=== PATIENT | male | born 1960 | race Caucasian/White ===

== ENCOUNTER 2019-07-21 08:47 | Outpatient (RCR) | payer MEDICARE, SELFPAY | END 2019-10-19 23:59 | disposition home or self-care (01) | LOC: ANHDMC 08:47 | PROVIDERS: PCP Internal Medicine; Visit Provider Internal Medicine | DX: E11.9 Type 2 diabetes mellitus without complications (principal); Z71.89 Other specified counseling | CPT/HCPCS: G0108 ==

== ENCOUNTER 2019-10-28 10:15 | Outpatient (CLI) | payer MEDICARE, SELFPAY ==
[2019-10-28 11:05] LABS: Alanine Aminotransferase 24 U/L (4-50); Albumin Level 3.9 g/dL (3.5-5.1); Alkaline Phosphatase 83 U/L (38-126); Aspartate Amino Transferase 27 U/L (17-59); Bilirubin,Total 0.5 mg/dL (0.2-1.3); Blood Urea Nitrogen 18 mg/dL (9-20); Calcium 9.4 mg/dL (8.4-10.2); Carbon Dioxide 33 mmol/L (22-30); Chloride 97 mmol/L (98-107); Cholesterol 78 mg/dL (0-200); Estimated Glomerular Filt Rate > 60; Glucose 170 mg/dL (75-110); HDL Direct 26 mg/dL; Sodium 138 mmol/L (137-145); Triglycerides 98 mg/dL (<150)
[2019-10-28 11:13] LABS: Hemoglobin A1C 7.9 % (<5.7)
[2019-10-28 11:16] LABS: LDL Cholesterol Direct 36 mg/dL
[2019-10-28 11:35] LABS: Thyroid Stimulating Hormone 0.824 uIU/mL (0.465-4.680)
== END 2019-10-28 10:16 | disposition home or self-care (01) ==
PROVIDERS: PCP Internal Medicine; Visit Provider Internal Medicine
DX: E78.5 Hyperlipidemia, unspecified (principal); E11.9 Type 2 diabetes mellitus without complications; I10 Essential (primary) hypertension; Z79.899 Other long term (current) drug therapy; E03.9 Hypothyroidism, unspecified
CPT/HCPCS: 36415; 80053; 80061; 83036; 84443

== ENCOUNTER 2019-12-03 11:21 | Outpatient (RCR) | payer MEDICARE, SELFPAY | END 2020-03-02 23:59 | disposition home or self-care (01) | LOC: ANHDMC 11:21 | PROVIDERS: PCP Internal Medicine; Visit Provider Internal Medicine | DX: E11.9 Type 2 diabetes mellitus without complications (principal); Z71.89 Other specified counseling | CPT/HCPCS: G0108 ==

== ENCOUNTER 2020-02-04 09:21 | Outpatient (CLI) | payer MEDICARE, SELFPAY ==
[2020-02-04 10:45] LABS: Hemoglobin A1C 8.5 % (<5.7)
== END 2020-02-04 09:22 | disposition home or self-care (01) ==
PROVIDERS: PCP Internal Medicine; Visit Provider Nurse Practitioner
DX: E11.9 Type 2 diabetes mellitus without complications (principal)
CPT/HCPCS: 36415; 83036

== ENCOUNTER 2020-05-05 09:52 | Outpatient (CLI) | payer MEDICARE, SELFPAY ==
[2020-05-05 10:55] LABS: Alanine Aminotransferase 24 U/L (4-50); Albumin Level 4.3 g/dL (3.5-5.1); Alkaline Phosphatase 78 U/L (38-126); Anion Gap 7 mmol/L (8-16); Aspartate Amino Transferase 31 U/L (17-59); Bilirubin,Total 0.7 mg/dL (0.2-1.3); Blood Urea Nitrogen 21 mg/dL (9-20); Calcium 9.7 mg/dL (8.4-10.2); Carbon Dioxide 33 mmol/L (22-30); Chloride 100 mmol/L (98-107); Cholesterol 88 mg/dL (0-200); Estimated Glomerular Filt Rate > 60; Glucose 192 mg/dL (75-110); HDL Direct 27 mg/dL; Potassium 4.2 mmol/L (3.4-5.0); Sodium 140 mmol/L (137-145); Triglycerides 144 mg/dL (<150)
[2020-05-05 11:01] LABS: Hemoglobin A1C 8.8 % (<5.7)
[2020-05-05 11:06] LABS: LDL Cholesterol Direct 41 mg/dL
[2020-05-05 11:15] LABS: Creatinine Urine 108.4 mg/dL
[2020-05-05 11:20] LABS: MALB Creatinine Ratio 16.6 mg/g (0-30)
[2020-05-05 13:15] LABS: Prostate Specific Antigen 1.5 ng/mL (< OR = 4.0)
== END 2020-05-05 09:53 | disposition home or self-care (01) ==
LOC: ANHLAB 09:57
PROVIDERS: PCP Internal Medicine; Visit Provider Nurse Practitioner
DX: Z12.5 Encounter for screening for malignant neoplasm of prostate (principal); E11.9 Type 2 diabetes mellitus without complications; E03.9 Hypothyroidism, unspecified; E78.5 Hyperlipidemia, unspecified
CPT/HCPCS: 36415; 80053; 80061; 82043; 83036; 84153; 84443; G0103

== ENCOUNTER 2020-09-08 08:02 | Outpatient (CLI) | payer MEDICARE, SELFPAY ==
[2020-09-08 08:51] LABS: Alanine Aminotransferase 21 U/L (4-50); Albumin Level 4.1 g/dL (3.5-5.1); Alkaline Phosphatase 69 U/L (38-126); Anion Gap 3 mmol/L (8-16); Aspartate Amino Transferase 24 U/L (17-59); Bilirubin,Total 0.5 mg/dL (0.2-1.3); Blood Urea Nitrogen 24 mg/dL (9-20); Calcium 9.5 mg/dL (8.4-10.2); Carbon Dioxide 35 mmol/L (22-30); Chloride 101 mmol/L (98-107); Cholesterol 89 mg/dL (0-200); Estimated Glomerular Filt Rate > 60; Glucose 194 mg/dL (75-110); HDL Direct 30 mg/dL; Potassium 4.2 mmol/L (3.4-5.0); Sodium 139 mmol/L (137-145); Triglycerides 121 mg/dL (<150)
[2020-09-08 08:55] LABS: Hemoglobin A1C 8.4 % (<5.7)
[2020-09-08 09:02] LABS: LDL Cholesterol Direct 36 mg/dL
== END 2020-09-08 08:03 | disposition home or self-care (01) ==
LOC: ANHLAB 08:07
PROVIDERS: PCP Internal Medicine; Visit Provider Internal Medicine
DX: E11.9 Type 2 diabetes mellitus without complications (principal); I10 Essential (primary) hypertension; E03.9 Hypothyroidism, unspecified; E78.5 Hyperlipidemia, unspecified
CPT/HCPCS: 36415; 80053; 80061; 83036; 84443

== ENCOUNTER 2021-01-18 09:22 | Outpatient (CLI) | payer MEDICARE, SELFPAY ==
[2021-01-18 10:20] LABS: Alanine Aminotransferase 22 U/L (4-50); Albumin Level 4.3 g/dL (3.5-5.1); Alkaline Phosphatase 86 U/L (38-126); Anion Gap 9 mmol/L (8-16); Aspartate Amino Transferase 30 U/L (17-59); Bilirubin,Total 0.7 mg/dL (0.2-1.3); Blood Urea Nitrogen 28 mg/dL (9-20); Carbon Dioxide 27 mmol/L (22-30); Chloride 102 mmol/L (98-107); Cholesterol 110 mg/dL (0-200); Estimated Glomerular Filt Rate > 60; Glucose 170 mg/dL (75-110); HDL Direct 36 mg/dL; Potassium 4.1 mmol/L (3.4-5.0); Sodium 138 mmol/L (137-145); Triglycerides 145 mg/dL (<150)
[2021-01-18 10:30] LABS: Hemoglobin A1C 8.4 % (<5.7)
[2021-01-18 10:31] LABS: LDL Cholesterol Direct 48 mg/dL
[2021-01-24 03:46] LABS: Fructosamine 286 umol/L (205-285)
== END 2021-01-18 09:23 | disposition home or self-care (01) ==
LOC: ANHLAB 09:26
PROVIDERS: PCP Internal Medicine; Visit Provider Internal Medicine
DX: E03.9 Hypothyroidism, unspecified (principal); I10 Essential (primary) hypertension; Z51.81 Encounter for therapeutic drug level monitoring; Z79.899 Other long term (current) drug therapy
CPT/HCPCS: 36415; 80053; 80061; 82985; 83036; 84443

== ENCOUNTER 2021-05-25 09:24 | Outpatient (CLI) | payer MEDICARE, SELFPAY ==
[2021-05-25 09:57] LABS: Alanine Aminotransferase 28 U/L (4-50); Albumin Level 4.3 g/dL (3.5-5.1); Alkaline Phosphatase 83 U/L (38-126); Anion Gap 9 mmol/L (8-16); Aspartate Amino Transferase 30 U/L (17-59); Bilirubin,Total 0.6 mg/dL (0.2-1.3); Blood Urea Nitrogen 23 mg/dL (9-20); Calcium 9.8 mg/dL (8.4-10.2); Carbon Dioxide 33 mmol/L (22-30); Chloride 98 mmol/L (98-107); Cholesterol 96 mg/dL (0-200); Estimated Glomerular Filt Rate > 60; Glucose 208 mg/dL (65-110); HDL Direct 28 mg/dL; Hemoglobin A1C 8.8 % (<5.7); Potassium 3.9 mmol/L (3.4-5.0); Sodium 140 mmol/L (137-145); Triglycerides 166 mg/dL (<150)
[2021-05-25 10:07] LABS: LDL Cholesterol Direct 46 mg/dL
[2021-05-25 10:12] LABS: Creatinine Urine 123.2 mg/dL
[2021-05-25 10:17] LABS: MALB Creatinine Ratio 57.9 mg/g (0-30); Microalbumin Urine Random 71.3 mg/L (0-16.7)
[2021-05-25 10:28] LABS: Prostate Specific Antigen 1.8 ng/mL (< OR = 4.0)
== END 2021-05-25 09:25 | disposition home or self-care (01) ==
PROVIDERS: PCP Internal Medicine; Visit Provider Nurse Practitioner
DX: E78.2 Mixed hyperlipidemia (principal); E11.9 Type 2 diabetes mellitus without complications; Z12.5 Encounter for screening for malignant neoplasm of prostate; E03.9 Hypothyroidism, unspecified
CPT/HCPCS: 36415; 80053; 80061; 82043; 83036; 84153; 84443; G0103

== ENCOUNTER 2021-09-27 10:13 | Outpatient (CLI) | payer MEDICARE, SELFPAY ==
[2021-09-27 10:44] LABS: Hemoglobin A1C 8.6 % (<5.7)
[2021-09-27 11:06] LABS: Alanine Aminotransferase 24 U/L (4-50); Albumin Level 4.2 g/dL (3.5-5.1); Alkaline Phosphatase 84 U/L (38-126); Anion Gap 6 mmol/L (8-16); Aspartate Amino Transferase 28 U/L (17-59); Bilirubin,Total 0.5 mg/dL (0.2-1.3); Blood Urea Nitrogen 26 mg/dL (9-20); Calcium 9.3 mg/dL (8.4-10.2); Carbon Dioxide 31 mmol/L (22-30); Chloride 101 mmol/L (98-107); Cholesterol 92 mg/dL (0-200); Estimated Glomerular Filt Rate > 60; Glucose 179 mg/dL (65-110); HDL Direct 27 mg/dL; Potassium 3.9 mmol/L (3.4-5.0); Sodium 138 mmol/L (137-145); Triglycerides 155 mg/dL (<150)
[2021-09-27 11:17] LABS: LDL Cholesterol Direct 43 mg/dL
== END 2021-09-27 10:14 | disposition home or self-care (01) ==
LOC: ANHLAB 10:17
PROVIDERS: PCP Internal Medicine; Visit Provider Nurse Practitioner
DX: E11.9 Type 2 diabetes mellitus without complications (principal); E78.5 Hyperlipidemia, unspecified
CPT/HCPCS: 36415; 80053; 80061; 83036

== ENCOUNTER 2022-09-01 17:08 | Emergency (ER) | payer MEDICARE, SELFPAY ==
[2022-09-01 17:11] VITALS: BP 178/92; PULSE 92; RESP 20; TEMP 36.4; O2SAT 99
--- NOTE | 2022-09-01 17:17 | ED.GENADULT ---
HPI - General Adult General Chief complaint: Unspecified Stated complaint: htn Time Seen by Provider: 09/01/22 17:17 Source: patient and old records reviewed Mode of arrival: ambulatory Limitations: no limitations History of Present Illness HPI narrative: Patient is a 61 y/o male who presents to the ED with c/o HTN. Patient has long Hx of HTN and takes Hydrochlorothiazide 12.5mg daily, metoprolol 25mg bid, and losartan 100mg daily. He states he did not previously routinely check his blood pressure. He saw his primary care doctor last week which point his blood pressure was noted to be in the 150s and 160s systolic. He was advised to check his blood pressures at home, keep recording of his numbers, and report back in 3 weeks. Patient reports he has been checking his blood pressure 3 times a week. He states his pressures have been elevated persistently in the 160s and 170s systolic. Tonight when he got home from work, he noted his BP to be in the 180s systolic, which prompted his presentation. He did not attempt to contact his primary care doctor. Patient reports occasional headaches, but denies any currently. Denies dizziness, lightheadedness, vision changes, chest pain, difficulty breathing, fatigue, numbness, nausea, vomiting. Related Data Home Medications Medication Instructions Recorded Confirmed aspirin 81 mg tablet,delayed 81 mg PO DAILY 07/07/19 08/24/22 release (Adult Aspirin Regimen) ezetimibe 10 mg tablet 10 mg PO DAILY 07/07/19 08/24/22 sildenafil (pulm.hypertension) 20 20 mg PO TID PRN 01/24/21 08/24/22 mg tablet dapagliflozin 10 mg tablet 10 mg PO DAILY 08/24/22 08/24/22 Allergies Allergy/AdvReac Type Severity Reaction Status Date / Time inositol Allergy Unknown Unknown Verified 08/24/22 12:22 lisinopril Allergy Unknown Cough Verified 08/24/22 12:22 niacin Allergy Unknown Unknown Verified 08/24/22 12:22 niacinamide Allergy Unknown Unknown Verified 08/24/22 12:22 Review of Systems Review of Systems: CONSTITUTIONAL: Denies fever, chills, or sweats. EYES: Denies visual changes. CARDIOVASCULAR: Denies chest pain, palpitations, or edema. RESPIRATORY: Denies dyspnea. GASTROINTESTINAL: Denies abdominal pain, nausea, vomiting, or diarrhea. NEUROLOGIC: See HPI. All systems reviewed & are unremarkable except as noted in HPI and below [facility] Past Medical History Medical History CAD (coronary artery disease) Cataracts, bilateral Diabetes mellitus Diverticulitis DJD of shoulder Eczema Foot fracture GERD (gastroesophageal reflux disease) History of angina HLD (hyperlipidemia) HTN (hypertension) Hypothyroid Myocardial infarction Seasonal allergies Surgical History Surgical History H/O cystoscopy History of bowel resection History of colonoscopy History of exploratory laparotomy History of total left knee replacement History of total right knee replacement Hx of CABG Family History Family History Father Family history of diabetes mellitus in first degree relative Family history of pancreatic cancer Mother Family history of diabetes mellitus in first degree relative Family history of heart disease in male family member before age 55 Sibling Family history of lung cancer Other Asthma Diabetes mellitus Family history of arthritis Family history of malignant neoplasm Family history of malignant neoplasm of brain Hypertension Social History Social History Smoking packs per day: 1 Smoking cigarettes per day: 20.0 Years smoked: 40 Smoking pack-years: 40.00 Smoking status: Former smoker Tobacco type: cigarettes Second hand tobacco smoke exposure: No Smoking end date: 07/29/12 Alcohol intake: never Substance use: never Substance
[2022-09-01 18:21] VITALS: BP 171/100; PULSE 89; RESP 17; O2SAT 100
--- NOTE | 2022-09-01 18:22 | PC.NURSE ---
Repeat VS taken and documented. Provider states she is waiting return call from patient's physician. Pt asymptomatic with HTN.
[2022-09-01 18:47] VITALS: BP 173/100; PULSE 92; RESP 14; O2SAT 96
== END 2022-09-01 18:49 | disposition home or self-care (01) ==
PROVIDERS: Emergency Provider Physician Assistant; PCP Internal Medicine
DX: I10 Essential (primary) hypertension (principal); I25.10 Atherosclerotic heart disease of native coronary artery without angina pectoris; E11.9 Type 2 diabetes mellitus without complications; E78.5 Hyperlipidemia, unspecified; I25.2 Old myocardial infarction; Z87.891 Personal history of nicotine dependence
CPT/HCPCS: 99281

== ENCOUNTER 2024-07-26 00:08 | Emergency (ER) | payer MEDICARE, SELFPAY ==
[2024-07-26 00:18] VITALS: BP 161/84; PULSE 89; RESP 18; TEMP 35.6; O2SAT 100
[2024-07-26 01:08] VITALS: BP 141/84; PULSE 87; RESP 16; O2SAT 98
--- NOTE | 2024-07-26 01:26 | ED_ITS ---
HPI - Back Pain/Injury General Chief Complaint: Back Pain/Injury <Marquise Marina PA-C - Last Filed: 07/26/24 02:13> Stated Complaint: back pain <JESSE Fish Last Filed: 07/26/24 02:13> Time Seen by Provider: 07/26/24 01:21 <JESSE Fish Last Filed: 07/26/24 02:13> Source: patient <JESSE Fish Last Filed: 07/26/24 02:13> Mode of arrival: ambulatory <JESSE Fish Last Filed: 07/26/24 02:13> Limitations: no limitations <JESSE Fish Last Filed: 07/26/24 02:13> History of Present Illness HPI Narrative: This is a 63-year-old male who presents to the ED for chief complaint of right lower back pain intermittent over the past 2 weeks. Denies any injury. States it comes and goes when he is in certain positions but no one specific position. Describes it is a sharp pain/spasm pain. States that he has not had pain like this in the past. Denies nausea, vomiting, abdominal pain, flank pain, urinary symptoms, fevers, chills, numbness, weakness, bowel or bladder dysfunction. <Marquise Marina PA-C - Last Filed: 07/26/24 02:13> Related Data Home Medications: Home Medications ?Medication ?Instructions ?Recorded ?Confirmed ?Last Taken ?Type aspirin 81 mg tablet,delayed 81 mg PO DAILY 07/07/19 03/19/24 Unknown History release (Adult Aspirin Regimen) dapagliflozin propanediol 10 mg 10 mg PO DAILY 08/24/22 03/19/24 Unknown History tablet omeprazole 20 mg capsule,delayed 20 mg PO .QOD 03/07/23 03/19/24 Unknown History release <JESSE Fish Last Filed: 07/26/24 02:13> Allergies/Adverse Reactions: Allergies Allergy/AdvReac Type Severity Reaction Status Date / Time inositol Allergy Unknown Unknown Verified 03/19/24 07:42 lisinopril Allergy Unknown Cough Verified 03/19/24 07:42 niacin Allergy Unknown Unknown Verified 03/19/24 07:42 niacinamide Allergy Unknown Unknown Verified 03/19/24 07:42 <Marquise Marina PA-C - Last Filed: 07/26/24 02:13> Review of Systems Review of Systems: All systems as dictated in HPI <JESSE Fish Last Filed: 07/26/24 02:13> [facility] Past Medical History Medical History: Medical History Acquired flexible flat foot of left lower extremity Arthritis of foot, degenerative CAD (coronary artery disease) Cataracts, bilateral Diabetes mellitus Diverticulitis DJD of shoulder Eczema Foot fracture GERD (gastroesophageal reflux disease) History of angina HLD (hyperlipidemia) HTN (hypertension) Hypothyroid Myocardial infarction Rotator cuff arthropathy of left shoulder Seasonal allergies <Marquise Marina PA-C - Last Filed: 07/26/24 02:13> Surgical History Surgical History: Surgical History H/O cystoscopy History of bowel resection History of colonoscopy History of exploratory laparotomy History of total left knee replacement History of total right knee replacement Hx of CABG <Marquise Marina PA-C - Last Filed: 07/26/24 02:13> Family History Family History: Family History Father Family history of diabetes mellitus in first degree relative Family history of pancreatic cancer Mother Family history of diabetes mellitus in first degree relative Family history of heart disease in male family member before age 55 Sibling Family history of lung cancer Other Asthma Diabetes mellitus Family history of arthritis Family history of malignant neoplasm Family history of malignant neoplasm of brain Hypertension <JESSE Fish Last Filed: 07/26/24 02:13> Social History Social History: Social History Smoking packs per day: 1 Smoking cigarettes per day: 20.0 Years smoked: 40 Smoking pack-years: 40.00 Smoking status: Former smoker Tobacco type: cigarettes Second hand tobacco smoke exposure: No Smoking end date: 07/29/12 Alcohol intake: never Substance use: never Substance use type: does not use Lack of Transportation: No Lack of Food: Never True Current Housing: I Have Housing Concerned About Future Housing: No Difficulty Paying Gas/Electric Bills: No Difficulty Paying for Meds: No Currently Unemployed: No Education: High School Diploma/GED Difficulty w/ Childcare or Family Care: No <Marquise Marina PA-C - Last Filed: 07/26/24 02:13> Exam Narrative: GENERAL: Well-appearing, well-nourished, and in no acute distress. HEAD: Normocephalic, atraumatic. EYES: PERRLA and EOMI. ENT: Nares clear, no rhinorrhea or epistaxis. Mucous membranes moist. Oropharynx without tonsillar hypertrophy exudate or other lesions. NECK: Supple. No adenopathy or masses. CHEST: No respiratory distress. Clear to auscultation. No wheezes rales or rhonchi HEART: Regular rate and rhythm. No murmur heard. Normal peripheral pulses. ABDOMEN: Soft, nontender, nondistended, normal active bowel sounds. Negative flank tenderness bilaterally MSK: Normal range of motion. No edema. Mild right paraspinal lumbar tenderness. No midline spinal tenderness. 5/5 strength and sensation in the upper and lower extremities. SKIN: Warm, dry, no rash. NEURO: Alert and oriented x4. No focal deficits. PSYCH: Normal mood and affect. <Marquise Marina PA-C - Last Filed: 07/26/24 02:13> Course MEDICAL ACCOUNTS RECEIVABLE SPECIALIST/PA Physician Supervision For this patient encounter, I reviewed the MEDICAL ACCOUNTS RECEIVABLE SPECIALIST or PA documentation, treatment plan, and medical decision making; and I had [id number] time with this patient. <Jake Manley MD - Last Filed: 07/26/24 02:44> Vital Signs Vital signs: Vital Signs Temperature 35.6 C L 07/26/24 00:18 Pulse Rate 89 07/26/24 00:18 Respiratory Rate 18 07/26/24 00:18 Blood Pressure 161/84 H 07/26/24 00:18 Pulse Oximetry 100 07/26/24 00:18 Oxygen Delivery Room Air 07/26/24 00:18 Temperature 35.6 C L 07/26/24 00:18 Pulse Rate 87 07/26/24 01:08 Respiratory Rate 16 07/26/24 01:08 Blood Pressure 141/84 H 07/26/24 01:08 Pulse Oximetry 98 07/26/24 01:08 Oxygen Delivery Room Air 07/26/24 00:18 <Marquise Marina PA-C - Last Filed: 07/26/24 02:13> Vital Signs Temperature 35.6 C L 07/26/24 00:18 Pulse Rate 89 07/26/24 00:18 Respiratory Rate 18 07/26/24 00:18 Blood Pressure 161/84 H 07/26/24 00:18 Pulse Oximetry 100 07/26/24 00:18 Oxygen Delivery Room Air 07/26/24 00:18 Temperature 35.6 C L 07/26/24 00:18 Pulse Rate 87 07/26/24 01:08 Respiratory Rate 16 07/26/24 01:08 Blood Pressure 141/84 H 07/26/24 01:08 Pulse Oximetry 98 07/26/24 01:08 Oxygen Delivery Room Air 07/26/24 00:18 <Jake Manley MD - Last Filed: 07/26/24 02:44> MDM - Back Pain/Injury MDM Narrative Medical decision making narrative: 63-year-old male presenting for right lower back pain. Vitals are normal. Exam shows right paraspinal lumbar tenderness but no flank tenderness. Does not appear to be in renal colic. Pain is reproduced in certain positions on exam. No red flag signs for back pain to indicate cauda equina or infection. Patient was given Valium, Tylenol, ibuprofen, Lidoderm patch for back spasm. Pt will be discharged in stable condition. Return precautions given and supportive measures discussed. Pt is understanding and agreeable with plan for discharge and follow-up with PCP. <Marquise Marina PA-C - Last Filed: 07/26/24 02:13> Lab Data Labs: Lab Results 07/26/24 Range/Units 02:31 Urine Color Yellow (Yellow) Urine Appearance Clear (Clear) Urine pH 6.0 (5.0-9.0) Ur Specific [place] 1.015 (1.001-1.035) Urine Protein Negative (Negative) mg/dL Urine Glucose (UA) Negative (Negative) mg/dL Urine Ketones Negative (Negative) mg/dL Ur Blood (Man) Negative (Negative) Urine Nitrate Negative (Negative) Urine Bilirubin Negative (Negative) Urine Urobilinogen 0.2 (<2.0) mg/dL Leukocyte Esterase Rfl Negative (Negative) JULIANA/UL <Marquise Marina PA-C - Last Filed: 07/26/24 02:13> Lab Results 07/26/24 Range/Units 02:31 Urine Color Yellow (Yellow) Urine Appearance Clear (Clear) Urine pH 6.0 (5.0-9.0) Ur Specific [place] 1.015 (1.001-1.035) Urine Protein Negative (Negative) mg/dL Urine Glucose (UA) Negative (Negative) mg/dL Urine Ketones Negative (Negative) mg/dL Ur Blood (Man) Negative (Negative) Urine Nitrate Negative (Negative) Urine Bilirubin Negative (Negative) Urine Urobilinogen 0.2 (<2.0) mg/dL Leukocyte Esterase Rfl Negative (Negative) JULIANA/UL <Jake Manley MD - Last Filed: 07/26/24 02:44> Discharge Plan Discharge Clinical Impression: Back muscle spasm <Marquise Marina PA-C - Last Filed: 07/26/24 02:13> Patient Disposition: Home, Self-Care <Marquise Marina PA-C - Last Filed: 07/26/24 02:13> Condition: Stable <Marquise Marina PA-C - Last Filed: 07/26/24 02:13> Instructions: Antibiotic Form <Marquise Marina PA-C - Last Filed: 07/26/24 02:13> Additional Instructions: Your evaluated in the ER for back pain today. Pain seems consistent with musculoskeletal strain/spasm. Please take cyclobenzaprine as needed for spasms. Use regular Tylenol and Motrin for pain control. Do not take tramadol with cyclobenzaprine. If you have any new or worsening symptoms please return to the ER for further evaluation. <Marquise Marina PA-C - Last Filed: 07/26/24 02:13> Patient Language: Icelandic <Marquise Marina PA-C - Last Filed: 07/26/24 02:13> Prescriptions: New cyclobenzaprine 5 mg tablet 5 mg PO BID PRN (Reason: muscle spasm) 14 Days Qty: 14 0RF No Action Anoro Ellipta 62.5-25 mcg/actuation blister with device 1 inh INHALATION Q24H Qty: 2 0RF dapagliflozin propanediol 10 mg tablet 10 mg PO DAILY omeprazole 20 mg capsule,delayed release(DR/EC) 20 mg PO .QOD aspirin [Adult Aspirin Regimen] 81 mg tablet,delayed release (DR/EC) 81 mg PO DAILY (DME) pen needle, diabetic [ReliOn Pen [place]] 32 gauge x 5/32 needle See Rx Instructions .ROUTE .MEDSUPPLY Qty: 100 1RF Rx Instructions: Use to inject insulin once daily (DME) blood-glucose meter [Accu-Chek Guide Glucose Meter] Misc See Rx Instructions .Route Qty: 1 0RF Rx Instructions: As directed triamcinolone acetonide 0.5 % cream 1 applic TOPICAL BID PRN (Reason: exzema) Qty: 15 1RF tramadol 50 mg tablet 50 mg PO Q8H PRN (Reason: pain) Qty: 30 0RF (DME) blood-glucose meter [Accu-Chek Guide Glucose Meter] Misc See Rx Instructions .Route Qty: 1 0RF Rx Instructions: As directed insulin glargine U-300 conc [Toujeo SoloStar U-300 Insulin] 300 unit/mL (1.5 mL) insulin pen See Rx Instructions .ROUTE .COMPLEX Qty: 13.5 2RF Dose Instruction: INJECT 12 UNITS SUBCUTANEOUSLY IN THE MORNING AND 24 UNITS SUBCUTANEOUSLY IN THE EVENING Rx Instructions: INJECT 12 UNITS SUBCUTANEOUSLY IN THE MORNING AND 24 UNITS SUBCUTANEOUSLY IN THE EVENING albuterol sulfate [Proventil HFA] 90 mcg/actuation HFA aerosol inhaler 2 puff INHALATION Q4H PRN (Reason: shortness of breath or wheezing) Qty: 25.5 4RF Ozempic 2 mg/dose (8 mg/3 mL) pen injector 2 mg subcut WEEKLY Qty: 3 5RF sildenafil (pulm.hypertension) 20 mg tablet See Rx Instructions .ROUTE .COMPLEX PRN (Reason: sexual activity) Qty: 30 4RF Rx Instructions: PRN; Take 2-5 tablets daily as needed 45-60 minutes prior to sexual activity losartan 100 mg tablet 100 mg PO DAILY Qty: 100 1RF trazodone 50 mg tablet See Rx Instructions PO .COMPLEX Qty: 180 1RF Rx Instructions: take 1-2 tablets po at bedtime for sleep; levothyroxine 125 mcg tablet See Rx Instructions .ROUTE .COMPLEX Qty: 100 1RF Dose Instruction: TAKE 1 TABLET BY MOUTH DAILY Rx Instructions: TAKE 1 TABLET BY MOUTH DAILY (DME) lancets [Accu-Chek Softclix Lancets] [facility] [place] See Rx Instructions .ROUTE .COMPLEX Qty: 100 6RF Dose Instruction: USE 1 TO CHECK GLUCOSE TWICE DAILY Rx Instructions: USE 1 TO CHECK GLUCOSE TWICE DAILY metoprolol tartrate 25 mg tablet 25 mg PO BID Qty: 180 3RF amlodipine 10 mg tablet See Rx Instructions .ROUTE .COMPLEX Qty: 100 2RF Dose Instruction: TAKE 1 TABLET BY MOUTH DAILY Rx Instructions: TAKE 1 TABLET BY MOUTH DAILY atorvastatin 40 mg tablet 80 mg PO DAILY Qty: 90 1RF metformin 1,000 mg tablet See Rx Instructions .ROUTE .COMPLEX Qty: 200 2RF Dose Instruction: TAKE 1 TABLET BY MOUTH TWICE DAILY Rx Instructions: TAKE 1 TABLET BY MOUTH TWICE DAILY hydrochlorothiazide 12.5 mg capsule See Rx Instructions .ROUTE .COMPLEX Qty: 180 1RF Dose Instruction: TAKE 2 CAPSULES BY MOUTH DAILY Rx Instructions: TAKE 2 CAPSULES BY MOUTH DAILY Paxlovid 300 mg (150 mg x 2)-100 mg tablets,dose pack See Rx Instructions PO .COMPLEX Qty: 30 0RF Rx Instructions: take TWO 150 mg tablets of nirmatrelvir with ONE 100 mg tablet of ritonavir twice daily for 5 days PO Hold Atorvastatin and reduce Trazodone dose by one half. ezetimibe 10 mg tablet See Rx Instructions .ROUTE .COMPLEX Qty: 100 2RF Dose Instruction: TAKE 1 TABLET BY MOUTH DAILY Rx Instructions: TAKE 1 TABLET BY MOUTH DAILY glimepiride 2 mg tablet See Rx Instructions .ROUTE .COMPLEX Qty: 100 2RF Dose Instruction: TAKE 1 TABLET BY MOUTH EVERY MORNING WITH BREAKFAST Rx Instructions: TAKE 1 TABLET BY MOUTH EVERY MORNING WITH BREAKFAST (DME) Accu-Chek Guide test strips Strip See Rx Instructions .ROUTE .COMPLEX Qty: 100 0RF Dose Instruction: USE 1 STRIP TO CHECK GLUCOSE TWICE DAILY Rx Instructions: USE 1 STRIP TO CHECK GLUCOSE TWICE DAILY <Marquise Marina PA-C - Last Filed: 07/26/24 02:13> Follow-up/Referrals: Tristan Calvillo APRN [Primary Care Provider] - <Marquise Marina PA-C - Last Filed: 07/26/24 02:13> Time of Disposition: 02:41 <Marquise Marina PA-C - Last Filed: 07/26/24 02:13> 02:41 <Jake Manley MD - Last Filed: 07/26/24 02:44> Sign Out Sign Out Data: Patient Sign Out occurred on 07/26/24 at 02:16. Patient's care was discussed, and care was transferred from Marquise Marina PA-C to Jake Manley MD. <Marquise Marina PA-C - Last Filed: 07/26/24 02:13>
[2024-07-26] MEDS: IBUPROFEN 600 MG TABLET PO (02:05)
[2024-07-26] MEDS: ACETAMINOPHEN 500 MG TABLET 1000 MG PO (02:05)
[2024-07-26] MEDS: diazePAM INJ (*CRX) 10 MG/2 ML SYRINGE 5 MG IM (02:07)
[2024-07-26] MEDS: LIDOCAINE 5% PATCH 1 PATCH TRANSDERM (02:08)
[2024-07-26 02:37] LABS: Add Urine Microscopic? NO; Appearance Urine Clear (Clear); Bilirubin Urine Negative (Negative); Blood Urine Negative (Negative); Color Urine Yellow (Yellow); Glucose Urine UA Negative (Negative); Ketones Urine Negative (Negative); Leukocyte Esterase Ur Negative LEU/UL (Negative); Nitrate Urine Negative (Negative); Protein Urine Negative (Negative); Specific Grav Ur 1.015 (1.001-1.035); Urobilinogen Urine 0.2 mg/dL (<2.0)
--- OUTSIDE RECORDS SUMMARY | 2024-08-02 01:06 | XMS_ITS | Clinical Summary ---
Author Organization [facility] [address] Address [address] [place] [address] Care Team Providers Care Oyster Opener Name Role Phone Carlos Rushing MD Primary Care Provider [phone] Allergies No known active allergies Medications multivitamin (MULTI-DAY) tablet tablet take 1 tablet by oral route every day with food 0 0 3 Active omeprazole (PriLOSEC) 20 mg capsule take 1 capsule by oral route every day before a meal 0 0 3 Active losartan (COZAAR) 100 mg tablet take 1 tablet by oral route every day 0 0 5 Active traZODone (DESYREL) 100 mg tablet take 0.5 Tablet by oral route every day at bedtime 0 0 5 Active metFORMIN (GLUCOPHAGE) 1,000 mg tablet take 1 tablet by oral route 2 times every day with morning and evening meals 0 0 6 Active hydroCHLOROthia zide (HYDRODIURIL) 12.5 mg tablet TAKE 2 TABLETS BY MOUTH DAILY 180 tablet 9 Active levothyroxine (SYNTHROID) 125 mcg tablet Take 1 tablet (125 mcg total) by mouth repairer maintenance building before breakfast Active insulin glargine (TOUJEO) 300 unit/mL (1.5 mL) pen for injection Inject under the skin Active dapagliflozin (FARXIGA) 10 mg tablet 2 Active metoprolol XL (TOPROL-XL) 50 mg extended release tablet TAKE 1 TABLET BY MOUTH DAILY 90 tablet 3 Active amLODIPine (NORVASC) 10 mg tablet Take 1 tablet (10 mg total) by mouth daily 30 tablet 11 3 Active icosapent ethyL (VASCEPA) 1 gram capsule Take 2 capsules (2 g total) by mouth 2 (two) times a day 120 capsule 11 3 Active semaglutide (Ozempic) 0.25 mg or 0.5 mg (2 mg/3 mL) pen injector injection Inject 0.5 mg under the skin every 7 days Active celecoxib (CeleBREX) 200 mg capsule TAKE 1 CAPSULE BY MOUTH TWICE DAILY NEEDED FOR PAIN 3 Active aspirin 81 mg enteric coated tablet Take 1 tablet (81 mg total) by mouth daily 30 tablet 11 3 Active ezetimibe (ZETIA) 10 mg tablet TAKE 1 TABLET BY MOUTH DAILY 90 tablet 4 Active atorvastatin (LIPITOR) 80 mg tablet Take 1 tablet by mouth once daily 90 tablet 4 Active Active Problems No known active problems Surgical History Surgery Date Site/Laterality Comments KNEE ARTHROSCOPY W/ LATERAL RELEASE COLON SURGERY CORONARY ARTERY BYPASS GRAFT JOINT REPLACEMENT Medical History Medical History Date Comments Hx Other Medical shoulder proble ms. Hx Other Medical Knee problems. Hypothyroidism Hypothyroidism Chronic coronary artery disease Coronary artery disease Myocardial infarction (HCC) Myoc ardial infarction GERD (gastroesophageal reflux disease) 2008 Arthritis 2005 Diabetes mellitus (HCC) 2014 Heart disease 2013 Hypertension 2000 Family History Medical History Relation Name Comments Diabetes Father Cliff Hoover Other Father Cliff Hoover Pancreatic Can cer; Cause of : Pancreatic Cancer/Pancreatic Cancer; Cause of : Pancreatic Cancer Coronary artery disease Mother Amy Hoover Co ronary Artery Bypass Graft; Diabetes Mother Amy Hoover Heart disease Mother Amy Hoover Cancer Sister Oksana Patterson Relation Name Status Comments Father Cliff Hoover (Age 67) Mother Amy Hoover Alive Sister Oksana Patterson Social History Tobacco Use Types Packs/Day Years Used Date Smoking Tobacco: Former Smokeless Tobacco: Never Tobacco Cessation:Counseling Given: Not Answered Alcohol Use Standard Drinks/Week Comments No 0 (1 standard drink = 0.6 oz pur e alcohol) Sex and Gender Information Value Date Recorded Sex Assigned at Not on file 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 Gender Identity Not on file Sexual Orientation Not on file Obstetrics History Last Filed Vital Signs Vital Sign Reading Time Taken Comments Blood Pressure 118/86 03/27/2023 10:40 AM CDT Pulse 86 03/27/2023 10:40 AM CDT Temperature - - Respiratory Rate - - Oxygen Saturation 94% 03/27/2023 10:40 AM CDT Inhaled Oxygen Concentration - - Weight 115.7 kg (255 lb) 03/27/2023 10:40 AM CDT Height 185.4 cm (6' 1 ) 03/27/2023 10:40 AM CDT Body Mass Index 33.64 03/27/2023 10:40 AM CDT Plan of Treatment Health Maintenance Due Date Last Done Comments Colon Cancer Screening-Colonoscopy 1958 Depression Screening 1958 Fall Risk Assessment 1958 Prostate Cancer Screening-PSA 1958 DTaP/Tdap/Td Vaccine (1 - Tdap) 1969 Hepatitis B Screening 1976 Zoster Vaccine (2 of 2) 07/07/2020 05/12/2020 Abdominal Aortic Aneurysm (AAA) Screen 12/08/2023 Pneumococcal vaccine 65+ (2 of 2 - PCV) 12/08/2023 1 Well Visit 65+ 12/08/2023 Influenza Vaccine (#1) 2024 05/12/2020 Hepatitis C Screening Completed 01/21/2013 Procedures Procedure Name Priority Date/Time Associated Diagnosis Comments SERUM HEPATITIS C AB Routine 01/21/2013 12:44 PM CDT from Last 3 Months or Most Recently Relevant to Health Maintenance Results * Serum Hepatitis C ab (01/21/2013 12:44 PM CDT) HCV ab Negative Negative HISTORICAL RESULTS Serum 01/21/2013 12:4 4 PM CDT us Historical Provider LAB BLOOD ORDERABLES [facility]ar pride Result HISTORICAL RESULTS from Last 3 Months or Most Recently Relevant to Health Maintenance Insurance MEDICARE SOLUTIONS Care Teams Oyster Opener Relationship Specialty Start Date End Date Carlos Rushing MD PCP - General Family Practice 01/10/23
--- OUTSIDE RECORDS SUMMARY | 2024-08-02 01:06 | XMS_ITS | Encounter Summary ---
Author Organization [facility] Address [address] [place] [address] Care Team Providers Care Bar And Filler Assembler Name Role Phone Erik Morris MD Primary Care Provider [phone] [phone] Reason for Visit * Reason Comments Hypertension Coronary Artery Disease Follow up after abnormal stress test. Encounter Details Date Type Department Care Team (Late st Contact Info) Description 01/02/2023 2:30 PM CDT Office Visit [facility] Cardiology [address] [place] [address] Kt Hemphill MD [address] [place] [id number] Coronary artery disease involving [place] coronary artery of [place] heart without angina pectoris (Primary Dx); S/P CABG x 3; Hypertension associated with diabetes (HCC); Mixed dyslipidemia Social History Tobacco Use Types Packs/Day Years Used Date Smoking Tobacco: Former Smokeless Tobacco: Never Tobacco Cessation:Counseling Given: Not Answered Alcohol Use Standard Drinks/Week Comments No 0 (1 standard drink = 0.6 oz pur e alcohol) Sex and Gender Information Value Date Recorded Sex Assigned at Not on file 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 Gender Identity Not on file Sexual Orientation Not on file documented as of this encounter Last Filed Vital Signs Vital Sign Reading Time Taken Comments Blood Pressure 122/80 01/02/2023 2:35 PM CDT Pulse 87 01/02/2023 2:35 PM CDT Temperature - - Respiratory Rate - - Oxygen Saturation 95% 01/02/2023 2:35 PM CDT Inhaled Oxygen Concentration - - Weight 114.8 kg (253 lb) 01/02/2023 2:35 PM CDT Height 185.4 cm (6' 1 ) 01/02/2023 2:35 PM CDT Body Mass Index 33.38 01/02/2023 2:35 PM CDT documented in this encounter Ordered Prescriptions Prescription Sig Dispense Quantity Refills Last Filled Start Date End Date icosapent ethyL (VASCEPA) 1 gram capsule Take 2 capsules (2 g total) by mouth 2 (two) times a day 120 capsule 11 01/02/2023 documented in this encounter Progress Notes * Kt Hemphill MD - 01/02/2023 2:30 PM CDT [facility] FOLLOW UP 01/02/2023 Chief Complaint Patient presents with ??? Hypertension ??? Coronary Artery Disease Follow up after abnormal stress test. Kristopher Hoover is a 62 y.o. male year-old male with CAD, history of CABG ??3, hypertension, diabetes mellitus, DJD. He is former patient of Dr. Rojas. Patient was admitted to [facility] on 01/16/13 with chest pain and was found to have non-ST elevation AL. Cath showed multivessel coronary disease. He was transferred to [facility] and had CABG ??3 on 01/18/13. 06/11/2018-Patient is here for the routine follow-up visit. Patient states that he has been doing well since last office visit. He is physically active and denies any dyspnea on exertion or angina. Denies palpitations, dizziness or loss of consciousness. Reports compliance with current medical regimen including antiplatelet therapy with clopidogrel. Denies any bleeding complications. Patient saysthat home blood pressures are usually in the 130s over 70s. 06/17/2019-patient is here for the routine follow-up visit. He has been doing well from cardiac standpoint. He denies any angina, shortness of breath, palpitation, dizziness or syncope. He reports compliance with current medical regimen. 08/10/2020-on the follow-up visit today, patient states that he has been doing well from cardiac standpoint. He exercises on a stationary bike for 30 minutes every day. He denies any cardiovascular symptoms including chest pain, shortness of breath, palpitation, dizziness or syncope. He reports compliance with current medical regimen. 11/21/2022-patient is here for the follow-up visit. He denies any major cardiovascular symptoms at present including chest pain or shortness of breath. His activity is somewhat limited due to knee discomfort. He states that his blood pressure was recently elevated, and amlodipine was added to the regimen. He states that his home blood pressure has lately been 120s over 70s. He reports compliance with current medical regimen. 01/02/2023-patient is here for the follow-up visit accompanied by his . He recently had MPI which was positive for ischemia. Echo is pending. He denies any cardiovascular symptoms at present including chest pain or shortness of breath for his level activity. No palpitation, dizziness or syncope. He reports compliance with current medical regimen. REVIEW OF SYSTEMS General ROS: negative for - Fever, chills, fatigue Psychological ROS: negative for - anxiety, depression Ophthalmic ROS: negative for - blurry vision, loss of vision ENT ROS: negative for - sore throat, epistaxis, headaches, nasal congestion Allergy and Immunology ROS: negative for - hives, postnasal drip or seasonal allergies Hematological and Lymphatic ROS: negative for - bleeding problems, bruising Respiratory ROS: negative for - cough, hemoptysis, wheezing Cardiovascular ROS: negative for - chest pain, dyspnea Gastrointestinal ROS: negative for - abdominal pain Endocrine ROS: negative for - hot flashes, polydipsia/polyuria Musculoskeletal ROS: Joint pain Neurological ROS: negative for - gait disturbance, weakness Dermatological ROS: negative for pruritus, rash HOME MEDICATIONS No Known Allergies Current Outpatient Medications Medication Sig Dispense Refill ??? amLODIPine (NORVASC) 10 mg tablet Take 1 tablet (10 mg total) by mouth daily 30 tablet 11 ??? atorvastatin (LIPITOR) 80 mg tablet take 1 tablet by oral route every day 0 0 ??? dapagliflozin (FARXIGA) 10 mg tablet ??? ezetimibe (ZETIA) 10 mg tablet TAKE 1 TABLET BY MOUTH DAILY 100 tablet 2 ??? hydroCHLOROthiazide (HYDRODIURIL) 12.5 mg tablet TAKE 2 TABLETS BY MOUTH DAILY 180 tablet 0 ??? insulin glargine (TOUJEO) 300 unit/mL (1.5 mL) pen for injection Inject under the skin ??? levothyroxine (SYNTHROID) 125 mcg tablet Take 1 tablet (125 mcg total) by mouth grocery department manager before breakfast ??? losartan (COZAAR) 100 mg tablet take 1 tablet by oral route every day 0 0 ??? metFORMIN (GLUCOPHAGE) 1,000 mg tablet take 1 tablet by oral route 2 times every day with morning and evening meals 0 0 ??? metoprolol XL (TOPROL-XL) 50 mg extended release tablet TAKE 1 TABLET BY MOUTH DAILY 90 tablet 0 ??? multivitamin (MULTI-DAY) tablet tablet take 1 tablet by oral route every day with food 0 0 ??? omeprazole (PriLOSEC) 20 mg capsule take 1 capsule by oral route every day before a meal 0 0 ??? SAW PALMETTO ORAL Take by mouth ??? traZODone (DESYREL) 100 mg tablet take 0.5 Tablet by oral route every day at bedtime 0 0 ??? aspirin 81 mg enteric coated tablet Take 1 tablet (81 mg total) by mouth daily 30 tablet 11 ??? icosapent ethyL (VASCEPA) 1 gram capsule Take 2 capsules (2 g total) by mouth 2 (two) times a day 120 capsule 11 No current facility-administered medications for this visit. LABS AND OTHER DIAGNOSTIC TESTS Lab Results Component Value Date HGB 9.5 (L) 02/05/2013 HCT 31.4 (L) 02/05/2013 MCV 95.7 02/05/2013 No lab exists for component: LABALBU Lab Results Component Value Date HGB 9.5 (L) 02/05/2013 HCT 31.4 (L) 02/05/2013 MCV 95.7 02/05/2013 No results found for: CHOL No results found for: HDL No results found for: LDL] No results found for: TRIG CV SURGERY: CV Surgery (CABGX3 - left SKYLER to the left anterior descending artery, left radial artery to the first diagonal and first obtuse marginal in a sequential fashion) - 01/21/2013 ECHO/MUGA: Echo (Mild LVE, EF 50%,, hypokinetic mid and apical anterior segments. Trace AI. Dr. Mccarthy) - 01/19/2013 Lipid panel-total cholesterol 141, HDL 31, triglycerides 227, LDL 81. 05/13/2018 Lipid panel-total cholesterol 150, HDL 22, triglycerides 252, LDL 78. 06/17/2019 -lipids-total cholesterol 103, HDL 26, triglycerides 104, LDL 57. 08/10/2020 Lipids-total cholesterol less than 100, HDL 25, triglycerides 165, LDL 50. 09/07/2022 Lipids-total cholesterol 106, HDL 19, triglycerides 328, LDL 22, glucose 195. 01/02/2023 MPI-Global left ventricular function is lower limits of normal with paradoxical septal wall motion.Left ventricular ejection fraction is 48 %. Hypokinesis in the mid anteroseptal segment and apical inferior segment. Myocardial perfusion imaging is abnormal with inferior amanda-infarct ischemia, mid to basal inferoseptal, basal anteroseptal ischemia. EKG portion of the pharmacological stress test inconclusive for ischemia. 12/19/2022; Dr. Arceo PHYSICAL EXAM Vitals BP 122/80 (BP Location: Right arm, Patient Position: Sitting) Pulse 87 Ht 185.4 cm (6' 1 ) Wt 114.8 kg (253 lb) SpO2 95% BMI 33.38 kg/m?? General appearance - obese, alert, no distress, oriented to time, place, person Mental status - affect appropriate to mood Eyes - extraocular eye movements intact, no pallor Ears - external ears appear normal, hearing grossly normal Nose - normal and patent, no discharge Mouth - mucous membranes moist, tongue normal Neck - supple, no JVD Chest - clear to auscultation Heart - normal rate, regular rhythm, normal S1, S2, no audible murmurs or gallops Abdomen - soft, nontender Neurological - alert, oriented, normal speech, no gross motor deficits Musculoskeletal - no major deformity, no amputations Extremities - no pedal edema, no clubbing or cyanosis Skin - no rashes (on the exposed areas), no cyanosis ASSESSMENT Diagnoses and all orders for this visit: Coronary artery disease involving [place] coronary artery of [place] heart without angina pectoris (Primary) - POCT lipid panel S/P CABG x 3 Hypertension associated with diabetes (HCC) Mixed dyslipidemia Other orders - icosapent ethyL (VASCEPA) 1 gram capsule; Take 2 capsules (2 g total) by mouth 2 (two) times a day PLAN/RECOMMENDATIONS 62 y.o. male with CAD, history of non-ST elevation AL, history of CABG ??3 on 01/21/2013, hypertension, diabetes mellitus, DJD. Last echo showed EF 50% with segmental wall motion abnormalities. -patient has CAD, history of CABG x3 on 01/21/2013. MPI suggestive of ischemia. No major cardiac ischemic symptoms at present, although patient's reports that he did not have any major symptoms prior to his previous coronary event. Echocardiogram is pending. Will consider invasive ischemic workup with coronary angiogram after follow-up visit. -continue current medical regimen including aspirin; high-dose atorvastatin and ezetimibe. Current LDL level improved to 22. Triglycerides are elevated. Will add Icosapent ethyl. -blood pressure at goal at present. Continue current antihypertensives include amlodipine, hydrochlorothiazide, losartan, metoprolol succinate. Patient was advised to continue to monitor blood pressure at home and keep a blood pressure log. Target blood pressure less than 130/80. -Optimal control of blood pressure and DM2. Continue SGL T2 inhibitor. Patient advised to speak with his PCP/x ray technician about Ozempic for CV benefits. -Advised to minimize use of NSAIDs. -patient encouraged to continue aerobic exercise at home. Follow-up in 8-10 weeks or sooner if needed based on clinical course and above- mentioned testing. Kt Hemphill MD documented in this encounter Plan of Treatment Not on file documented as of this encounter Procedures Procedure Name Priority Date/Time Associated Diagnosis Comments POCT LIPID PANEL Routine 01/02/2023 2:46 PM CDT Coronary artery disease involving [place] coronary artery of [place] heart without angina pectoris documented in this encounter Results * POCT lipid panel (01/02/2023 2:46 PM CDT) Cholesterol, POC 106 mg/dL HDL, POC 19 mg/dL Triglycerides, POC 328 mg/dL LDL Cholesterol POC 22 mg/dL Chol/HDL Ratio, POC 1.2 Non-HDL Cholesterol, POC 87 mg/dL Cholesterol Total, POC 106 mg/dL Capillary blood 01/02/2023 2 :46 PM CDT Kt Hemphill MD POINT OF CARE TEST ORDERABLES Fi nal Result documented in this encounter Visit Diagnoses Diagnosis Coronary artery disease involving [place] coronary artery of [place] heart without angina pectoris- Primary S/P CABG x 3 Postsurgical aortocoronary bypass status Hypertension associated with diabetes (HCC) Unspecified essential hypertension Mixed dyslipidemia documented in this encounter Care Teams Bar And Filler Assembler Relationship Specialty Start Date End Date Erik Morris MD PCP - General Internal Medicine 11/21/22 01/09/23 documented as of this encounter
--- OUTSIDE RECORDS SUMMARY | 2024-08-02 01:06 | XMS_ITS | Encounter Summary ---
Author Organization [facility] Address [address] [place] [address] Care Team Providers Care Dean Of Students Name Role Phone Carlos Rushing MD Primary Care Provider [phone] [phone] Encounter Details Date Type Department Care Team (Late st Contact Info) Description 05/20/2023 Orders Only [facility] Cardiology [address] [phone] [place] [address] [place] [address] C MAHIN [address] [place] [address] Social History Tobacco Use Types Packs/Day Years Used Date Smoking Tobacco: Former Smokeless Tobacco: Never Alcohol Use Standard Drinks/Week Comments No 0 (1 standard drink = 0.6 oz pur e alcohol) Sex and Gender Information Value Date Recorded Sex Assigned at Not on file 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
--- OUTSIDE RECORDS SUMMARY | 2024-08-02 01:06 | XMS_ITS | Encounter Summary ---
Author Organization [facility] Address [address] [place] [address] Care Team Providers Care Blindstitch Lapel Padder Name Role Phone Erik Morris MD Primary Care Provider [phone] [phone] Encounter Details Date Type Department Care Team (Late st Contact Info) Description 01/02/2023 Telephone [facility] Cardiology [address] [place] [address] Kt Hemphill MD [address] [place] [id number] Social History Tobacco Use Types Packs/Day Years Used Date Smoking Tobacco: Former Smokeless Tobacco: Never Alcohol Use Standard Drinks/Week Comments No 0 (1 standard drink = 0.6 oz pur e alcohol) Sex and Gender Information Value Date Recorded Sex Assigned at Not on file 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 Gender Identity Not on file Sexual Orientation Not on file documented as of this encounter Ordered Prescriptions Prescription Sig Dispense Quantity Refills Last Filled Start Date End Date atorvastatin (LIPITOR) 80 mg tablet Take 1 tablet (80 mg total) by mouth daily 30 tablet 11 01/03/2023 12/13/2023 documented in this encounter Miscellaneous Notes * Addendum Note - Stephane Chance RN - 01/03/2023 1:09 PM CDTAddended by: STEPHANE CHANCE on: 01/03/2023 01:09 PM Modules accepted: Orders * Telephone Encounter - Stephane Chance RN - 01/02/2023 5:01 PM CDT ----- Message from Kristpoher Hoover sent at 01/02/2023 4:30 PM CDT ----- Regarding: Atorvastatin Contact: Could this be why my triglycerides are high? I noticed in today's notes to continue taking atorvastatin. Not sure which doctor told me over a year ago to stop taking it because my cholesterol was good. So I should continue taking it? Will forward pt message on to DK. Please advise, thank you! documented in this encounter Plan of Treatment Not on file documented as of this encounter Visit Diagnoses Not on filedocumented in this encounter Discontinued Medications Medication Sig Discontinue Reason Start Date End Da te atorvastatin (LIPITOR) 80 mg tablet take 1 tablet by oral route every day Reorder 04/13/2015 01/03/2023 documented as of this encounter Care Teams Blindstitch Lapel Padder Relationship Specialty Start Date End Date Erik Morris MD PCP - General Internal Medicine 11/21/22 01/09/23 documented as of this encounter
--- OUTSIDE RECORDS SUMMARY | 2024-08-02 01:06 | XMS_ITS | Encounter Summary ---
Author Organization [facility] Address [address] [place] [address] Care Team Providers Care Cancer Program Coordinator Name Role Phone Carlos Rushing MD Primary Care Provider [phone] [phone] Encounter Details Date Type Department Care Team (Late st Contact Info) Description 06/03/2023 Telephone [facility] Cardiology [address] [place] [phone] Kt Hemphill MD [address] [place] [address] [address] [place] [address] Social History Tobacco Use Types Packs/Day Years Used Date Smoking Tobacco: Former Smokeless Tobacco: Never Alcohol Use Standard Drinks/Week Comments No 0 (1 standard drink = 0.6 oz pur e alcohol) Sex and Gender Information Value Date Recorded Sex Assigned at Not on file Legal Sex Male 4:42 AM DIRECTOR NEW PRODUCT Gender Identity Not on file Sexual Orientation Not on file documented as of this encounter Ordered Prescriptions Prescription Sig Dispense Quantity Refills Last Filled Start Date End Date aspirin 81 mg enteric coated tablet Take 1 tablet (81 mg total) by mouth daily 30 tablet 11 06/03/2023 documented in this encounter Miscellaneous Notes * Telephone Encounter - Neisha Ordaz RN - 06/03/2023 1:12 PM DIRECTOR NEW PRODUCT Refill for asa placed per DK, as pt continues to take medication. CTOR NEW PRODUCT documented in this encounter Plan of Treatment Not on file documented as of this encounter Visit Diagnoses Not on filedocumented in this encounter Discontinued Medications Medication Sig Discontinue Reason Start Date End Da te aspirin 81 mg enteric coated tablet Take 1 tablet (81 mg total) by mouth daily Reorder 10/22/2018 06/03/2023 documented as of this encounter Care Teams Cancer Program Coordinator Relationship Specialty Start Date End Date Carlos Rushing MD PCP - General Family Practice 01/10/23 documented as of this encounter
--- OUTSIDE RECORDS SUMMARY | 2024-08-02 01:06 | XMS_ITS | Encounter Summary ---
Author Organization [facility] Address [address] [facility] [address] [place] [address] Care Team Providers Care Counter Checker Name Role Phone Hiram Moore DO Primary Care Provider [phone] Reason for Visit * Reason Comments Coronary Artery Disease Hypertension annual f/u * Consultation (Routine) - Closed Specialty Diagnoses / Procedures Referred By Contac t Referred To Contact Cardiology Diagnoses Atherosclerosis of lower elwha coronary artery with other form of angina pectoris, unspecified whether lower elwha or transplanted heart (HCC) Hiram Moore DO Phone: tel: fax: [facility] Cardiology [address] [address] Phone: tel: fax: Referral ID Status Reason Start Date Expiration Date V isits Requested Visits Authorized [id number] Closed Specialty Services Required 09/04/2021 03/03/2022 12 12 Encounter Details Date Type Department Care Team (Late st Contact Info) Description 09/07/2021 10:00 AM PLEXIGLAS FORMER Office Visit [facility] Cardiology [address] [facility] [address] [address] Carmen Snyder NP [address] [place] [address] [place] [id number] Coronary artery disease involving lower elwha coronary artery of lower elwha heart without angina pectoris; Hx of CABG; Essential hypertension; Dyslipidemia; Type 2 diabetes mellitus with circulatory disorder (CMS/HCC) (HCC) Social History Tobacco Use Types Packs/Day Years Used Date Smoking Tobacco: Former Smokeless Tobacco: Never Alcohol Use Standard Drinks/Week Comments No 0 (1 standard drink = 0.6 oz pur e alcohol) Sex and Gender Information Value Date Recorded Sex Assigned at Not on file Legal Sex Male 4:42 AM PLEXIGLAS FORMER Gender Identity Not on file Sexual Orientation Not on file documented as of this encounter Last Filed Vital Signs Vital Sign Reading Time Taken Comments Blood Pressure 124/78 09/07/2021 10:18 AM PLEXIGLAS FORMER Pulse 86 09/07/2021 10:18 AM PLEXIGLAS FORMER Temperature - - Respiratory Rate - - Oxygen Saturation 94% 09/07/2021 10:18 AM PLEXIGLAS FORMER Inhaled Oxygen Concentration - - Weight 110.7 kg (244 lb) 09/07/2021 10:18 AM PLEXIGLAS FORMER Height 185.4 cm (6' 1 ) 09/07/2021 10:18 AM PLEXIGLAS FORMER Body Mass Index 32.19 09/07/2021 10:18 AM PLEXIGLAS FORMER documented in this encounter Progress Notes * Carmen Snyder NP - 09/07/2021 10:00 AM CST Images from the original note were not included. [facility] Cardiology [address] [place] [address] Date of Visit: 09/07/2021 Patient ID: Kristopher Hoover 1960 Chief Complaint Patient presents with ??? Coronary Artery Disease ??? Hypertension annual f/u Kristopher Hoover is a 60 y.o. male who is an established patient of Dr. Hemphill with a history of CAD and CABG returning to the office for annual follow-up. History of Present Illness: Kristopher Hoover is a 60 y.o. male with CAD, history of CABG ??3, hypertension, diabetes mellitus, DJD. He is former patient of Dr. Rojas. Patient was admitted to [facility] on 01/16/13 with chest pain and was found to have non-ST elevation ID. Cath showed multivessel coronary disease. He was transferred to [facility] and had CABG ??3 on 01/18/13. 06/11/2018-Patient [...] He reports compliance with current medical regimen. 09/07/2021 OV with BIOLOGY INSTRUCTOR: He is here for his annual follow-up. He has no complaints or concerns and denies any changes in his health. He states his blood sugars are high because he admits he does not follow a diabetic diet very well. He does however continue to exercise regularly by riding his recumbent bike 4-5 days a week. He will do 30 minutes or 4-5 miles. He denies any chest pain with this activity. He occasionally checks blood pressure at home and states he gets similar results to today's reading. POC lipid panel in the office today shows TC < 100, HDL 25, TG 165, calc LDL 50. Records that I personally reviewed on the day of this visit include: (the interpretation is outlined in the HPI above) 08/10/[address] Hemphill and today's POC lipid panel result I have also reviewed: allergies, current medications, past family history, past medical history, past social history, past surgical history and problem list Medical History: Past Medical History: Diagnosis Date ??? Arthritis 2004 ??? Chronic coronary artery disease Coronary artery disease ??? Diabetes mellitus (HCC) 2013 ??? GERD (gastroesophageal reflux disease) 2007 ??? Heart disease 2012 ??? HX OTHER MEDICAL shoulder problems. ??? HX OTHER MEDICAL Knee problems. ??? Hypertension 2000 ??? Hypothyroidism Hypothyroidism ??? Myocardial infarction (CMS/HCC) (HCC) Myocardial infarction Past Surgical History: Procedure Laterality Date ??? COLON SURGERY ??? CORONARY ARTERY BYPASS GRAFT ??? JOINT REPLACEMENT ??? KNEE ARTHROSCOPY W/ LATERAL RELEASE Social History Tobacco Use ??? Smoking status: Former Smoker ??? Smokeless tobacco: Never Used Substance Use Topics ??? Alcohol use: No ??? Drug use: No Family History Problem Relation Age of Onset ??? Other Father Pancreatic Cancer; Cause of : Pancreatic Cancer/Pancreatic Cancer; Cause of : Pancreatic Cancer ??? Diabetes Father ??? Coronary artery disease Mother Coronary Artery Bypass Graft; ??? Diabetes Mother ??? Heart disease Mother ??? Cancer Sister Review of Systems Constitutional: Negative for diaphoresis, fever, malaise/fatigue, weight gain and weight loss. HENT: Negative for hearing loss. Eyes: Negative for visual disturbance. Cardiovascular: Negative for chest pain, claudication, dyspnea on exertion, leg swelling, orthopnea, palpitations, paroxysmal nocturnal dyspnea and syncope. Respiratory: Positive for cough and sputum production. Negative for hemoptysis, shortness of breath, snoring and wheezing. Hematologic/Lymphatic: Does not bruise/bleed easily. Skin: Negative for poor wound healing and rash. Musculoskeletal: Negative for joint pain and myalgias. Gastrointestinal: Negative for heartburn, nausea and vomiting. Genitourinary: Negative for hematuria. Neurological: Negative for dizziness, headaches and light-headedness. Psychiatric/Behavioral: Negative for depression. The patient is not nervous/anxious. Vital Signs: BP 124/78 (BP Location: Right arm, Patient Position: Sitting) Pulse 86 Ht 185.4 cm (6' 1 ) Wt110.7 kg (244 lb) SpO2 94% BMI 32.19 kg/m?? Physical Exam Constitutional: General: He is not in acute distress. Appearance: He is well-developed. HENT: Head: Normocephalic and atraumatic. Nose: Comments: Wearing a mask Eyes: General: No scleral icterus. Conjunctiva/sclera: Conjunctivae normal. Neck: Vascular: No JVD. Trachea: No tracheal deviation. Cardiovascular: Rate and Rhythm: Normal rate and regular rhythm. Heart sounds: Normal heart sounds. No murmur heard. Pulmonary: Effort: Pulmonary effort is normal. No respiratory distress. Breath sounds: Normal breath sounds. Skin: General: Skin is warm and dry. Neurological: Mental Status: He is alert and oriented to person, place, and time. Psychiatric: Mood and Affect: Mood normal. Behavior: Behavior normal. No Known Allergies Current Outpatient Medications: ??? aspirin 81 mg enteric coated tablet, Take 1 tablet (81 mg total) by mouth daily, Disp: 30 tablet, Rfl: 11 ??? atorvastatin (LIPITOR) 80 mg tablet, take 1 tablet by oral route every day, Disp: 0, Rfl: 0 ??? buPROPion (WELLBUTRIN) 100 mg tablet, take 1 tablet by oral route 2 times every day, Disp: 0, Rfl: 0 ??? dapagliflozin (FARXIGA) 10 mg tablet, , Disp: , Rfl: ??? ezetimibe (ZETIA) 10 mg tablet, TAKE 1 TABLET BY MOUTH DAILY, Disp: 90 tablet, Rfl: 3 ??? hydroCHLOROthiazide (HYDRODIURIL) 12.5 mg tablet, TAKE 2 TABLETS BY MOUTH DAILY, Disp: 180 tablet, Rfl: 0 ??? insulin glargine (TOUJEO) 300 unit/mL (1.5 mL) pen for injection, Inject under the skin, Disp:, Rfl: ??? levothyroxine (SYNTHROID) 125 mcg tablet, Take 125 mcg by mouth geoscience technician before breakfast,Disp: , Rfl: ??? losartan (COZAAR) 100 mg tablet, take 1 tablet by oral route every day, Disp: 0, Rfl: 0 ??? metFORMIN (GLUCOPHAGE) 1,000 mg tablet, take 1 tablet by oral route 2 times every day with morning and evening meals, Disp: 0, Rfl: 0 ??? metoprolol XL (TOPROL-XL) 50 mg extended release tablet, TAKE 1 TABLET BY MOUTH DAILY, Disp: 90tablet, Rfl: 0 ??? multivitamin (MULTI-DAY) tablet tablet, take 1 tablet by oral route every day with food, Disp: 0, Rfl: 0 ??? omeprazole (PriLOSEC) 20 mg capsule, take 1 capsule by oral route every day before a meal, Disp: 0, Rfl: 0 ??? SAW PALMETTO ORAL, Take by mouth, Disp: , Rfl: ??? traZODone (DESYREL) 100 mg tablet, take 0.5 Tablet by oral route every day at bedtime, Disp: 0,Rfl: 0 Lab Results Component Value Date POTASSIUM 4.7 02/05/2013 BUNSER 20 02/05/2013 CREATININE 1.21 02/05/2013 Lab Results Component Value Date HGB 9.5 (L) 02/05/2013 HCT 31.4 (L) 02/05/2013 MCV 95.7 02/05/2013 Assessment: Diagnoses and all orders for this visit: Coronary artery disease involving lower [place] coronary artery of lower [place] heart without angina pectoris - Ambulatory referral to Cardiology Hx of CABG - Ambulatory referral to Cardiology Essential hypertension Dyslipidemia Type 2 diabetes mellitus with circulatory disorder ([facility] ([facility]) Plan/Recommendations: He has coronary artery disease with a history of CABG in 2012. He is exercising regularly without angina. Currently his coronary artery disease appears stable. I recommend he continue his current medical therapy that consists of aspirin, atorvastatin, metoprolol, losartan and ezetimibe. Blood pressure today is at goal. I advised him to check it once a week at home and notify the office if it is consistently above his the goal of 130/80. I counseled him on the correct way to check blood pressure at home. Continue HCTZ, metoprolol and losartan. Lipids are at goal. Continue atorvastatin and ezetimibe. Diabetes is managed by his PCP. Continue insulin, Farxiga and metformin. Return to the office to see Dr. Hemphill in 12 months. Call us sooner with questions or concerns. 09/07/2021 BROWN Parham- Nurse Practitioner with [facility] Cardiology This note is dictated and transcribed using [employer] Direct Software. Garage Hand variancesmay occur. Despite proofreading, typographical errors may occur. IGLAS FORMER documented in this encounter Miscellaneous Notes * Addendum Note - Hailee Shah MA - 09/07/2021 10:00 AM CSTAddended by: HAILEE SHAH on: 09/07/2021 12:10 PM Modules accepted: Orders IGLAS FORMER documented in this encounter Plan of Treatment Not on file documented as of this encounter Procedures Procedure Name Priority Date/Time Associated Diagnosis Comments POCT LIPID PANEL Routine 09/07/2021 12:1 0 PM PLEXIGLAS FORMER Coronary artery disease involving lower [place] coronary artery of lower [place] heart without angina pectoris Dyslipidemia documented in this encounter Results * POCT lipid panel (09/07/2021 12:10 PM PLEXIGLAS FORMER) Cholesterol, POC <100 mg/dL HDL, POC 25 mg/dL Triglycerides, POC 165 mg/dL LDL Cholesterol POC 50 mg/dL Chol/HDL Ratio, POC N/A Non-HDL Cholesterol, POC N/A mg/dL Cholesterol Total, POC <100 mg/dL Capillary blood 09/07/2021 1 2:10 PM PLEXIGLAS FORMER Carmen Snyder NP POINT OF CARE TEST ORDERA BLES Final Result documented in this encounter Visit Diagnoses Diagnosis Coronary artery disease involving lower [place] coronary artery of lower [place] heart without angina pectoris Hx of CABG Postsurgical aortocoronary bypass status Essential hypertension Unspecified essential hypertension Dyslipidemia Other and unspecified hyperlipidemia Type 2 diabetes mellitus with circulatory disorder (HCC) documented in this encounter Discontinued Medications Medication Sig Discontinue Reason Start Date End Da te insulin glargine (TOUJEO) 300 unit/mL (1.5 mL) pen for injection Duplicate order 03/01/2019 09/07/2021 empagliflozin (JARDIANCE) 10 mg tablet take 1 tablet by oral route every day in the morning Alternate therapy 04/13/2015 09/07/2021 documented as of this encounter Historical Medications * This list may reflect changes made after this encounter. dapagliflozin (FARXIGA) 10 mg tablet 08/28/2021 insulin glargine (TOUJEO) 300 unit/mL (1.5 mL) pen for injection Inject under the skin A[place] ORAL Take by mouth 02/28 insulin glargine (TOUJEO) 300 unit/mL (1.5 mL) pen for injection 03/01/2019 022 added in this encounter Orders Outpatient Referral Count Last Ordered Date Fir st Ordered Date AMB REFERRAL TO CARDIOLOGY 2 09/07/2021 documented in this encounter Care Teams Counter Checker Relationship Specialty Start Date End Date Hiram Moore DO PCP - General Internal Medicine 06/17/19 11/20/22 documented as of this encounter
--- OUTSIDE RECORDS SUMMARY | 2024-08-02 01:06 | XMS_ITS | Encounter Summary ---
Author Organization [facility] Address [address] [place] [address] Care Team Providers Care Telephone Service Representative Name Role Phone Erik Morris MD Primary Care Provider [phone] Reason for Visit * Diagnostic Imaging (Routine) - Closed Specialty Diagnoses / Procedures Referred By Contac t Referred To Contact Diagnoses Coronary artery disease involving sycuan coronary artery of sycuan heart without angina pectoris S/P CABG x 3 Procedures NM MPI SPECT (Rest and/or Stress) Multiple Studies Ashley Rodriguez MD [address] [address] Phone: tel: fax: Referral ID Status Reason Start Date Expiration Date Visits Re quested Visits Authorized [id number] Closed 11/21/2022 12/21/2023 1 1 Encounter Details Date Type Department Care Team (Latest Contact Info) Description 12/19/2022 10:15 AM CDT Ancillary Procedure [facility] Cardiology [address] [facility] [address] [place] [address] Coronary artery disease involving sycuan coronary artery of sycuan heart without angina pectoris; S/P CABG x 3 Social History Tobacco Use Types Packs/Day Years Used Date Smoking Tobacco: Former Smokeless Tobacco: Never Alcohol Use Standard Drinks/Week Comments No 0 (1 standard drink = 0.6 oz pur e alcohol) Sex and Gender Information Value Date Recorded Sex Assigned at Not on file Legal Sex Male 4:42 AM ROUTER TENDER Gender Identity Not on file Sexual Orientation Not on file documented as of this encounter Plan of Treatment Not on file documented as of this encounter Procedures Procedure Name Priority Date/Time Associated Diagnosis Comments NM MPI SPECT (REST AND/OR STRESS) MULTIPLE STUDIES Schedule Routine, Read Routine (OP Routine) 12/19/2022 12:11 PM CDT Coronary artery disease involving sycuan coronary artery of sycuan heart without angina pectoris S/P CABG x 3 documented in this encounter Results * NM MPI SPECT (Rest and/or Stress) Multiple Studies (12/19/2022 12:11 PM CDT) Anatomical Region Laterality Modality Body N/A Nuclear Medicine 12/19/2022 10:4 4 AM CDT Narrative 12/19/2022 4:34 PM CDT [facility] Cardiology [address] [facility] [address] [address] [address] [facility] [address], [place] [address] P:[phone] P:[phone] MPI Imaging Report Patient Name: MARCIE HOOVER A : 1960 Study Date: 12/19/2022 10:44:50 AM Gender: M Tech: [facility] Location: [place] Ref.Provider: ASHLEY RODRIGUEZ Height(Cm): 185.4 BSA: Weight(Kg): 116.1 BMI: 33.78Order Provider: ASHLEY RODRIGUEZ - Physician: Referring Physician: Dr. Morris. HCG Physician: Ashley Rodriguez M.D., F.A.C.C. Interpreting Physician: Pankaj Arceo M.D. Stress Supervision: Ashley Rodriguez M.D., F.A.C.C. Procedures: Myocardial perfusion imaging with Tc99M Sestamibi SPECT at rest and stress post regadenoson (Lexiscan) infusion. Indications: Coronary Artery Disease, Hypertension, Diabetes, Family Hx CAD, High Cholesterol, and Former Smoker. Findings: Procedural Findings: One day rest/stress was used. Tc99m Sestamibi injected IV at rest was 12.7 millicuries. 37.8 millicuries of Tc99M Sestamibi injected IV during Lexiscan stress. Lexiscan 0.4mg administered IV over 10 seconds. Patient had no symptoms during stress test. Baseline heart rate was 85 BPM. Maximum Heart Rate Achieved was: 106 BPM. Baseline blood pressure was 140/92 mmHg. Post Stress Blood Pressure was 138/80 mmHg. Termination: Protocol complete. Resting ECG: Ectopic atrial rhythm. Nonspecific T wave abnormality. Post ECG: Findings do not meet strict criteria for ischemia. Arrhythmia: Occasional PVCs. Perfusion Findings: Abnormal perfusion imaging - see below. Technical quality of study is excellent. Prone imaging was not performed. Left ventricle cavity size at rest is mildly enlarged. Left ventricle cavity size with stress is unchanged. A TID of 1.04 was automatically calculated. defect 1: Size is small. Severity is mild to moderate in intensity. Location of defect is in the basal inferior segment, mid inferior segment and mid inferolateral segment. Reversibility is partial. Type of defect is infarction with amanda-infarct or superimposed ischemia. defect 2: Size is small. Severity is mild. Location of defect is in the basal anteroseptal segment, basal inferoseptal segment and mid inferoseptal segment. Reversibility is full. Type of defect is ischemia. LV Function: Global left ventricular function is lower limits of normal with paradoxical septal wall motion. Left ventricular ejection fraction is 48 %. PostStress LV Wall Motion: There is hypokinesis in the mid anteroseptal segment and apical inferior segment. Conclusions: Global left ventricular function is lower limits of normal with paradoxical septal wall motion. Left ventricular ejection fraction is 48 %. There is hypokinesis in the mid anteroseptal segment and apical inferior segment. Myocardial perfusion imaging is abnormal with inferior amanda-infarct ischemia, mid to basal inferoseptal, basal anteroseptal ischemia. Clinical correlation advised. Recommend follow up with stave cutting supervisor. EKG portion of the pharmacological stress test inconclusive for ischemia. Correlate with MPI. Electronically Signed By: Ashley Rodriguez MD, [facility] 2022-12-19 15:11:47 CDT Electronically Signed By: Pankaj Arceo MD 2022-12-19 16:34:51 CDT CC: CC: Procedure Note Jonah Arceo MD - 12/19/2022 [facility] Cardiology [address], [place] [address] [address] [facility] [address], [place] [address] P:[phone] P:[phone] MPI Imaging Report Patient Name: MARCIE HOOVER APatient ID: [id number] : [id number] Date: 12/19/2022 10:44:50 AM Gender: MAccession #: [id number] Tech: SHIVA, CNWYLocation: [place] Ref.Provider: ASHLEY RODRIGUEZHeight(Cm): 185.4 BSA: Weight(Kg): 116.1 BMI: 33.78Order Provider: ASHLEY RODRIGUEZ - Physician: Referring Physician: Dr. Morris. HCG Physician: Ashley Rodriguez M.D., F.A.C.CTamaraInterpreting Physician: Pankaj Arceo M.D. Stress Supervision: Ashley Rodriguez M.D.,F.A.C.C. Procedures: Myocardial perfusion imaging with Tc99M Sestamibi SPECT at rest and stresspost regadenoson (Lexiscan) infusion. Indications: Coronary Artery Disease, Hypertension, Diabetes, Family Hx CAD, HighCholesterol, and Former Smoker. Findings: Procedural Findings: One day rest/stress was used. Tc99m Sestamibi injected IV at rest was 12.7millicuries. 37.8 millicuries of Tc99M Sestamibi injected IV during Lexiscan stress.Lexiscan 0.4mg administered IV over 10 seconds. Patient had no symptoms during stresstest. Baseline heart rate was 85 BPM. Maximum Heart Rate Achieved was: 106 BPM. Baselineblood pressure was 140/92 mmHg. Post Stress Blood Pressure was 138/80 mmHg. Termination: Protocol complete. Resting ECG: Ectopic atrial rhythm. Nonspecific T wave abnormality. Post ECG: Findings do not meet strict criteria for ischemia. Arrhythmia: Occasional PVCs. Perfusion Findings: Abnormal perfusion imaging - see below. Technical quality of study isexcellent. Prone imaging was not performed. Left ventricle cavity size at rest is mildlyenlarged. Left ventricle cavity size with stress is unchanged. A TID of 1.04 wasautomatically calculated. defect 1: Size is small. Severity is mild to moderate in intensity. Location ofdefect is in the basal inferior segment, mid inferior segment and mid inferolateralsegment. Reversibility is partial. Type of defect is infarction with amanda-infarct or superimposedischemia. defect 2: Size is small. Severity is mild. Location of defect is in the basalanteroseptal segment, basal inferoseptal segment and mid inferoseptal segment. Reversibility isfull. Type of defect is ischemia. LV Function: Global left ventricular function is lower limits of normal withparadoxical septal wall motion. Left ventricular ejection fraction is 48 %. PostStress LV Wall Motion: There is hypokinesis in the mid anteroseptal segment and apical inferiorsegment. Conclusions: Global left ventricular function is lower limits of normal withparadoxical septal wall motion. Left ventricular ejection fraction is 48 %. There is hypokinesis in the mid anteroseptal segment and apical inferiorsegment. Myocardial perfusion imaging is abnormal with inferior amanda-infarctischemia, mid to basal inferoseptal, basal anteroseptal ischemia. Clinical correlationadvised. Recommend follow up with stave cutting supervisor. EKG portion of the pharmacological stress test inconclusive for ischemia.Correlate with MPI. Electronically Signed By: Ashley Rodriguez MD, [facility] 2022-12-19 15:11:47 CDT Electronically Signed By: Pankaj Arceo MD 2022-12-19 16:34:51 CDT CC: CC: Ashley Rodriguez MD IMG NM PROCEDURES Final Result documented in this encounter Visit Diagnoses Diagnosis Coronary artery disease involving sycuan coronary artery of sycuan heart without angina pectoris S/P CABG x 3 Postsurgical aortocoronary bypass status documented in this encounter Administered Medications Inactive Administered Medications - up to 3 most recent administrations Medication Order MAR Action Action Date Dose Rate Site regadenoson (LEXISCAN) 0.4 mg/5 mL injection 0.4 mg 0.4 mg, intravenous, Once, On Sat12/19/22 at 1300, For 1 dose, Administer IV push over 10 seconds., Indications: Myocardial Perfusion Imaging AdjunctIndications:Myocard ial Perfusion Imaging Adjunct Given 12/19/2022 12:27 PM CDT 0.4 mg tc-99m sestamibi unit dose injection 12.7 millicurie 12.7 millicurie, intravenous, Once in imaging, radiopharmaceutical, Starting on Sat12/19/22 at 1040, For 1 dose, Indications: Diagnostic RadiographyIndications:Lexi gnostic Radiography Given 12/19/2022 10:41 AM CDT 12.7 millicuries tc-99m sestamibi unit dose injection 37.8 millicurie 37.8 millicurie, intravenous, Once in imaging, radiopharmaceutical, Starting on Sat12/19/22 at 1226, For 1 dose, Indications: Diagnostic RadiographyIndications:Lexi gnostic Radiography Given 12/19/2022 12:28 PM CDT 37.8 millicuries documented in this encounter Care Teams Telephone Service Representative Relationship Specialty Start Date End Date Erik Morris MD PCP - General Internal Medicine 11/21/22 01/09/23 documented as of this encounter
--- OUTSIDE RECORDS SUMMARY | 2024-08-02 01:06 | XMS_ITS | Encounter Summary ---
Author Organization [facility] Address [address] [place] [address] Care Team Providers Care Tank Cooper Name Role Phone Erik Morris MD Primary Care Provider [phone] Reason for Referral * Cardiology (Routine) - Closed Specialty Diagnoses / Procedures Referred By Contac t Referred To Contact Diagnoses Coronary artery disease involving [place] coronary artery of [place] heart without angina pectoris S/P CABG x 3 Procedures Transthoracic Echo (TTE) Complete W Doppler/CF Kt Rodriguez MD [address] [facility] [address] [place] [address] Phone: tel: fax: [facility] Referral ID Status Reason Start Date Expiration Date Visits Re quested Visits Authorized [id number] Closed 11/21/2022 12/21/2023 1 1 * Diagnostic Imaging (Routine) - Closed Specialty Diagnoses / Procedures Referred By Contac t Referred To Contact Diagnoses Coronary artery disease involving [place] coronary artery of [place] heart without angina pectoris S/P CABG x 3 Procedures NM MPI SPECT (Rest and/or Stress) Multiple Studies Kt Rodriguez MD [address] [facility] [address] [place] [address] Phone: tel: fax: Referral ID Status Reason Start Date Expiration Date Visits Re quested Visits Authorized [id number] Closed 11/21/2022 12/21/2023 1 1 Reason for Visit * Reason Comments Hypertension Coronary Artery Disease 1 year follow up . Encounter Details Date Type Department Care Team (Late st Contact Info) Description 11/21/2022 10:15 AM CDT Office Visit [facility] Cardiology [address] [place] [address] Kt Rodriguez MD [address] [id number] Coronary artery disease involving [place] coronary artery of [place] heart without angina pectoris (Primary Dx); S/P CABG x 3; Hypertension associated with diabetes (HCC) Social History Tobacco Use Types Packs/Day Years Used Date Smoking Tobacco: Former Smokeless Tobacco: Never Tobacco Cessation:Counseling Given: Not Answered Alcohol Use Standard Drinks/Week Comments No 0 (1 standard drink = 0.6 oz pur e alcohol) Sex and Gender Information Value Date Recorded Sex Assigned at Not on file 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 Gender Identity Not on file Sexual Orientation Not on file documented as of this encounter Last Filed Vital Signs Vital Sign Reading Time Taken Comments Blood Pressure 136/84 11/21/2022 10:12 AM CDT Pulse 83 11/21/2022 10:12 AM CDT Temperature - - Respiratory Rate - - Oxygen Saturation 96% 11/21/2022 10:12 AM CDT Inhaled Oxygen Concentration - - Weight 116.1 kg (256 lb) 11/21/2022 10:12 AM CDT Height 185.4 cm (6' 1 ) 11/21/2022 10:12 AM CDT Body Mass Index 33.78 11/21/2022 10:12 AM CDT documented in this encounter Ordered Prescriptions Prescription Sig Dispense Quantity Refills Last Filled Start Date End Date amLODIPine (NORVASC) 10 mg tablet Take 1 tablet (10 mg total) by mouth daily 30 tablet 11 11/21/2022 documented in this encounter Progress Notes * Kt Rodriguez MD - 11/21/2022 10:15 AM CDT [facility] FOLLOW UP 11/21/2022 Chief Complaint Patient presents with ??? Hypertension ??? Coronary Artery Disease 1 year follow up. Marcie Hoover is a 61 y.o. male year-old male with CAD, history of CABG ??3, hypertension, diabetes mellitus, DJD. He is former patient of Dr. Rojas. Patient was admitted to [facility] on 01/16/13 with chest pain and was found to have non-ST elevation [place]. Cath showed multivessel coronary disease. He was transferred to [facility] and had CABG ??3 on 01/18/13. 06/11/2018-Patient [...] Outpatient Medications Medication Sig Dispense Refill ??? atorvastatin (LIPITOR) 80 mg tablet take [...] 1 tablet (125 mcg total) by mouth wound care technician before breakfast ??? losartan (COZAAR) 100 mg [...] day before a meal 0 0 ??? traZODone (DESYREL) 100 mg tablet take 0.5 Tablet by oral route every day at bedtime 0 0 ??? amLODIPine (NORVASC) 10 mg tablet Take 1 tablet (10 mg total) by mouth daily 30 tablet 11 ??? aspirin 81 mg enteric coated tablet Take 1 tablet (81 mg total) by mouth daily 30 tablet 11 ??? SAW ISSAC ORAL Take by mouth No current facility-administered medications for this visit. [...] HDL 25, triglycerides 165, LDL 50. 09/07/2022 PHYSICAL EXAM Vitals BP 136/84 (BP Location: Left arm, Patient Position: Sitting) Pulse 83 Ht 185.4 cm (6' 1 ) Wt 116.1 kg (256 lb) SpO2 96% BMI 33.78 kg/m?? General appearance - obese, alert, no [...] audible murmurs or gallops Abdomen - soft, nontender, nondistended, bowel sounds present Neurological - alert, oriented, normal speech, no gross motor deficits Musculoskeletal - no major deformity, no amputations Extremities - no pedal edema, no clubbing or cyanosis Skin - no rashes (on the exposed areas), no cyanosis ASSESSMENT Diagnoses and all orders for this visit: Coronary artery disease involving [place] coronary artery of [place] heart without angina pectoris (Primary) - NM MPI SPECT (Rest and/or Stress) Multiple Studies; Future - Transthoracic Echo (TTE) Complete W Doppler/CF; Future S/P CABG x 3 - NM MPI SPECT (Rest and/or Stress) Multiple Studies; Future - Transthoracic Echo (TTE) Complete W Doppler/CF; Future Hypertension associated with diabetes (HCC) Other orders - amLODIPine (NORVASC) 10 mg tablet; Take 1 tablet (10 mg total) by mouth daily PLAN/RECOMMENDATIONS 61 y.o. male with CAD, history of non-ST elevation AZ, history of CABG ??3 on 01/21/2013, hypertension, diabetes mellitus, DJD. Last echo showed EF 50% with segmental wall motion abnormalities. -patient has CAD, history of CABG x3 on 01/21/2013. Will do pharmacological MPI (patient has knee pain) to check for any significant myocardial ischemia. Remote echocardiogram reportedly showed LVEF 50% with segmental wall motion abnormality. Echocardiogram will be repeated to reassess LV function. -continue current medical regimen including aspirin; high-dose atorvastatin and ezetimibe. Current LDL level improved to 50. -blood pressure was elevated recently. Home blood pressures have improved. Continue current antihypertensives include amlodipine, hydrochlorothiazide, losartan, metoprolol succinate. Patient was advised to continue to monitor blood pressure at home and keep a blood pressure log. Target blood pressure less than 130/80. -Optimal control of blood pressure and DM2. Continue SGL T2 inhibitor. -Advised to minimize use of NSAIDs. -patient encouraged to continue aerobic exercise at home. Follow-up in 6 months or sooner if needed based on clinical course and above- mentioned testing. Kt Rodriguez MD documented in this encounter Plan of Treatment Not on file documented as of this encounter Results * TRANSTHORACIC ECHO (TTE) COMPLETE W DOPPLER/CF W CONTRAST (01/10/2023 9:44 AM CDT) Anatomical Region Laterality Modality Ultrasound 01/10/2023 9:12 AM CDT Narrative 01/10/2023 5:09 PM CDT [facility] Cardiology [address], [place] [address] [address], [place] [address] P:[phone] P:[phone] Echocardiographic Report Patient Name: MARCIE HOOVER A : 1960 Study Date: 01/10/2023 9:12:05 AM Gender: M Tech: Location: [place] Ref.Provider: KT RODRIGUEZ Height(Cm): 185 BSA: 2.43 Weight(Kg): 114.8 Heart Rate: 83 BP: 127 / 98 Quality: Good Order Provider: KT RODRIGUEZ Procedures: Echocardiographic Report: Transthoracic echocardiogram with complete 2D, M-Mode, color Doppler examination and Definity contrast. Indications: Coronary Artery Disease. Measurements: 2D/M Mode ? Doppler ? Measurement ?Value ?Normal Range ?Measurement ?Value ?Normal Range ? LVIDd 2D ? 5.44 ? [ 3.90 - 5.30 ] cm ?UMA Vmax ? 2.05 ? [ 2.00 - 4.00 ] cm2 ? LVIDs 2D ? 3.77 ? [ 2.30 - 3.90 ] cm ?AV Mean PG ? 7 ?mmHg ? LVPWd 2D ? 1.35 ? [ 0.60 - 1.00 ] cm ?AV Peak Farhad ?1.67 ? m/s ? IVSd 2D ?1.38 ? [ 0.60 - 0.90 ] cm ?AV Peak PG ? 11 ? mmHg ? LA Dimension MM ?3.86 ? [ 2.70 - 3.80 ] cm ?AV VTI ? 30.54 ?cm ? AoR Diam MM ?3.60 ? [ 2.60 - 3.70 ] cm ?LVOT Diam ?2.16 ? [ 1.70 - 2.10 ] cm ? LA Volume Index ?20 ? [ 16 - 28 ] cc/m2 ? LVOT Peak Farhad ?0.93 ? [ 0.70 - 1.10 ] m/s ? ACS MM ? 2.38 ? cm ?LVOT VTI ? 18.52 ?cm ?MV E Peak Farhad ?0.52 ? [ 0.60 - 1.30 ] m/s ?MV A Peak Farhad ?0.66 ? [ 0.40 - 0.80 ] m/s ?MV Decel Time ?200 ?[ 150 - 200 ] msec ?Lateral E` ? 0.11 ? cm/sec ?E` ? 0.08 ? cm/sec ?E/E` ? 5 ? Findings: Interpretation Site: Exam was interpreted at [facility]. Left Ventricle: Definity contrast agent used to visually enhance endocardial wall motion and contractility. Lot Number: [id number]. Mild concentric left ventricular hypertrophy. Left ventricle cavity is upper limits of normal in size. Left ventricular systolic function at the lower limit of normal. Impaired diastolic relaxation Grade I. Ejection fraction is measured at 50 %. Right Ventricle: Normal right ventricular size. Left Atrium: Left atrial size is within upper limits of normal. Right Atrium: The right atrium is normal in size. Atrial Septum: Normal atrial septum. Mitral Valve: Normal appearance of the mitral valve. Aortic Valve: Normal appearance of the aortic valve. Tricuspid Valve: Normal appearance of the tricuspid valve. Pulmonic Valve: Pulmonic valve not well visualized. Pericardium: Normal pericardium with no significant pericardial effusion. Aorta: Normal aortic root. IVC: Normal size and normal respiratory collapse consistent with normal right atrial pressure (<5 mmHg). Pulmonary Artery: Normal pulmonary artery size. Conclusions: Definity contrast agent used to visually enhance endocardial wall motion and contractility. Lot Number: [id number]. Mild concentric left ventricular hypertrophy. Left ventricle cavity is upper limits of normal in size. Left ventricular systolic function at the lower limit of normal. Impaired diastolic relaxation Grade I. Ejection fraction is measured at 50 %. Left atrial size is within upper limits of normal. Normal appearance of the mitral valve. Normal appearance of the aortic valve. Electronically Signed By: James To MD, [facility] 2023-01-10 17:09:38 CDT Procedure Note James To MD - 01/10/2023 [facility] Cardiology [address] [address] [id number], [place] [address] P:[phone] P:[phone] Echocardiographic Report Patient Name: MARCIE HOOVER APatieángel ID: [id number] : [id number] Date: 01/10/2023 9:12:05 AM Gender: MAccession #: [id number] Tech: Location: [place] Ref.Provider: KT RODRIGUEZHeight(Cm): 185 BSA: 2.43Weight(Kg): 114.8 Heart Rate: 83BP: 127 / 98 Quality: GoodOrder Provider: KT RODRIGUEZ Procedures: Echocardiographic Report: Transthoracic echocardiogram with complete 2D, M-Mode, color Dopplerexamination and Definity contrast. Indications: Coronary Artery Disease. Measurements: 2D/M Mode Doppler Measurement Value Normal Range Measurement ValueNormal Range LVIDd 2D 5.44 [ 3.90 - 5.30 ] cm UMA Vmax 2.05[ 2.00 - 4.00 ] cm2 LVIDs 2D 3.77 [ 2.30 - 3.90 ] cm AV Mean PG 7mmHg LVPWd 2D 1.35 [ 0.60 - 1.00 ] cm AV Peak Farhad 1.67m/s IVSd 2D 1.38 [ 0.60 - 0.90 ] cm AV Peak PG 11mmHg LA Dimension MM 3.86 [ 2.70 - 3.80 ] cm AV VTI 30.54cm AoR Diam MM 3.60 [ 2.60 - 3.70 ] cm LVOT Diam 2.16[ 1.70 - 2.10 ] cm LA Volume Index 20 [ 16 - 28 ] cc/m2 LVOT Peak Farhad 0.93[ 0.70 - 1.10 ] m/s ACS MM 2.38 cm LVOT VTI 18.52cm MV E Peak Farhad 0.52[ 0.60 - 1.30 ] m/s MV A Peak Farhad 0.66[ 0.40 - 0.80 ] m/s MV Decel Time 200[ 150 - 200 ] msec Lateral E` 0.11cm/sec E` 0.08cm/sec E/E` 5 Findings: Interpretation Site: Exam was interpreted at [facility]. Left Ventricle: Definity contrast agent used to visually enhance endocardial wall motionand contractility. Lot Number: [id number]. Mild concentric left ventricularhypertrophy. Left ventricle cavity is upper limits of normal in size. Left ventricularsystolic function at the lower limit of normal. Impaired diastolic relaxation Grade I. Ejectionfraction is measured at 50 %. Right Ventricle: Normal right ventricular size. Left Atrium: Left atrial size is within upper limits of normal. Right Atrium: The right atrium is normal in size. Atrial Septum: Normal atrial septum. Mitral Valve: Normal appearance of the mitral valve. Aortic Valve: Normal appearance of the aortic valve. Tricuspid Valve: Normal appearance of the tricuspid valve. Pulmonic Valve: Pulmonic valve not well visualized. Pericardium: Normal pericardium with no significant pericardial effusion. Aorta: Normal aortic root. IVC: Normal size and normal respiratory collapse consistent with normal rightatrial pressure (<5 mmHg). Pulmonary Artery: Normal pulmonary artery size. Conclusions: Definity contrast agent used to visually enhance endocardial wall motionand contractility. Lot Number: [id number]. Mild concentric left ventricularhypertrophy. Left ventricle cavity is upper limits of normal in size. Left ventricularsystolic function at the lower limit of normal. Impaired diastolic relaxation Grade I. Ejectionfraction is measured at 50 %. Left atrial size is within upper limits of normal. Normal appearance of the mitral valve. Normal appearance of the aortic valve. Electronically Signed By: James To MD, [facility] 2023-01-10 17:09:38 CDT Kt Rodriguez MD CV ECHO PROCEDURES Final Result * NM MPI SPECT (Rest and/or Stress) Multiple Studies (12/19/2022 12:11 PM CDT) Anatomical Region Laterality Modality Body N/A Nuclear Medicine 12/19/2022 10:4 4 AM CDT Narrative 12/19/2022 4:34 PM CDT [facility] Cardiology [address] [address] [address], [place] [address] P:[phone] P:[phone] MPI Imaging Report Patient Name: MARCIE HOOVER A : 1960 Study Date: 12/19/2022 10:44:50 AM Gender: M Tech: [facility] Location: [facility].Provider: KT RODRIGUEZ Height(Cm): 185.4 BSA: Weight(Kg): 116.1 BMI: 33.78Order Provider: KT RODRIGUEZ - Physician: Referring Physician: Dr. Morris. HCG Physician: Kt Rodriguez M.D., F.A.C.C. Interpreting Physician: Pankaj Arceo M.D. Stress Supervision: Kt Rodriguez M.D., F.A.C.C. Procedures: Myocardial perfusion imaging [...] Clinical correlation advised. Recommend follow up with business solutions consultant. EKG portion of the pharmacological stress test inconclusive for ischemia. Correlate with MPI. Electronically Signed By: Kt Rodriguez MD, [facility] 2022-12-19 15:11:47 CDT Electronically Signed By: Pankaj Arceo MD 2022-12-19 16:34:51 CDT CC: CC: Procedure Note Jonah Arceo MD - 12/19/2022 [facility] Cardiology [address], [place] [address] [id number], [place] [address] P:[phone] P:[phone] MPI Imaging Report Patient Name: MARCIE HOOVER APatient ID: [id number] : [id number] Date: 12/19/2022 10:44:50 AM Gender: MAccession #: [id number] [facility] [place] Ref.Provider: KT RODRIGUEZHeight(Cm): 185.4 BSA: Weight(Kg): 116.1 BMI: 33.78Order Provider: KT RODRIGUEZ - Physician: Referring Physician: Dr. Morris. HCG Physician: Kt Rodriguez M.D., F.A.C.C.Interpreting Physician: Pankaj Arceo M.D. Stress Supervision: Kt Rodriguez M.D.,F.A.CTamaraCTamara Procedures: Myocardial perfusion imaging with Tc99M Sestamibi [...] ischemia. Clinical correlationadvised. Recommend follow up with business solutions consultant. EKG portion of the pharmacological stress test inconclusive for ischemia.Correlate with MPI. Electronically Signed By: Kt Rodriguez MD, [facility] 2022-12-19 15:11:47 CDT Electronically Signed By: Pankaj Arceo MD 2022-12-19 16:34:51 CDT CC: CC: Kt Rodriguez MD IMG NM PROCEDURES Final Result documented in this encounter Visit Diagnoses Diagnosis Coronary artery disease involving [place] coronary artery of [place] heart without angina pectoris- Primary S/P CABG x 3 Postsurgical aortocoronary bypass status Hypertension associated with diabetes (HCC) Unspecified essential hypertension Coronary artery disease involving [place] coronary artery of [place] heart without angina pectoris S/P CABG x 3 Postsurgical aortocoronary bypass status Coronary artery disease involving [place] coronary artery of [place] heart without angina pectoris S/P CABG x 3 Postsurgical aortocoronary bypass status documented in this encounter Discontinued Medications Medication Sig Discontinue Reason Start Date End Da te buPROPion (WELLBUTRIN) 100 mg tablet take 1 tablet by oral route 2 times every day 03/17/2013 11/21/2022 documented as of this encounter Care Teams Tank Cooper Relationship Specialty Start Date End Date Erik Morris MD PCP - General Internal Medicine 11/21/22 01/09/23 documented as of this encounter
--- OUTSIDE RECORDS SUMMARY | 2024-08-02 01:06 | XMS_ITS | Encounter Summary ---
Author Organization [facility] Address [address] [place] [address] Care Team Providers Care Signaler Name Role Phone Carlos Rushing MD Primary Care Provider [phone] Encounter Details Date Type Department Care Team (Late st Contact Info) Description 02/01/2023 Telephone [facility] Cardiology [address] [place] [address] Kt Hemphill MD [address] [place] [id number] Social History Tobacco Use Types Packs/Day Years Used Date Smoking Tobacco: Former Smokeless Tobacco: Never Alcohol Use Standard Drinks/Week Comments No 0 (1 standard drink = 0.6 oz pur e alcohol) Sex and Gender Information Value Date Recorded Sex Assigned at Not on file 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 * Telephone Encounter - Shannan Chance RN - 02/01/2023 2:15 PM CDT Pt question via my chart: My ortho doctor said to check with you before I start taking Celebrex. Is it ok? Will forward to DK. Please advise, thank you! documented in this encounter Plan of Treatment Not on file documented as of this encounter Visit Diagnoses Not on filedocumented in this encounter Care Teams Signaler Relationship Specialty Start Date End Date Carlos Rushing MD PCP - General Family Practice 01/10/23 documented as of this encounter
--- OUTSIDE RECORDS SUMMARY | 2024-08-02 01:06 | XMS_ITS | Referral Summary ---
Author Organization [facility] [address] Address [address] [place] [address] Care Team Providers Care Forklift Truck Operator Name Role Phone Carlos Rushing MD Primary Care Provider [phone] [phone] Allergies No known active allergies Medications multivitamin [...] 1 tablet (125 mcg total) by mouth compressor technician before breakfast Active insulin glargine (TOUJEO) 300 [...] Active Active Problems No known active problems Social History Tobacco Use Types Packs/Day Years Used Date Smoking Tobacco: Former Smokeless Tobacco: Never Tobacco Cessation:Counseling Given: Not Answered Alcohol Use Standard Drinks/Week Comments No 0 (1 standard drink = 0.6 oz pur e alcohol) Sex and Gender Information Value Date Recorded Sex Assigned at Not on file 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
--- OUTSIDE RECORDS SUMMARY | 2024-08-02 01:06 | XMS_ITS | Encounter Summary ---
Author Organization [facility] Address [address] [place] [address] Care Team Providers Care Trouble Dispatcher Name Role Phone Carlos Rushing MD Primary Care Provider [phone] Reason for Visit * Reason Comments Hypertension Coronary Artery Disease Hyperlipidemia 10 wk f/u Encounter Details Date Type Department Care Team (Late st Contact Info) Description 03/27/2023 10:45 AM CDT Office Visit [facility] Cardiology [address] [facility] [address] [place] [address] Kt Hemphill MD [address] [address] Coronary artery disease involving prairie island coronary artery of prairie island heart without angina pectoris (Primary Dx); S/P [...] on file 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 Hypertension ??? Coronary Artery Disease ??? Hyperlipidemia 10 wk f/u Kristopher Hoover is a 62 y.o. male year-old male with CAD, history of CABG ??3, hypertension, diabetes mellitus, DJD. He is former patient of Dr. Rojas. Patient was admitted to [facility] on 01/16/13 with chest pain and was found to have non-ST elevation HI. Cath showed multivessel coronary disease. He was transferred to [facility] and had CABG ??3 on 01/18/13. [...] He reports compliance with current medical regimen. 03/27/2023-on the follow-up visit today, patient denies any major cardiovascular symptoms. He is physically active, and also uses stationary bike at home. He denies chest pain, shortness of breath, palpitation, dizziness [...] 11 ??? atorvastatin (LIPITOR) 80 mg tablet Take 1 tablet (80 mg total) by mouth daily 30 tablet 11 ??? celecoxib (CeleBREX) 200 mg capsule TAKE 1 CAPSULE BY MOUTH TWICE DAILY NEEDED FOR PAIN ??? dapagliflozin (FARXIGA) 10 mg tablet ??? ezetimibe (ZETIA) 10 mg tablet TAKE 1 TABLET BY MOUTH DAILY 100 tablet 2 ??? hydroCHLOROthiazide (HYDRODIURIL) 12.5 mg tablet TAKE 2 TABLETS BY MOUTH DAILY 180 tablet 0 ??? icosapent ethyL (VASCEPA) 1 gram capsule Take 2 capsules (2 g total) by mouth 2 (two) times a day 120 capsule 11 ??? insulin glargine (TOUJEO) 300 unit/mL (1.5 mL) pen for injection Inject under the skin ??? levothyroxine (SYNTHROID) 125 mcg tablet Take 1 tablet (125 mcg total) by mouth engineering systems analyst before breakfast ??? losartan (COZAAR) 100 mg [...] day before a meal 0 0 ??? semaglutide (Ozempic) 0.25 mg or 0.5 mg (2 mg/3 mL) pen injector injection Inject 0.5 mg under the skin every 7 days ??? traZODone (DESYREL) 100 mg tablet take 0.5 Tablet by oral route every day at bedtime 0 0 ??? aspirin 81 mg enteric coated tablet Take 1 tablet (81 mg total) by mouth daily 30 tablet 11 No current facility-administered medications for this [...] found for: HDL No results found for: LDL ] No results found for: TRIG CV SURGERY: [...] test inconclusive for ischemia. 12/19/2022; Dr. Arceo Lipids-total cholesterol 106, HDL 19, triglycerides 328, LDL 22. 01/02/2023 PHYSICAL EXAM Vitals BP 118/86 (BP Location: Left arm, Patient Position: Sitting) Pulse 86 Ht 185.4 cm (6' 1 ) Wt 115.7 kg (255 lb) SpO2 94% BMI 33.64 kg/m?? General appearance - obese, alert, no [...] for this visit: Coronary artery disease involving prairie [place] coronary artery of prairie island heart without angina pectoris (Primary) S/P CABG x 3 Hypertension associated with diabetes (HCC) Mixed dyslipidemia PLAN/RECOMMENDATIONS 62 y.o. male with CAD, history of non-ST elevation HI, history of CABG ??3 on 01/21/2013, hypertension, diabetes mellitus, DJD. Last echo showed EF 50% with segmental wall motion abnormalities. -patient has CAD, history of CABG x3 on 01/21/2013. MPI suggestive of ischemia. No major cardiac ischemic symptoms at present, although patient's previously reported that he did not have any major symptoms prior to his previous coronary event. Echocardiogram showed LVEF 50%. Invasive workup with coronary angiogram would be reasonable to re-evaluate prairie island vessels and patency of bypass grafts. Patient said that he would like to wait for now and will call our office early next year to schedule cardiac catheterization. Office staff was informed. -continue current medical regimen including aspirin; high-dose atorvastatin and ezetimibe. Current LDL level improved to 22. Triglycerides are elevated. Continue Icosapent ethyl. -blood pressure at goal at present. Continue current antihypertensives include amlodipine, hydrochlorothiazide, losartan, metoprolol succinate. Patient was advised to continue to monitor blood pressure at home and keep a blood pressure log. Target blood pressure less than 130/80. -Optimal control of blood pressure and DM2. Continue SGL T2 inhibitor. Patient has been initiated on Ozempic for CV benefits. -Advised to minimize use of NSAIDs. -patient encouraged to continue aerobic exercise at home. Follow-up in 8-10 months or sooner if needed based on clinical course and above- mentioned testing. Kt Hemphill MD documented in this encounter Plan of Treatment Not on file documented as of this encounter Procedures Procedure Name Priority Date/Time Associated Diagnosis Comments LIPID PANEL Routine 02/28/2023 3:56 PM CDT documented in this encounter Results * Lipid panel (02/28/2023 3:56 PM CDT) SCRIBED Cholesterol, Total 96 <200 EXTERNAL LAB SCRIBED HDL 38 40 EXTERNAL LAB SCRIBED LDL 36 0 - 99 EXTERNAL LAB SCRIBED Triglycerides 120 0 - 149 EXTERNAL LAB Blood 02/28/2023 3:56 PM CDT us Historical Provider LAB BLOOD ORDERABLES Ambar pride Result EXTERNAL LAB documented in this encounter Visit Diagnoses Diagnosis Coronary artery disease involving prairie island coronary artery of pra[place] island heart without angina pectoris- Primary S/P CABG x 3 Postsurgical aortocoronary bypass status Hypertension associated with diabetes (HCC) Unspecified essential hypertension Mixed dyslipidemia documented in this encounter Discontinued Medications Medication Sig Discontinue Reason Start Date End Da te SAW PALMRAFAELAO ORAL Take by mouth Therapy completed 03/27/2023 documented as of this encounter Historical Medications * This list may reflect changes made after this encounter. celecoxib (CeleBREX) 200 mg capsule TAKE 1 CAPSULE BY MOUTH TWICE DAILY NEEDED FOR PAIN 02/01/2023 semaglutide (Ozempic) 0.25 mg or 0.5 mg (2 mg/3 mL) pen injector injection Inject 0.5 mg under the skin every 7 days added in this encounter Care Teams Trouble Dispatcher Relationship Specialty Start Date End Date Carlos Rushing MD PCP - General Family Practice 01/10/23 documented as of this encounter
--- OUTSIDE RECORDS SUMMARY | 2024-08-02 01:06 | XMS_ITS | Encounter Summary ---
Author Organization [facility] Address [address] [place] [address] Care Team Providers Care Credit Collections Manager Name Role Phone Carlos Rushing MD Primary Care Provider [phone] Reason for Visit * Cardiology (Routine) - Closed Specialty Diagnoses / Procedures Referred By Contac t Referred To Contact Diagnoses Coronary artery disease involving chitina coronary artery of chitina heart without angina pectoris S/P CABG x 3 Procedures Transthoracic Echo (TTE) Complete W Doppler/CF Ashley Rodriguez MD [address] [address] Phone: tel: fax: [facility] Referral ID Status Reason Start Date Expiration Date Visits Re quested Visits Authorized [id number] Closed 11/21/2022 12/21/2023 1 1 Encounter Details Date Type Department Care Team (Latest Contact Info) Description 01/10/2023 9:15 AM CDT Ancillary Procedure [facility] Cardiology [address] [facility] [address] [place] [address] Coronary artery disease involving chitina coronary artery of chitina heart without angina pectoris; S/P CABG x 3 Social History Tobacco Use Types Packs/Day Years Used Date Smoking Tobacco: Former Smokeless Tobacco: Never Alcohol Use Standard Drinks/Week Comments No 0 (1 standard drink = 0.6 oz pur e alcohol) Sex and Gender Information Value Date Recorded Sex Assigned at Not on file 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 Gender Identity Not on file Sexual Orientation Not on file documented as of this encounter Last Filed Vital Signs Vital Sign Reading Time Taken Comments Blood Pressure 127/91 01/10/2023 9:07 AM CDT Pulse - - Temperature - - Respiratory Rate - - Oxygen Saturation - - Inhaled Oxygen Concentration - - Weight - - Height - - Body Mass Index - - documented in this encounter Plan of Treatment Not on file documented as of this encounter Procedures Procedure Name Priority Date/Time Associated Diagnosis Comments TRANSTHORACIC ECHO (TTE) COMPLETE W DOPPLER/CF W CONTRAST Routine 01/10/2023 9:44 AM CDT Coronary artery disease involving chitina coronary artery of chitina heart without angina pectoris S/P CABG x 3 documented in this encounter Results * TRANSTHORACIC ECHO (TTE) COMPLETE W DOPPLER/CF W CONTRAST (01/10/2023 9:44 AM CDT) Anatomical Region Laterality Modality Ultrasound 01/10/2023 9:12 AM CDT Narrative 01/10/2023 5:09 PM CDT [facility] Cardiology [address], [place] [address] [address], [place] [address] P:[phone] P:[phone] Echocardiographic Report Patient Name: MARCIE HOOVER A : 1960 Study Date: 01/10/2023 9:12:05 AM Gender: M Tech: Location: [place] Ref.Provider: ASHLEY RODRIGUEZ Height(Cm): 185 BSA: 2.43 Weight(Kg): 114.8 Heart Rate: 83 BP: 127 / 98 Quality: Good Order Provider: ASHLEY RODRIGUEZ Procedures: Echocardiographic Report: Transthoracic echocardiogram with [...] Findings: Interpretation Site: Exam was interpreted at [facility]. Left Ventricle: Definity contrast agent used to [...] valve. Electronically Signed By: James To MD, [facility] 2023-01-10 17:09:38 CDT Procedure Note James To MD - 01/10/2023 [facility] Cardiology [address], [place] [address] [address] [facility] [address], [place] [address] P:[phone] P:[phone] Echocardiographic Report Patient Name: MARCIE HOOVER APatient ID: [id number] : [id number] Date: 01/10/2023 9:12:05 AM Gender: MAccession #: [id number] Tech: Location: [place] Ref.Provider: ASHLEY RODRIGUEZHeight(Cm): 185 BSA: 2.43Weight(Kg): 114.8 Heart Rate: 83BP: 127 / 98 Quality: GoodOrder Provider: ASHLEY RODRIGUEZ Procedures: Echocardiographic Report: Transthoracic echocardiogram with [...] Findings: Interpretation Site: Exam was interpreted at [facility]. Left Ventricle: Definity contrast agent used to [...] valve. Electronically Signed By: James To MD, [facility] 2023-01-10 17:09:38 CDT Ashley Rodriguez MD CV ECHO PROCEDURES Final Result documented in this encounter Visit Diagnoses Diagnosis Coronary artery disease involving chitina coronary artery of chitina heart without angina pectoris S/P CABG x 3 Postsurgical aortocoronary bypass status documented in this encounter Administered Medications Inactive Administered Medications - up to 3 most recent administrations Medication Order MAR Action Action Date Dose Rate Site perflutren lipid (DEFINITY) 1.5 mL in sodium chloride 0.9% 10 mL syringe 1-10 mL, intravenous, Once in imaging, contrast, Starting on Cherri 01/10/23 at 0944, For 1 dose, Intra-Procedure (CV) Contrast Given 01/10/2023 9:57 AM CDT 1 mL documented in this encounter Orders Medications Ordered That Lencho ht Not Have Been Administered Count Last Ordered Date First Ordered Date perflutren lipid (DEFINITY) 1.5 mL in sodium chloride 0.9% 10 mL syringe 1 01/10/2023 documented in this encounter Care Teams Credit Collections Manager Relationship Specialty Start Date End Date Carlos Rushing MD PCP - General Family Practice 01/10/23 documented as of this encounter
--- OUTSIDE RECORDS SUMMARY | 2024-08-02 01:06 | XMS_ITS | Encounter Summary ---
Author Organization [facility] Address [address] [place] [address] Care Team Providers Care Hogshead Stripper Name Role Phone Erik Morris MD Primary Care Provider [phone] Encounter Details Date Type Department Care Team (Late st Contact Info) Description 12/20/2022 Telephone [facility] Cardiology [address] [facility] [address] [place] [address] Kt Hemphill MD [address] [place] [id number] Social History Tobacco Use Types Packs/Day Years Used Date Smoking Tobacco: Former Smokeless Tobacco: Never Alcohol Use Standard Drinks/Week Comments No 0 (1 standard drink = 0.6 oz pur e alcohol) Sex and Gender Information Value Date Recorded Sex Assigned at Not on file 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 Patient did nothave any major symptoms on previous visit. I would like to see this patient in next few weeks, before his previously scheduled appointment to discuss any further treatment options as necessary based on his clinical status. He may continue current medical regimen. Spoke with pt to review result above. Call placed back to pt with appt. Lm on vm for 01.02.23 at 1430. Requested pt call back to confirm he can come then. documented in this encounter Plan of Treatment Not on file documented as of this encounter Visit Diagnoses Not on filedocumented in this encounter Care Teams Hogshead Stripper Relationship Specialty Start Date End Date Erik Morris MD PCP - General Internal Medicine 11/21/22 01/09/23 documented as of this encounter
--- OUTSIDE RECORDS SUMMARY | 2024-08-02 01:07 | XMS_ITS | Encounter Summary ---
Author Organization [facility] Address [address] [place] [address] Care Team Providers Care Digital Director Name Role Phone Markel White MD Primary Care Provider [phone] Reason for Visit * Reason Onset Date Comments Med Refill 02/13/2017 Pt needs new RX for Metoprolol 50 mg sent to [facility] - gave wa the fax number of . Encounter Details Date Type Department Care Team (Late st Contact Info) Description 02/13/2017 Telephone [facility] [address] [facility] [address] [place] [address] Kt Hemphill MD [address] [address] Med Refill (Pt needs new RX for Metoprolol 50 mg sent to [facility] - gave wa the fax number of . 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 90 tablet 2 02/13/2017 07/26/2017 metoprolol XL (TOPROL-XL) 50 mg 24 hr tablet Take 1 tablet (50 mg total) by mouth daily. 90 tablet 2 02/13/2017 02/13/2017 documented in this encounter Miscellaneous Notes * Telephone Encounter - Marissa High MA - 02/14/2017 10:34 AM CDT Called [facility] spoke with Damaris. Damaris states that Metoprolol rx was received and being preparedfor shipment. * Telephone Encounter - Marissa High MA - 02/13/2017 1:55 PM CDT Spoke with pt. Corrected pharm. Escribed to pharm. Pt aware. 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 Needs a new RX for his metoprolol 50 mg. Wants it sent to [facility].Gave me the fax number of documented in this encounter Plan of Treatment Not on file documented as of this encounter Visit Diagnoses Not on filedocumented in this encounter Discontinued Medications Medication Sig Discontinue Reason Start Date End Da te metoprolol XL (TOPROL-XL) 50 mg 24 hr tablet Take 1 tablet (50 mg total) by mouth daily. Reorder 02/08/2017 02/13/2017 metoprolol XL (TOPROL-XL) 50 mg 24 hr tablet Take 1 tablet (50 mg total) by mouth daily. Reorder 02/13/2017 02/13/2017 documented as of this encounter Care Teams Digital Director Relationship Specialty Start Date End Date Markel White MD [address] [place] [address] [place] [address] PCP - General 10/26/16 06/16/19 documented as of this encounter
--- OUTSIDE RECORDS SUMMARY | 2024-08-02 01:07 | XMS_ITS | Encounter Summary ---
Author Organization [facility] Address [address] [place] [address] Care Team Providers Care Tape Folding Machine Operator Name Role Phone Markel White MD Primary Care Provider [phone] Encounter Details Date Type Department Care Team (Late st Contact Info) Description 01/21/2017 Telephone [facility] [address] [facility] [address] [place] [address] Kt Hemphill MD [address] [place] [id number] Social History Tobacco Use Types Packs/Day Years Used Date Smoking Tobacco: Never Assessed Alcohol Use Standard Drinks/Week Comments Yes 0 (1 standard drink = 0.6 oz pur e alcohol) Sex and Gender Information Value Date Recorded Sex Assigned at Not on file 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
--- OUTSIDE RECORDS SUMMARY | 2024-08-02 01:07 | XMS_ITS | Encounter Summary ---
Author Organization [facility] Address [address] [facility] [address] [place] [address] Care Team Providers Care Seismology Technical Officer Name Role Phone Markel White MD Primary Care Provider [phone] Encounter Details Date Type Department Care Team (Late st Contact Info) Description 01/31/2017 Telephone [facility] [address] [facility] [address] [place] [address] Kt Hemphill MD [address] [place] [id number] Social History Tobacco Use Types Packs/Day Years Used Date Smoking Tobacco: Never Assessed Alcohol Use Standard Drinks/Week Comments Yes 0 (1 standard drink = 0.6 oz pur e alcohol) Sex and Gender Information Value Date Recorded Sex Assigned at Not on file 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 90 tablet 2 01/31/2017 02/08/2017 metoprolol XL (TOPROL-XL) 50 mg 24 hr tablet Take 1 tablet (50 mg total) by mouth daily. 90 tablet 2 01/31/2017 01/31/2017 documented in this encounter Miscellaneous Notes * Telephone Encounter - Hailee Shah MA - 01/31/2017 10:46 AM CDT Called [facility] to see why the prescription was not being filled. The wrong [facility] address was chosen. Changed the pharmacy and sent script. Called and notified patient. documented in this encounter Plan of Treatment Not on file documented as of this encounter Visit Diagnoses Not on filedocumented in this encounter Discontinued Medications Medication Sig Discontinue Reason Start Date End Da te metoprolol XL (TOPROL-XL) 50 mg 24 hr tablet Take 1 tablet (50 mg total) by mouth daily. Reorder 01/21/2017 01/31/2017 metoprolol XL (TOPROL-XL) 50 mg 24 hr tablet Take 1 tablet (50 mg total) by mouth daily. Reorder 01/31/2017 01/31/2017 documented as of this encounter Care Teams Seismology Technical Officer Relationship Specialty Start Date End Date Markel White MD [address] [facility] [address] [facility] [address] [place] [address] PCP - General 10/26/16 06/16/19 documented as of this encounter
--- OUTSIDE RECORDS SUMMARY | 2024-08-02 01:07 | XMS_ITS | Encounter Summary ---
Author Organization [facility] Address [address] [facility] [address] [place] [address] Care Team Providers Care Front Office Director Name Role Phone Markel White MD Primary Care Provider [phone] Encounter Details Date Type Department Care Team (Late st Contact Info) Description 02/08/2017 Telephone [facility] [address] [facility] [address] [place] [address] Kt Hemphill MD [address] [place] [phone] Social History Tobacco Use Types Packs/Day Years Used Date Smoking Tobacco: Never Assessed Alcohol Use Standard Drinks/Week Comments Yes 0 (1 standard drink = 0.6 oz pur e alcohol) Sex and Gender Information Value Date Recorded Sex Assigned at Not on file 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 90 tablet 3 02/08/2017 02/13/2017 documented in this encounter Miscellaneous Notes * Telephone Encounter - Marissa High MA - 02/08/2017 10:34 AM CDT rx sent to pharm. documented in this encounter Plan of Treatment Not on file documented as of this encounter Visit Diagnoses Not on filedocumented in this encounter Discontinued Medications Medication Sig Discontinue Reason Start Date End Da te metoprolol XL (TOPROL-XL) 50 mg 24 hr tablet Take 1 tablet (50 mg total) by mouth daily. Reorder 01/31/2017 02/08/2017 documented as of this encounter Care Teams Front Office Director Relationship Specialty Start Date End Date Markel White MD [address] [facility] [address] [facility] [address] [place] [address] PCP - General 10/26/16 06/16/19 documented as of this encounter
--- OUTSIDE RECORDS SUMMARY | 2024-08-02 01:07 | XMS_ITS | Encounter Summary ---
Author Organization [facility] Medical Group Address [address] [place] [address] Care Team Providers Care Art Director Name Role Phone Hiram Moore DO Primary Care Provider [phone] Reason for Visit * Reason Comments Follow-up overdue follow up on CAD, s/p CABGx3, HTN, dyslipidemia * Consultation (Routine) - Closed Specialty Diagnoses / Procedures Referred By Contac t Referred To Contact Cardiology Diagnoses Coronary atherosclerosis of [place] coronary artery Hiram Moore DO Phone: tel: fax: [facility] Medical [facility] Cardiology [address] [place] [address] Phone: tel: fax: Referral ID Status Reason Start Date Expiration Date V isits Requested Visits Authorized [id number] Closed Specialty Services Required 06/08/2020 12/05/2020 4 4 Encounter Details Date Type Department Care Team (Late st Contact Info) Description 08/10/2020 8:45 AM PROFESSOR OF BUSINESS Office Visit [facility] Medical [facility] Cardiology [address] [place] [address] Kt Hemphill MD [address] [address] S/P CABG x 3 (Primary Dx); Coronary artery disease involving [place] coronary artery of [place] heart without angina pectoris; Essential hypertension; Dyslipidemia; Type 2 diabetes mellitus without complication, without long-term current use of insulin ([facility]) Social History Tobacco Use Types Packs/Day Years Used Date Smoking Tobacco: Former Smokeless Tobacco: Never Alcohol Use Standard Drinks/Week Comments No 0 (1 standard drink = 0.6 oz pur e alcohol) Sex and Gender Information Value Date Recorded Sex Assigned at Not on file Legal Sex Male 4:42 AM PROFESSOR OF BUSINESS Gender Identity Not on file Sexual Orientation Not on file documented as of this encounter Last Filed Vital Signs Vital Sign Reading Time Taken Comments Blood Pressure 138/90 08/10/2020 8:39 AM PROFESSOR OF BUSINESS Pulse 71 08/10/2020 8:39 AM PROFESSOR OF BUSINESS Temperature - - Respiratory Rate - - Oxygen Saturation 99% 08/10/2020 8:39 AM PROFESSOR OF BUSINESS Inhaled Oxygen Concentration - - Weight 111.6 kg (246 lb) 08/10/2020 8:39 AM PROFESSOR OF BUSINESS Height 185.4 cm (6' 1 ) 08/10/2020 8:39 AM PROFESSOR OF BUSINESS Body Mass Index 32.46 08/10/2020 8:39 AM PROFESSOR OF BUSINESS documented in this encounter Progress Notes * Kt Hemphill MD - 08/10/2020 8:45 AM CST [facility] FOLLOW UP 08/10/2020 Chief Complaint Patient presents with ??? Follow-up overdue follow up on CAD, s/p CABGx3, HTN, dyslipidemia Kristopher Hoover is a 59 y.o. male year-old male with CAD, history of CABG ??3, hypertension, diabetes mellitus, DJD. He is former patient of Dr. Rojas. Patient was admitted to [facility] on 01/16/13 with chest pain and was found to have non-ST elevation DC. Cath showed multivessel coronary disease. He was transferred to [facility] and had CABG ??3 on 01/18/13. 06/11/2018-Patient [...] Outpatient Medications Medication Sig Dispense Refill ??? aspirin 81 mg enteric coated tablet Take 1 tablet (81 mg total) by mouth daily 30 tablet 11 ??? atorvastatin (LIPITOR) 80 mg tablet take 1 tablet by oral route every day 0 0 ??? buPROPion (WELLBUTRIN) 100 mg tablet take 1 tablet by oral route 2 times every day 0 0 ??? empagliflozin (JARDIANCE) 10 mg tablet take 1 tablet by oral route every day in the morning 0 0 ??? ezetimibe (ZETIA) 10 mg tablet TAKE 1 TABLET BY MOUTH DAILY 90 tablet 0 ??? hydroCHLOROthiazide (HYDRODIURIL) 12.5 mg tablet TAKE 2 TABLETS BY MOUTH DAILY 180 tablet 0 ??? levothyroxine (SYNTHROID) 125 mcg tablet Take 125 mcg by mouth camera prototyping engineer before breakfast ??? losartan (COZAAR) 100 mg tablet take 1 tablet by oral route every day 0 0 ??? metFORMIN (GLUCOPHAGE) 1,000 mg tablet take 1 tablet by oral route 2 times every day with morning and evening meals 0 0 ??? metoprolol XL (TOPROL-XL) 50 mg extended release tablet TAKE 1 TABLET BY MOUTH DAILY 90 tablet 1 ??? multivitamin (MULTI-DAY) tablet tablet take 1 tablet by oral route every day with food 0 0 ??? omeprazole (PriLOSEC) 20 mg capsule take 1 capsule by oral route every day before a meal 0 0 ??? traZODone (DESYREL) 100 mg tablet take 0.5 Tablet by oral route every day at bedtime 0 0 No current facility-administered medications for this visit. [...] HDL 26, triglycerides 104, LDL 57. 08/10/2020 PHYSICAL EXAM Vitals BP 138/90 (BP Location: Left arm, Patient Position: Sitting) Pulse 71 Ht 185.4 cm (6' 1 ) Wt 111.6 kg (246 lb) SpO2 99% BMI 32.46 kg/m?? General appearance - alert, no distress, oriented to time, place, person Mental status - affect appropriate to mood Eyes - extraocular eye movements intact, no pallor Ears - external ears appear normal, hearing grossly normal Nose - normal and patent, no discharge Mouth - mucous membranes moist, tongue normal Neck - supple, carotids upstroke normal bilaterally, no bruits, no JVD Chest - clear to auscultation [...] Diagnoses and all orders for this visit: S/P CABG x 3 (Primary) Coronary artery disease involving [place] coronary artery of [place] heart without angina pectoris - Ambulatory referral to Cardiology Essential hypertension Dyslipidemia Type 2 diabetes mellitus without complication, without long-term current use of insulin ([facility]) PLAN/RECOMMENDATIONS 59 y.o. male with CAD, history of non-ST elevation DC, history of CABG ??3, hypertension, diabetes mellitus, DJD. Last echo showed EF 50% with segmental wall motion abnormalities. Stable cardiac status at present. Essentially asymptomatic from cardiovascular standpoint. Continue current medical regimen including aspirin; metoprolol, losartan, HCTZ; high-dose atorvastatin and ezetimibe. Current LDL level improved to 57. Patient's blood pressure is mildly elevated. He was advised to monitor blood pressure at home and keep a blood pressure log. He was advised to call our office with blood pressure numbers. Will modify/optimize antihypertensives as needed based on home blood pressure readings. Optimal control of blood pressure and DM2. Advised to minimize use of diclofenac. Patient encouraged to continue aerobic exercise at home. Follow-up in 12 months or sooner if needed. Kt Hemphill MD ESSOR OF BUSINESS documented in this encounter Miscellaneous Notes * Addendum Note - Liz Ren MA - 08/10/2020 8:45 AM CSTAddended by: LIZ REN on: 08/10/2020 04:19 PM Modules accepted: Orders ESSOR OF BUSINESS documented in this encounter Plan of Treatment Not on file documented as of this encounter Procedures Procedure Name Priority Date/Time Associated Diagnosis Comments POCT LIPID PANEL Routine 08/10/2020 4:19 PM PROFESSOR OF BUSINESS Dyslipidemia documented in this encounter Results * POCT lipid panel (08/10/2020 4:19 PM PROFESSOR OF BUSINESS) Cholesterol, POC 103 mg/dL HDL, POC 26 mg/dL Triglycerides, POC 104 mg/dL LDL Cholesterol POC 57 mg/dL Chol/HDL Ratio, POC 4.0 Non-HDL Cholesterol, POC 77 mg/dL Cholesterol Total, POC 103 mg/dL Capillary blood 08/10/2020 4 :19 PM PROFESSOR OF BUSINESS Kt Hemphill MD POINT OF CARE TEST ORDERABLES Fi nal Result documented in this encounter Visit Diagnoses Diagnosis S/P CABG x 3- Primary Postsurgical aortocoronary bypass status Coronary artery disease involving [place] coronary artery of [place] heart without angina pectoris Essential hypertension Unspecified essential hypertension Dyslipidemia Other and unspecified hyperlipidemia Type 2 diabetes mellitus without complication, without long-term current use of insulin (CMS/HCC) (HCC) documented in this encounter Orders Outpatient Referral Count Last Ordered Date Fir st Ordered Date AMB REFERRAL TO CARDIOLOGY 1 08/10/2020 documented in this encounter Care Teams Art Director Relationship Specialty Start Date End Date Hiram Moore DO PCP - General Internal Medicine 06/17/19 11/20/22 documented as of this encounter
--- OUTSIDE RECORDS SUMMARY | 2024-08-02 01:07 | XMS_ITS | Encounter Summary ---
Author Organization [facility] Medical Group Address [address] [place] [address] Care Team Providers Care Behavioral Analyst Name Role Phone Hiram Moore DO Primary Care Provider Encounter Details Date Type Department Care Team (Late st Contact Info) Description 09/01/2021 Orders Only [facility] Medical Group Cardiology [address] [place] [phone] ProviderDiego MD [address] [place] [address] Social History Tobacco Use Types Packs/Day Years Used Date Smoking Tobacco: Former Smokeless Tobacco: Never Alcohol Use Standard Drinks/Week Comments No 0 (1 standard drink = 0.6 oz pur e alcohol) Sex and Gender Information Value Date Recorded Sex Assigned at Not on file Legal Sex Male 4:42 AM BARRELHEAD INSPECTOR Gender Identity Not on file Sexual Orientation Not on file documented as of this encounter Plan of Treatment Not on file documented as of this encounter Procedures Procedure Name Priority Date/Time Associated Diagnosis Comments CARDIOLOGY DOCUMENT SCAN Routine 09/01/2021 documented in this encounter Results * SCAN - CARDIOLOGY (09/01/2021) Anatomical Region Laterality Modality Other Historical Provider [facility] LEE ANN TAVERA Final Result documented in this encounter Visit Diagnoses Not on filedocumented in this encounter Care Teams Behavioral Analyst Relationship Specialty Start Date End Date Hiram Moore DO PCP - General Internal Medicine 11/20/19 4/25/23 documented as of this encounter
--- OUTSIDE RECORDS SUMMARY | 2024-08-02 01:07 | XMS_ITS | Encounter Summary ---
Author Organization [facility] Medical Group Address [address] [place] [address] Care Team Providers Care Section Housekeeper Name Role Phone Markel White MD Primary Care Provider [phone] Encounter Details Date Type Department Care Team (Late st Contact Info) Description 02/12/2017 Telephone [facility] [address] [place] [address] Kt Hemphill MD [address] [facility] [address] [place] [address] Social History Tobacco Use Types Packs/Day Years Used Date Smoking Tobacco: Never Assessed Alcohol Use Standard Drinks/Week Comments Yes 0 (1 standard drink = 0.6 oz pur e alcohol) Sex and Gender Information Value Date Recorded Sex Assigned at Not on file Legal Sex Male 4:42 AM APPLICATION DEVELOPMENT SPECIALIST Gender Identity Not on file Sexual Orientation Not on file documented as of this encounter Miscellaneous Notes * Telephone Encounter - Liz Ren - 02/13/2017 2:49 PM CDT See jonny's note from today. documented in this encounter Plan of Treatment Not on file documented as of this encounter Visit Diagnoses Not on filedocumented in this encounter Care Teams Section Housekeeper Relationship Specialty Start Date End Date Markel White MD [address] [place] [address] PCP - General 10/26/16 06/16/19 documented as of this encounter
--- OUTSIDE RECORDS SUMMARY | 2024-08-02 01:07 | XMS_ITS | Encounter Summary ---
Author Organization [facility] Medical Group Address [address] [place] [address] Care Team Providers Care Sports Medicine Coordinator Name Role Phone Markel White MD Primary Care Provider [phone] Encounter Details Date Type Department Care Team (Late st Contact Info) Description 10/20/2018 Telephone [facility] [address] [address] Kt Hemphill MD [address] [facility] [address] [place] [address] Social History Tobacco Use Types Packs/Day Years Used Date Smoking Tobacco: Former Smokeless Tobacco: Never Alcohol Use Standard Drinks/Week Comments No 0 (1 standard drink = 0.6 oz pur e alcohol) Sex and Gender Information Value Date Recorded Sex Assigned at Not on file Legal Sex Male 4:42 AM TELEPHONE MESSENGER Gender Identity Not on file Sexual Orientation Not on file documented as of this encounter Miscellaneous Notes * Telephone Encounter - Beatriz Whelan RN - 10/20/2018 1:37 PM CDT Spoke to pt; Given message per DK; Pt voiced understanding. Will also fax AC hold form to dental office per request. * Telephone Encounter - Kt Hemphill MD - 10/20/2018 1:12 PM CDT I reviewed patient's medical records. He can discontinue clopidogrel, and switch to low-dose aspirin and undergo dental extraction while on low-dose aspirin regimen. * Telephone Encounter - Beatriz Whelan RN - 10/20/2018 9:12 AM CDT Message forwarded to DK; Will await his response. * Telephone Encounter - Teetee Strange - 10/20/2018 8:44 AM CDT Pt called requesting a clearance letter faxed to his dentist Dr. Barth, pt dentist will like to know if pt is going to continue on his plavix while having his tooth extracted, Dr. Barth phone # [phone] & faxed # [phone]. * Telephone Encounter - Beatriz Whelan RN - 10/20/2018 8:36 AM CDT Spoke to pt; Made aware that he did not require antibiotics from a cardiac perspective, and that the dental office would need to prescribe if they feel he needs them. Pt states he started holding hisplavix yesterday per dental office request. Advised he should never hold AC without permission fromthe gettering operator; He voiced understanding. Pt made aware that he is at risk for re- stenosis, SC andCVA. Will forward to DK to make aware. Pt states his dental extraction is Saturday of this week. * Telephone Encounter - Teetee Strange - 10/20/2018 8:05 AM CDT Pt is scheduled to have a extraction on Sat10/22/18, pt is requesting for a antibiotic to be calledin to [facility] [phone]. documented in this encounter Plan of Treatment Not on file documented as of this encounter Visit Diagnoses Not on filedocumented in this encounter Care Teams Sports Medicine Coordinator Relationship Specialty Start Date End Date Markel White MD [address] [facility] [address] [place] [id number] PCP - General 10/26/16 06/16/19 documented as of this encounter
--- OUTSIDE RECORDS SUMMARY | 2024-08-02 01:07 | XMS_ITS | Encounter Summary ---
Author Organization [facility] Medical Group Address [address] [place] [address] Care Team Providers Care Hurricane Tracker Name Role Phone Markel White MD Primary Care Provider [phone] Reason for Visit * Reason Comments Follow-up overdue fu on CAD, h /o CABG Encounter Details Date Type Department Care Team (Late st Contact Info) Description 06/11/2018 11:45 AM APPLIANCE REPAIR TECHNICIAN Office Visit [facility] [address] [place] [address] Kt Hemphill MD [address] [place] [id number] Coronary artery disease involving [place] coronary artery of [place] heart without angina pectoris (Primary Dx); S/P CABG x 3; Essential hypertension; Dyslipidemia; Type 2 diabetes mellitus without complication, without long-term current use of insulin ([facility]) Social History Tobacco Use Types Packs/Day Years Used Date Smoking Tobacco: Former Smokeless Tobacco: Never Alcohol Use Standard Drinks/Week Comments No 0 (1 standard drink = 0.6 oz pur e alcohol) Sex and Gender Information Value Date Recorded Sex Assigned at Not on file Legal Sex Male 4:42 AM APPLIANCE REPAIR TECHNICIAN Gender Identity Not on file Sexual Orientation Not on file documented as of this encounter Last Filed Vital Signs Vital Sign Reading Time Taken Comments Blood Pressure 130/80 06/11/2018 11:40 AM APPLIANCE REPAIR TECHNICIAN Pulse 70 06/11/2018 11:40 AM APPLIANCE REPAIR TECHNICIAN Temperature - - Respiratory Rate - - Oxygen Saturation 97% 06/11/2018 11:40 AM APPLIANCE REPAIR TECHNICIAN Inhaled Oxygen Concentration - - Weight 116.6 kg (257 lb) 06/11/2018 11:40 AM APPLIANCE REPAIR TECHNICIAN Height 185.4 cm (6' 1 ) 06/11/2018 11:40 AM APPLIANCE REPAIR TECHNICIAN Body Mass Index 33.91 06/11/2018 11:40 AM APPLIANCE REPAIR TECHNICIAN documented in this encounter Ordered Prescriptions Prescription Sig Dispense Quantity Refills Last Filled Start Date End Date hydroCHLOROthiazid e (HYDRODIURIL) 12.5 mg tablet 2 tablets (25 mg total) daily. 90 tablet 3 06/11/2018 9 documented in this encounter Progress Notes * Kt Hemphill MD - 06/11/2018 11:45 AM CST [facility] FOLLOW UP 06/11/2018 Chief Complaint Patient presents with ??? Follow-up overdue fu on CAD, h/o CABG Kristopher Hoover is a 57 y.o. male year-old male with CAD, history of CABG ??3, hypertension, diabetes mellitus, DJD. He is former patient of Dr. Rojas. Patient was admitted to [facility] on 01/16/13 with chest pain and was found to have non-ST elevation OR. Cath showed multivessel coronary disease. He was transferred to [facility] and had CABG ??3 on 01/18/13. Patient is here for the routine follow-up visit. Patient states that he has been doing well since last office visit. He is physically active and denies any dyspnea on exertion or angina. Denies palpitations, dizziness or loss of consciousness. Reports compliance with current medical regimen including antiplatelet therapy with clopidogrel. Denies any bleeding complications. Patient says that home blood pressures are usually in the 130s over 70s. REVIEW OF SYSTEMS General ROS: negative for [...] Cardiovascular ROS: negative for - chest pain, dyspnea, edema, Syncope, palpitations, orthopnea/PND Gastrointestinal ROS: negative for - abdominal pain, blood in stools, hematemesis, nausea/vomiting Endocrine ROS: negative for - hot flashes, polydipsia/polyuria Genito-Urinary ROS: negative for - dysuria, hematuria Musculoskeletal ROS: Joint pain Neurological ROS: negative for - gait disturbance, weakness Dermatological ROS: negative for pruritus, rash HOME MEDICATIONS No Known Allergies Current Outpatient Prescriptions Medication Sig Dispense Refill ??? atorvastatin (LIPITOR) 80 mg tablet take 1 tablet by oral route every day 0 0 ??? buPROPion (WELLBUTRIN) 100 mg tablet take 1 tablet by oral route 2 times every day 0 0 ??? clopidogrel (PLAVIX) 75 mg tablet TAKE 1 TABLET BY MOUTH DAILY 90 tablet 0 ??? empagliflozin (JARDIANCE) 10 mg tablet take 1 tablet by oral route every day in the morning 0 0 ??? gemfibrozil (LOPID) 600 mg tablet take 1 tablet by oral route 2 times every day 30 minutes before morning and evening meal 0 0 ??? hydroCHLOROthiazide (HYDRODIURIL) 12.5 mg tablet 2 tablets (25 mg total) daily. 90 tablet 3 ??? levothyroxine sodium (TIROSINT) 112 mcg capsule take 1 capsule by oral route every day 0 0 ??? losartan (COZAAR) 100 mg tablet take 1 tablet by oral route every day 0 0 ??? metFORMIN (GLUCOPHAGE) 1,000 mg tablet take 1 tablet by oral route 2 times every day with morning and evening meals 0 0 ??? metoprolol XL (TOPROL-XL) 50 mg 24 hr tablet TAKE 1 TABLET BY MOUTH DAILY 90 tablet 2 ??? multivitamin (MULTI-DAY) tablet tablet take 1 [...] HDL 31, triglycerides 227, LDL 81. 05/13/2018 PHYSICAL EXAM Vitals BP 130/80 (BP Location: Right arm, Patient Position: Sitting) Pulse 70 Ht 185.4 cm (6' 1 ) Wt 116.6 kg (257 lb) SpO2 97% BMI 33.91 kg/m?? General appearance - alert, no distress, [...] for this visit: Coronary artery disease involving [place] coronary artery of [place] heart without angina pectoris (Primary) S/P CABG x 3 Essential hypertension Dyslipidemia Type 2 diabetes mellitus without complication, without long-term current use of insulin ([facility]) Other orders - hydroCHLOROthiazide (HYDRODIURIL) 12.5 mg tablet; 2 tablets (25 mg total) daily. PLAN/RECOMMENDATIONS 57 year-old male with CAD, history of non-ST elevation OR, history of CABG ??3, hypertension, diabetes mellitus, DJD. Last echo showed EF 50% with segmental wall motion abnormalities. Stable cardiac status at present. Continue current medical regimen including clopidogrel; continue metoprolol succinate 50 mg daily, continue losartan, atorvastatin. Lipid panel from 05/13/2018 showed TC 141, HDL 31, LDL 81, TG 227. Optimal control of blood pressure and DM2. Advised to minimize use of diclofenac. Patient encouraged to continue aerobic exercise at home. Follow-up in 12 months or sooner if needed. Kt Hemphill MD IANCE REPAIR TECHNICIAN documented in this encounter Plan of Treatment Not on file documented as of this encounter Visit Diagnoses Diagnosis Coronary artery disease involving [place] coronary artery of [place] heart without angina pectoris- Primary S/P CABG x 3 Postsurgical aortocoronary bypass status Essential hypertension Unspecified essential hypertension Dyslipidemia Other and unspecified hyperlipidemia Type 2 diabetes mellitus without complication, without long-term current use of insulin ([facility]) (HCC) documented in this encounter Discontinued Medications Medication Sig Discontinue Reason Start Date End Da te hydroCHLOROthiazide (HYDRODIURIL) 12.5 mg tablet take 1 tablet by oral route every day 04/13/2015 06/11/2018 documented as of this encounter Care Teams Hurricane Tracker Relationship Specialty Start Date End Date Markel White MD [address] [place] [address] PCP - General 10/26/16 06/16/19 documented as of this encounter
--- OUTSIDE RECORDS SUMMARY | 2024-08-02 01:07 | XMS_ITS | Encounter Summary ---
Author Organization [facility] Medical Group Address [address] [place] [address] Care Team Providers Care Drawbench Operator Name Role Phone Markel White MD Primary Care Provider [phone] Encounter Details Date Type Department Care Team (Late st Contact Info) Description 04/11/2019 Orders Only [facility] [address] [facility] [place] [phone] ProviderDiego MD [address] [place], [place] [id number] Social History Tobacco Use Types Packs/Day Years Used Date Smoking Tobacco: Former Smokeless Tobacco: Never Alcohol Use Standard Drinks/Week Comments No 0 (1 standard drink = 0.6 oz pur e alcohol) Sex and Gender Information Value Date Recorded Sex Assigned at Not on file Legal Sex Male 4:42 AM POISER BALANCE Gender Identity Not on file Sexual Orientation Not on file documented as of this encounter Plan of Treatment Not on file documented as of this encounter Procedures Procedure Name Priority Date/Time Associated Diagnosis Comments LIPID PANEL Routine 12/24/2017 documented in this encounter Results * Lipid panel (12/24/2017) SCRIBED Cholesterol, Total 124 <200 EXTERNAL LAB SCRIBED HDL 28 >40 EXTERNAL LAB SCRIBED LDL 73 <100 EXTERNAL LAB SCRIBED Triglycerides 130 <150 EXTERNAL LAB Blood specimen (specimen) Historical Provider LAB BLOOD ORDERABLES Edit ed Result - Final EXTERNAL LAB documented in this encounter Visit Diagnoses Not on filedocumented in this encounter Care Teams Drawbench Operator Relationship Specialty Start Date End Date Markel White MD [address] [place] [id number] PCP - General 10/26/16 06/16/19 documented as of this encounter
--- OUTSIDE RECORDS SUMMARY | 2024-08-02 01:07 | XMS_ITS | Encounter Summary ---
Author Organization [facility] Facility Care Team Providers Care Claims Support Specialist Name Role Phone Hiram Moore DO Primary Care Provider [phone] Encounter Details Date Type Department Care Team (Latest Contact Info) Description 06/17/2019 Travel Social History Tobacco Use Types Packs/Day Years Used Date Smoking Tobacco: Former Smokeless Tobacco: Never Alcohol Use Standard Drinks/Week Comments No 0 (1 standard drink = 0.6 oz pur e alcohol) Sex and Gender Information Value Date Recorded Sex Assigned at Not on file Legal Sex Male 4:42 AM BURIAL VAULT SETTER Gender Identity Not on file Sexual Orientation Not on file documented as of this encounter Plan of Treatment Not on file documented as of this encounter Visit Diagnoses Not on filedocumented in this encounter Care Teams Claims Support Specialist Relationship Specialty Start Date End Date Hiram Moore DO PCP - General Internal Medicine 06/17/19 11/20/22 documented as of this encounter
--- OUTSIDE RECORDS SUMMARY | 2024-08-02 01:07 | XMS_ITS | Encounter Summary ---
Author Organization [facility] Healthcare Address [address] [place] [address] Care Team Providers Care Fermenter Operator Name Role Phone Unavailable Primary Care Provider Unavailabl e Encounter Details Date Type Department Care Team (Late st Contact Info) Description 02/02/2013 2:58 PM CDT - 02/02/2013 11:59 PM CDT [place] [address] [facility] [address] [place] [address] Heart failure (HCC) Social History Tobacco Use Types Packs/Day Years Used Date Smoking Tobacco: Never Assessed Sex and Gender Information Value Date Recorded Sex Assigned at Not on file 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 Gender Identity Not on file Sexual Orientation Not on file documented as of this encounter Plan of Treatment Not on file documented as of this encounter Procedures Procedure Name Priority Date/Time Associated Diagnosis Comments PLASMA COMPREHENSIVE METABOLIC PANEL Routine 02/02/2013 3:01 PM CDT BLOOD CELL COUNT (CBC) Routine 3 3:01 PM CDT DISCHARGE LABORATORY CUMULATIVE REPORT 02/02/2013 documented in this encounter Results * (ABNORMAL) Blood cell count (CBC) (02/02/2013 3:01 PM CDT) WBC 13.4(H) 5.0 - 10.0 K/cumm HISTORICAL RESULTS RBC 3.27(L) 4.50 - 6.00 M/cumm HISTORICAL RESULTS Hgb 9.8(L) 14.0 - 18.0 g/dl HISTORICAL RESULTS Hct 31.7(L) 40.0 - 54.0 % HISTORICAL RESULTS MCV 96.9(H) 82.0 - 96.0 fl HISTORICAL RESULTS MCH 30.0 27.0 - 32.0 pg HISTORICAL RESULTS MCHC 30.9 29.0 - 35.0 g/dl HISTORICAL RESULTS Platelets 446 150 - 450 K/cumm HISTORICAL RESULTS RDW 52.6(H) 35.1 - 43.9 fl HISTORICAL RESULTS Rdw 15.3(H) 11.5 - 14.5 % HISTORICAL RESULTS MPV 8.8 8.6 - 12.6 fl HISTORICAL RESULTS Blood specimen (specimen) 02/02/2013 3:01 PM CDT Irving Stevens MD LAB BLOOD ORDERABLES Final R esult HISTORICAL RESULTS * (ABNORMAL) Plasma comprehensive metabolic panel (02/02/2013 3:01 PM CDT) BUN 33(H) 8 - 24 mg/dl HISTORICAL RESULTS Glucose 80 70 - 99 mg/dl HISTORICAL RESULTS Sodium 138 135 - 145 mmol/L HISTORICAL RESULTS K, pl 4.9 3.5 - 5.1 mmol/L HISTORICAL RESULTS Chloride 105 100 - 114 mmol/L HISTORICAL RESULTS CO2 26 22 - 32 mmol/L HISTORICAL RESULTS Creatinine 1.76(H) 0.7 - 1.4 mg/dl HISTORICAL RESULTS AST 14 7 - 40 Units/L HISTORICAL RESULTS ALT 13 5 - 50 Units/L HISTORICAL RESULTS Alk phos 87 30 - 110 Units/L HISTORICAL RESULTS Calcium 9.1 8.4 - 10.5 mg/dl HISTORICAL RESULTS Bilirubin 0.29 0.10 - 1.30 mg/dl HISTORICAL RESULTS Protein, pl 6.7 6.0 - 8.3 g/dl HISTORICAL RESULTS Alb 3.4 3.2 - 4.8 g/dl HISTORICAL RESULTS Globulin 3.3 2.0 - 4.3 g/dl HISTORICAL RESULTS A. gap 12 8 - 16 mmol/L HISTORICAL RESULTS eGFR 41 90 - 200 ml/min/1.7 3 m2 HISTORICAL RESULTS Comment: If this individual is -[place]ian, multiply result by 1.21 Repeated results of less than 60 is indicative of chronic kidney disease. MDRD formula has not been validated on individuals greater than 70 years old. Plasma 02/02/2013 3:01 PM CDT us Irving Stevens MD LAB BLOOD ORDERABLES Final R esult HISTORICAL RESULTS * DISCHARGE LABORATORY CUMULATIVE REPORT (02/02/2013) Narrative 02/02/2013 Ordered by an unspecified provider. us Historical Provider LAB BLOOD ORDERABLES Ambar l Result documented in this encounter Visit Diagnoses Diagnosis Heart failure (HCC) Unspecified heart failure documented in this encounter
--- OUTSIDE RECORDS SUMMARY | 2024-08-02 01:07 | XMS_ITS | Encounter Summary ---
Author Organization [facility] Address [address] [place] [address] Care Team Providers Care Topology Professor Name Role Phone Markel White MD Primary Care Provider [phone] Encounter Details Date Type Department Care Team (Late st Contact Info) Description 02/13/2017 Telephone [facility] [address] [place] [address] Liz Ren MA Social History Tobacco Use Types Packs/Day Years Used Date Smoking Tobacco: Never Assessed Alcohol Use Standard Drinks/Week Comments Yes 0 (1 standard drink = 0.6 oz pur e alcohol) Sex and Gender Information Value Date Recorded Sex Assigned at Not on file 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 documented in this encounter Plan of Treatment Not on file documented as of this encounter Visit Diagnoses Not on filedocumented in this encounter Care Teams Topology Professor Relationship Specialty Start Date End Date Markel White MD [address] [facility] [place], [place] [id number] PCP - General 10/26/16 06/16/19 documented as of this encounter
--- OUTSIDE RECORDS SUMMARY | 2024-08-02 01:07 | XMS_ITS | Encounter Summary ---
Author Organization [facility] Address [address] [place] [address] Care Team Providers Care Vessel Scrapper Helper Name Role Phone Hiram Moore DO Primary Care Provider [phone] Reason for Visit * Reason Comments Med Refill Encounter Details Date Type Department Care Team (Late st Contact Info) Description 06/20/2020 Telephone [facility] Cardiology [address] [place] [address] Kt Hemphill MD [address] [id number] Med Refill Social History Tobacco Use Types Packs/Day Years Used Date Smoking Tobacco: Former Smokeless Tobacco: Never Alcohol Use Standard Drinks/Week Comments No 0 (1 standard drink = 0.6 oz pur e alcohol) Sex and Gender Information Value Date Recorded Sex Assigned at Not on file 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 Pt has an appt scheduled on 08/10/20. Pharmacy: [facility] L ESTIMATOR * Telephone Encounter - Johan Copeland MA - 06/20/2020 9:03 AM CST Patient needs to be seen. LMOM to have patient call back to schedule appt for refill. L ESTIMATOR documented in this encounter Plan of Treatment Not on file documented as of this encounter Visit Diagnoses Not on filedocumented in this encounter Discontinued Medications Medication Sig Discontinue Reason Start Date End Da te ezetimibe (ZETIA) 10 mg tablet Take 1 tablet (10 mg total) by mouth daily 02/09/2020 06/20/2020 documented as of this encounter Care Teams Vessel Scrapper Helper Relationship Specialty Start Date End Date Hiram Moore DO PCP - General Internal Medicine 06/17/19 11/20/22 documented as of this encounter
--- OUTSIDE RECORDS SUMMARY | 2024-08-02 01:07 | XMS_ITS | Encounter Summary ---
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 Gender Identity Not on file Sexual Orientation Not on file documented as of this encounter Plan of Treatment Not on file documented as of this encounter Procedures Procedure Name Priority Date/Time Associated Diagnosis Comments SERUM HUMAN IMMUNODEFICIENCY VIRUS Routine 01/21/2013 12:44 PM CDT SERUM HEPATITIS C AB Routine 01/21/2013 12:44 PM CDT SERUM HEPATITIS B SURFACE AG Routine 01/21/2013 12:44 PM CDT documented in this encounter Results * Serum Hepatitis B surface ag (01/21/2013 12:44 PM CDT) HBV surface ag Negative Negative HISTO RICAL RESULTS Serum 01/21/2013 12:4 4 PM CDT us Historical Provider LAB BLOOD ORDERABLES Ambar pride Result HISTORICAL RESULTS * Serum Hepatitis C ab (01/21/2013 12:44 PM CDT) HCV ab Negative Negative HISTORICAL RESULTS Serum 01/21/2013 12:4 4 PM CDT Historical Provider LAB BLOOD ORDERABLES Ambar l Result Performing Organization Address City/[facility] Co de Phone Number HISTORICAL RESULTS * Serum Human Immunodeficiency virus [HIV] 1and 2 ag/ab (01/21/2013 12:44 PM CDT) HIV 1 and 2, ag/ab Negative Negative HISTORICAL RESULTS Serum 01/21/2013 12:4 4 PM CDT Historical Provider LAB BLOOD ORDERABLES Ambar l Result Performing Organization Address City/[facility] Co de Phone Number HISTORICAL RESULTS documented in this encounter Visit Diagnoses Not on filedocumented in this encounter
--- OUTSIDE RECORDS SUMMARY | 2024-08-02 01:07 | XMS_ITS | Encounter Summary ---
Author Organization [facility] Healthcare Address [address] [place] [address] Care Team Providers Care Supervisor [employer] Name Role Phone Unavailable Primary Care Provider Unavailabl e Encounter Details Date Type Department Care Team (Latest Contact Info) Description 01/19/2013 1:40 PM CDT - 01/25/2013 3:14 PM CDT Hospital Encounter Shannan Preciado Coronary atherosclerosis of paimiut coronary artery; Acute subendocardial infarction, initial episode of care (HCC); Other primary cardiomyopathies; Pulmonary collapse; Essential hypertension; Pure hypercholesterolemia; Hypothyroidism; Tobacco use disorder; Venous (peripheral) insufficiency; History of colonic polyps; Localized osteoarthrosis, shoulder region; Localized osteoarthrosis, lower leg; Anemia; Other specified forms of chronic ischemic heart disease; Other specified chronic obstructive airways disease Social History Tobacco Use Types Packs/Day Years Used Date Smoking Tobacco: Never Assessed Sex and Gender Information Value Date Recorded Sex Assigned at Not on file Legal Sex Male 4:42 AM [employer] TECH Gender Identity Not on file Sexual Orientation Not on file documented as of this encounter Last Filed Vital Signs Vital Sign Reading Time Taken Comments Blood Pressure 119/55 01/25/2013 11:32 AM CDT Pulse 83 01/25/2013 12:37 PM CDT Temperature - - Respiratory Rate - - Oxygen Saturation - - Inhaled Oxygen Concentration - - Weight 114.7 kg (252 lb 13.9 oz) 01/25/2013 5:45 AM CDT Height 185.4 cm (6' 0.99 ) 01/22/2013 1 1:30 AM CDT Body Mass Index 33.37 01/22/2013 11:30 AM CDT documented in this encounter Discharge Summaries * Provider, MD Diego - 01/25/2013 12:00 AM CDT DISCHARGE SUMMARY Patient: MARCEI HOOVER Account: [id number] Room No: [id number] : 1960 Patient Type: IP Attending: Shannan Rojas M.D. Admit Date: 01/19/2013 Dictating: Irving Stevens M.D. Disch. Date: 01/25/2013 Jazz Salcedo dictating for Irving Stevens MD. Date of Surgery: January 21, 2013, coronary artery bypass grafting x3 with placement of left internal mammary artery to left anterior descending, left radial artery to first diagonal and first obtuse marginal in a sequential fashion. Hospital Course: Mr. Hoover is a 52-year-old man who presented to [facility] with an episode of chest pain. He ruled in for non-Q-wave myocardial infarction. He was started on full-dose Lovenox and watched over the weekend and had a cardiac catheter that showed left main disease as well as occluded left anterior descending artery proximally with thrombus in the LAD. He also had a mildly diseased right coronary artery with no significant obstructive lesions. He was taken to the operating room on January 21, 2013, for coronary artery bypass grafting x3 with TRAN to LAD as well as left radial artery to first diagonal and first OM in a sequential fashion. Postoperatively, he was taken to the CVU. He did not receive any blood products in the operating room. He was intubated and mechanically ventilated and was on no pressors when he arrived in the unit. He had a cardiac index greater than 2.5 without any pharmacologic support. He did well postoperatively and was transferred to telemetry on postoperative day 1. He was ready for discharge on January 25, 2013. Discharge Condition: Good. Followup Appointment: February 24, 2013, at 1:[address] Stevens. Discharge Medications: 1. Multivitamin p.o. daily. 2. Fish oil 1000 mg p.o. daily. 3. Gemfibrozil 600 mg p.o. b.i.d. 4. Prilosec 40 mg p.o. q.48 hours. 5. Vitamin B12, 500 mcg p.o. daily. 6. Diclofenac sodium 75 mg p.o. b.i.d. 7. Bupropion 100 mg p.o. b.i.d. 8. Synthroid 112 mcg p.o. daily. 9. Lisinopril 5 mg p.o. daily. 10. Simvastatin 20 mg p.o. daily. 11. Aspirin 162 mg p.o. daily. 12. Plavix 75 mg p.o. daily. 13. Lasix 40 mg p.o. daily. 14. Metoprolol 12.5 p.o. b.i.d. 15. Percocet 5/325, 1 to 2 tablets every 4 hours as needed for pain. 16. Potassium chloride 20 mEq p.o. daily. Irving Stevens M.D. NM/ct TD: 03/10/2013 10:06 Authenticated by Irving Stevens MD On 03/16/2013 11:30:25 AM documented in this encounter Consult Notes * Provider, MD Diego - 01/21/2013 12:00 AM CDT CONSULTATION REPORT Patient: MARCIE HOOVER Account: [id number] Room No: [id number] : 1960 Patient Type: IP Attending: Shannan Rojas M.D. Admit Date: 01/19/2013 Consult.: Abdirashid Balbuena M.D. Disch. Date: CRITICAL CARE CONSULT DATE OF SERVICE: January 21, 2013 This is a 52-year-old white male, a smoker, with a history of hypertension, dyslipidemia, hypothyroidism who presented to [facility] with a non-ST elevated myocardial infarction. The patient went on to have a cardiac catheterization which revealed a left main 50%, LAD 80%, diagonal 50 to 70%, circumflex 75 to 80%, and an ejection fraction of 35%. The patient was transferred to [facility] for bypass surgery. Today the patient had a coronary artery bypass graft x three, a TRAN to LAD, left radial to diagonal and OM1. Blood loss was 800 mL. No blood products were given. The patient was transferred to the Intensive Care Unit for further management. The patient was intubated and mechanically ventilated and no pressors. HOME MEDICATIONS: Multivitamin, fish oil, Lopid 600 mg twice a day, Prilosec 40 mg daily, vitamin B12 500 mcg daily, Voltaren XR 75 mg 2 times a day, Wellbutrin 100 mg twice a day, levothyroxine 112 mcg daily, lisinopril 40 mg daily, aspirin 325 mg daily, Coreg 3.125 mg b.i.d., Zocor 20 mg daily. ALLERGIES: No known drug allergies. FAMILY HISTORY is positive for coronary artery disease. SOCIAL HISTORY: One pack a day, occasional alcohol use. PAST MEDICAL HISTORY 1. Hypertension. 2. Dyslipidemia. 3. Diverticulitis with colovesical fistula status post sigmoid colectomy and repair of the bladder. 4. Status post stripping of right varicose vein. 5. History of colonic polyps. 6. Status post bilateral knee arthroscopic surgery. 7. Osteoarthritis of the shoulder and knee. 8. Hypothyroidism. REVIEW OF SYSTEMS could not be done as the patient is intubated and mechanically ventilated. PHYSICAL EXAMINATION: Pulse 90, blood pressure 130/80. Respiratory rate is 16. Cardiac index is 2.5. Pulmonary artery systolic/diastolic is 25/12. Temperature is 97 degrees. SVR is 670. The patient is on SIMV 12, tidal volume 600, pressure support of 5, PEEP of 5, saturating 98%. A CPAP trial with pressure support of 5, PEEP of 5, FIO2 40% is 7.31/48/141/99%. The patient is sedated. Head: Normocephalic, atraumatic. Eyes: Pupils normal and reacting to light. ENT examination: Has an endotracheal tube in place. Neck is supple. Has a right IJ line. Chest has coarse breath sounds, has decreased breath sounds in the right base. Chest tube drainage in the first six hours of 600, and this is gradually decreasing. Cardiovascular examination: S1, S2 regular. No gallop or murmur appreciated. Abdomen is soft. Bowel sounds present, no tenderness. Extremities: Edema is absent. Pulses are palpable and equal on both sides. INTERNAL MEDICINE VETERINARY TECHNICIAN examination: The patient is awake and moving all his limbs. LABORATORY EXAMINATION: White count is 13.7, H and H 10/30, platelets 166,000. Sodium 137, potassium 4.4, chloride 106, bicarbonate 25, glucose 128, BUN 13, creatinine 0.9, ionized calcium 4.9. Chest x-ray shows left effusion with left lower lobe atelectasis. ASSESSMENT AND PLAN: A 52-year-old white male presents with: 1. Coronary artery disease/cardiomyopathy with an ejection fraction of 35%/coronary artery bypass graft x 3. The patient is hemodynamically stable. The chest tube drainage is decreasing. A cardiac index is greater than 2.5 without any pressors. Would continue to follow hemodynamics. 2. Respiratory failure with left lower lobe atelectasis. The patient has some CO2 retention without any metabolic acidosis. The ABG is 7.31/48/141 on 40%. Will extubate. 3. Anemia. The patient has an H and H of 10/30. Will continue to follow blood counts. 4. Hypothyroidism. I would continue thyroxin. 5. DVT/GI prophylaxis. Thank you for this consultation. Abdirashid Balbuena M.D. [facility]/eden TD: 01/21/2013 19:54 Authenticated by Abdirashid Balbuena MD On 01/30/2013 10:06:31 AM * Provider, MD Diego - 01/19/2013 12:00 AM CDT CONSULTATION REPORT Patient: MARCIE HOOVER Account: [id number] Room No: [id number] : 1960 Patient Type: IP Attending: Shannan Rojas M.D. Admit Date: 01/19/2013 Consult.: Irving Stevens M.D. Disch. Date: DATE OF CONSULTATION 01/19/2013 INDICATION Coronary artery disease. CHIEF COMPLAINT Chest pain. HISTORY This is a 52-year-old male who describes about two-week history of recurrent episodes of chest tightness with radiation to the neck and jaw. These usually occurred with exercise and were relieved with rest. He also had occasional palpitations. On Saturday the 16 of January he had another episode. This time it did not get relieved with rest, and he presented to the emergency room at [facility] in [place] where he ruled in for a non-Q-wave VA. The patient was admitted and started on anticoagulation in the form of full-dose Lovenox. Started also on some Plavix and was taken to the forestry farm laborer this morning after an uneventful weekend stay. The catheterization showed left main disease distally prior to the bifurcation. There was an occluded LAD with thrombus in it. There was a high diagonal that was small but jeopardized by the left main and a large circumflex that had disease in it as well as the left main. The ejection fraction is about 30%. The anterior wall is still moving despite the patient's LAD clot. The right coronary artery looked okay. The patient is still chest pain free. He was transferred now for consideration of coronary bypass surgery. At the present time the patient denies any pain in the chest, any pain in the jaw, left arm, or shoulder. He is not short of breath. PAST HISTORY Remarkable for hypertension and hypercholesterolemia, both of which he is on medications for. He has hypothyroidism. He had diverticulitis with a colovesical fistula requiring a sigmoid colectomy and repair of his bladder fistula some years ago. He never had a colostomy. He has also had some orthopedic operations in the past, particularly in the left knee, and had a right-sided varicose vein stripped surgically. FAMILY HISTORY Positive for coronary disease with coronary bypass surgery in the mother and an uncle. 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 He is up on his feet a lot. He has smoked half pack per day or more for many years, smoking until the time of admission. REVIEW OF SYSTEMS Remarkable for chest pain and shortness of breath with activities recently. He has no changes in bowel habits, no symptoms of TIAs. No visual or hearing loss. No etiologic issues with no burning on urination and no problems with his urinary stream. PHYSICAL EXAMINATION Exam shows a pleasant middle-aged male in no acute distress. Vital signs are within normal. There is no jugular venous distention, no carotid bruits, no cervical masses. No thyromegaly. His pupils are equal and reactive. His sclera is anicteric. His lungs are clear. His heart tones are regular without murmurs. Abdominal exam is benign. He has a midline scar that is well healed. He has femoral, radial, and pedal pulses all palpable and equal. On the right side he has several incisions from the knee down that course over the saphenous vein area. He has venous stasis changes in both lower extremities from the knee down. There are no incisions in the left leg. The patient is right-handed, and left Barney test is within normal. Neurologic exam within normal. Cardiac catheterization shows clot in the LAD just distal to high diagonal. There is distal left main stenosis as well as a lesion in the circumflex jeopardizing a larger limb. Ejection fraction if 30% with global hypokinesis. IMPRESSION This patient has left main stenosis with LAD thrombus, but appears to be still viable anterior wall musculature in that the anterior wall is moving. The patient should have urgent coronary revascularization. We will put him on a heparin drip and proceed with surgery Saturday morning. We will order an echocardiogram tomorrow. We will use the left DEB and left radial for his grafts. Irving Stevens M.D. CHEPE/deepti TD: 01/19/2013 16:17 Authenticated by Irving Stevens MD On 02/05/2013 11:36:04 AM documented in this encounter Miscellaneous Notes * Op Note - Provider, MD Diego - 01/21/2013 12:00 AM CDT OPERATIVE REPORT Patient: MARCIE HOOVER Account: [id number] Room No: [id number]-[id number] : 1960 Patient Type: IP Attending: Shannan Rojas M.D. Admit Date: 01/19/2013 Surgeon: Irving Stevens M.D. Disch. Date: DATE OF SURGERY: 01/21/13. PREOPERATIVE DIAGNOSIS: Coronary artery disease with unstable angina, non-Q wave myocardial infarction. POSTOPERATIVE DIAGNOSIS: Coronary artery disease with unstable angina, non-Q wave myocardial infarction. PROCEDURE PERFORMED: Coronary artery bypass grafting times three with placement of left DEB to the left anterior descending artery, left radial artery to the first diagonal and first obtuse marginal in a sequential fashion. HUSKER OPERATOR: Dr. Salcedo. ANESTHESIA: General. INDICATIONS: This is a 52-year-old male who presented to the hospital at [place] with prolonged episode of chest pain. He ruled in for a non-Q wave myocardial infarction. He was started on full-dose Lovenox and was watched over the weekend and had a cardiac catheterization that revealed left main disease, as well as occluded left anterior descending artery proximally with thrombus in the left anterior descending artery. He had a mildly diseased right with no specific obstructive lesions. Risk factors included smoking, hypertension and hypercholesterolemia. He was not a known diabetic. He was taken to the operating room for revascularization. Anterior wall was not moving very well, but did have some movement in it, suggesting it is viable despite the occlusion of the left anterior descending artery with thrombus. Due to active thrombus in the left anterior descending artery, we proceeded with surgery without having long time in terms of stopping his Plavix. He was off Plavix for a little bit more than 24 hours. OPERATIVE FINDINGS: The left anterior descending artery was a 2 mm vessel, grafted in its distal half where it was of good quality. It was grafted to the DEB of good size and quality. Flow in this graft was about 50 to 60 mL per minute. The first diagonal was small, 1.5 mm, since the first OM was large 2 mm was graft to the radial artery of good size and quality. Flow in this radial artery was 135 mL per minute after bypass. Crossclamp time was 98 minutes. Bypass time was 123 minutes. OPERATIVE REPORT: After induction of anesthesia and endotracheal intubation, the patient's neck, chest, abdomen and legs were prepped and draped in sterile fashion. Radial artery was harvested full range of motion the left arm via open technique. Median sternotomy was performed. Thymus was divided in the middle. Pericardium was opened up. The heart was inspected. The anterior wall was poor contractile. Left DEB was harvested from the chest wall. The patient was heparinized and DEB divided distally between clips. Had good flows. The pericardial edges were suspended with silk sutures. Pursestrings of 2-0 Prolene were placed in the aorta and in the right atrial appendage, and patient cannulated routinely and placed on cardiopulmonary bypass. Antegrade and retrograde cardioplegic catheters were placed. The patient was cooled to 30 degrees. The aorta was clamped. We delivered a liter of cardioplegia -- half antegrade and half retrograde. Subsequent doses of cardioplegia were given retrograde every 20 minutes. The heart was retracted to expose the obtuse marginal. The OM was opened up and grafted to the radial artery using end-to-side technique with running 7-0 Prolene. The radial artery was then brought over the first diagonal which was opened up. The radial artery was opened up longitudinally and a [id number] crossing josé shaped anastomosis was created between the diagonal artery and the radial artery with running 7-0 Prolene. The radial artery was then brought up to the left side of the ascending aorta and anastomosed onto an aortotomy with a 4 mm punch using running 6-0 Prolene. The anastomosis was marked with a radiopaque marker. Next, the left anterior descending artery was opened up. The DEB was grafted to the left anterior descending artery in end-to-side fashion with running 7-0 Prolene as patient was being rewarmed. The anastomosis was checked. It was hemostatic. The mammary pedicle was tacked to the epicardium with interrupted Prolenes. Flow in the graft was checked and it was excellent. The patient was given warm blood retrograde, followed by release of the crossclamp. Ventricular and atrial pacing wires were placed. Distal and proximal anastomoses were checked and were hemostatic. The patient was ventilated and allowed to eject. We then weaned him from bypass and he tolerated this well. Protamine was given to reverse to the heparin. The cannulas were removed. The chest wall was dried up. Chest was drained with two tubes -- one into the left pleural cavity and one in the anterior mediastinum. The thymus was approximated in the midline. The pericardium was approximated loosely at the base. Chest was closed with multiple interrupted heavy gauge wire sutures, followed by absorbable sutures on the fascia, subcu and skin. I was present from incision until the sternum was closed. I was immediately available at all times I was not scrubbed in. The patient received a dose of intravenous antibiotics within an hour of incision and orders were given to continue it for 24 hours postoperatively. Periop subcu heparin was not given as the patient was systemically heparinized during the case. The patient was on beta blockade and received a dose within 24 hours of surgery. Irving Stevens M.D. NM/ky TD: 01/21/2013 17:56 CC: Shannan Rojas M.D. Authenticated by Irving Stevens MD On 02/05/2013 11:36:53 AM documented in this encounter Plan of Treatment Not on file documented as of this encounter Procedures Procedure Name Priority Date/Time Associated Diagnosis Comments PLASMA BASIC METABOLIC PANEL Routine 01/25/2013 6:28 AM CDT BLOOD CELL COUNT (CBC), MORPHOLOGIC EXAM Routine 01/25/2013 6:28 AM CDT DISCHARGE LABORATORY CUMULATIVE REPORT 01/25/2013 PRE-PRELIMINARY DIAGNOSTIC REPORT Routine 01/24/2013 10:00 PM CDT XR CHEST PA LATERAL 2 VIEWS Routine 01/24/2013 10:00 PM CDT XR CHEST 1 VIEW Routine 01/24/2013 8:33 AM CDT PLASMA PROTHROMBIN TIME (PT) Routine 01/24/2013 4:21 AM CDT PLASMA PARTIAL THROMBOPLASTIN TIME (PTT) Routine 01/24/2013 4:21 AM CDT PLASMA MAGNESIUM Routine 01/24/2013 4:21 AM CDT PLASMA COMPREHENSIVE METABOLIC PANEL Routine 01/24/2013 4:21 AM CDT BLOOD CELL COUNT (CBC), MORPHOLOGIC EXAM Routine 01/24/2013 4:21 AM CDT ELECTROCARDIOGRAPHY (ECG) 01/24/2013 BLOOD GLUCOSE, POC Routine 01/23/2013 5: 34 PM CDT XR CHEST 1 VIEW Routine 01/23/2013 11:01 AM CDT PLASMA BASIC METABOLIC PANEL Routine 01/23/2013 4:44 AM CDT BLOOD CELL COUNT (CBC), MORPHOLOGIC EXAM Routine 01/23/2013 4:44 AM CDT BLOOD GLUCOSE, POC Routine 01/22/2013 5: 12 PM CDT BLOOD GLUCOSE, POC Routine 01/22/2013 12 :22 PM CDT BLOOD GLUCOSE, POC Routine 01/22/2013 7: 33 AM CDT XR CHEST 1 VIEW Routine 01/22/2013 6:15 AM CDT PLASMA MAGNESIUM Routine 01/22/2013 4:16 AM CDT PLASMA BASIC METABOLIC PANEL Routine 01/22/2013 4:16 AM CDT PLASMA PROTHROMBIN TIME (PT) Routine 01/22/2013 4:15 AM CDT BLOOD CELL COUNT (CBC), MORPHOLOGIC EXAM Routine 01/22/2013 4:15 AM CDT BLOOD GLUCOSE, POC Routine 01/22/2013 4: 08 AM CDT BLOOD GLUCOSE, POC Routine 01/21/2013 11 :45 PM CDT PLASMA POTASSIUM Routine 01/21/2013 11:0 0 PM CDT BLOOD HEMATOCRIT Routine 01/21/2013 10:3 3 PM CDT BLOOD GLUCOSE, POC Routine 01/21/2013 8: 17 PM CDT BLOOD GLUCOSE, POC Routine 01/21/2013 6: 13 PM CDT PLASMA BASIC METABOLIC PANEL Routine 01/21/2013 5:54 PM CDT BLOOD CALCIUM, IONIZED Routine 3 5:54 PM CDT BLOOD CELL COUNT (CBC) Routine 3 5:54 PM CDT BLOOD GLUCOSE, POC Routine 01/21/2013 5: 31 PM CDT BLOOD GAS, ARTERIAL Routine 01/21/2013 4 :41 PM CDT BLOOD GLUCOSE, POC Routine 01/21/2013 4: 12 PM CDT BLOOD GLUCOSE, POC Routine 01/21/2013 3: 05 PM CDT BLOOD CALCIUM, IONIZED Routine 3 3:00 PM CDT BLOOD GAS, ARTERIAL Routine 01/21/2013 3 :00 PM CDT PLASMA PROTHROMBIN TIME (PT) Routine 01/21/2013 2:59 PM CDT BLOOD CELL COUNT (CBC) Routine 3 2:59 PM CDT BLOOD GLUCOSE, POC Routine 01/21/2013 2: 34 PM CDT BLOOD GLUCOSE, POC Routine 01/21/2013 1: 38 PM CDT PRE-PRELIMINARY DIAGNOSTIC REPORT Routine 01/21/2013 1:14 PM CDT XR CHEST 1 VIEW Routine 01/21/2013 1:14 PM CDT PLASMA PROTHROMBIN TIME (PT) Routine 01/21/2013 1:00 PM CDT PLASMA PARTIAL THROMBOPLASTIN TIME (PTT) Routine 01/21/2013 1:00 PM CDT PLASMA BASIC METABOLIC PANEL Routine 01/21/2013 1:00 PM CDT BLOOD CELL COUNT (CBC), MORPHOLOGIC EXAM Routine 01/21/2013 1:00 PM CDT BLOOD CALCIUM, IONIZED Routine 3 1:00 PM CDT BLOOD GAS, ARTERIAL Routine 01/21/2013 1 :00 PM CDT BLOOD GLUCOSE, POC Routine 01/21/2013 12 :32 PM CDT BLOOD GLUCOSE, POC Routine 01/21/2013 11 :46 AM CDT BLOOD GLUCOSE, POC Routine 01/21/2013 11 :05 AM CDT BLOOD PLATELET COUNT Routine 01/21/2013 11:00 AM CDT BLOOD GLUCOSE, POC Routine 01/21/2013 10 :15 AM CDT BLOOD GLUCOSE, POC Routine 01/21/2013 9: 35 AM CDT BLOOD GLUCOSE, POC Routine 01/21/2013 8: 12 AM CDT PLASMA MAGNESIUM Routine 01/21/2013 8:00 AM CDT PLASMA PARTIAL THROMBOPLASTIN TIME (PTT) Routine 01/21/2013 5:00 AM CDT PLASMA PARTIAL THROMBOPLASTIN TIME (PTT) Routine 01/20/2013 6:47 PM CDT URINALYSIS Routine 01/20/2013 12:30 PM CDT BLOOD ABO, RH, INDIRECT AB SCREEN Routine 01/20/2013 12:00 PM CDT PLASMA PARTIAL THROMBOPLASTIN TIME (PTT) Routine 01/20/2013 11:59 AM CDT XR CHEST PA LATERAL 2 VIEWS Routine 01/20/2013 10:44 AM CDT BLOOD HEMOGLOBIN A1C Routine 01/20/2013 6:59 AM CDT PLASMA PARTIAL THROMBOPLASTIN TIME (PTT) Routine 01/20/2013 5:37 AM CDT PLASMA BASIC METABOLIC PANEL Routine 01/20/2013 5:37 AM CDT BLOOD CELL COUNT (CBC), MORPHOLOGIC EXAM Routine 01/20/2013 5:37 AM CDT PLASMA PROTHROMBIN TIME (PT) Routine 01/20/2013 12:37 AM CDT PLASMA MAGNESIUM Routine 01/20/2013 12:3 7 AM CDT PLASMA COMPREHENSIVE METABOLIC PANEL Routine 01/20/2013 12:37 AM CDT ELECTROCARDIOGRAPHY (ECG) 01/20/2013 URINE MICROBIOLOGY Routine 01/20/2013 12 :00 AM CDT PLASMA PARTIAL THROMBOPLASTIN TIME (PTT) Routine 01/19/2013 11:44 PM CDT PLASMA PARTIAL THROMBOPLASTIN TIME (PTT) Routine 01/19/2013 11:35 AM CDT TRANSTHORACIC ECHO (TTE) COMPLETE W DOPPLER/CF WO CONTRAST 01/19/2013 12:00 AM CDT documented in this encounter Results * (ABNORMAL) Blood cell count (CBC), morphologic exam (01/25/2013 6:28 AM CDT) WBC 7.0 5.0 - 10.0 K/cumm HISTORICAL RESULTS RBC 2.61(L) 4.50 - 6.00 M/cumm HISTORICAL RESULTS Hgb 7.8(L) 14.0 - 18.0 g/dl HISTORICAL RESULTS Hct 24.2(L) 40.0 - 54.0 % HISTORICAL RESULTS MCV 92.7 82.0 - 96.0 fl HISTORICAL RESULTS MCH 29.9 27.0 - 32.0 pg HISTORICAL RESULTS MCHC 32.2 29.0 - 35.0 g/dl HISTORICAL RESULTS Platelets 199 150 - 450 K/cumm HISTORICAL RESULTS RDW 47.0(H) 35.1 - 43.9 fl HISTORICAL RESULTS Rdw 13.9 11.5 - 14.5 % HISTORICAL RESULTS MPV 9.6 8.6 - 12.6 fl HISTORICAL RESULTS Neutrophils 66.6 42.0 - 85.0 % HISTORICAL RESULTS Neutrophils, abs 4.7 2.1 - 8.5 K/cumm HISTORICAL RESULTS Lymphocytes 18.4 16.0 - 52.0 % HISTORICAL RESULTS Lymphocytes, abs 1.3 0.8 - 5.2 K/cumm HISTORICAL RESULTS Monos 8.7 1.0 - 13.0 % HISTORICAL RESULTS Monocytes, absolute 0.6 0.0 - 1.3 K/cumm HISTORICAL RESULTS Eosinophils 5.6 0.0 - 7.0 % HISTORICAL RESULTS Eosinophils, abs 0.4 0.0 - 0.7 K/cumm HISTORICAL RESULTS Basophils 0.1 0.0 - 4.0 % HISTORICAL RESULTS Basophils, abs 0.0 0.0 - 0.4 K/cumm HISTORICAL RESULTS Young granulocytes, % 0.6 0.0 - 1.0 % HISTORICAL RESULTS Young granulocyte 0.04 0.00 - 0.10 K/cumm HISTORICAL RESULTS NRBC 0.8(H) 0.0 - 0.2 #/100 WBC HISTORICAL RESULTS NRBC, abs 0.05(H) 0.00 - 0.01 K/cumm HISTORICAL RESULTS Blood specimen (specimen) 01/25/2013 6:28 AM CDT us Irving Stevens MD LAB BLOOD ORDERABLES Final R esult HISTORICAL RESULTS * (ABNORMAL) Plasma basic metabolic panel (01/25/2013 6:28 AM CDT) BUN 16 8 - 24 mg/dl HISTORICAL RESULTS Glucose 113(H) 70 - 99 mg/dl HISTORICAL RESULTS Sodium 137 135 - 145 mmol/L HISTORICAL RESULTS K, pl 4.1 3.5 - 5.1 mmol/L HISTORICAL RESULTS Chloride 101 100 - 114 mmol/L HISTORICAL RESULTS CO2 29 22 - 32 mmol/L HISTORICAL RESULTS Creatinine 1.00 0.7 - 1.4 mg/dl HISTORICAL RESULTS Calcium 8.5 8.4 - 10.5 mg/dl HISTORICAL RESULTS A. gap 11 8 - 16 mmol/L HISTORICAL RESULTS eGFR 78 90 - 200 ml/min/1.7 3 m2 HISTORICAL RESULTS Comment: If this individual is -[place], multiply result by 1.21 Repeated results of less than 60 is indicative of chronic kidney disease. MDRD formula has not been validated on individuals greater than 70 years old. Plasma 01/25/2013 6:28 AM CDT Irving Stevens MD LAB BLOOD ORDERABLES Final R esult HISTORICAL RESULTS * DISCHARGE LABORATORY CUMULATIVE REPORT (01/25/2013) Narrative 01/25/2013 Ordered by an unspecified provider. Historical Provider LAB BLOOD ORDERABLES Ambar l Result * XR Chest Pa Lateral 2 Views (01/24/2013 10:00 PM CDT) Anatomical Region Laterality Modality Body, Chest N/A Radiographic Deb ging 01/24/2013 10:0 0 PM CDT Narrative 01/25/2013 11:51 AM CDT DATE OF EXAM: ??Jan 24 2013 10:00PM Acc#: ??[id number] ??EDX 0167 - XR Chest 2 Views ?? DIAGNOSIS: ??MVD/CAD CLINICAL HISTORY: ?? post chest tube removal. ?? RESULT: \ HISTORY: ??Postop, chest tube removed. ?? CHEST, 2 VIEWS: PA and lateral radiographs of the chest compared with the previous examination shows interval withdrawal of the left chest tube with resultant tiny left apical pneumothorax. ??There is overall improvement in the pleural parenchymal changes and small effusions at both bases. ?? Median sternotomy. ??Subsegmental atelectasis, left mid lung and left base. ?? IMPRESSION: ?\ LEFT CHEST TUBE WITHDRAWN WITH RESULTANT TINY LEFT APICAL PNEUMOTHORAX. ?? THE PATIENT'S NURSE, OFELIA ON THE FLOOR, WAS NOTIFIED. ?? INTERNET MARKETER: ??DD2 TRANSCRIBE DATE/TIME: ??Jan 25 2013 11:13A RADIOLOGIST: ??ISHA MURPHY M.D. ??READ ON: ??Jan 25 2013 11:10A ORDERING DR: JAZZ SALCEDO M.D. THIS DOCUMENT HAS BEEN ELECTRONICALLY SIGNED BY: ??ISHA MURPHY M.D. ??ON: ??Jan 25 2013 11:51A Procedure Note Provider, Diego, - 01/04/2017 DATE OF EXAM: Jan 24 2013 10:00PM Acc#: [id number] EDX 0167 - XR Chest 2 Views DIAGNOSIS: MVD/CAD CLINICAL HISTORY: post chest tube removal. RESULT: \ HISTORY: Postop, chest tube removed. CHEST, 2 VIEWS: PA and lateral radiographs of the chest compared with the previous examination shows interval withdrawal of the left chest tube with resultant tiny left apical pneumothorax. There is overall improvement in the pleural parenchymal changes and small effusions at both bases. Median sternotomy. Subsegmental atelectasis, left mid lung and left base. IMPRESSION: \ LEFT CHEST TUBE WITHDRAWN WITH RESULTANT TINY LEFT APICAL PNEUMOTHORAX. THE PATIENT'S NURSE, OFELIA ON THE FLOOR, WAS NOTIFIED. INTERNET MARKETER: DD2 TRANSCRIBE DATE/TIME: Jan 25 2013 11:13A RADIOLOGIST: ISHA MURPHY M.D. READ ON: Jan 25 2013 11:10A ORDERING DR: JAZZ SALCEDO M.D. THIS DOCUMENT HAS BEEN ELECTRONICALLY SIGNED BY: ISHA MURPHY M.D. ON: Jan 25 2013 11:51A Historical Provider IMG XR PROCEDURES Final R esult * PRE-PRELIMINARY DIAGNOSTIC REPORT (01/24/2013 10:00 PM CDT) Anatomical Region Laterality Modality N/A Radiographic Deb ging 01/24/2013 10:0 0 PM CDT Narrative 01/25/2013 11:11 AM CDT ED IMAGING PRELIMINARY RESULT PATIENT: MARCIE HOOVER MR#: [id number] : [id number] SEX: ??M Procedure: [id number] XR Chest 2 Views ?? Exam Date: Acc#: [id number] Pt_Class: I ? Priority: ??RTN Reason: post chest tube removal. Order Comments: Salena Keller: JAZZ SALCEDO Preliminary Reading Doctor: ISHA MURPHY M.D., RADIOLOGIST Is this a Critical Result? Yes ? Result called to: OFELIA ? Is this Study Normal or Abnormal?: Abnormal ? Comments: TINY L APICAL PTX. ? Additional Comments Line 1: ? Additional Comments Line 2: ? Additional Comments Line 3: ? Additional Comments Line 4: ? Procedure Note Provider, Historical, - 12/03/2016 ED IMAGING PRELIMINARY RESULT PATIENT: MARCIE HOOVER MR#: [id number] : [id number] SEX: M Procedure: ECXR2V XR Chest 2 Views Exam Date: Acc#: [id number] Pt_Class: I Priority: RTN Reason: post chest tube removal. Order Comments: Salena Dr: JAZZ SALCEDO Preliminary Reading Doctor: ISHA MURPHY M.D., RADIOLOGIST Is this a Critical Result? Yes Result called to: OFELIA Is this Study Normal or Abnormal?: Abnormal Comments: TINY L APICAL PTX. Additional Comments Line 1: Additional Comments Line 2: Additional Comments Line 3: Additional Comments Line 4: us Historical Provider IMG XR PROCEDURES Final R esult * XR Chest 1 Vw (01/24/2013 8:33 AM CDT) Anatomical Region Laterality Modality Body, Chest N/A Radiographic Deb ging 01/24/2013 8:33 AM CDT Narrative 01/24/2013 9:48 AM CDT DATE OF EXAM: ??Jan 24 2013 ??8:33AM Acc#: ??[id number] ??EDX 0031 - XR Chest Portable ?? DIAGNOSIS: ??MVD/CAD CLINICAL HISTORY: ?? postop f/u ?? RESULT: \ PORTABLE CHEST, 01/24/13: CLINICAL HISTORY: ??Shortness of breath, post cardiac surgery. ?? FINDINGS: ??A single portable AP view of the chest obtained at 0800 hours was submitted for review and compared to prior from 01/23/13. ?? The left chest tube, mediastinal drain and right jugular venous access catheter are unchanged. ??The heart remains enlarged. ??Left basilar atelectasis or infiltrate has decreased. ??There is no definite pneumothorax or pleural effusion on this single view exam. ??The pulmonary vasculature is normal. ??Atherosclerotic calcifications are again seen in the aorta. ??Median sternotomy wires and mediastinal clips are again identified. IMPRESSION: ?\ PERSISTENT CARDIOMEGALY WITH DECREASED LEFT BASILAR ATELECTASIS OR INFILTRATE. ? INTERNET MARKETER: ??DD2 TRANSCRIBE DATE/TIME: ??Jan 24 2013 ??9:40A RADIOLOGIST: ??MARC HAYES M.D. ??READ ON: ??Jan 24 2013 ??8:34A ORDERING DR: BEATRIZ GARCIA A.P.R.N. THIS DOCUMENT HAS BEEN ELECTRONICALLY SIGNED BY: ??MARC HAYES M.D. ??ON: ??Jan 24 2013 ??9:48A Procedure Note Provider, MD Diego - 12/03/2016 DATE OF EXAM: Jan 24 2013 8:33AM Acc#: [id number] EDX 0031 - XR Chest Portable DIAGNOSIS: MVD/CAD CLINICAL HISTORY: postop f/u RESULT: \ PORTABLE CHEST, 01/24/13: CLINICAL HISTORY: Shortness of breath, post cardiac surgery. FINDINGS: A single portable AP view of the chest obtained at 0800 hours was submitted for review and compared to prior from 01/23/13. The left chest tube, mediastinal drain and right jugular venous access catheter are unchanged. The heart remains enlarged. Left basilar atelectasis or infiltrate has decreased. There is no definite pneumothorax or pleural effusion on this single view exam. The pulmonary vasculature is normal. Atherosclerotic calcifications are again seen in the aorta. Median sternotomy wires and mediastinal clips are again identified. IMPRESSION: \ PERSISTENT CARDIOMEGALY WITH DECREASED LEFT BASILAR ATELECTASIS OR INFILTRATE. INTERNET MARKETER: CAMILA TRANSCRIBE DATE/TIME: Jan 24 2013 9:40A RADIOLOGIST: MARC HAYES M.D. READ ON: Jan 24 2013 8:34A ORDERING DR: BEATRIZ GARCIA A.P.R.N. THIS DOCUMENT HAS BEEN ELECTRONICALLY SIGNED BY: MARC HAYES M.D. ON: Jan 24 2013 9:48A us Historical Provider MD AMEZQUITA XR PROCEDURES Final R esult * (ABNORMAL) Blood cell count (CBC), morphologic exam (01/24/2013 4:21 AM CDT) WBC 9.1 5.0 - 10.0 K/cumm HISTORICAL RESULTS RBC 2.62(L) 4.50 - 6.00 M/cumm HISTORICAL RESULTS Hgb 7.9(L) 14.0 - 18.0 g/dl HISTORICAL RESULTS Hct 24.3(L) 40.0 - 54.0 % HISTORICAL RESULTS MCV 92.7 82.0 - 96.0 fl HISTORICAL RESULTS MCH 30.2 27.0 - 32.0 pg HISTORICAL RESULTS MCHC 32.5 29.0 - 35.0 g/dl HISTORICAL RESULTS Platelets 146(L) 150 - 450 K/cumm HISTORICAL RESULTS RDW 46.4(H) 35.1 - 43.9 fl HISTORICAL RESULTS Rdw 13.7 11.5 - 14.5 % HISTORICAL RESULTS MPV 9.6 8.6 - 12.6 fl HISTORICAL RESULTS Neutrophils 68.9 42.0 - 85.0 % HISTORICAL RESULTS Neutrophils, abs 6.3 2.1 - 8.5 K/cumm HISTORICAL RESULTS Lymphocytes 16.7 16.0 - 52.0 % HISTORICAL RESULTS Lymphocytes, abs 1.5 0.8 - 5.2 K/cumm HISTORICAL RESULTS Monos 10.8 1.0 - 13.0 % HISTORICAL RESULTS Monocytes, absolute 1.0 0.0 - 1.3 K/cumm HISTORICAL RESULTS Eosinophils 3.0 0.0 - 7.0 % HISTORICAL RESULTS Eosinophils, abs 0.3 0.0 - 0.7 K/cumm HISTORICAL RESULTS Basophils 0.2 0.0 - 4.0 % HISTORICAL RESULTS Basophils, abs 0.0 0.0 - 0.4 K/cumm HISTORICAL RESULTS Young granulocytes, % 0.4 0.0 - 1.0 % HISTORICAL RESULTS Young granulocyte 0.04 0.00 - 0.10 K/cumm HISTORICAL RESULTS NRBC 0.0 0.0 - 0.2 #/100 WBC HISTORICAL RESULTS NRBC, abs 0.00 0.00 - 0.01 K/cumm HISTORICAL RESULTS Blood specimen (specimen) 01/24/2013 4:21 AM CDT Irving Stevens MD LAB BLOOD ORDERABLES Final R esult Performing Organization Address [facility] Co de Phone Number HISTORICAL RESULTS * Plasma prothrombin time (PT) (01/24/2013 4:21 AM CDT) Prothrombin time (PT) 13.7 11.5 - 15.5 seconds HISTORICAL RESULTS INR 1.06 0.81 - 1.21 HISTORIC AL RESULTS Plasma 01/24/2013 4:21 AM CDT Beatriz Garcia INTERNAL MEDICINE VETERINARY TECHNICIAN LAB BLOOD ORDERABLES Fin al Result Performing Organization Address [facility] de Phone Number HISTORICAL RESULTS * Plasma partial thromboplastin time (PTT) (01/24/2013 4:21 AM CDT) APTT 25.6 21.5 - 39.0 seconds HISTORICAL RESULTS Plasma 01/24/2013 4:21 AM CDT Beatriz Garcia INTERNAL MEDICINE VETERINARY TECHNICIAN LAB BLOOD ORDERABLES Fin al Result Performing Organization Address [facility] Co de Phone Number HISTORICAL RESULTS * (ABNORMAL) Plasma comprehensive metabolic panel (01/24/2013 4:21 AM CDT) BUN 19 8 - 24 mg/dl HISTORICAL RESULTS Glucose 116(H) 70 - 99 mg/dl HISTORICAL RESULTS Sodium 137 135 - 145 mmol/L HISTORICAL RESULTS K, pl 4.0 3.5 - 5.1 mmol/L HISTORICAL RESULTS Chloride 103 100 - 114 mmol/L HISTORICAL RESULTS CO2 28 22 - 32 mmol/L HISTORICAL RESULTS Creatinine 0.99 0.7 - 1.4 mg/dl HISTORICAL RESULTS AST 20 7 - 40 Units/L HISTORICAL RESULTS ALT 15 5 - 50 Units/L HISTORICAL RESULTS Alk phos 66 30 - 110 Units/L HISTORICAL RESULTS Calcium 8.7 8.4 - 10.5 mg/dl HISTORICAL RESULTS Bilirubin 0.56 0.10 - 1.30 mg/dl HISTORICAL RESULTS Protein, pl 5.4(L) 6.0 - 8.3 g/dl HISTORICAL RESULTS Alb 2.9(L) 3.2 - 4.8 g/dl HISTORICAL RESULTS Globulin 2.5 2.0 - 4.3 g/dl HISTORICAL RESULTS A. gap 10 8 - 16 mmol/L HISTORICAL RESULTS eGFR 79 90 - 200 ml/min/1.7 3 m2 HISTORICAL RESULTS Comment: If this individual is -[place], multiply result by 1.21 Repeated results of less than 60 is indicative of chronic kidney disease. MDRD formula has not been validated on individuals greater than 70 years old. Plasma 01/24/2013 4:21 AM CDT Beatriz LTamara [employer] INTERNAL MEDICINE VETERINARY TECHNICIAN LAB BLOOD ORDERABLES Fin al Result Performing Organization Address [facility] Co de Phone Number HISTORICAL RESULTS * Plasma magnesium (01/24/2013 4:21 AM CDT) Magnesium 2.0 1.8 - 2.6 mg/dl HISTORICAL RESULTS Plasma 01/24/2013 4:21 AM CDT Beatriz [email or web address] LAB BLOOD ORDERABLES Fin al Result Performing Organization Address [facility] Co de Phone Number HISTORICAL RESULTS * ELECTROCARDIOGRAPHY (ECG) (01/24/2013) Narrative 01/24/2013 Ordered by an unspecified provider. Historical Provider ECG ORDERABLES Final Res ult * (ABNORMAL) Blood glucose, POC (01/23/2013 5:34 PM CDT) Glucose, POC, bld 132(H) 70 - 99 mg/dl HISTORICAL RESULTS Blood specimen (specimen) 01/23/2013 5:34 PM CDT Shannan Rojas LAB BLOOD ORDERABLES Final Res ult HISTORICAL RESULTS * XR Chest 1 Vw (01/23/2013 11:01 AM CDT) Anatomical Region Laterality Modality Body, Chest N/A Radiographic Deb ging 01/23/2013 11:0 1 AM CDT Narrative 01/23/2013 2:45 PM CDT DATE OF EXAM: ??Jan 23 2013 11:01AM Acc#: ??[id number] ??EDX 0031 - XR Chest Portable ?? DIAGNOSIS: ??MVD/CAD CLINICAL HISTORY: ?? postop f/u ?? RESULT: \ PORTABLE CHEST, 01/23/13: CLINICAL HISTORY: ??Shortness of breath, post cardiac surgery. ?? FINDINGS: ??A single portable AP view of the chest obtained at 1037 hours was submitted for review and compared to prior from the previous day. ?? The left chest tube and mediastinal drain are unchanged. ??The pulmonary artery catheter has been removed. ??The right jugular venous access sheath remains in place with the tip in the superior vena cava. ??The heart remains enlarged. ??Left basilar atelectasis or infiltrate has decreased. ?? No definite pneumothorax or pleural effusion is identified. ?? Atherosclerotic calcifications are again seen in the aorta. ??Median sternotomy wires and mediastinal clips are again seen. ?? IMPRESSION: ?\ DECREASED LEFT BASILAR ATELECTASIS OR INFILTRATE WITH PERSISTENT CARDIOMEGALY. ?? INTERNET MARKETER: ??DD2 TRANSCRIBE DATE/TIME: ??Jan 23 2013 12:27P RADIOLOGIST: ??MARC HAYES M.D. ??READ ON: ??Jan 23 2013 11:04A ORDERING DR: BEATRIZ GARCIA A.P.R.N. THIS DOCUMENT HAS BEEN ELECTRONICALLY SIGNED BY: ??MARC HAYES M.D. ??ON: ??Jan 23 2013 ??2:45P Procedure Note Provider, MD Diego - 12/03/2016 DATE OF EXAM: Jan 23 2013 11:01AM Acc#: [id number] EDX 0031 - XR Chest Portable DIAGNOSIS: MVD/CAD CLINICAL HISTORY: postop f/u RESULT: \ PORTABLE CHEST, 01/23/13: CLINICAL HISTORY: Shortness of breath, post cardiac surgery. FINDINGS: A single portable AP view of the chest obtained at 1037 hours was submitted for review and compared to prior from the previous day. The left chest tube and mediastinal drain are unchanged. The pulmonary artery catheter has been removed. The right jugular venous access sheath remains in place with the tip in the superior vena cava. The heart remains enlarged. Left basilar atelectasis or infiltrate has decreased. No definite pneumothorax or pleural effusion is identified. Atherosclerotic calcifications are again seen in the aorta. Median sternotomy wires and mediastinal clips are again seen. IMPRESSION: \ DECREASED LEFT BASILAR ATELECTASIS OR INFILTRATE WITH PERSISTENT CARDIOMEGALY. INTERNET MARKETER: DD2 TRANSCRIBE DATE/TIME: Jan 23 2013 12:27P RADIOLOGIST: MARC HAYES M.D. READ ON: Jan 23 2013 11:04A ORDERING DR: BEATRIZ GARCIA A.P.R.N. THIS DOCUMENT HAS BEEN ELECTRONICALLY SIGNED BY: MARC HAYES M.D. ON: Jan 23 2013 2:45P us Historical Provider [employer] XR PROCEDURES Final R esult * (ABNORMAL) Blood cell count (CBC), morphologic exam (01/23/2013 4:44 AM CDT) WBC 10.6(H) 5.0 - 10.0 K/cumm HISTORICAL RESULTS RBC 2.97(L) 4.50 - 6.00 M/cumm HISTORICAL RESULTS Hgb 8.8(L) 14.0 - 18.0 g/dl HISTORICAL RESULTS Hct 27.7(L) 40.0 - 54.0 % HISTORICAL RESULTS MCV 93.3 82.0 - 96.0 fl HISTORICAL RESULTS MCH 29.6 27.0 - 32.0 pg HISTORICAL RESULTS MCHC 31.8 29.0 - 35.0 g/dl HISTORICAL RESULTS Platelets 154 150 - 450 K/cumm HISTORICAL RESULTS RDW 46.5(H) 35.1 - 43.9 fl HISTORICAL RESULTS Rdw 13.6 11.5 - 14.5 % HISTORICAL RESULTS MPV 9.9 8.6 - 12.6 fl HISTORICAL RESULTS Neutrophils 73.7 42.0 - 85.0 % HISTORICAL RESULTS Neutrophils, abs 7.8 2.1 - 8.5 K/cumm HISTORICAL RESULTS Lymphocytes 13.2(L) 16.0 - 52.0 % HISTORICAL RESULTS Lymphocytes, abs 1.4 0.8 - 5.2 K/cumm HISTORICAL RESULTS Monos 11.5 1.0 - 13.0 % HISTORICAL RESULTS Monocytes, absolute 1.2 0.0 - 1.3 K/cumm HISTORICAL RESULTS Eosinophils 1.0 0.0 - 7.0 % HISTORICAL RESULTS Eosinophils, abs 0.1 0.0 - 0.7 K/cumm HISTORICAL RESULTS Basophils 0.2 0.0 - 4.0 % HISTORICAL RESULTS Basophils, abs 0.0 0.0 - 0.4 K/cumm HISTORICAL RESULTS Young granulocytes, % 0.4 0.0 - 1.0 % HISTORICAL RESULTS Young granulocyte 0.04 0.00 - 0.10 K/cumm HISTORICAL RESULTS NRBC 0.0 0.0 - 0.2 #/100 WBC HISTORICAL RESULTS NRBC, abs 0.00 0.00 - 0.01 K/cumm HISTORICAL RESULTS Blood specimen (specimen) 01/23/2013 4:44 AM CDT Irving Stevens MD LAB BLOOD ORDERABLES Final R esult HISTORICAL RESULTS * (ABNORMAL) Plasma basic metabolic panel (01/23/2013 4:44 AM CDT) BUN 12 8 - 24 mg/dl HISTORICAL RESULTS Glucose 127(H) 70 - 99 mg/dl HISTORICAL RESULTS Sodium 138 135 - 145 mmol/L HISTORICAL RESULTS K, pl 4.3 3.5 - 5.1 mmol/L HISTORICAL RESULTS Chloride 104 100 - 114 mmol/L HISTORICAL RESULTS CO2 28 22 - 32 mmol/L HISTORICAL RESULTS Creatinine 1.04 0.7 - 1.4 mg/dl HISTORICAL RESULTS Calcium 8.8 8.4 - 10.5 mg/dl HISTORICAL RESULTS A. gap 10 8 - 16 mmol/L HISTORICAL RESULTS eGFR 74 90 - 200 ml/min/1.7 3 m2 HISTORICAL RESULTS Comment: If this individual is -[place], multiply result by 1.21 Repeated results of less than 60 is indicative of chronic kidney disease. MDRD formula has not been validated on individuals greater than 70 years old. Plasma 01/23/2013 4:44 AM CDT Irving Stevens MD LAB BLOOD ORDERABLES Final R esult Performing Organization Address [facility] de Phone Number HISTORICAL RESULTS * (ABNORMAL) Blood glucose, POC (01/22/2013 5:12 PM CDT) Glucose, POC, bld 118(H) 70 - 99 mg/dl HISTORICAL RESULTS Blood specimen (specimen) 01/22/2013 5:12 PM CDT Shannan Rojas LAB BLOOD ORDERABLES Final Res ult Performing Organization Address [facility] de Phone Number HISTORICAL RESULTS * (ABNORMAL) Blood glucose, POC (01/22/2013 12:22 PM CDT) Glucose, POC, bld 141(H) 70 - 99 mg/dl HISTORICAL RESULTS Blood specimen (specimen) 01/22/2013 12:22 PM CDT us Shannan Rojas LAB BLOOD ORDERABLES Final Res ult Performing Organization Address [facility] de Phone Number HISTORICAL RESULTS * (ABNORMAL) Blood glucose, POC (01/22/2013 7:33 AM CDT) Glucose, POC, bld 125(H) 70 - 99 mg/dl HISTORICAL RESULTS Blood specimen (specimen) 01/22/2013 7:33 AM CDT Shannan Rojas LAB BLOOD ORDERABLES Final Res ult Performing Organization Address [facility] de Phone Number HISTORICAL RESULTS * XR Chest 1 Vw (01/22/2013 6:15 AM CDT) Anatomical Region Laterality Modality Body, Chest N/A Radiographic Deb ging 01/22/2013 6:15 AM CDT Narrative 01/22/2013 11:54 AM CDT DATE OF EXAM: ??Jan 22 2013 ??6:15AM Acc#: ??[id number] ??EDX 0031 - XR Chest Portable ?? DIAGNOSIS: ??MVD/CAD CLINICAL HISTORY: ?? Post Op Heart Surgery, Check Line Cleve... ?? RESULT: \ PORTABLE CHEST, 01/22/13 HISTORY: ?? Mitral valve disease post surgery 52 year-old man. Compared with the study of the prior day, the patient is extubated wit removal of the endotracheal and nasogastric tubes. [place] ??catheter has its tip in the pulmonary outflow tract. ??Left sided chest tube remains in place without a significant pneumothorax. ??Some residual opacification of the left lung base probably atelectatic in nature. ?? There is no failure. The right lung is clear. ?? IMPRESSION: ?\ EXTUBATION OF THE PATIENT. ??ATELECTASIS LEFT BASE. ?? INTERNET MARKETER: ??SP8 TRANSCRIBE DATE/TIME: ??Jan 22 2013 11:02A RADIOLOGIST: ??NIOCLÁS KLEIN M.D. ??READ ON: ??Jan 22 2013 ??9:15A ORDERING DR: IRVING STEVENS M.D. THIS DOCUMENT HAS BEEN ELECTRONICALLY SIGNED BY: ??NICOLÁS KLEIN M.D. ??ON: ??Jan 22 2013 11:53A Procedure Note Provider, MD Diego - 12/03/2016 DATE OF EXAM: Jan 22 2013 6:15AM Acc#: [id number] EDX 0031 - XR Chest Portable DIAGNOSIS: MVD/CAD CLINICAL HISTORY: Post Op Heart Surgery, Check Line Cleve... RESULT: \ PORTABLE CHEST, 01/22/13 HISTORY: Mitral valve disease post surgery 52 year-old man. Compared with the study of the prior day, the patient is extubated wit removal of the endotracheal and nasogastric tubes. [place] catheter has its tip in the pulmonary outflow tract. Left sided chest tube remains in place without a significant pneumothorax. Some residual opacification of the left lung base probably atelectatic in nature. There is no failure. The right lung is clear. IMPRESSION: \ EXTUBATION OF THE PATIENT. ATELECTASIS LEFT BASE. INTERNET MARKETER: CHESTER8 TRANSCRIBE DATE/TIME: Jan 22 2013 11:02A RADIOLOGIST: NICOLÁS KLEIN M.D. READ ON: Jan 22 2013 9:15A ORDERING DR: IRVING STEVENS M.D. THIS DOCUMENT HAS BEEN ELECTRONICALLY SIGNED BY: NICOLÁS KLEIN M.D. ON: Jan 22 2013 11:53A us Historical Provider IMG XR PROCEDURES Final R esult * (ABNORMAL) Plasma basic metabolic panel (01/22/2013 4:16 AM CDT) BUN 15 8 - 24 mg/dl HISTORICAL RESULTS Glucose 150(H) 70 - 99 mg/dl HISTORICAL RESULTS Sodium 135 135 - 145 mmol/L HISTORICAL RESULTS K, pl 4.1 3.5 - 5.1 mmol/L HISTORICAL RESULTS Chloride 105 100 - 114 mmol/L HISTORICAL RESULTS CO2 25 22 - 32 mmol/L HISTORICAL RESULTS Creatinine 1.08 0.7 - 1.4 mg/dl HISTORICAL RESULTS Calcium 8.8 8.4 - 10.5 mg/dl HISTORICAL RESULTS A. gap 9 8 - 16 mmol/L HISTORICAL RESULTS Plasma 01/22/2013 4:16 AM CDT Irving Stevens MD LAB BLOOD ORDERABLES Final R esult HISTORICAL RESULTS * Plasma magnesium (01/22/2013 4:16 AM CDT) Magnesium 2.1 1.8 - 2.6 mg/dl HISTORICAL RESULTS Plasma 01/22/2013 4:16 AM CDT Irving Stevens MD LAB BLOOD ORDERABLES Final R esult HISTORICAL RESULTS * (ABNORMAL) Blood cell count (CBC), morphologic exam (01/22/2013 4:15 AM CDT) WBC 13.3(H) 5.0 - 10.0 K/cumm HISTORICAL RESULTS RBC 3.10(L) 4.50 - 6.00 M/cumm HISTORICAL RESULTS Hgb 9.3(L) 14.0 - 18.0 g/dl HISTORICAL RESULTS Hct 28.6(L) 40.0 - 54.0 % HISTORICAL RESULTS MCV 92.3 82.0 - 96.0 fl HISTORICAL RESULTS MCH 30.0 27.0 - 32.0 pg HISTORICAL RESULTS MCHC 32.5 29.0 - 35.0 g/dl HISTORICAL RESULTS Platelets 216 150 - 450 K/cumm HISTORICAL RESULTS RDW 45.6(H) 35.1 - 43.9 fl HISTORICAL RESULTS Rdw 13.6 11.5 - 14.5 % HISTORICAL RESULTS MPV 9.6 8.6 - 12.6 fl HISTORICAL RESULTS Neutrophils 78.3 42.0 - 85.0 % HISTORICAL RESULTS Neutrophils, abs 10.4(H) 2.1 - 8.5 K/cumm HISTORICAL RESULTS Lymphocytes 10.3(L) 16.0 - 52.0 % HISTORICAL RESULTS Lymphocytes, abs 1.4 0.8 - 5.2 K/cumm HISTORICAL RESULTS Monos 10.9 1.0 - 13.0 % HISTORICAL RESULTS Monocytes, absolute 1.5(H) 0.0 - 1.3 K/cumm HISTORICAL RESULTS Eosinophils 0.0 0.0 - 7.0 % HISTORICAL RESULTS Eosinophils, abs 0.0 0.0 - 0.7 K/cumm HISTORICAL RESULTS Basophils 0.1 0.0 - 4.0 % HISTORICAL RESULTS Basophils, abs 0.0 0.0 - 0.4 K/cumm HISTORICAL RESULTS Young granulocytes, % 0.4 0.0 - 1.0 % HISTORICAL RESULTS Young granulocyte 0.05 0.00 - 0.10 K/cumm HISTORICAL RESULTS NRBC 0.0 0.0 - 0.2 #/100 WBC HISTORICAL RESULTS NRBC, abs 0.00 0.00 - 0.01 K/cumm HISTORICAL RESULTS Blood specimen (specimen) 01/22/2013 4:15 AM CDT us Irving Stevens MD LAB BLOOD ORDERABLES Final R esult HISTORICAL RESULTS * Plasma prothrombin time (PT) (01/22/2013 4:15 AM CDT) Pathologist [facility] Prothrombin time (PT) 15.2 11.5 - 15.5 seconds HISTORICAL RESULTS INR 1.21 0.81 - 1.21 HISTORIC AL RESULTS Plasma 01/22/2013 4:15 AM CDT Result [facility] Irving Stevens MD LAB BLOOD ORDERABLES Final R esult Performing Organization Address [facility] de Phone Number HISTORICAL RESULTS * (ABNORMAL) Blood glucose, POC (01/22/2013 4:08 AM CDT) [facility] Glucose, POC, bld 169(H) 70 - 99 mg/dl HISTORICAL RESULTS Blood specimen (specimen) 01/22/2013 4:08 AM CDT Result [facility] Shannan Rojas LAB BLOOD ORDERABLES Final Res ult Performing Organization Address [facility] de Phone Number HISTORICAL RESULTS * (ABNORMAL) Blood glucose, POC (01/21/2013 11:45 PM CDT) [facility] Glucose, POC, bld 150(H) 70 - 99 mg/dl HISTORICAL RESULTS Blood specimen (specimen) 01/21/2013 11:45 PM CDT Result [facility] Shannan Rojas LAB BLOOD ORDERABLES Final Res ult Performing Organization Address [facility] de Phone Number HISTORICAL RESULTS * Plasma potassium (01/21/2013 11:00 PM CDT) Pathologist [facility] K, pl 4.2 3.5 - 5.1 mmol/L HISTORICAL RESULTS Plasma 01/21/2013 11:0 0 PM CDT Result [facility] Irving Stevens MD LAB BLOOD ORDERABLES Final R esult Performing Organization Address [facility] Co de Phone Number HISTORICAL RESULTS * (ABNORMAL) Blood hematocrit (01/21/2013 10:33 PM CDT) Hct 28.8(L) 40.0 - 54.0 % HISTORICAL RESULTS Blood specimen (specimen) 01/21/2013 10:33 PM CDT Irving Stevens MD LAB BLOOD ORDERABLES Final R esult Performing Organization Address [facility] de Phone Number HISTORICAL RESULTS * (ABNORMAL) Blood glucose, POC (01/21/2013 8:17 PM CDT) Pathologist [facility] Glucose, POC, bld 147(H) 70 - 99 mg/dl HISTORICAL RESULTS Blood specimen (specimen) 01/21/2013 8:17 PM CDT Shannan Rojas LAB BLOOD ORDERABLES Final Res ult Performing Organization Address [facility] de Phone Number HISTORICAL RESULTS * (ABNORMAL) Blood glucose, POC (01/21/2013 6:13 PM CDT) Pathologist [facility] Glucose, POC, bld 150(H) 70 - 99 mg/dl HISTORICAL RESULTS Blood specimen (specimen) 01/21/2013 6:13 PM CDT Shannan Rojas LAB BLOOD ORDERABLES Final Res ult Performing Organization Address [facility] de Phone Number HISTORICAL RESULTS * (ABNORMAL) Blood cell count (CBC) (01/21/2013 5:54 PM CDT) WBC 13.7(H) 5.0 - 10.0 K/cumm HISTORICAL RESULTS RBC 3.26(L) 4.50 - 6.00 M/cumm HISTORICAL RESULTS Hgb 9.9(L) 14.0 - 18.0 g/dl HISTORICAL RESULTS Hct 30.0(L) 40.0 - 54.0 % HISTORICAL RESULTS MCV 92.0 82.0 - 96.0 fl HISTORICAL RESULTS MCH 30.4 27.0 - 32.0 pg HISTORICAL RESULTS MCHC 33.0 29.0 - 35.0 g/dl HISTORICAL RESULTS Platelets 166 150 - 450 K/cumm HISTORICAL RESULTS RDW 44.6(H) 35.1 - 43.9 fl HISTORICAL RESULTS Rdw 13.3 11.5 - 14.5 % HISTORICAL RESULTS MPV 9.4 8.6 - 12.6 fl HISTORICAL RESULTS Blood specimen (specimen) 01/21/2013 5:54 PM CDT Irving Stevens MD LAB BLOOD ORDERABLES Final R esult Performing Organization Address [facility] de Phone Number HISTORICAL RESULTS * Blood calcium, ionized (01/21/2013 5:54 PM CDT) Ca, ionized, bld, calc, bld 4.91 4.60 - 5.20 mg/dl HISTORICAL RESULTS Blood specimen (specimen) 01/21/2013 5:54 PM CDT Irving Stevens MD LAB BLOOD ORDERABLES Final R esult Performing Organization Address [facility] de Phone Number HISTORICAL RESULTS * (ABNORMAL) Plasma basic metabolic panel (01/21/2013 5:54 PM CDT) BUN 13 8 - 24 mg/dl HISTORICAL RESULTS Glucose 128(H) 70 - 99 mg/dl HISTORICAL RESULTS Sodium 137 135 - 145 mmol/L HISTORICAL RESULTS K, pl 4.4 3.5 - 5.1 mmol/L HISTORICAL RESULTS Chloride 106 100 - 114 mmol/L HISTORICAL RESULTS CO2 25 22 - 32 mmol/L HISTORICAL RESULTS Creatinine 0.93 0.7 - 1.4 mg/dl HISTORICAL RESULTS Calcium 8.8 8.4 - 10.5 mg/dl HISTORICAL RESULTS A. gap 10 8 - 16 mmol/L HISTORICAL RESULTS eGFR 85 90 - 200 ml/min/1.7 3 m2 HISTORICAL RESULTS Comment: If this individual is -Canadian, multiply result by 1.21 Repeated results of less than 60 is indicative of chronic kidney disease. MDRD formula has not been validated on individuals greater than 70 years old. Plasma 01/21/2013 5:54 PM CDT Irving Stevens MD LAB BLOOD ORDERABLES Final R esult Performing Organization Address [facility] de Phone Number HISTORICAL RESULTS * (ABNORMAL) Blood glucose, POC (01/21/2013 5:31 PM CDT) Glucose, POC, bld 140(H) 70 - 99 mg/dl HISTORICAL RESULTS Blood specimen (specimen) 01/21/2013 5:31 PM CDT us Shannan Rojas LAB BLOOD ORDERABLES Final Res ult Performing Organization Address [facility] de Phone Number HISTORICAL RESULTS * (ABNORMAL) Blood gas, arterial (01/21/2013 4:41 PM CDT) Patient temperature 99.0 degrees HISTORICAL RESULTS pH 7.31(L) 7.35 - 7.45 HISTORIC AL RESULTS PCO2 48 32 - 48 mm Hg HISTORICAL RESULTS PO2 141(H) 83 - 108 mm Hg HISTORICAL RESULTS HCO3 23(L) 24 - 32 mmol/L HISTORICAL RESULTS CO2, bld 25 21 - 27 mmol/L HISTORICAL RESULTS BE -1.5 -2.5 - 3.1 mmol/L HISTORICAL RESULTS Hgb estimated, bld 9.9(L) 14.0 - 18.0 g/dl HISTORICAL RESULTS O2 sat 99 92 - 100 % HISTORICA L RESULTS Oxygen (O2), inspired fraction (FiO2) 40% HISTORICAL RESULTS Arterial blood 01/21/2013 4: 41 PM CDT Irving Stevens MD LAB BLOOD ORDERABLES Final R esult Performing Organization Address [facility] de Phone Number HISTORICAL RESULTS * (ABNORMAL) Blood glucose, POC (01/21/2013 4:12 PM CDT) Glucose, POC, bld 143(H) 70 - 99 mg/dl HISTORICAL RESULTS Blood specimen (specimen) 01/21/2013 4:12 PM CDT us Shannan Rojas LAB BLOOD ORDERABLES Final Res ult Performing Organization Address [facility]/ZIP Co de Phone Number HISTORICAL RESULTS * (ABNORMAL) Blood glucose, POC (01/21/2013 3:05 PM CDT) Glucose, POC, bld 143(H) 70 - 99 mg/dl HISTORICAL RESULTS Blood specimen (specimen) 01/21/2013 3:05 PM CDT us Shannan Rojas LAB BLOOD ORDERABLES Final Res ult Performing Organization Address [facility] Co de Phone Number HISTORICAL RESULTS * (ABNORMAL) Blood gas, arterial (01/21/2013 3:00 PM CDT) Patient temperature 98.6 degrees HISTORICAL RESULTS pH 7.31(L) 7.35 - 7.45 HISTORIC AL RESULTS PCO2 51(H) 32 - 48 mm Hg HISTORICAL RESULTS PO2 128(H) 83 - 108 mm Hg HISTORICAL RESULTS HCO3 23(L) 24 - 32 mmol/L HISTORICAL RESULTS CO2, bld 26 21 - 27 mmol/L HISTORICAL RESULTS BE -0.6 -2.5 - 3.1 mmol/L HISTORICAL RESULTS Hgb estimated, bld 11.1(L) 14.0 - 18.0 g/dl HISTORICAL RESULTS O2 sat 99 92 - 100 % HISTORICA L RESULTS Oxygen (O2), inspired fraction (FiO2) 40% HISTORICAL RESULTS Arterial blood 01/21/2013 3: 00 PM CDT Irving Stevens MD LAB BLOOD ORDERABLES Final R esult Performing Organization Address [facility] Co de Phone Number HISTORICAL RESULTS * (ABNORMAL) Blood calcium, ionized (01/21/2013 3:00 PM CDT) Ca, ionized, bld, calc, bld 4.50(L) 4.60 - 5.20 mg/dl HISTORICAL RESULTS Blood specimen (specimen) 01/21/2013 3:00 PM CDT Irving Stevens MD LAB BLOOD ORDERABLES Final R esult Performing Organization Address [facility]/ZIP Co de Phone Number HISTORICAL RESULTS * (ABNORMAL) Blood cell count (CBC) (01/21/2013 2:59 PM CDT) WBC 18.5(H) 5.0 - 10.0 K/cumm HISTORICAL RESULTS RBC 3.67(L) 4.50 - 6.00 M/cumm HISTORICAL RESULTS Hgb 11.0(L) 14.0 - 18.0 g/dl HISTORICAL RESULTS Hct 33.8(L) 40.0 - 54.0 % HISTORICAL RESULTS MCV 92.1 82.0 - 96.0 fl HISTORICAL RESULTS MCH 30.0 27.0 - 32.0 pg HISTORICAL RESULTS MCHC 32.5 29.0 - 35.0 g/dl HISTORICAL RESULTS Platelets 214 150 - 450 K/cumm HISTORICAL RESULTS RDW 44.5(H) 35.1 - 43.9 fl HISTORICAL RESULTS Rdw 13.3 11.5 - 14.5 % HISTORICAL RESULTS MPV 9.5 8.6 - 12.6 fl HISTORICAL RESULTS Blood specimen (specimen) 01/21/2013 2:59 PM CDT Irving Stevens MD LAB BLOOD ORDERABLES Final R esult HISTORICAL RESULTS * Plasma prothrombin time (PT) (01/21/2013 2:59 PM CDT) Prothrombin time (PT) 15.1 11.5 - 15.5 seconds HISTORICAL RESULTS INR 1.20 0.81 - 1.21 HISTORIC AL RESULTS Plasma 01/21/2013 2:59 PM CDT Irving Stevens MD LAB BLOOD ORDERABLES Final R esult HISTORICAL RESULTS * (ABNORMAL) Blood glucose, POC (01/21/2013 2:34 PM CDT) Glucose, POC, bld 152(H) 70 - 99 mg/dl HISTORICAL RESULTS Blood specimen (specimen) 01/21/2013 2:34 PM CDT Shannan Rojas LAB BLOOD ORDERABLES Final Res ult HISTORICAL RESULTS * (ABNORMAL) Blood glucose, POC (01/21/2013 1:38 PM CDT) Glucose, POC, bld 132(H) 70 - 99 mg/dl HISTORICAL RESULTS Blood specimen (specimen) 01/21/2013 1:38 PM CDT Shannan Rojas LAB BLOOD ORDERABLES Final Res ult Performing Organization Address [facility]/State/ZIP Co de Phone Number HISTORICAL RESULTS * PRE-PRELIMINARY DIAGNOSTIC REPORT (01/21/2013 1:14 PM CDT) Anatomical Region Laterality Modality N/A Radiographic Deb ging 01/21/2013 1:14 PM CDT Narrative 01/21/2013 1:27 PM CDT ED IMAGING PRELIMINARY RESULT PATIENT: MARCIE HOOVER MR#: [id number] : [id number] SEX: ??M Procedure: ECXR1P XR Chest Portable ?? Exam Date: Acc#: [id number] Pt_Class: I ? Priority: ??STAT Reason: Post Op Heart Surgery, Check Line Cleve... Order Comments: CVU TO CALL WHEN READY Ord Ana STEVENS Preliminary Reading Doctor: WILL HOU M.D., RADIOLOGIST Is this a Critical Result? No ? Result called to: ? Is this Study Normal or Abnormal?: Abnormal ? Comments: Postop changes without evidence of ptx ? Additional Comments Line 1: small to mod L pleural effusion ? Additional Comments Line 2: retrocardiac opacity, likely atelectasis ? Additional Comments Line 3: ETT 6.1 cm above faith ? Additional Comments Line 4: ? Procedure Note Provider, Diego, - 12/03/2016 ED IMAGING PRELIMINARY RESULT PATIENT: MARCIE HOOVER MR#: [id number] : [id number] SEX: M Procedure: ECXR1P XR Chest Portable Exam Date: Acc#: [id number] Pt_Class: I Priority: STAT Reason: Post Op Heart Surgery, Check Line Cleve... Order Comments: CVU TO CALL WHEN READY Ord Dr: IRVING STEVENS Preliminary Reading Doctor: WILL HOU M.D., RADIOLOGIST Is this a Critical Result? No Result called to: Is this Study Normal or Abnormal?: Abnormal Comments: Postop changes without evidence of ptx Additional Comments Line 1: small to mod L pleural effusion Additional Comments Line 2: retrocardiac opacity, likely atelectasis Additional Comments Line 3: ETT 6.1 cm above faith Additional Comments Line 4: us Historical Provider MD AMEZQUITA XR PROCEDURES Final R esult * XR Chest 1 Vw (01/21/2013 1:14 PM CDT) Anatomical Region Laterality Modality Body, Chest N/A Radiographic Deb ging 01/21/2013 1:14 PM CDT Narrative 01/21/2013 1:37 PM CDT DATE OF EXAM: ??Jan 21 2013 ??1:14PM Acc#: ??[id number] ??EDX 0031 - XR Chest Portable ?? DIAGNOSIS: ??MVD/CAD CLINICAL HISTORY: ?? Post Op Heart Surgery, Check Line Cleve... ?? RESULT: \ EXAMINATION: ??AP PORTABLE CHEST RADIOGRAPH. FINDINGS: ??Comparison is made to the radiographic examination dated 01/20/2013. ?? The lungs are free of acute peripheral opacities. A lppby-fb-lkzrgdgs left pleural effusion obscures the left hemidiaphragm. ?? A retrocardiac opacity may represent left lower lobe ??atelectasis. ??The cardiomediastinal silhouette, in addition to the superior mediastinum, appear increased in size from the prior examination. ??This is likely the result of recent operative intervention. An endotracheal tube terminates 6.1 cm above the faith. ??An enteric tube can be followed to the left upper abdominal quadrant. ??A left-sided chest tube terminates within the inferior lateral left pleural space. A mediastinal drain is noted. ??Wire sternal sutures are manifestations of thoracotomy. ??A right internal jugular vein [place] catheter terminates in the region of the main right pulmonary artery. IMPRESSION: ?\ 1. ??JYDYN-YR-[id number] LEFT PLEURAL EFFUSION. 2. ??RETROCARDIAC OPACITY, LIKELY LEFT LOWER LOBE ??ATELECTASIS. 3. ??POST SURGICAL CHANGES WITHOUT EVIDENCE OF PNEUMOTHORAX, ABOVE. ? INTERNET MARKETER: ??ABBE TRANSCRIBE DATE/TIME: ??Jan 21 2013 ??1:32P RADIOLOGIST: ??WILL HOU M.D. ??READ ON: ??Jan 21 2013 ??1:28P ORDERING DR: IRVING STEVENS M.D. THIS DOCUMENT HAS BEEN ELECTRONICALLY SIGNED BY: ??WILL HOU M.D. ??ON: ??Jan 21 2013 ??1:37P Procedure Note Provider, MD Diego - 12/03/2016 DATE OF EXAM: Jan 21 2013 1:14PM Acc#: [id number] EDX 0031 - XR Chest Portable DIAGNOSIS: MVD/CAD CLINICAL HISTORY: Post Op Heart Surgery, Check Line Cleve... RESULT: \ EXAMINATION: AP PORTABLE CHEST RADIOGRAPH. FINDINGS: Comparison is made to the radiographic examination dated 01/20/2013. The lungs are free of acute peripheral opacities. A eouxe-nt-fesvlzgr left pleural effusion obscures the left hemidiaphragm. A retrocardiac opacity may represent left lower lobe atelectasis. The cardiomediastinal silhouette, in addition to the superior mediastinum, appear increased in size from the prior examination. This is likely the result of recent operative intervention. An endotracheal tube terminates 6.1 cm above the faith. An enteric tube can be followed to the left upper abdominal quadrant. A left-sided chest tube terminates within the inferior lateral left pleural space. A mediastinal drain is noted. Wire sternal sutures are manifestations of thoracotomy. A right internal jugular vein [place] catheter terminates in the region of the main right pulmonary artery. IMPRESSION: \ 1. [id number] LEFT PLEURAL EFFUSION. 2. RETROCARDIAC OPACITY, LIKELY LEFT LOWER LOBE ATELECTASIS. 3. POST SURGICAL CHANGES WITHOUT EVIDENCE OF PNEUMOTHORAX, ABOVE. INTERNET MARKETER: ABBE TRANSCRIBE DATE/TIME: Jan 21 2013 1:32P RADIOLOGIST: WILL HOU M.D. READ ON: Jan 21 2013 1:28P ORDERING DR: IRVING STEVENS M.D. THIS DOCUMENT HAS BEEN ELECTRONICALLY SIGNED BY: WILL HOU M.D. ON: Jan 21 2013 1:37P us Historical Provider MD AMEZQUITA XR PROCEDURES Final R esult * (ABNORMAL) Blood cell count (CBC), morphologic exam (01/21/2013 1:00 PM CDT) WBC 17.8(H) 5.0 - 10.0 K/cumm HISTORICAL RESULTS RBC 3.42(L) 4.50 - 6.00 M/cumm HISTORICAL RESULTS Hgb 10.3(L) 14.0 - 18.0 g/dl HISTORICAL RESULTS Hct 31.5(L) 40.0 - 54.0 % HISTORICAL RESULTS MCV 92.1 82.0 - 96.0 fl HISTORICAL RESULTS MCH 30.1 27.0 - 32.0 pg HISTORICAL RESULTS MCHC 32.7 29.0 - 35.0 g/dl HISTORICAL RESULTS Platelets 194 150 - 450 K/cumm HISTORICAL RESULTS RDW 44.5(H) 35.1 - 43.9 fl HISTORICAL RESULTS Rdw 13.4 11.5 - 14.5 % HISTORICAL RESULTS MPV 9.0 8.6 - 12.6 fl HISTORICAL RESULTS Neutrophils 81.3 42.0 - 85.0 % HISTORICAL RESULTS Neutrophils, abs 14.5(H) 2.1 - 8.5 K/cumm HISTORICAL RESULTS Lymphocytes 10.0(L) 16.0 - 52.0 % HISTORICAL RESULTS Lymphocytes, abs 1.8 0.8 - 5.2 K/cumm HISTORICAL RESULTS Monos 7.2 1.0 - 13.0 % HISTORICAL RESULTS Monocytes, absolute 1.3 0.0 - 1.3 K/cumm HISTORICAL RESULTS Eosinophils 0.8 0.0 - 7.0 % HISTORICAL RESULTS Eosinophils, abs 0.1 0.0 - 0.7 K/cumm HISTORICAL RESULTS Basophils 0.1 0.0 - 4.0 % HISTORICAL RESULTS Basophils, abs 0.0 0.0 - 0.4 K/cumm HISTORICAL RESULTS Young granulocytes, % 0.6 0.0 - 1.0 % HISTORICAL RESULTS Young granulocyte 0.11(H) 0.00 - 0.10 K/cumm HISTORICAL RESULTS NRBC 0.0 0.0 - 0.2 #/100 WBC HISTORICAL RESULTS NRBC, abs 0.00 0.00 - 0.01 K/cumm HISTORICAL RESULTS Blood specimen (specimen) 01/21/2013 1:00 PM CDT Result [facility] us Irvnig Stevens MD LAB BLOOD ORDERABLES Final R esult Performing Organization Address [facility] de Phone Number HISTORICAL RESULTS * (ABNORMAL) Plasma prothrombin time (PT) (01/21/2013 1:00 PM CDT) Prothrombin time (PT) 15.8(H) 11.5 - 15.5 seconds HISTORICAL RESULTS INR 1.27(H) 0.81 - 1.21 HISTORIC AL RESULTS Plasma 01/21/2013 1:00 PM CDT Result [facility] Irving Stevens MD LAB BLOOD ORDERABLES Final R [facility] Performing Organization Address [facility] de Phone Number HISTORICAL RESULTS * Plasma partial thromboplastin time (PTT) (01/21/2013 1:00 PM CDT) APTT 33.5 21.5 - 39.0 seconds HISTORICAL RESULTS Plasma 01/21/2013 1:00 PM CDT Result [facility] Irving Stevens MD LAB BLOOD ORDERABLES Final R [facility] Performing Organization Address [facility] de Phone Number HISTORICAL RESULTS * (ABNORMAL) Blood calcium, ionized (01/21/2013 1:00 PM CDT) Ca, ionized, bld, calc, bld 3.89(L) 4.60 - 5.20 mg/dl HISTORICAL RESULTS Blood specimen (specimen) 01/21/2013 1:00 PM CDT Result [facility] Irving Stevens MD LAB BLOOD ORDERABLES Final R esult Performing Organization Address [facility] de Phone Number HISTORICAL RESULTS * (ABNORMAL) Blood gas, arterial (01/21/2013 1:00 PM CDT) Patient temperature 37.0 degrees HISTORICAL RESULTS pH 7.26(L) 7.35 - 7.45 HISTORIC AL RESULTS PCO2 56(H) 32 - 48 mm Hg HISTORICAL RESULTS PO2 106 83 - 108 mm Hg HISTORICAL RESULTS HCO3 22(L) 24 - 32 mmol/L HISTORICAL RESULTS CO2, bld 26 21 - 27 mmol/L HISTORICAL RESULTS BE -2.0 -2.5 - 3.1 mmol/L HISTORICAL RESULTS Hgb estimated, bld 10.2(L) 14.0 - 18.0 g/dl HISTORICAL RESULTS O2 sat 97 92 - 100 % HISTORICA L RESULTS Oxygen (O2), inspired fraction (FiO2) 50% HISTORICAL RESULTS Arterial blood 01/21/2013 1: 00 PM CDT Irving Stevens MD LAB BLOOD ORDERABLES Final R charity: water Performing Organization Address [facility] de Phone Number HISTORICAL RESULTS * (ABNORMAL) Plasma basic metabolic panel (01/21/2013 1:00 PM CDT) Pathologist [facility] BUN 13 8 - 24 mg/dl HISTORICAL RESULTS Glucose 117(H) 70 - 99 mg/dl HISTORICAL RESULTS Sodium 137 135 - 145 mmol/L HISTORICAL RESULTS K, pl 4.0 3.5 - 5.1 mmol/L HISTORICAL RESULTS Chloride 109 100 - 114 mmol/L HISTORICAL RESULTS CO2 24 22 - 32 mmol/L HISTORICAL RESULTS Creatinine 0.82 0.7 - 1.4 mg/dl HISTORICAL RESULTS Calcium 6.7(L) 8.4 - 10.5 mg/dl HISTORICAL RESULTS A. gap 8 8 - 16 mmol/L HISTORICAL RESULTS eGFR >90 90 - 200 ml/min/1.7 3 m2 HISTORICAL RESULTS Comment: If this individual is -[place], multiply result by 1.21 Repeated results of less than 60 is indicative of chronic kidney disease. MDRD formula has not been validated on individuals greater than 70 years old. Plasma 01/21/2013 1:00 PM CDT Irving Stevens MD LAB BLOOD ORDERABLES Final R esult Performing Organization Address [facility] Co de Phone Number HISTORICAL RESULTS * (ABNORMAL) Blood glucose, POC (01/21/2013 12:32 PM CDT) Glucose, POC, bld 108(H) 70 - 99 mg/dl HISTORICAL RESULTS Blood specimen (specimen) 01/21/2013 12:32 PM CDT us Shannan Rojas LAB BLOOD ORDERABLES Final Res ult Performing Organization Address [facility] Co de Phone Number HISTORICAL RESULTS * (ABNORMAL) Blood glucose, POC (01/21/2013 11:46 AM CDT) Glucose, POC, bld 131(H) 70 - 99 mg/dl HISTORICAL RESULTS Blood specimen (specimen) 01/21/2013 11:46 AM CDT us Shannan Rojas LAB BLOOD ORDERABLES Final Res ult Performing Organization Address [facility] Co de Phone Number HISTORICAL RESULTS * (ABNORMAL) Blood glucose, POC (01/21/2013 11:05 AM CDT) Glucose, POC, bld 154(H) 70 - 99 mg/dl HISTORICAL RESULTS Blood specimen (specimen) 01/21/2013 11:05 AM CDT us Shannan Rojas LAB BLOOD ORDERABLES Final Res ult Performing Organization Address [facility] Co de Phone Number HISTORICAL RESULTS * Blood platelet count (01/21/2013 11:00 AM CDT) Platelets 251 150 - 450 K/cumm HISTORICAL RESULTS Blood specimen (specimen) 01/21/2013 11:00 AM CDT us Irving Stevens MD LAB BLOOD ORDERABLES Final R esult HISTORICAL RESULTS * (ABNORMAL) Blood glucose, POC (01/21/2013 10:15 AM CDT) Glucose, POC, bld 158(H) 70 - 99 mg/dl HISTORICAL RESULTS Blood specimen (specimen) 01/21/2013 10:15 AM CDT us Shannan Rojas LAB BLOOD ORDERABLES Final Res ult HISTORICAL RESULTS * (ABNORMAL) Blood glucose, POC (01/21/2013 9:35 AM CDT) Glucose, POC, bld 155(H) 70 - 99 mg/dl HISTORICAL RESULTS Blood specimen (specimen) 01/21/2013 9:35 AM CDT us Shannan Rojas LAB BLOOD ORDERABLES Final Res ult HISTORICAL RESULTS * (ABNORMAL) Blood glucose, POC (01/21/2013 8:12 AM CDT) Glucose, POC, bld 136(H) 70 - 99 mg/dl HISTORICAL RESULTS Blood specimen (specimen) 01/21/2013 8:12 AM CDT us Shannan Rojas LAB BLOOD ORDERABLES Final Res ult Performing Organization Address [facility]/State/ZIP Co de Phone Number HISTORICAL RESULTS * (ABNORMAL) Plasma magnesium (01/21/2013 8:00 AM CDT) Magnesium 2.8(H) 1.8 - 2.6 mg/dl HISTORICAL RESULTS Plasma 01/21/2013 8:00 AM CDT Narrative HISTORICAL RESULTS - 01/21/2013 8:27 AM CDT Repeat magnesium level 1 hour after infusion. us Irving Stevens MD LAB BLOOD ORDERABLES Final R esult HISTORICAL RESULTS * (ABNORMAL) Plasma partial thromboplastin time (PTT) (01/21/2013 5:00 AM CDT) APTT 68.7(H) 21.5 - 39.0 seconds HISTORICAL RESULTS Plasma 01/21/2013 5:00 AM CDT Beatriz OchoaTamara [facility] LAB BLOOD ORDERABLES Fin al Result Performing Organization Address [facility] de Phone Number HISTORICAL RESULTS * (ABNORMAL) Plasma partial thromboplastin time (PTT) (01/20/2013 6:47 PM CDT) APTT 55.5(H) 21.5 - 39.0 seconds HISTORICAL RESULTS Plasma 01/20/2013 6:47 PM CDT Beatriz OchoaTamara [email or web address] LAB BLOOD ORDERABLES Fin al Result Performing Organization Address [facility] de Phone Number HISTORICAL RESULTS * (ABNORMAL) Urinalysis (01/20/2013 12:30 PM CDT) RBC, ur 0 - 5 0 - 5 /hpf HISTORICA L RESULTS Color, ur Yellow HISTORICAL RESULTS Epithelial cells, ur 0 - 2 /hpf HISTORICAL RESULTS Clarity, ur Clear Clear HISTORIC AL RESULTS pH, ur 7.0 5 - 7 HISTORICAL RESULTS Specific gravity, ur 1.015 1.001 - 1.033 HISTORICAL RESULTS Protein, ur Negative Negative HISTORIC AL RESULTS Glucose, ur Negative Negative HISTORIC AL RESULTS Ketones, ur Negative Negative HISTORIC AL RESULTS Bilirubin, ur Negative Negative HISTOR ICAL RESULTS U Blood Negative Negative HISTORICAL RESULTS Urobilinogen, quant, ur Normal 0.2 - 1.0 mg/dl HISTORICAL RESULTS Nitrites, ur Negative Negative HISTORI MAURO RESULTS Leukocyte esterase, ur Trace(A) Negative HISTORICAL RESULTS WBC, ur 0 - 5 0 - 5 /hpf HISTORICA L RESULTS Urine 01/20/2013 12:3 0 PM CDT Beatriz OchoaTamara [facility] INTERNAL MEDICINE VETERINARY TECHNICIAN LAB BLOOD ORDERABLES Fin al Result Performing Organization Address [facility] de Phone Number HISTORICAL RESULTS * Blood ABO, Rh, indirect ab screen (01/20/2013 12:00 PM CDT) ABO, Rho(D) A HISTORIC AL RESULTS Rho(D) typing Positive HISTOR ICAL RESULTS Kaley, indirect Negative HISTORICAL RESULTS Blood specimen (specimen) 01/20/2013 12:00 PM CDT Beatriz Garcia INTERNAL MEDICINE VETERINARY TECHNICIAN LAB BLOOD ORDERABLES Fin al Result Performing Organization Address [facility] de Phone Number HISTORICAL RESULTS * (ABNORMAL) Plasma partial thromboplastin time (PTT) (01/20/2013 11:59 AM CDT) APTT 65.5(H) 21.5 - 39.0 seconds HISTORICAL RESULTS Plasma 01/20/2013 11:5 9 AM CDT Serge Arceo MD LAB BLOOD ORDERABLES Fin al Result Performing Organization Address [facility] de Phone Number HISTORICAL RESULTS * XR Chest Pa Lateral 2 Views (01/20/2013 10:44 AM CDT) Anatomical Region Laterality Modality Body, Chest N/A Radiographic Deb ging 01/20/2013 10:4 4 AM CDT Narrative 01/20/2013 12:01 PM CDT DATE OF EXAM: ??Jan 20 2013 10:44AM Acc#: ??[id number] ??EDX 0167 - XR Chest 2 Views ?? DIAGNOSIS: ??MVD/CAD CLINICAL HISTORY: ?? VA, CP ?? RESULT: \ CHEST, PA AND LATERAL, 01/20/13 HISTORY: ?? Coronary artery disease, MVD (mitral valve disease?). COMPARISON: ?? None. ?? No atherosclerotic calcifications of the coronary arteries or calcifications or mitral annulus are evident. ??The heart is not enlarged. The aorta is elongated. ??The pulmonary vasculature is within normal limits. ??Lungs and pleural spaces are clear. ??No infiltrations, consolidations, pneumothoraces, or pleural effusions are identified. The imaged bones are age appropriate. IMPRESSION: ?\ NO ACUTE INTRATHORACIC PROCESS. ? INTERNET MARKETER: ??[id number] TRANSCRIBE DATE/TIME: ??Jan 20 2013 11:08A RADIOLOGIST: ??TAWANNA GOMES M.D. ??READ ON: ??Jan 20 2013 10:46A ORDERING DR: SERGE ARCEO M.D. THIS DOCUMENT HAS BEEN ELECTRONICALLY SIGNED BY: ??TAWANNA GOMES M.D. ??ON: ??Jan 20 2013 12:01P Procedure Note Provider, Diego, - 01/04/2017 DATE OF EXAM: Jan 20 2013 10:44AM Acc#: [id number] EDX 0167 - XR Chest 2 Views DIAGNOSIS: MVD/CAD CLINICAL HISTORY: VA, CP RESULT: \ CHEST, PA AND LATERAL, 01/20/13 HISTORY: Coronary artery disease, MVD (mitral valve disease?). COMPARISON: None. No atherosclerotic calcifications of the coronary arteries or calcifications or mitral annulus are evident. The heart is not enlarged. The aorta is elongated. The pulmonary vasculature is within normal limits. Lungs and pleural spaces are clear. No infiltrations, consolidations, pneumothoraces, or pleural effusions are identified. The imaged bones are age appropriate. IMPRESSION: \ NO ACUTE INTRATHORACIC PROCESS. INTERNET MARKETER: [id number] TRANSCRIBE DATE/TIME: Jan 20 2013 11:08A RADIOLOGIST: TAWANNA GOMES M.D. READ ON: Jan 20 2013 10:46A ORDERING DR: SERGE ARCEO M.D. THIS DOCUMENT HAS BEEN ELECTRONICALLY SIGNED BY: TAWANNA GOMES M.D. ON: Jan 20 2013 12:01P us Historical Provider IMG XR PROCEDURES Final R esult * Blood hemoglobin A1C (01/20/2013 6:59 AM CDT) Hgb A1C 5.8 4.0 - 6.0 % HISTORICAL RESULTS Comment: Hemoglobin A1c ADA Interpretive Guidelines: ?<7% ?? Glycemia controlled ?>8% ?? Hyperglycemia, additional action recommended ?Coral Immunochemical Method Blood specimen (specimen) 01/20/2013 6:59 AM CDT Narrative HISTORICAL RESULTS - 01/20/2013 11:56 AM CDT Test performed at [facility], [address] [place] [address], [facility], [id number]. [place] Beatriz Garcia INTERNAL MEDICINE VETERINARY TECHNICIAN LAB BLOOD ORDERABLES Fin al Result HISTORICAL RESULTS * (ABNORMAL) Blood cell count (CBC), morphologic exam (01/20/2013 5:37 AM CDT) WBC 9.2 5.0 - 10.0 K/cumm HISTORICAL RESULTS RBC 4.40(L) 4.50 - 6.00 M/cumm HISTORICAL RESULTS Hgb 13.3(L) 14.0 - 18.0 g/dl HISTORICAL RESULTS Hct 40.6 40.0 - 54.0 % HISTORICAL RESULTS MCV 92.3 82.0 - 96.0 fl HISTORICAL RESULTS MCH 30.2 27.0 - 32.0 pg HISTORICAL RESULTS MCHC 32.8 29.0 - 35.0 g/dl HISTORICAL RESULTS Platelets 221 150 - 450 K/cumm HISTORICAL RESULTS RDW 45.1(H) 35.1 - 43.9 fl HISTORICAL RESULTS Rdw 13.4 11.5 - 14.5 % HISTORICAL RESULTS MPV 9.6 8.6 - 12.6 fl HISTORICAL RESULTS Neutrophils 68.1 42.0 - 85.0 % HISTORICAL RESULTS Neutrophils, abs 6.2 2.1 - 8.5 K/cumm HISTORICAL RESULTS Lymphocytes 21.4 16.0 - 52.0 % HISTORICAL RESULTS Lymphocytes, abs 2.0 0.8 - 5.2 K/cumm HISTORICAL RESULTS Monos 7.6 1.0 - 13.0 % HISTORICAL RESULTS Monocytes, absolute 0.7 0.0 - 1.3 K/cumm HISTORICAL RESULTS Eosinophils 2.5 0.0 - 7.0 % HISTORICAL RESULTS Eosinophils, abs 0.2 0.0 - 0.7 K/cumm HISTORICAL RESULTS Basophils 0.2 0.0 - 4.0 % HISTORICAL RESULTS Basophils, abs 0.0 0.0 - 0.4 K/cumm HISTORICAL RESULTS Young granulocytes, % 0.2 0.0 - 1.0 % HISTORICAL RESULTS Young granulocyte 0.02 0.00 - 0.10 K/cumm HISTORICAL RESULTS NRBC 0.2 0.0 - 0.2 #/100 WBC HISTORICAL RESULTS NRBC, abs 0.02(H) 0.00 - 0.01 K/cumm HISTORICAL RESULTS Blood specimen (specimen) 01/20/2013 5:37 AM CDT Serge Arceo MD LAB BLOOD ORDERABLES Fin al Result Performing Organization Address [facility] de Phone Number HISTORICAL RESULTS * (ABNORMAL) Plasma partial thromboplastin time (PTT) (01/20/2013 5:37 AM CDT) APTT 88.9(H) 21.5 - 39.0 seconds HISTORICAL RESULTS Plasma 01/20/2013 5:37 AM CDT Serge Arceo MD LAB BLOOD ORDERABLES Fin al Result Performing Organization Address [facility] de Phone Number HISTORICAL RESULTS * (ABNORMAL) Plasma basic metabolic panel (01/20/2013 5:37 AM CDT) BUN 16 8 - 24 mg/dl HISTORICAL RESULTS eGFR 76 90 - 200 ml/min/1.7 3 m2 HISTORICAL RESULTS Comment: If this individual is -Canadian, multiply result by 1.21 Repeated results of less than 60 is indicative of chronic kidney disease. MDRD formula has not been validated on individuals greater than 70 years old. Glucose 115(H) 70 - 99 mg/dl HISTORICAL RESULTS Sodium 139 135 - 145 mmol/L HISTORICAL RESULTS K, pl 4.2 3.5 - 5.1 mmol/L HISTORICAL RESULTS Chloride 104 100 - 114 mmol/L HISTORICAL RESULTS CO2 31 22 - 32 mmol/L HISTORICAL RESULTS Creatinine 1.02 0.7 - 1.4 mg/dl HISTORICAL RESULTS Calcium 9.6 8.4 - 10.5 mg/dl HISTORICAL RESULTS A. gap 8 8 - 16 mmol/L HISTORICAL RESULTS Plasma 01/20/2013 5:37 AM CDT Serge Arceo MD LAB BLOOD ORDERABLES Fin al Result HISTORICAL RESULTS * Plasma prothrombin time (PT) (01/20/2013 12:37 AM CDT) Prothrombin time (PT) 13.3 11.5 - 15.5 seconds HISTORICAL RESULTS INR 1.02 0.81 - 1.21 HISTORIC AL RESULTS Plasma 01/20/2013 12:3 7 AM CDT Narrative HISTORICAL RESULTS - 01/20/2013 4:44 AM CDT please run off this am blood work... Beatriz Garcia INTERNAL MEDICINE VETERINARY TECHNICIAN LAB BLOOD ORDERABLES Fin al Result Performing Organization Address [facility] de Phone Number HISTORICAL RESULTS * (ABNORMAL) Plasma comprehensive metabolic panel (01/20/2013 12:37 AM CDT) Pathologist [facility] BUN 15 8 - 24 mg/dl HISTORICAL RESULTS Chloride 104 100 - 114 mmol/L HISTORICAL RESULTS Glucose 110(H) 70 - 99 mg/dl HISTORICAL RESULTS CO2 29 22 - 32 mmol/L HISTORICAL RESULTS Sodium 140 135 - 145 mmol/L HISTORICAL RESULTS Creatinine 1.06 0.7 - 1.4 mg/dl HISTORICAL RESULTS K, pl 4.2 3.5 - 5.1 mmol/L HISTORICAL RESULTS AST 29 7 - 40 Units/L HISTORICAL RESULTS ALT 26 5 - 50 Units/L HISTORICAL RESULTS Alk phos 89 30 - 110 Units/L HISTORICAL RESULTS Calcium 9.6 8.4 - 10.5 mg/dl HISTORICAL RESULTS Bilirubin 0.28 0.10 - 1.30 mg/dl HISTORICAL RESULTS Protein, pl 6.5 6.0 - 8.3 g/dl HISTORICAL RESULTS Alb 3.6 3.2 - 4.8 g/dl HISTORICAL RESULTS Globulin 2.9 2.0 - 4.3 g/dl HISTORICAL RESULTS A. gap 11 8 - 16 mmol/L HISTORICAL RESULTS Plasma 01/20/2013 12:3 7 AM CDT Narrative HISTORICAL RESULTS - 01/20/2013 4:39 AM CDT ...please run off this am blood work Beatriz Garcia INTERNAL MEDICINE VETERINARY TECHNICIAN LAB BLOOD ORDERABLES Fin al Result HISTORICAL RESULTS * Plasma magnesium (01/20/2013 12:37 AM CDT) Magnesium 2.0 1.8 - 2.6 mg/dl HISTORICAL RESULTS Plasma 01/20/2013 12:3 7 AM CDT Narrative HISTORICAL RESULTS - 01/20/2013 4:39 AM CDT ...please run off this am blood work us Beatriz Garcia INTERNAL MEDICINE VETERINARY TECHNICIAN LAB BLOOD ORDERABLES Fin al Result Performing Organization Address [facility] Co de Phone Number HISTORICAL RESULTS * Urine Microbiology (01/20/2013 12:00 AM CDT) 01/20/2013 Narrative HISTORICAL RESULTS - 01/25/2013 3:53 PM CDT [facility] ?Patient Name: ?MARCIE HOOVER ?Med. Rec#: ?? [id number] ?Pt. Acct.#: ??[id number] ?Birthdate: ?? 1960 ?Age / Sex: ?? 52Y / M ?Location: ?[facility] ([facility]) ?Admit Date: ??01/19/2013 ?Discharge Date: ? 01/25/2013 ?Doctor: ?Shannan Rojas MD ?Patient Type: ?CH Inpatient Culture, Urine ? Collected: 01/20/2013 12:30 Specimen: Urine ?? Specimen Source: Clean Voided Specimen Status: Final ??Last Update: 01/22/2013 10:10 Organism ?? Less than 10,000 cfu/ml of ?? multiple Gram positive organisms Comment ? This culture result is consistent with contamination ?? by normal genital-perineal shila. [facility] Provider LAB MICROBIOLOGY - GENERA L ORDERABLES Final Result Performing Organization Address [facility] de Phone Number HISTORICAL RESULTS * ELECTROCARDIOGRAPHY (ECG) (01/20/2013) Narrative 01/20/2013 Ordered by an unspecified provider. Historical Provider ECG ORDERABLES Final Res ult * (ABNORMAL) Plasma partial thromboplastin time (PTT) (01/19/2013 11:44 PM CDT) APTT 63.8(H) 21.5 - 39.0 seconds HISTORICAL RESULTS Plasma 01/19/2013 11:4 4 PM CDT Result [facility] Serge Arceo MD LAB BLOOD ORDERABLES Fin al Result Performing Organization Address [facility] de Phone Number HISTORICAL RESULTS * Plasma partial thromboplastin time (PTT) (01/19/2013 11:35 AM CDT) APTT 34.2 21.5 - 39.0 seconds HISTORICAL RESULTS Plasma 01/19/2013 11:3 5 AM CDT Narrative HISTORICAL RESULTS - 01/19/2013 11:49 AM CDT Prior to initiation of infusion Result [facility] Serge Arceo MD LAB BLOOD ORDERABLES Fin al Result Performing Organization Address [facility] de Phone Number HISTORICAL RESULTS * Transthoracic Echo Complete W Doppler/CF WO Contrast (01/19/2013 12:00 AM CDT) Anatomical Region Laterality Modality Ultrasound Narrative 01/19/2013 12:00 AM CDT Ordered by an unspecified provider. Procedure Note Provider, MD Diego - 09/24/2018 Ordered by an unspecified provider. us Historical Provider CV ECHO PROCEDURES Final Result documented in this encounter Visit Diagnoses Diagnosis Coronary atherosclerosis of [place] coronary artery Acute subendocardial infarction, initial episode of care (HCC) Acute myocardial infarction, subendocardial infarction, initial episode of care Other primary cardiomyopathies Pulmonary collapse Essential hypertension Unspecified essential hypertension Pure hypercholesterolemia Hypothyroidism Unspecified hypothyroidism Tobacco use disorder Venous (peripheral) insufficiency Unspecified venous (peripheral) insufficiency History of colonic polyps Personal history of colonic polyps Localized osteoarthrosis, shoulder region Localized osteoarthrosis not specified whether primary or secondary, shoulder region Localized osteoarthrosis, lower leg Localized osteoarthrosis not specified whether primary or secondary, lower leg Anemia Unspecified anemia Other specified forms of chronic ischemic heart disease Other specified chronic obstructive airways disease documented in this encounter
--- OUTSIDE RECORDS SUMMARY | 2024-08-02 01:07 | XMS_ITS | Encounter Summary ---
Author Organization [facility] Healthcare Address [address] [place] [address] Care Team Providers Care Reading Aide Name Role Phone Unavailable Primary Care Provider Unavailabl e Encounter Details Date Type Department Care Team (Late st Contact Info) Description 02/05/2013 9:05 AM CDT - 02/05/2013 11:59 PM CDT [place] [address] [address] [place] [address] Congestive heart failure (CMS/HCC) (HCC); Disorder of kidney and ureter Social History Tobacco Use Types Packs/Day Years Used Date Smoking Tobacco: Never Assessed Sex and Gender Information Value Date Recorded Sex Assigned at Not on file Legal 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 Gender Identity Not on file Sexual Orientation Not on file documented as of this encounter Plan of Treatment Not on file documented as of this encounter Procedures Procedure Name Priority Date/Time Associated Diagnosis Comments PLASMA COMPREHENSIVE METABOLIC PANEL Routine 02/05/2013 9:09 AM CDT BLOOD CELL COUNT (CBC) Routine 3 9:09 AM CDT DISCHARGE LABORATORY CUMULATIVE REPORT 02/05/2013 documented in this encounter Results * (ABNORMAL) Blood cell count (CBC) (02/05/2013 9:09 AM CDT) WBC 8.3 5.0 - 10.0 K/cumm HISTORICAL RESULTS RBC 3.28(L) 4.50 - 6.00 M/cumm HISTORICAL RESULTS Hgb 9.5(L) 14.0 - 18.0 g/dl HISTORICAL RESULTS Hct 31.4(L) 40.0 - 54.0 % HISTORICAL RESULTS MCV 95.7 82.0 - 96.0 fl HISTORICAL RESULTS MCH 29.0 27.0 - 32.0 pg HISTORICAL RESULTS MCHC 30.3 29.0 - 35.0 g/dl HISTORICAL RESULTS Platelets 406 150 - 450 K/cumm HISTORICAL RESULTS RDW 50.3(H) 35.1 - 43.9 fl HISTORICAL RESULTS Rdw 14.7(H) 11.5 - 14.5 % HISTORICAL RESULTS MPV 8.9 8.6 - 12.6 fl HISTORICAL RESULTS Blood specimen (specimen) 02/05/2013 9:09 AM CDT Irving Stevens MD LAB BLOOD ORDERABLES Final R esult HISTORICAL RESULTS * (ABNORMAL) Plasma comprehensive metabolic panel (02/05/2013 9:09 AM CDT) BUN 20 8 - 24 mg/dl HISTORICAL RESULTS Glucose 119(H) 70 - 99 mg/dl HISTORICAL RESULTS Sodium 140 135 - 145 mmol/L HISTORICAL RESULTS K, pl 4.7 3.5 - 5.1 mmol/L HISTORICAL RESULTS Chloride 107 100 - 114 mmol/L HISTORICAL RESULTS CO2 27 22 - 32 mmol/L HISTORICAL RESULTS Creatinine 1.21 0.7 - 1.4 mg/dl HISTORICAL RESULTS AST 13 7 - 40 Units/L HISTORICAL RESULTS ALT 11 5 - 50 Units/L HISTORICAL RESULTS Alk phos 90 30 - 110 Units/L HISTORICAL RESULTS Calcium 9.4 8.4 - 10.5 mg/dl HISTORICAL RESULTS Bilirubin 0.18 0.10 - 1.30 mg/dl HISTORICAL RESULTS Protein, pl 6.7 6.0 - 8.3 g/dl HISTORICAL RESULTS Alb 3.2 3.2 - 4.8 g/dl HISTORICAL RESULTS Globulin 3.5 2.0 - 4.3 g/dl HISTORICAL RESULTS A. gap 11 8 - 16 mmol/L HISTORICAL RESULTS eGFR 62 90 - 200 ml/min/1.7 3 m2 HISTORICAL RESULTS Comment: If this individual is -Ukrainian, multiply result by 1.21 Repeated results of less than 60 is indicative of chronic kidney disease. MDRD formula has not been validated on individuals greater than 70 years old. Plasma 02/05/2013 9:09 AM CDT us Irving Stevens MD LAB BLOOD ORDERABLES Final R esult HISTORICAL RESULTS * DISCHARGE LABORATORY CUMULATIVE REPORT (02/05/2013) Narrative 02/05/2013 Ordered by an unspecified provider. us Historical Provider LAB BLOOD ORDERABLES Ambar l Result documented in this encounter Visit Diagnoses Diagnosis Congestive heart failure (CMS/HCC) (HCC) Congestive heart failure, unspecified Disorder of kidney and ureter Unspecified disorder of kidney and ureter documented in this encounter
--- OUTSIDE RECORDS SUMMARY | 2024-08-02 01:07 | XMS_ITS | Encounter Summary ---
Author Organization [facility] Address [address] [place] [address] Care Team Providers Care Textile Finisher Name Role Phone Markel White MD Primary Care Provider [phone] Encounter Details Date Type Department Care Team (Late st Contact Info) Description 04/17/2018 Telephone [facility] [address] [id number] Kt Hemphill MD [address] [place], [place] [address] [place] [address] Social History Tobacco Use Types Packs/Day Years Used Date Smoking Tobacco: Never Assessed Alcohol Use Standard Drinks/Week Comments Yes 0 (1 standard drink = 0.6 oz pur e alcohol) Sex and Gender Information Value Date Recorded Sex Assigned at Not on file 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 90 tablet 04/17/2018 04/25/2018 documented in this encounter Miscellaneous Notes * Telephone Encounter - Hailee Shah MA - 04/17/2018 1:37 PM CDT Refills approved and sent to pharmacy as requested. * Telephone Encounter - AlexandrTeetee - 04/17/2018 11:29 AM CDT Pt called requesting refills on clopidogrel 75 mg sent to [facility], pt scheduled a [place] with DK f11/14 documented in this encounter Plan of Treatment Not on file documented as of this encounter Visit Diagnoses Not on filedocumented in this encounter Discontinued Medications Medication Sig Discontinue Reason Start Date End Da te clopidogrel (PLAVIX) 75 mg tablet TAKE 1 TABLET BY MOUTH EVERY DAY Reorder 10/21/2017 04/17/2018 documented as of this encounter Care Teams Textile Finisher Relationship Specialty Start Date End Date Markel White MD [address] [facility] [address] [place] [address] PCP - General 10/26/16 06/16/19 documented as of this encounter
--- OUTSIDE RECORDS SUMMARY | 2024-08-02 01:07 | XMS_ITS | Encounter Summary ---
Author Organization [facility] Address [address] [place] [address] Care Team Providers Care Accredited Farm Manager Name Role Phone Hiram Moore DO Primary Care Provider [phone] Reason for Visit * Reason Comments Follow-up yearly follow up on CAD, HTN, dyslipidemia * Consultation (Routine) - Canceled Specialty Diagnoses / Procedures Referred By Contac t Referred To Contact Cardiology Diagnoses Atherosclerosis of [place] coronary artery without angina pectoris, unspecified whether [place] or transplanted heart Hiarm Moore DO Phone: tel: fax: [facility] [address] [place] [address] [address] [place] [address] Phone: tel: fax: Referral ID Status Reason Start Date Expiration Date Visits Requested Visits Authorized [id number] Canceled Specialty Services Required 06/17/2019 12/14/2019 2 2 Encounter Details Date Type Department Care Team (Late st Contact Info) Description 06/17/2019 11:30 AM FINAL INSPECTOR AND TESTER Office Visit [facility] [address] [place] [address] Kt Hemphill MD [address] [address] Coronary artery disease involving [place] coronary artery of [place] heart without angina pectoris (Primary Dx); S/P CABG x 3; Essential hypertension; Dyslipidemia; Type 2 diabetes mellitus without complication, without long-term current use of insulin ([facility]) Social History Tobacco Use Types Packs/Day Years Used Date Smoking Tobacco: Former Smokeless Tobacco: Never Alcohol Use Standard Drinks/Week Comments No 0 (1 standard drink = 0.6 oz pur e alcohol) Sex and Gender Information Value Date Recorded Sex Assigned at Not on file Legal Sex Male 4:42 AM FINAL INSPECTOR AND TESTER Gender Identity Not on file Sexual Orientation Not on file documented as of this encounter Last Filed Vital Signs Vital Sign Reading Time Taken Comments Blood Pressure 110/70 06/17/2019 11:09 AM FINAL INSPECTOR AND TESTER Pulse 74 06/17/2019 11:09 AM FINAL INSPECTOR AND TESTER Temperature - - Respiratory Rate - - Oxygen Saturation 96% 06/17/2019 11:09 AM FINAL INSPECTOR AND TESTER Inhaled Oxygen Concentration - - Weight 113.4 kg (250 lb) 06/17/2019 11:09 AM FINAL INSPECTOR AND TESTER Height 185.4 cm (6' 1 ) 06/17/2019 11:09 AM FINAL INSPECTOR AND TESTER Body Mass Index 32.98 06/17/2019 11:09 AM FINAL INSPECTOR AND TESTER documented in this encounter Ordered Prescriptions Prescription Sig Dispense Quantity Refills Last Filled Start Date End Date ezetimibe (ZETIA) 10 mg tablet Take 1 tablet (10 mg total) by mouth daily 30 tablet 11 06/17/2019 02/09/2020 documented in this encounter Progress Notes * Kt Hemphill MD - 06/17/2019 11:30 AM CST [facility] FOLLOW UP 06/17/2019 Chief Complaint Patient presents with ??? Follow-up yearly follow up on CAD, HTN, dyslipidemia Kristopher Hoover is a 58 y.o. male year-old male with CAD, history of CABG ??3, hypertension, diabetes mellitus, DJD. He is former patient of Dr. Rojas. Patient was admitted to [facility] on 01/16/13 with chest pain and was found to have non-ST elevation NC. Cath showed multivessel coronary disease. He was transferred to [facility] and had CABG ??3 on 01/18/13. 06/11/2018-Patient [...] day in the morning 0 0 ??? hydroCHLOROthiazide (HYDRODIURIL) 12.5 mg tablet TAKE 2 TABLETS BY MOUTH DAILY 180 tablet 0 ??? levothyroxine (SYNTHROID) 125 mcg tablet Take 125 mcg by mouth mailhouse operator before breakfast ??? losartan (COZAAR) 100 mg [...] every day at bedtime 0 0 ??? ezetimibe (ZETIA) 10 mg tablet Take 1 [...] HDL 22, triglycerides 252, LDL 78. 06/17/2019 PHYSICAL EXAM Vitals BP 110/70 (BP Location: Right arm, Patient Position: Sitting) Pulse 74 Ht 185.4 cm (6' 1 ) Wt 113.4 kg (250 lb) SpO2 96% BMI 32.98 kg/m?? General appearance - alert, no distress, [...] for this visit: Coronary artery disease involving [place] coronary artery of [place] heart without angina pectoris (Primary) S/P CABG x 3 Essential hypertension Dyslipidemia Type 2 diabetes mellitus without complication, without long-term current use of insulin ([facility]) Other orders - ezetimibe (ZETIA) 10 mg tablet; Take 1 tablet (10 mg total) by mouth daily PLAN/RECOMMENDATIONS 58 year-old male with CAD, history of non-ST elevation NC, history of CABG ??3, hypertension, diabetes mellitus, DJD. Last echo showed EF 50% with segmental wall motion abnormalities. Stable cardiac status at present. Continue current medical regimen including aspirin; metoprolol, losartan, high- dose atorvastatin. Lipid panel from today 06/17/2019 shows LDL 78. Target LDL is less than 70. Will add ezetimibe 10 mg p.o. Daily to the current regimen. Repeat lipid panel on follow-up visit. Optimal control of blood pressure and DM2. Advised to minimize use of diclofenac. Patient encouraged to continue aerobic exercise at home. Influenza vaccination was recommended. Follow-up in 12 months or sooner if needed. Kt Hemphill MD L INSPECTOR AND TESTER documented in this encounter Miscellaneous Notes * Addendum Note - Liz Ren MA - 06/17/2019 11:30 AM CSTAddended by: LIZ REN on: 06/17/2019 11:26 AM Modules accepted: Orders L INSPECTOR AND TESTER documented in this encounter Plan of Treatment Not on file documented as of this encounter Procedures Procedure Name Priority Date/Time Associated Diagnosis Comments POCT LIPID PANEL Routine 06/17/2019 11:2 6 AM FINAL INSPECTOR AND TESTER Coronary artery disease involving [place] coronary artery of [place] heart without angina pectoris Dyslipidemia documented in this encounter Results * POCT lipid panel (06/17/2019 11:26 AM FINAL INSPECTOR AND TESTER) Cholesterol, POC 150 mg/dL HDL, POC 22 mg/dL Triglycerides, POC 252 mg/dL LDL Cholesterol POC 78 mg/dL Chol/HDL Ratio, POC 6.8 Non-HDL Cholesterol, POC 128 mg/dL Cholesterol Total, POC 150 mg/dL Blood specimen (specimen) 06/17/2019 11:26 AM FINAL INSPECTOR AND TESTER us Kt Hemphill MD POINT OF CARE TEST ORDERABLES Fi nal Result documented in this encounter Visit Diagnoses Diagnosis Coronary artery disease involving [place] coronary artery of [place] heart without angina pectoris- Primary S/P CABG x 3 Postsurgical aortocoronary bypass status Essential hypertension Unspecified essential hypertension Dyslipidemia Other and unspecified hyperlipidemia Type 2 diabetes mellitus without complication, without long-term current use of insulin ([facility]) ([facility]) documented in this encounter Discontinued Medications Medication Sig Discontinue Reason Start Date End Da te gemfibrozil (LOPID) 600 mg tablet take 1 tablet by oral route 2 times every day 30 minutes before morning and evening meal Therapy completed 03/17/2013 06/17/2019 levothyroxine sodium (TIROSINT) 112 mcg capsule take 1 capsule by oral route every day Therapy completed 04/15/2015 06/17/2019 documented as of this encounter Historical Medications * This list may reflect changes made after this encounter. levothyroxine (SYNTHROID) 125 mcg tablet Take 1 tablet (125 mcg total) by mouth mailhouse operator before breakfast added in this encounter Care Teams Accredited Farm Manager Relationship Specialty Start Date End Date Hiram Moore DO PCP - General Internal Medicine 06/17/19 11/20/22 documented as of this encounter
--- OUTSIDE RECORDS SUMMARY | 2024-08-02 01:09 | XMS_ITS | CCD ---
Author Organization [facility] [place] [address] [place] [address] Care Team Providers Care Manager Account Management Name Role Phone Unavailable Primary Care Provider Unavailabl e Allergies No known active allergies Medications ezetimibe (ZETIA) 10 mg tablet Take 1 tablet by mouth 1 (one) time each day. 1 Active levothyroxine (SYNTHROID, LEVOTHROID) 125 mcg tablet Take 125 mcg by mouth 1 (one) time each day. Active metoprolol succinate (TOPROL-XL) 50 mg 24 hr tablet Take 1 tablet by mouth 1 (one) time each day. 1 Active chlorhexidine (PERIDEX) 0.12 % solution Use 15 mL in the mouth or throat twice a day. Swish and spit with 15 mL twice daily after brushing (do not use for more than two consecutive weeks) 473 mL 1 Active atorvastatin (LIPITOR) 80 mg tablet 0 Active empagliflozin (Jardiance) 10 mg tablet 9 Active ezetimibe-rosuv astatin 10-40 mg tablet 7 Active hydroCHLOROthia zide (MICROZIDE) 12.5 mg capsule 3 Active insulin glargine (Toujeo SoloStar U-300 Insulin) 300 unit/mL (1.5 mL) injection 9 Active metFORMIN (GLUCOPHAGE) 1,000 mg tablet 8 Active metoprolol tartrate (LOPRESSOR) 50 mg tablet 5 Active thyroid, pork, 180 mg tablet 7 Active ibuprofen (ADVIL,MOTRIN) 800 mg tablet Take 1 tablet (800 mg total) by mouth every 8 (eight) hours if needed for mild pain. 30 tablet 1 Active chlorhexidine (PERIDEX) 0.12 % solution Use 15 mL in the mouth or throat twice a day. Swish and spit with 15 mL twice daily after brushing (do not use for more than two consecutive weeks) 473 mL 2 Active ibuprofen (ADVIL,MOTRIN) 600 mg tablet Take 1 tablet (600 mg total) by mouth every 6 (six) hours if needed for mild pain or moderate pain. 20 tablet 2 Active HYDROcodone-niurka taminophen (NORCO) 5-325 mg tablet Take 1 tablet by mouth every 6 (six) hours if needed for severe pain. 8 tablet 2 Active SAW PALMETTO ORAL Take by mouth. Activ e dapagliflozin 10 mg tablet 2 Active Accu-Chek Softclix Lancets lancets USE DIRECTED TWICE DAILY FOR TESTING 2 Active insulin glargine (TOUJEO) 300 unit/mL (1.5 mL) injection Inject under the skin. Active Accu-Chek Guide test strips test strip USE 1 STRIP TWICE DAILY DIRECTED 2 Active BinaxNOW COVID-19 Ag Self Test kit TEST DIRECTED TODAY 2 Active atorvastatin (LIPITOR) 40 mg tablet 2 Active traZODone (DESYREL) 50 mg tablet 2 Active losartan (COZAAR) 100 mg tablet 2 Active Active Problems No known active problems Social History Tobacco Use Types Packs/Day Years Used Date Smoking Tobacco: Former Cigarettes 0.5 40.2 0 08/27/1972 - 11/08/2012 Smokeless Tobacco: Never Tobacco Cessation:Counseling Given: Not Answered Alcohol Use Standard Drinks/Week Not Currently 1 (1 standard drink = 0.6 oz pure alcohol) Sex and Gender Information Value Date Recorded Sex Assigned at Not on file Legal Sex Male 8:38 AM PDT Gender Identity Not on file Sexual Orientation Not on file Last Filed Vital Signs Vital Sign Reading Time Taken Comments Blood Pressure 152/92 04/04/2021 12:01 PM CDT Pulse - - Temperature 35.8 ??C (96.4 ??F) 04/04/2021 12:01 PM C DT Respiratory Rate - - Oxygen Saturation - - Inhaled Oxygen Concentration - - Weight - - Height - - Body Mass Index - - Plan of Treatment Not on file Medical Devices Implanted Type Area Hat Designer Device Identifier Shelf Expiration Date Model / Serial / Lot Yellow Healing Abutment Implanted:11/28 by Yue Wood DDS (Quantity not on file) Bone Screw Tooth #19 [employer] [id number] / / [id number] Nobelactive Rp 5.0 X 11.5mm Dental Implant Tooth #19 [employer] [id number] / / [id number] Procedures Procedure Name Priority Date/Time Associated Diagnosis Comments PANORAMIC RADIOGRAPHIC IMAGE Routine 06/28/2021 1:00 PM HOME MISSION WORKER from Last 3 Months or Most Recently Relevant to Health Maintenance
--- OUTSIDE RECORDS SUMMARY | 2024-08-02 01:09 | XMS_ITS | Encounter Summary ---
Author Organization [facility] [place] [address] [place] [address] Care Team Providers Care Production Superintendent Name Role Phone Unavailable Primary Care Provider Unavailabl e Encounter Details Date Type Department Care Team (Late st Contact Info) Description 03/09/2022 11:30 AM CDT Office Visit [facility] [address] [place] [phone] Yue Wood DDS [id number] [facility] [place] [address] Social History Tobacco Use Types Packs/Day Years Used Date Smoking Tobacco: Former Cigarettes 0.5 40.2 0 08/27/1972 - 11/08/2012 Smokeless Tobacco: Never Alcohol Use Standard Drinks/Week Comments Not Currently 1 (1 standard drink = 0.6 oz pur e alcohol) Sex and Gender Information Value Date Recorded Sex Assigned at Not on file Legal Sex Male 8:38 AM PDT Gender Identity Not on file Sexual Orientation Not on file documented as of this encounter Miscellaneous Notes * Dental Procedure Details - Yue Wood DDS - 03/09/2022 11:30 AM CDT Oral & Maxillofacial Surgery Post Op Note Patient: Kristopher Hoover PID: [id number] : 1960 Sex: male Subjective Findings/HPI: Kristopher Hoover presents today ~ 4mo after implant #19. Patient reports doing well with minimal post op pain and discomfort. Denies any numbness. Denies any swelling. Reports that they finished their antibiotics and used peridex as instructed. Denies any fevers, chills, nausea/vomiting, dyspnea, dysphagia, or any other concerns. Objective Findings: General Physical Examination: General: NAD, non-toxic Heart: normal S1S2, no MRG, RRR Lungs:CTAB, symmetric chest expansion Abdomen: soft, NT/ND Extraoral exam: No LAD Inferior border mandible palpable b/l no facial swelling, neck soft- FROM Trachea midline, mobile CN V, VII intact b/l Intraoral Exam: SANDRA 40 mm #19 implant healing abutment intact Gingiva pink and well perfused, no lesions noted No surrounding erythema, no purulence, no vestibular swelling FOM soft, NT/NE Oropharynx patent and clear, uvula midline Tongue full ROM Radiographs: Pano: Reviewed at this visit. Condyles symmetrical seated in the fossa with no blunting. Maxillary sinuses clear. Bony trabeculation WNL. No other bony pathology noted. Teeth # 19 healing well Assessment/Plan: Discussed clinical/radiographic findings with patient in detail. Patient doing well overall with nosurgical concerns. Recommended switching to salt water rinses BID or after meals. Ok to advance diet as tolerated. Continue good OH. Call with any questions or concerns. Next visit: GP for implant impression #19 Yue Wood DDS Oral & Maxillofacial Surgeon documented in this encounter Plan of Treatment Not on file documented as of this encounter Procedures Procedure Name Priority Date/Time Associated Diagnosis Comments RE-EVALUATION ? POST-OPERATIVE OFFICE VISIT Routine 03/09/2022 11:30 AM CDT documented in this encounter Visit Diagnoses Not on filedocumented in this encounter
--- OUTSIDE RECORDS SUMMARY | 2024-08-02 01:09 | XMS_ITS | Encounter Summary ---
Author Organization [facility] [place] Address [address] [place] [address] Care Team Providers Care Pharmaceutical Specialty Representative Name Role Phone Unavailable Primary Care Provider Unavailabl e Encounter Details Date Type Department Care Team (Late st Contact Info) Description 03/13/2022 9:00 AM CDT Office Visit [facility] [address] [place] [address] Ismael Tian DDS Social History Tobacco Use Types Packs/Day Years [...] on file Sexual Orientation Not on file COVID-19 Exposure Response Date Recorded In the last 10 days, have yo u been in contact with someone who was confirmed or suspected to have Coronavirus/COVID-19? No / Unsure 03/13/2022 8:55 AM CDT documented as of this encounter Progress Notes * Ismael Tian DDS - 03/13/2022 9:00 AM CDT Did scan with scan body 4.5 and sent electronicaslly to [facility] documented in this encounter Miscellaneous Notes * Dental Procedure Details - Ismael Tian DDS - 03/13/2022 9:00 AM CDT IMPLANT CROWN PROCEDURE Removed healing cap from Implant. Implant size Lava - 4.5ST Placed implant abutment type: custom Size DA 4 ULTRA 4.5/5.0. Torqued to 25 N/cm Abutment finish line not modified Retraction cord not used Hemostatic agent None Impression taken with Scan Impression technique: Scan Temporized with Temporary Shade used: A3 documented in this encounter Plan of Treatment Not on file documented as of this encounter Procedures Procedure Name Priority Date/Time Associated Diagnosis Comments 19 IMPLT CEREC FIREDCRN Routine 03/13/2022 9:00 AM CDT 19 CUSTOM FABRICATED ABUTMENT ? INCLUDES PLACEMENT Routine 03/13/2022 9:00 AM CDT documented in this encounter Visit Diagnoses Not on filedocumented in this encounter
--- OUTSIDE RECORDS SUMMARY | 2024-08-02 01:09 | XMS_ITS | Encounter Summary ---
Author Organization [facility] [place] Address [address] [place] [address] Care Team Providers Care Weight Control Lecturer Name Role Phone Unavailable Primary Care Provider Unavailabl e Encounter Details Date Type Department Care Team (Late st Contact Info) Description 04/12/2022 10:00 AM CDT Office Visit [facility] [address] [place] [address] Ismael Tian DDS Social History [...] suspected to have Coronavirus/COVID-19? No / Unsure 03/15/2022 8:54 AM CDT documented as of this encounter Progress Notes * Ismael Tian DDS - 04/12/2022 10:00 AM CDT Received implant crown without retentive screw. I am picking up retentive screw this afternoon and will seat crown #19 tomorrow. sm documented in this encounter Plan of Treatment Not on file documented as of this encounter Procedures Procedure Name Priority Date/Time Associated Diagnosis Comments OFFICE VISIT FOR OBSERVATION (DURING REGULARLY SCHEDULED HOURS) - NO OTHER SERVICES PERFORMED Routine 04/12/2022 10:00 AM CDT documented in this encounter Visit Diagnoses Not on filedocumented in this encounter
--- OUTSIDE RECORDS SUMMARY | 2024-08-02 01:09 | XMS_ITS | Encounter Summary ---
Author Organization [facility] [address] [place] [address] Care Team Providers Care Abrasive Grader Name Role Phone Unavailable Primary Care Provider Unavailabl e Encounter Details Date Type Department Care Team (Latest Contact Info) Description 03/15/2022 Travel Social History Tobacco Use Types Packs/Day [...] AM CDT documented as of this encounter Plan of Treatment Not on file documented as of this encounter Visit Diagnoses Not on filedocumented in this encounter
--- OUTSIDE RECORDS SUMMARY | 2024-08-02 01:09 | XMS_ITS | Encounter Summary ---
Author Organization [facility] [place] [address] [place] [address] Care Team Providers Care Russian Rubber Name Role Phone Unavailable Primary Care Provider Unavailabl e Encounter Details Date Type Department Care Team (Latest Contact Info) Description 06/28/2021 Travel Social History Tobacco Use Types Packs/Day [...] Exposure Response Date Recorded In the last month, have you been in contact with someone who was confirmed or suspected to have Coronavirus / COVID-19? No / Unsure 06/28/2021 12:48 PM PST documented as of this encounter Plan of Treatment Not on file documented as of this encounter Visit Diagnoses Not on filedocumented in this encounter
--- OUTSIDE RECORDS SUMMARY | 2024-08-02 01:09 | XMS_ITS | Clinical Summary ---
Author Organization [facility] [place] [address] [place] [address] Care Team Providers Care Collar Turner Operator Name Role Phone Unavailable Primary Care [...] Not Answered Alcohol Use Standard Drinks/Week Comments Not Currently [...] Mass Index - - Plan of Treatment Health Maintenance Due Date Last Done Comments Dental Oral Exam 1960 Dental Prophylaxis 1960 Dental X-Ray: Bitewings 1960 Dental X-Ray: Full Mouth 1960 Dental X-Ray: Panoramic 11/29/2024 11/28/2021, 06/28, 03/01/2021 Medical Devices Implanted Type Area Cork Insulator Helper Device Identifier Shelf Expiration Date Model / Serial / Lot Yellow Healing Abutment Implanted:11/28 by Yue Wood DDS (Quantity not on file) Bone Screw Tooth #19 [employer] [id number] / / [id number] Nobelactive Rp 5.0 X 11.5mm Dental Implant Tooth #19 [employer] [id number] / / [id number] Procedures Procedure Name Priority Date/Time Associated Diagnosis Comments PANORAMIC RADIOGRAPHIC IMAGE Routine 06/28/2021 1:00 PM SUBSTATION MANAGER from Last 3 Months or Most Recently Relevant to Health Maintenance Insurance [facility] PPO
--- OUTSIDE RECORDS SUMMARY | 2024-08-02 01:09 | XMS_ITS | Encounter Summary ---
Author Organization [facility] [place] [address] [place] [address] Care Team Providers Care Surface Plate Inspector Name Role Phone Unavailable Primary Care Provider Unavailabl e Reason for Referral * Consult and Treat (Routine) Specialty Diagnoses / Procedures Referred By Felton restrepo Referred To Contact Oral Surgery Liaan Clayton DMD [address] [place] [address] Phone: tel: fax: Referral ID Status Reason Start Date Expiration Date Visits Re quested Visits Authorized Encounter Details Date Type Department Care Team (Late st Contact Info) Description 11/24/2021 Orders Only [facility] [address] [place] [address] Liana Clayton DMD [address] [place] [id number] Social History Tobacco Use Types Packs/Day Years [...] as of this encounter Plan of Treatment Scheduled Referrals Name Type Priority Associated Diagnoses Order Schedule Referral to collator hand Dental Referrals Routine Expected: 11/24/2021, Expires: 05/26/2022 documented as of this encounter Visit Diagnoses Not on filedocumented in this encounter
--- OUTSIDE RECORDS SUMMARY | 2024-08-02 01:09 | XMS_ITS | Encounter Summary ---
Author Organization [facility] [place] [address] [place] [address] Care Team Providers Care Almond Sorter Name Role Phone Unavailable Primary Care Provider Unavailabl e Encounter Details Date Type Department Care Team (Late st Contact Info) Description 03/09/2022 11:30 AM CDT Office Visit [facility] [address] [place] [phone] Ismael Tian DDS Social History Tobacco Use [...] on file documented as of this encounter Progress Notes * Ismael Tian DDS - 03/09/2022 11:30 AM CDT Unable to take impression or scan due to missing parts. Ordering parts today. sm documented in this encounter Plan of Treatment Not on file documented as of this encounter Procedures Procedure Name Priority Date/Time Associated Diagnosis Comments OFFICE VISIT FOR OBSERVATION (DURING REGULARLY SCHEDULED HOURS) - NO OTHER SERVICES PERFORMED Routine 03/09/2022 11:30 AM CDT documented in this encounter Visit Diagnoses Not on filedocumented in this encounter
--- OUTSIDE RECORDS SUMMARY | 2024-08-02 01:09 | XMS_ITS | Encounter Summary ---
Author Organization [facility] Address [address] [place] [address] Care Team Providers Care Molder Bench Name Role Phone Unavailable Primary Care Provider Unavailabl e Reason for Visit * Reason Comments Surg Ext Consult Bone Graft Encounter Details Date Type Department Care Team (Late st Contact Info) Description 08/09/2021 2:00 PM ORDER DISPATCHER CHIEF Office Visit [facility] [address] [place] [phone] Yue Wood DDS [address] [place] [address] Social History Tobacco Use Types Packs/Day Years [...] have Coronavirus / COVID-19? No / Unsure 08/09/2021 2:01 PM PST documented as of this encounter Miscellaneous Notes * Dental Procedure Details - Yue Wood DDS - 08/09/2021 2:00 PM ORDER DISPATCHER CHIEF Oral & Maxillofacial Surgery Consult and Procedural Note Referred by: Dr Clayton Patient: Kristopher Hoover PID: [id number] : 1960 Sex: male Subjective Findings/HPI: Kristopher Sneha presents today for evaluation of removal of teeth #s 18, 19 and bone graft/membrane #19 in preparation for future dental implant. Patient reports difficulty with keeping the teeth clean and reports intermittent pain and discomfort associated with the teeth.Teeth have been deemed nonrestorable by general dentist and patient is interested in getting this area restored with an implant. PMH, Meds, allergies, surgical history and social history reviewed in the chart and no updates per patient. Problem List: Problem List Items Addressed This Visit None Medications: Current Outpatient Medications: amoxicillin (AMOXIL) 500 mg capsule, Take 1 capsule (500 mg total) by mouth every 8 (eight) hours for 5 days., Disp: 15 capsule, Rfl: 0 aspirin 81 mg tablet, Take 81 mg by mouth 1 (one) time each day., Disp: , Rfl: atorvastatin (LIPITOR) 80 mg tablet, , Disp: , Rfl: chlorhexidine (PERIDEX) 0.12 % solution, Use 15 mL in the mouth or throat twice a day. Swish and spit with 15 mL twice daily after brushing (do not use for more than two consecutive weeks), Disp: 473mL, Rfl: 0 chlorhexidine (PERIDEX) 0.12 % solution, Use 15 mL in the mouth or throat twice a day. Swish and spit with 15 mL twice daily after brushing (do not use for more than two consecutive weeks), Disp: 473mL, Rfl: 0 empagliflozin (Jardiance) 10 mg tablet, , Disp: , Rfl: ezetimibe (ZETIA) 10 mg tablet, Take 1 tablet by mouth 1 (one) time each day., Disp: , Rfl: ezetimibe-rosuvastatin 10-40 mg tablet, , Disp: , Rfl: hydroCHLOROthiazide (MICROZIDE) 12.5 mg capsule, , Disp: , Rfl: HYDROcodone-acetaminophen (NORCO) 5-325 mg tablet, Take 1 tablet by mouth every 6 (six) hours if needed for severe pain for up to 3 days., Disp: 12 tablet, Rfl: 0 ibuprofen (ADVIL,MOTRIN) 600 mg tablet, Take 1 tablet (600 mg total) by mouth every 6 (six) hours if needed for mild pain or moderate pain., Disp: 20 tablet, Rfl: 0 ibuprofen (ADVIL,MOTRIN) 800 mg tablet, Take 1 tablet (800 mg total) by mouth every 8 (eight) hoursif needed for mild pain., Disp: 30 tablet, Rfl: 0 insulin glargine (Toujeo SoloStar U-300 Insulin) 300 unit/mL (1.5 mL) injection, , Disp: , Rfl: levothyroxine (SYNTHROID, LEVOTHROID) 125 mcg tablet, Take 125 mcg by mouth 1 (one) time each day.,Disp: , Rfl: metFORMIN (GLUCOPHAGE) 1,000 mg tablet, , Disp: , Rfl: metoprolol succinate (TOPROL-XL) 50 mg 24 hr tablet, Take 1 tablet by mouth 1 (one) time each day.,Disp: , Rfl: metoprolol tartrate (LOPRESSOR) 50 mg tablet, , Disp: , Rfl: thyroid, pork, 180 mg tablet, , Disp: , Rfl: Allergies: No Known Allergies Surgical History: Past Surgical History: Procedure Laterality Date CARDIAC SURGERY 2012 Triple bypass surgery JOINT REPLACEMENT 2014 Social History: Denies Vitals: There were no vitals taken for this visit. Objective Findings: General Physical Examination: General: NAD, non-toxic Heart: normal S1S2, no MRG, RRR Lungs:CTAB, symmetric chest expansion Abdomen: soft, NT/ND Extraoral exam: No LAD Inferior border mandible palpable b/l no facial swelling, neck soft- FROM Trachea midline, mobile CN V, VII intact b/l Intraoral Exam: SANDRA 40 mm Tooth #s 18, 19: nonrestorable caries Gingiva pink and well perfused, no lesions noted No surrounding erythema, no purulence, no vestibular swelling FOM soft, NT/NE Oropharynx patent and clear, uvula midline Tongue full ROM Radiographs: Pano: Reviewed at this visit. Condyles symmetrical seated in the fossa with no blunting. Maxillary sinuses clear. Bony trabeculation WNL. No other bony pathology noted. Teeth #18, 19: nonrestorable caries Assessment: Dental caries #18, 19 Plan: Discussed clinical/radiographic findings with patient in detail. Recommended removal of tooth# 18, 19 with bone graft and membrane. Also discussed different options including local anesthesia vs no treatment and patient would prefer to have teeth removed with IV sedation. Will plan for intraop monitoring with electrocardiogram with lead II, end tidal Co2, pulse oximetry and non-invasive blood pressure. Discussed risk, benefit with patient. Explained risks/complications on consent form: pain, infection, swelling, bleeding, bruising, dry socket, healing issues, TMJ discomfort, damage to adjacent teeth or structures, root tip fractures, anesthesia sedation risks, damage to inferior alveolar nerves resulting in temporary and/or permanent parasthesia/anesthesia/dysesthesia of the lip/chin and lingual nerves resulting in loss of taste and sensation to the tongue and possible need for additional procedures in the future. Patient given time to ask questions and all questions answered. Procedural Note: Consent: Reviewed planned procedure and anesthesia. All patient questions answered. Signed informed consent obtained. Confirmed NPO >8 hours and adult escort status prior to start of procedure. Detail of the Procedure: The patient was brought into the room and seated in the surgical chair. A surgical timeout was performed to verify the procedure and patient. The patient was then prepped and draped in a sterile fashion consistent with oral and maxillofacial procedures. Anesthesia was provided as described below. Attention is then directed at the oral cavity at which point the oral cavity is suctioned free of anyextraneous fluids. Next a mouth prop/bite block is placed along with a throat gauze screen. Local anesthesia is then administered to a total of 4 ml 2% lidocaine (1:100 000 epinephrine) via left IANB, 2ml 4% articaine (1:100,000 epinephrine) via local infiltration only and 2 ml 0.5% marcaine (1:923862 epinephrine) via left IANB. Attention (#18, 19)is then directed intraorally at which point a 15 blade used to create sulcular incision. A molt #9 periosteal elevator then used to create a full thickness mucoperiosteal flap. Next excess bone was removed with bur/drill/irrigation. An elevator was then used to carefully elevate the tooth and a forcep was used to remove it. The area is then curetted to remove any debris, granulation tissue and follicle tissue. Root tips were checked and a bone file was used to smoothen the area. Copious saline was used to irrigate the area and suctioned away. Bone graft and membrane placed on #19. Secured with 3/0 chromic gut. Hemostasis obtained. GARRETT not visualized Complications: None Anesthesia: local only. Preoperative Diagnosis: Carious teeth #18, 19 Post Operative Diagnosis: Same Procedure Performed: Extraction #18, 19 GBR (bone graft) #19 GTR (collagen membrane) #19 OS consult Discharge Criteria: Patient is stable for discharge to home with escort. Patients vital signs are stable, no nausea/vomiting, good pain control, patient able to maintain head position and stable for discharge to home. Post-Op Instructions: Written and verbal post-operative instructions were reviewed with patient andescort. Prescriptions: See Chart for details Follow-Up: Plan for patient to return to office in 3-4 months for implant placement #19 Agricultural Engineering Technician: Josette Parra Juan, Maddy Albana Simoni, DDS Oral & Maxillofacial Surgeon documented in this encounter Plan of Treatment Not on file documented as of this encounter Procedures Procedure Name Priority Date/Time Associated Diagnosis Comments PLACEMENT OF INTRA-SOCKET BIOLOGICAL DRESSING TO AID IN HEMOSTASIS OR CLOT STABILIZATION, PER SITE Routine 08/09/2021 2:00 PM ORDER DISPATCHER CHIEF PLACEMENT OF INTRA-SOCKET BIOLOGICAL DRESSING TO AID IN HEMOSTASIS OR CLOT STABILIZATION, PER SITE Routine 08/09/2021 2:00 PM ORDER DISPATCHER CHIEF 19 BONE REPLACEMENT GRAFT FOR RIDGE PRESERVATION - PER SITE - MANDIBLE Routine 08/09/2021 2:00 PM ORDER DISPATCHER CHIEF ORAL SURG CONSULT Routine 08/09/2021 2:0 0 PM ORDER DISPATCHER CHIEF 19 EXTRACTION, ERUPTED TOOTH REQUIRING REMOVAL OF BONE AND/OR SECTIONING OF TOOTH Routine 08/09/2021 2:00 PM ORDER DISPATCHER CHIEF 18 EXTRACTION, ERUPTED TOOTH REQUIRING REMOVAL OF BONE AND/OR SECTIONING OF TOOTH Routine 08/09/2021 2:00 PM ORDER DISPATCHER CHIEF 19 GUIDED TISSUE REGENERATION, NATURAL TEETH - RESORBABLE BARRIER, PER SITE Routine 08/09/2021 2:00 PM ORDER DISPATCHER CHIEF documented in this encounter Visit Diagnoses Not on filedocumented in this encounter
--- OUTSIDE RECORDS SUMMARY | 2024-08-02 01:09 | XMS_ITS | Encounter Summary ---
Author Organization [facility] Address [address] [place] [address] Care Team Providers Care Asphalt Paving Machine Operator Name Role Phone Unavailable Primary Care Provider Unavailabl e Encounter Details Date Type Department Care Team (Late st Contact Info) Description 05/09/2022 10:00 AM CDT Office Visit [facility] [address] [place] [address] Merced Garcia DDS Social History Tobacco Use Types Packs/Day [...] Miscellaneous Notes * Dental Procedure Details - Merced Garcia DDS - 05/09/2022 10:00 AM CDT DELIVERY OF IMPLANT ZOROASTRIANISM Patient presents for delivery of implant protestant. Abutment Type: Screw-retained custom abutment/crown hybrid placed and fit verified with radiograph. Abutment screw tightened to 35 N/cm and screw access protected with rhina tape. No cement was used. Dike permanently torqued an access sealed with rhina tape and etched then light cured composite .Checked bite. Client approved bite and signed the crown acceptance form. Dike type: Madeira Custom Base FCZ Final X-ray taken. Post-seat x-ray taken to verify complete seating of protestant and complete cement removal documented in this encounter Plan of Treatment Not on file documented as of this encounter Procedures Procedure Name Priority Date/Time Associated Diagnosis Comments 19 CEMENT CROWN Routine 05/09/2022 10:00 AM CDT documented in this encounter Visit Diagnoses Not on filedocumented in this encounter
--- OUTSIDE RECORDS SUMMARY | 2024-08-02 01:09 | XMS_ITS | Encounter Summary ---
Author Organization [facility] [place] [address] [place] [address] Care Team Providers Care Bariatric Coordinator Name Role Phone Unavailable Primary Care Provider Unavailabl e Prior Encounters Date Type Department Care Team Description 05/09/2022 10:00 AM CDT Office Visit [facility] [address] [place] [address] Merced Garcia DDS 04/26/2022 Telephone [facility] [address] [place] [address] Ismael Tian DDS 04/12/2022 10:00 AM CDT Office Visit [facility] [address] [place] [address] Ismael Tian DDS 03/15/2022 Travel 03/15/2022 9:00 AM CDT Office Visit [facility] [address] [place] [address] Ismael Tian DDS 03/13/2022 Travel 03/13/2022 9:00 AM CDT Office Visit [facility] [address] [place] [address] Ismael Tian DDS 03/09/2022 11:30 AM CDT Office Visit [facility] [address] [place] [address] Ismael Tian DDS 03/09/2022 11:30 AM CDT Office Visit [facility] [address] [place] [address] Yue Wood DDConcteta 12/29/2021 11:30 AM CDT Office Visit [facility] [address] [place] [address] Yue Wood DDS 11/28/2021 8:45 AM CDT Office Visit [facility] [address] [place] [address] Yue Wood DDS 11/24/2021 Orders Only [facility] [address] [place] [address] Liana Clayton, DMD 08/09/2021 Travel 08/09/2021 2:00 PM STATION HELPER Office Visit [facility] [address] [place] [address] Yue Wood, DDS 07/18/2021 Orders Only [facility] [address] [place] [address] Liana Clayton, DMD 06/28/2021 Travel 06/28/2021 1:00 PM STATION HELPER Office Visit [facility] [address] [place] [address] Liana Clayton, DMD 04/04/2021 Travel 04/04/2021 12:15 PM CDT Office Visit [facility] [address] [place] [address] Juan Davis, NIKOLE 03/01/2021 Travel 03/01/2021 1:00 PM CDT Office Visit [facility] [address] [place] [address] Liana Clayton, DMD Last Filed Vital Signs Vital Sign Reading Time Taken Comments Blood Pressure 152/92 04/04/2021 12:01 PM CDT Pulse - - Temperature 35.8 ??C (96.4 ??F) 04/04/2021 12:01 PM C DT Respiratory Rate - - Oxygen Saturation - - Inhaled Oxygen Concentration - - Weight - - Height - - Body Mass Index - - Plan of Treatment Not on file Procedures Procedure Name Priority Date/Time Associated Diagnosis Comments 19 CEMENT CROWN Routine 05/09/2022 10:00 AM CDT OFFICE VISIT FOR OBSERVATION (DURING REGULARLY SCHEDULED HOURS) - NO OTHER SERVICES PERFORMED Routine 04/12/2022 10:00 AM CDT FINAL IMPRESSION Routine 03/15/2022 9:00 AM CDT 19 CUSTOM FABRICATED ABUTMENT ? INCLUDES PLACEMENT Routine 03/13/2022 9:00 AM CDT 19 IMPLT CEREC FIREDCRN Routine 03/13/20 9:00 AM CDT OFFICE VISIT FOR OBSERVATION (DURING REGULARLY SCHEDULED HOURS) - NO OTHER SERVICES PERFORMED Routine 03/09/2022 11:30 AM CDT RE-EVALUATION ? POST-OPERATIVE OFFICE VISIT Routine 03/09/2022 11:30 AM CDT RE-EVALUATION ? POST-OPERATIVE OFFICE VISIT Routine 12/29/2021 11:30 AM CDT 19 IMPLANT Routine 11/28/2021 8:45 AM CDT PLACEMENT OF INTRA-SOCKET BIOLOGICAL DRESSING TO AID IN HEMOSTASIS OR CLOT STABILIZATION, PER SITE Routine 08/09/2021 2:00 PM STATION HELPER PLACEMENT OF INTRA-SOCKET BIOLOGICAL DRESSING TO AID IN HEMOSTASIS OR CLOT STABILIZATION, PER SITE Routine 08/09/2021 2:00 PM STATION HELPER ORAL SURG CONSULT Routine 08/09/2021 2:0 0 PM STATION HELPER 19 GUIDED TISSUE REGENERATION, NATURAL TEETH - RESORBABLE BARRIER, PER SITE Routine 08/09/2021 2:00 PM STATION HELPER 19 BONE REPLACEMENT GRAFT FOR RIDGE PRESERVATION - PER SITE - MANDIBLE Routine 08/09/2021 2:00 PM STATION HELPER 19 EXTRACTION, ERUPTED TOOTH REQUIRING REMOVAL OF BONE AND/OR SECTIONING OF TOOTH Routine 08/09/2021 2:00 PM STATION HELPER 18 EXTRACTION, ERUPTED TOOTH REQUIRING REMOVAL OF BONE AND/OR SECTIONING OF TOOTH Routine 08/09/2021 2:00 PM STATION HELPER PANORAMIC RADIOGRAPHIC IMAGE Routine 06/28/2021 1:00 PM STATION HELPER BITEWING - SINGLE RADIOGRAPHIC IMAGE Routine 06/28/2021 1:00 PM STATION HELPER ADDITIONAL X-RAY Routine 06/28/2021 1:00 PM STATION HELPER SINGLE X-RAY Routine 06/28/2021 1:00 PM STATION HELPER LIMITED ORAL EVALUATION - PROBLEM FOCUSED Routine 06/28/2021 1:00 PM STATION HELPER ORAL SURG CONSULT Routine 04/04/2021 12: 15 PM CDT 1 EXTRACTION, ERUPTED TOOTH REQUIRING REMOVAL OF BONE AND/OR SECTIONING OF TOOTH Routine 04/04/2021 12:15 PM CDT PANORAMIC RADIOGRAPHIC IMAGE Routine 03/01/2021 1:00 PM CDT BITEWING - SINGLE RADIOGRAPHIC IMAGE Routine 03/01/2021 1:00 PM CDT ADDITIONAL X-RAY Routine 03/01/2021 1:00 PM CDT SINGLE X-RAY Routine 03/01/2021 1:00 PM CDT LIMITED ORAL EVALUATION - PROBLEM FOCUSED Routine 03/01/2021 1:00 PM CDT Visit Diagnoses Not on file Insurance
--- OUTSIDE RECORDS SUMMARY | 2024-08-02 01:09 | XMS_ITS | Encounter Summary ---
Author Organization [facility] Address [address] [place] [address] Care Team Providers Care Bit Bender Name Role Phone Unavailable Primary Care Provider Unavailabl e Encounter Details Date Type Department Care Team (Late st Contact Info) Description 07/18/2021 Orders Only [facility] [address] [place] [phone] Liana Clayton, DMD [address] [place] [address] Social History Tobacco Use Types Packs/Day Years [...]
--- OUTSIDE RECORDS SUMMARY | 2024-08-02 01:09 | XMS_ITS | Encounter Summary ---
Author Organization [facility] [place] [address] [place] [address] Care Team Providers Care Locksmith Helper Name Role Phone Unavailable Primary Care Provider Unavailabl e Encounter Details Date Type Department Care Team (Late st Contact Info) Description 03/15/2022 9:00 AM CDT Office Visit [facility] [address] [place] [address] Ismael Tian DDS Social History [...] AM CDT documented as of this encounter Miscellaneous Notes * Dental Procedure Details - Ismael Tian DDS - 03/15/2022 9:00 AM CDT FINAL IMPRESSION Final impression for crown. CROWN PROCEDURE Topical (Benzocaine 20%) placed. Anesthetic: No Additional Anesthetic required Shade #1: Luba A3 [place] Prepped, Scanned , Scanned bite Patient informed of 2 week delivery time Sent to [facility] electronically; verified by [facility] at [facility] [place] completed on tooth #19, [place] is Initial placement. Tooth has implant.. documented in this encounter Plan of Treatment Not on file documented as of this encounter Procedures Procedure Name Priority Date/Time Associated Diagnosis Comments FINAL IMPRESSION Routine 03/15/2022 9:00 AM CDT documented in this encounter Visit Diagnoses Not on filedocumented in this encounter
--- OUTSIDE RECORDS SUMMARY | 2024-08-02 01:09 | XMS_ITS | Encounter Summary ---
Author Organization [facility] Address [address] [place] [address] Care Team Providers Care City Carrier Name Role Phone Unavailable Primary Care Provider Unavailabl e Encounter Details Date Type Department Care Team (Latest Contact Info) Description 03/13/2022 Travel Social History Tobacco Use Types Packs/Day [...]
--- OUTSIDE RECORDS SUMMARY | 2024-08-02 01:09 | XMS_ITS | Encounter Summary ---
Author Organization [facility] [place] [address] [place] [address] Care Team Providers Care Busperson Name Role Phone Unavailable Primary Care Provider Unavailabl e Encounter Details Date Type Department Care Team (Late st Contact Info) Description 11/28/2021 8:45 AM CDT Office Visit [facility] [address] [place] [phone] Yue Wood DDS [address] [facility] [place] [place] [address] Social History Tobacco Use Types Packs/Day Years [...] Procedure Details - Yue Wood DDS - 11/28/2021 8:45 AM CDT Oral & Maxillofacial Surgery Consult and Procedural Note Patient: Kristopher Hoover PID: [id number] : 1960 Sex: male Subjective Findings/HPI: Kristopher Hoover presents today for evaluation of dental implant at # 19 site. Tooth was extracted in the past due to dental caries and infection. Patient reports difficulty with chewing with the edentulous space and would like to have a replacement tooth placed here in the future. He would like to replace this area with a dental implant. PMH, Meds, allergies, surgical history and social history reviewed in the chart and no updates per patient. Problem List: There are no problems to display for this patient. Medications: Current Outpatient Medications: amoxicillin (AMOXIL) 500 mg capsule, Take 1 capsule (500 mg total) by mouth every 8 (eight) hours for 7 days., Disp: 21 capsule, Rfl: 0 atorvastatin (LIPITOR) 80 mg tablet, , Disp: [...] 15 mL in the mouth or throat if needed for wound care for up to 14 days., Disp: 480 mL, Rfl: 0 empagliflozin (Jardiance) 10 mg tablet, [...] 6 (six) hours if needed for severe pain., Disp: 8 tablet, Rfl: 0 ibuprofen (ADVIL,MOTRIN) 600 mg tablet, Take 1 tablet (600 mg total) by mouth every 6 (six) hours if needed for mild pain or moderate pain., Disp: 20 tablet, Rfl: 0 ibuprofen (ADVIL,MOTRIN) 600 mg tablet, Take 1 tablet (600 mg total) by mouth every 6 (six) hours for 7 days., Disp: 30 tablet, Rfl: 0 ibuprofen (ADVIL,MOTRIN) 800 mg [...] bypass surgery JOINT REPLACEMENT 2014 Social History: no EtOH no Smoking no illicits Vitals: There were no vitals taken for this visit. Objective Findings: General Physical Examination: General: NAD, non-toxic Heart: normal S1S2, no MRG, RRR Lungs:CTAB, symmetric chest expansion Abdomen: soft, NT/ND Extraoral exam: No LAD Inferior border mandible palpable b/l no facial swelling, neck soft- FROM Trachea midline, mobile CN V, VII intact b/l Intraoral Exam: SANDRA 40 mm Tooth #s 18, 19: missing Keratinized gingiva: 2-3mm M-D width: >10mm B-L width: 10mm Interocclusal/restorative space: 10mm Smile line:average Midlines: on Occlusal cant: no Gingiva pink and well perfused, no lesions noted No surrounding erythema, no purulence, no vestibular swelling FOM soft, NT/NE Oropharynx patent and clear, uvula midline Tongue full ROM Radiographs: Pano: Reviewed at this visit. Condyles symmetrical seated in the fossa with no blunting. Maxillary sinuses clear. Bony trabeculation WNL. No other bony pathology noted. 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 Recommended dental implant #19 with possible bone graft and membrane at time of implant placement. Also discussed different options including local anesthesia [...] patient questions answered. Signed informed consent obtained. Detail of the Procedure: The patient was [...] articaine (1:100,000 epinephrine) via local infiltration only Attention (#19)is then directed intraorally at which point a 15 blade used to create sulcular incision. A molt #9 periosteal elevator then used to create a full thickness mucoperiosteal flap with distal release. Next a 2.0mm twist drill was used to 6mm depth and a pin was used to confirm the angulation and 3D position of the ostetomy. Once confirmed to be correct, a series of drills were then used to widen and deepen the osteotomy to the planned depth. Dental implant then placed to a final torque of 70 Ncm. Secured with 3/0 chromic gut. Hemostasis obtained. 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 Patients vital signs are stable, no nausea/vomiting, good pain control, patient able to maintain head position and stable for discharge to home. Post-Op Instructions: Written and verbal post-operative instructions were reviewed with patient andescort. Prescriptions: See Chart for details Follow-Up: Plan for patient to return to office prn or in 1 week if complications arise. Liquid Sugar Fortifier: Alie Parra Juan, Maddy Albana Simoni, DDS Oral & Maxillofacial Surgeon documented in this encounter Plan of Treatment Not on file documented as of this encounter Procedures Procedure Name Priority Date/Time Associated Diagnosis Comments 19 IMPLANT Routine 11/28/2021 8:45 AM CDT documented in this encounter Visit Diagnoses Not on filedocumented in this encounter
--- OUTSIDE RECORDS SUMMARY | 2024-08-02 01:09 | XMS_ITS | Encounter Summary ---
Author Organization [facility] Address [address] [place] [address] Care Team Providers Care Staffing Specialist Name Role Phone Unavailable Primary Care Provider Unavailabl e Encounter Details Date Type Department Care Team (Late st Contact Info) Description 04/26/2022 Telephone [facility] [address] [place] [address] Ismael Tian DDS Social History [...] encounter Miscellaneous Notes * Telephone Encounter - Yarelis Davis - 04/26/2022 10:07 AM CDT inquiring if the implant is in already, please callback documented in this encounter Plan of Treatment Not on file documented as of this encounter Visit Diagnoses Not on filedocumented in this encounter
--- OUTSIDE RECORDS SUMMARY | 2024-08-02 01:09 | XMS_ITS | Referral Summary ---
Author Organization [facility] [place] [place] Address [address] [place] [address] Care Team Providers Care Journeyman Level Acoustic Analyst Name Role Phone Unavailable Primary Care Provider [...] on file Medical Devices Implanted Type Area Manager Compliance Device Identifier Shelf Expiration Date Model / Serial / Lot Yellow Healing Abutment Implanted:11/28 by Yue Wood DDS (Quantity not on file) Bone Screw Tooth #19 [employer] [id number] / / [id number] Nobelactive Rp 5.0 X 11.5mm Dental Implant Tooth #19 [employer] [id number] / / [id number] Procedures Procedure Name Priority Date/Time Associated Diagnosis Comments PANORAMIC RADIOGRAPHIC IMAGE Routine 06/28/2021 1:00 PM SHINGLES ROOFER from Last 3 Months or Most Recently Relevant to Health Maintenance Insurance
--- OUTSIDE RECORDS SUMMARY | 2024-08-02 01:09 | XMS_ITS | Encounter Summary ---
Author Organization [facility] [place] [address] [place] [address] Care Team Providers Care Professional Application Designer Name Role Phone Unavailable Primary Care Provider Unavailabl e Encounter Details Date Type Department Care Team (Late st Contact Info) Description 12/29/2021 11:30 AM CDT Office Visit [facility] [address] [place] [phone] Yue Wood DDS [address] [place] [address] Social History Tobacco Use Types Packs/Day Years [...] Procedure Details - Yue Wood DDS - 12/29/2021 11:30 AM CDT Oral & Maxillofacial Surgery Post Op Note Patient: Kristopher Hoover PID: [id number] : 1960 Sex: male Subjective Findings/HPI: Kristopher Hoover presents today ~ 4 weeks after implant #19. Patient reports doing well [...] intact b/l Intraoral Exam: SANDRA 40 mm Implant #19 healing well with no signs of infection; abutment in place Gingiva pink and well perfused, no lesions noted No surrounding erythema, no purulence, no vestibular swelling FOM soft, NT/NE Oropharynx patent and clear, uvula midline Tongue full ROM Radiographs: none taken Assessment/Plan: Discussed clinical/radiographic findings with patient in detail. Patient doing well overall with nosurgical concerns. Ok to advance diet as tolerated. Continue good OH. Call with any questions or concerns. Next visit: f/u in 3-4 months for reverse osseointegration check #19 Yue Wood DDS Oral & Maxillofacial Surgeon documented in this encounter Plan of Treatment Not on file documented as of this encounter Procedures Procedure Name Priority Date/Time Associated Diagnosis Comments RE-EVALUATION ? POST-OPERATIVE OFFICE VISIT Routine 12/29/2021 11:30 AM CDT documented in this encounter Visit Diagnoses Not on filedocumented in this encounter
--- OUTSIDE RECORDS SUMMARY | 2024-08-02 01:09 | XMS_ITS | Encounter Summary ---
Author Organization [facility] [place] [address] [place] [address] Care Team Providers Care Marine Steam Fitter Name Role Phone Unavailable Primary Care Provider Unavailabl e Encounter Details Date Type Department Care Team (Latest Contact Info) Description 08/09/2021 Travel Social History Tobacco Use Types Packs/Day [...]
--- OUTSIDE RECORDS SUMMARY | 2024-08-02 01:09 | XMS_ITS ---
Author Organization [facility] [place] [address] [place] [address] Care Team Providers Care Tentering Machine Feeder Name Role Phone Unavailable Unavailable Unavailable Surgery Details Not on file Complications Check Surgery Details section. Procedure Estimated Blood Loss Check Surgery Details section. Procedure Findings Check Surgery Details section. Procedure Specimens Taken Check Surgery Details section.
--- OUTSIDE RECORDS SUMMARY | 2024-08-02 01:10 | XMS_ITS | Encounter Summary ---
Author Organization [facility] Address [address] [place] [address] Care Team Providers Care Control Room Helper Name Role Phone Unavailable Primary Care Provider Unavailabl e Encounter Details Date Type Department Care Team (Latest Contact Info) Description 04/04/2021 Travel Social History Tobacco Use Types Packs/Day [...] have Coronavirus / COVID-19? No / Unsure 04/04/2021 11:52 AM PDT documented as of this encounter Plan of Treatment Not on file documented as of this encounter Visit Diagnoses Not on filedocumented in this encounter
--- OUTSIDE RECORDS SUMMARY | 2024-08-02 01:10 | XMS_ITS | Encounter Summary ---
Author Organization [facility] Address [address] [place] [address] Care Team Providers Care Dairy Associate Name Role Phone Unavailable Primary Care Provider Unavailabl e Encounter Details Date Type Department Care Team (Latest Contact Info) Description 03/01/2021 Travel Social History Tobacco Use Types Packs/Day [...] have Coronavirus / COVID-19? No / Unsure 03/01/2021 12:59 PM PDT documented as of this encounter Plan of Treatment Not on file documented as of this encounter Visit Diagnoses Not on filedocumented in this encounter
--- OUTSIDE RECORDS SUMMARY | 2024-08-02 01:10 | XMS_ITS | Encounter Summary ---
Author Organization [facility] Address [address] [place] [address] Care Team Providers Care Job Hand Name Role Phone Unavailable Primary Care Provider Unavailabl e Reason for Referral * Consult and Treat (Routine) Specialty Diagnoses / Procedures Referred By Felton restrepo Referred To Contact Liana Clayton DMD [address] [place] [address] Phone: tel: fax: Referral ID Status Reason Start Date Expiration Date Visits Re quested Visits Authorized Encounter Details Date Type Department Care Team (Late st Contact Info) Description 03/01/2021 1:00 PM CDT Office Visit [facility] [place] [address] Liana Clayton DMD [address] [place] [id number] Social History Tobacco Use Types Packs/Day [...] PM PDT documented as of this encounter Miscellaneous Notes * Dental Procedure Details - Liana Clayton DMD - 03/01/2021 1:00 PM CDT ..EMERGENCY/Limited EXAM CC and history of CC: Pt presents with pain IN UR. Radiographic evaluation: fractured #1, close to sinus, lowered floor of sinus IOE reveals non-restorable #1, pain occurs spontaneously DX: SIP SAP, non-restorable TXplan: Ext #1, sinus closure with os documented in this encounter Plan of Treatment Scheduled Referrals Name Type Priority Associated Diagnoses Order Schedule Referral to Oral Maxillofacial Surgery Dental Referrals Routine Expected: 03/01/2021, Expires: 09/01/2021 documented as of this encounter Procedures Procedure Name Priority Date/Time Associated Diagnosis Comments SINGLE X-RAY Routine 03/01/2021 1:00 PM CDT PANORAMIC RADIOGRAPHIC IMAGE Routine 03/01/2021 1:00 PM CDT BITEWING - SINGLE RADIOGRAPHIC IMAGE Routine 03/01/2021 1:00 PM CDT ADDITIONAL X-RAY Routine 03/01/2021 1:00 PM CDT LIMITED ORAL EVALUATION - PROBLEM FOCUSED Routine 03/01/2021 1:00 PM CDT documented in this encounter Visit Diagnoses Not on filedocumented in this encounter
--- OUTSIDE RECORDS SUMMARY | 2024-08-02 01:10 | XMS_ITS | Encounter Summary ---
Author Organization [facility] Address [address] [place] [address] Care Team Providers Care Acid Bleacher Name Role Phone Unavailable Primary Care Provider Unavailabl e Encounter Details Date Type Department Care Team (Late st Contact Info) Description 06/28/2021 1:00 PM FLOORING SALESPERSON Office Visit [facility] [address] [place] [phone] Liana Clayton, NIKOLE [address] [place] [address] Social History Tobacco Use Types Packs/Day Years [...] Procedure Details - Liana Clayton DMD - 06/28/2021 1:00 PM FLOORING SALESPERSON LIMITED EXAM NOTE Past Medical History: Diagnosis Date Cardiovascular disease Diabetes mellitus (CMS/HCC) Hypertension Hypothyroidism Lung disease COPD Past Surgical History: Procedure Laterality Date CARDIAC SURGERY 2012 Triple bypass surgery JOINT REPLACEMENT 2014 Social History Tobacco Use Smoking status: Former Smoker Packs/day: 0.50 Years: 40.00 Pack years: 20.00 Types: Cigarettes Start date: 08/27/1972 Quit date: 11/08/2012 Years since quittin.6 Smokeless tobacco: Never Used Substance Use Topics Alcohol use: Not Currently Alcohol/week: 1.0 standard drink Types: 1 Cans of beer per week No family history on file. Current Outpatient Medications on File Prior to Visit Medication Sig Dispense Refill atorvastatin (LIPITOR) 80 mg tablet empagliflozin (Jardiance) 10 mg tablet ezetimibe-rosuvastatin 10-40 mg tablet hydroCHLOROthiazide (MICROZIDE) 12.5 mg capsule insulin glargine (Toujeo SoloStar U-300 Insulin) 300 unit/mL (1.5 mL) injection metFORMIN (GLUCOPHAGE) 1,000 mg tablet metoprolol tartrate (LOPRESSOR) 50 mg tablet thyroid, pork, 180 mg tablet aspirin 81 mg tablet Take 81 mg by mouth 1 (one) time each day. chlorhexidine (PERIDEX) 0.12 % solution Use 15 mL in the mouth or throat twice a day. Swish and spit with 15 mL twice daily after brushing (do not use for more than two consecutive weeks) 473 mL 0 ezetimibe (ZETIA) 10 mg tablet Take 1 tablet by mouth 1 (one) time each day. levothyroxine (SYNTHROID, LEVOTHROID) 125 mcg tablet Take 125 mcg by mouth 1 (one) time each day. metoprolol succinate (TOPROL-XL) 50 mg 24 hr tablet Take 1 tablet by mouth 1 (one) time each day. [DISCONTINUED] ibuprofen (ADVIL,MOTRIN) 800 mg tablet Take 1 tablet (800 mg total) by mouth every 8(eight) hours if needed for mild pain or moderate pain. 20 tablet 0 No current facility-administered medications on file prior to visit. ..EMERGENCY/Limited EXAM CC and history of CC: Pt presents with pain in LL Radiographic evaluation: carious #19,18 IOE reveals non-restorable #18, #19 pt loya snot want to pursue rct. Pt informed of need for exts and implant placement. DX: TXplan: Ext 18/19 Implant 19 Orders Placed This Encounter Procedures LIMITED ORAL EVALUATION - PROBLEM FOCUSED SINGLE X-RAY INTRAORAL - PERIAPICAL EACH ADDITIONAL RADIOGRAPHIC IMAGE BITEWING - SINGLE RADIOGRAPHIC IMAGE PANORAMIC RADIOGRAPHIC IMAGE 18 EXTRACTION, ERUPTED TOOTH REQUIRING REMOVAL OF BONE AND/OR SECTIONING OF TOOTH 19 EXTRACTION, ERUPTED TOOTH REQUIRING REMOVAL OF BONE AND/OR SECTIONING OF TOOTH 19 BONE REPLACEMENT GRAFT FOR RIDGE PRESERVATION - PER SITE - MANDIBLE 19 GUIDED TISSUE REGENERATION - RESORBABLE BARRIER, PER SITE 19 IMPLANT 19 SECOND STAGE IMPLANT SURGERY 19 IMPLT CEREC FIREDCRN 19 CUSTOM FABRICATED ABUTMENT - INCLUDES PLACEMENT documented in this encounter Plan of Treatment Not on file documented as of this encounter Procedures Procedure Name Priority Date/Time Associated Diagnosis Comments SINGLE X-RAY Routine 06/28/2021 1:00 PM FLOORING SALESPERSON PANORAMIC RADIOGRAPHIC IMAGE Routine 06/28/2021 1:00 PM FLOORING SALESPERSON BITEWING - SINGLE RADIOGRAPHIC IMAGE Routine 06/28/2021 1:00 PM FLOORING SALESPERSON ADDITIONAL X-RAY Routine 06/28/2021 1:00 PM FLOORING SALESPERSON LIMITED ORAL EVALUATION - PROBLEM FOCUSED Routine 06/28/2021 1:00 PM FLOORING SALESPERSON documented in this encounter Visit Diagnoses Not on filedocumented in this encounter
--- OUTSIDE RECORDS SUMMARY | 2024-08-02 01:10 | XMS_ITS | Encounter Summary ---
Author Organization [facility] Address [address] [place] [address] Care Team Providers Care Sales Appointment Coordinator Name Role Phone Unavailable Primary Care Provider Unavailabl e Reason for Visit * Reason Comments Consult Surg Ext Encounter Details Date Type Department Care Team (Late st Contact Info) Description 04/04/2021 12:15 PM CDT Office Visit [facility] [address] [place] [address] Juan Davis, NIKOLE [address] [facility] [place] [address] Social History Tobacco Use Types Packs/Day Years [...] AM PDT documented as of this encounter Last Filed Vital Signs Vital Sign Reading Time Taken Comments Blood Pressure 152/92 04/04/2021 12:01 PM CDT Pulse - - Temperature 35.8 ??C (96.4 ??F) 04/04/2021 12:01 PM C DT Respiratory Rate - - Oxygen Saturation - - Inhaled Oxygen Concentration - - Weight - - Height - - Body Mass Index - - documented in this encounter Patient Instructions * Patient Instructions* Tonja Liang - 04/04/2021 12:15 PM CDT POST-OPERATIVE INSTRUCTIONS If after hours or in case of emergency you may call Dr. Davis directly on his cell phone at: . The following Post -Operative conditions may occur in some patients while healing is progressing normally 1. Swelling on one or both sides. After the removal of impacted teeth or trimming of the bone swelling is often quite severe. It is most marked on the 2nd-4th day, and begins to dissipate after the 4th-5th day 2. Numbness (Paresthesia) around the lip, chin, and tongue can be normal for several hours following your procedure. If numbness persists for more than 24hrs, please call our office, we may start youon a steroid and a follow-up appointment will be necessary. NOTE: prolong numbness can take weeks/months to resolve. 3. Tightness of muscles (trismus) may cause difficulty in opening the mouth. Applications of moist or dry heat (heating pad at a medium setting) on the face will help you relax tension and bring relief. Your jaw may be stiff for a few weeks. Opening mouth exercises may be necessary if tightness persists. Use after 36 hrs. of surgical procedure. 4. Extraction Sites ( holes ) may persist for several weeks. 5. Bone Fragments: During the healing process, small sharp fragments of bone may loosen and work through the gum. These fragments, which are not roots, usually work out by themselves, but if annoying, (sometimes the knots of the stitches can also feel sharp)call the Doctor (Dr. Davis @ .) 6. If dissolvable stitches were placed, they will fall out (3-14 days) on their own and usually do not require removal. 7. Please keep in mind that it is reasonable to expect your normal activities to be disrupted following a surgical procedure for several days Any problems, questions or concerns please call the office at: If after hours or in case of emergency you may call Dr. Davis directly on his cell phone at: . Please remember that Dr. Davis cannot call in narcotic prescriptions over the phone so if you think you will need more pain medication please call the office early in the day. BLEEDING: Some bleeding and oozing is expected. The bleeding may appear greater since it is mixed with saliva. The gauze pack which was placed over the surgery site can be removed 30 minutes after surgery. If there is continued bleeding, lie down with your head elevated and placed 1-2 gauze pads folded twice over the area. It is OK to moisten gauze pad with cool tap water prior to placement. Bite down firmly for 45 minutes without changing the gauze, talking or releasing the pressure. Repeat 2-3 times if necessary. The biggest cause of persistent bleeding following surgery is improper gauze placement. If bleeding persists, a moistened tea bag may be placed over the area and bite firmly (it is rare that this is necessary if the gauze is placed properly). Remember, slight oozing is anticipated for 1-2 days after surgery. PAIN: Discomfort (or severe pain after any difficult or prolonged surgery) should be expected. NOTE: pain medication will minimize, but not completely take away the pain. Medication will be prescribed to make you more comfortable. The 3rd and 4th day may be your worse days for pain and swelling. Remember when taking pain medication it can take up to an hour to take effect and may only last 3-4 hours. IT IS THEREFORE, IMPORTANT TO TRY TO KEEP AHEAD OF THE ANTICIPATED PAIN BY TAKING MEDICATIONS DIRECTED. Try to take pain medication with food, or at least 8-10 ounces of fluid. Nausea can result if pain medication are taken on an empty stomach. Ibuprofen will be your baseline pain medication. Take prescription ibuprofen as directed. If pain occurs between ibuprofen doses you can take the prescription of narcotic pain medication as directed. DIET: On the day and evening of surgery, eat cold/lukewarm soft foods and drink cold liquids. Hot Foods and drinks cause bleeding. The morning after surgery: there are no restrictions on the types offood that you may eat, but start with soft food and advance as tolerated. Follow your natural inclination as to diet. Remember to drink plenty of fluids. DO NOT DRINK ALCOHOL for 24 hours or while taking pain medication. SWELLING/SORENESS: Swelling will be greatest 2-4 days after surgery, then the swelling will begin to subside. For the first 24-36 hours, place an ice bag over the surgical area at interval of 30 minutes on, 30 minutes off. After 36 hours, moist or dry heat (heating pad at a medium setting) should be used. Keep your head elevated with a couple of pillows until the swelling resolves. It may take 7-10 days for the swelling and/or bruising to fade completely. DRY SOCKET is the premature loss of the blood clot from the extraction socket usually 3-6 days following the removal of tooth. The incidence of a socket varies from 10-50%. The Classic symptom is a dull throbbing increase in jaw pain that is not resolved by pain medication. If this occurs CALL THE OFFICE or Dr. DVAIS. DENTURE PATIENTS: If immediate dentures have been placed, do not remove them for 24 hours. After 24hours take dentures out and rinse with prescription mouth wash as directed. Replace denture after each time you rinse. You will probably have a follow- up appointment with your general dentist in 1-3days following surgery. documented in this encounter Miscellaneous Notes * Dental Procedure Details - Juan Davis DMD - 04/04/2021 12:15 PM CDT ORAL MAXILLOFACIAL & IMPLANT SURGERY CONSULTATION ORAL SURGERY CONSULTATION Juan Davis DMD Referred by: No ref. provider found Referred for: Age: 60 y.o. M/F: male CC/HPI: Patient presents with complaint of broken tooth in UR quad of 6 weeks duration. He currently denies any pain. Patient was referred by his general dentist for extraction of #1. PMH: Past Medical History: Diagnosis Date Cardiovascular disease Diabetes mellitus (CMS/HCC) Hypertension Hypothyroidism Lung disease COPD HTN and DM Type I/II Allergies; No Known Allergies Social: Social Connections: Frequency of Communication with Friends and Family: Not on file Frequency of Social Gatherings with Friends and Family: Not on file Attends L[employer] Services: Not on file Active Member of Clubs or Organizations: Not on file Attends Club or Organization Meetings: Not on file Marital Status: Not on file Non-contributory Medications: Current Outpatient Medications: aspirin 81 mg tablet, Take 81 mg by mouth 1 (one) time each day., Disp: , Rfl: chlorhexidine (PERIDEX) 0.12 % solution, Use 15 mL in the mouth or throat twice a day. Swish and spit with 15 mL twice daily after brushing (do not use for more than two consecutive weeks), Disp: 473mL, Rfl: 0 ezetimibe (ZETIA) 10 mg tablet, Take 1 tablet by mouth 1 (one) time each day., Disp: , Rfl: ibuprofen (ADVIL,MOTRIN) 800 mg tablet, Take 1 tablet (800 mg total) by mouth every 8 (eight) hoursif needed for mild pain or moderate pain., Disp: 20 tablet, Rfl: 0 levothyroxine (SYNTHROID, LEVOTHROID) 125 mcg tablet, Take 125 mcg by mouth 1 (one) time each day.,Disp: , Rfl: metoprolol succinate (TOPROL-XL) 50 mg 24 hr tablet, Take 1 tablet by mouth 1 (one) time each day.,Disp: , Rfl: Gen: AAO and Obese Physical Exam: Visit Vitals BP (!) 152/92 Temp 96.4 ??F (35.8 ??C) Smoking Status Former Smoker TMJ: TTP: 0 and SANDRA:>35mm Extraoral/Dental: WNL Intraoral/Dental: Caries #1. Teeth: 1 Imaging: Panorex Caries/Lesions/Perio: Coronal radiolucency on #1. Tooth# 1: Erupted Close proximity to the Maxillary Sinus Caries Plan/Procedure: Extraction of #1. Local Anesthetic Discussed Risk and benefits of no treatment/alternative treatments: yarsanism, RPD, FPD, RCT, cleaning, implant Risk and complication discussed but not limited to: Pain/swelling/bleeding/infection, dry socket, damage to hard and soft tissue, sinus involvement/perforation, nerve injury resulting in temporary versus permanent altered sensation of lip/chin tongue that can range from numbness, tingling, or persistent pain, need for additional surgery, mandible fracture, local anesthesia vs. General anesthesia Other: Instructions: NPO at least eight hours before the procedure Sinus precautions (no nose blowing or sneezing with the mouth open All questions were welcomed and answered Juan Davis DMD * Dental Procedure Details - Juan Davis DMD - 04/04/2021 12:15 PM CDT ORAL SURGERY EXTRACTION PROCEDURE NOTE Medical History: Medical history updated Patient referred to [facility] for the reason of: Gross/Non-restorable caries A Clinical evaluation was performed to confirm diagnosis. The proposed treatment was discussed withthe patient and patient's guardian (where appropriate) including the risks, benefits, alternatives,risk of the alternatives. Risks were also discussed if no treatment was chosen. Where appropriate, risks of lingual and/or inferior alveolar nerve paresthesia due to impacted 3rd molar surgery was specifically reviewed with the patient. The patient and patient's guardian (where appropriate) agreed with the proposed treatment and informed consent was obtained. Administered Lidocaine 2% epi: 1:100K x Carpules: 1 carpule; to the surgical site(s). 1 Surgical Extraction(s): Sulcular incision made using #15 blade. Full thickness envelope flap reflected. Bone removed / Tooth sectioned where necessary to gain access to difficult areas and/or fractured portions of the tooth. Delivered tooth with appropriate combination of elevators and forceps. Tooth was not sectioned. Bone smoothed around surgical site using bone file and/or rongeur where necessary. The surgical site was inspected and curretted if necessary. Irrigation of the surgical site(s) performed. Alveoplasty not performed No bone graft placed. Closure: No Suture Placed used to obtain soft tissue closure. Dressing was placed. Adequate hemostasis achieved. Post operative and follow up instructions reviewed with patient and/or escort where appropriate. Patient was discharged in stable condition. Patient will follow up in the clinic 1 week or as necessary. documented in this encounter Plan of Treatment Not on file documented as of this encounter Procedures Procedure Name Priority Date/Time Associated Diagnosis Comments ORAL SURG CONSULT Routine 04/04/2021 12: 15 PM CDT 1 EXTRACTION, ERUPTED TOOTH REQUIRING REMOVAL OF BONE AND/OR SECTIONING OF TOOTH Routine 04/04/2021 12:15 PM CDT documented in this encounter Visit Diagnoses Not on filedocumented in this encounter
--- OUTSIDE RECORDS SUMMARY | 2024-08-02 01:11 | XMS_ITS | Continuity of Care Document ---
Author Organization [facility] Address [address] [place] [address] Phone Care Team Providers Care Computer Operations Analyst Name Role Phone Allen OD, Rajesh Unavailable Unavailable Advance Directives Directive Yes / No Effective Date File Name No Information Encounters Encounter Description Practice Location Reason(s) For Visit Diagnoses Date Provider Providers Copied on Encounter [facility], [address], [place], [place], [id number], [place] tel:[phone] [facility] No Information 1-200 6 Allen OD Rajesh. [address] , [address], [place], [address], [place]. tel:[phone] Family History Family Member Type Diagnosis Age At Onset No Information Payers Payer name Insurance type Covered republican ID Authoriza tion(s) No Information Social History Type Description Quantity Date Captured Comments Sex Male Smoking Status No Information Chief Complaint And Reason For Visit No Information Reason For Referral Reason For Referral No Information History Of Present Illness Encounter Date Complaint History Of Prese nt Illness No Information Functional Status Date Functional Assessmen t No Information Instructions Date Instruction Additional Infor mation No Information Assessments Type Assessment Date No Information Patient Care Teams Name Effective Dates (start - stop) Status Members No Information
--- OUTSIDE RECORDS SUMMARY | 2024-08-02 01:56 | XMS_ITS | Referral Summary ---
Author Organization [facility] Address [address] [place] [address] Care Team Providers Care Simulation Tech Name Role Phone Unavailable Primary Care Provider [...] on file Medical Devices Implanted Type Area Automatic Vulcanizing Operator Device Identifier Shelf Expiration Date Model / Serial / Lot Yellow Healing Abutment Implanted:11/28 by Yue Wood DDS (Quantity not on file) Bone Screw Tooth #19 [employer] [id number] / / [id number] Nobelactive Rp 5.0 X 11.5mm Dental Implant Tooth #19 [employer] [id number] / / [id number] Procedures Procedure Name Priority Date/Time Associated Diagnosis Comments PANORAMIC RADIOGRAPHIC IMAGE Routine 06/28/2021 1:00 PM THEOLOGY PROFESSOR from Last 3 Months or Most Recently Relevant to Health Maintenance Insurance
--- OUTSIDE RECORDS SUMMARY | 2024-08-02 01:56 | XMS_ITS | Clinical Summary ---
Author Organization [facility] Address [address] [place] [address] Care Team Providers Care Hydraulic Spinner Name Role Phone Unavailable Primary Care Provider [...] 06/28, 03/01/2021 Medical Devices Implanted Type Area Bracelet Form Coverer Device Identifier Shelf Expiration Date Model / Serial / Lot Yellow Healing Abutment Implanted:11/28 by Yue Wood DDS (Quantity not on file) Bone Screw Tooth #19 [employer] [id number] / / [id number] Nobelactive Rp 5.0 X 11.5mm Dental Implant Tooth #19 [employer] [id number] / / [id number] Procedures Procedure Name Priority Date/Time Associated Diagnosis Comments PANORAMIC RADIOGRAPHIC IMAGE Routine 06/28/2021 1:00 PM WATER PLANT OPERATOR from Last 3 Months or Most Recently Relevant to Health Maintenance Insurance [facility] PPO
--- OUTSIDE RECORDS SUMMARY | 2024-08-02 01:56 | XMS_ITS | Encounter Summary ---
Author Organization [facility] Address [address] [place] [address] Care Team Providers Care Swimming Pool Servicer Name Role Phone Unavailable Primary Care Provider Unavailabl e Encounter Details Date Type Department Care Team (Late st Contact Info) Description 05/09/2022 10:00 AM CDT Office Visit [facility] [address] [place] [address] Merced Garcia DDS Social History [...] 05/09/2022 10:00 AM CDT DELIVERY OF IMPLANT YAZIDISM Patient presents for delivery of implant druze. Abutment Type: Screw-retained custom abutment/crown hybrid placed and fit verified with radiograph. Abutment screw tightened to 35 N/cm and screw access protected with rhina tape. No cement was used. [place] permanently torqued an access sealed with rhina tape and etched then light cured composite .Checked bite. Client approved bite and signed the crown acceptance form. [place] type: [place] Custom Base FCZ Final X-ray taken. Post-seat x-ray taken to verify complete seating of druze and complete cement removal documented in this encounter Plan of Treatment Not on file documented as of this encounter Procedures Procedure Name Priority Date/Time Associated Diagnosis Comments 19 CEMENT CROWN Routine 05/09/2022 10:00 AM CDT documented in this encounter Visit Diagnoses Not on filedocumented in this encounter
--- OUTSIDE RECORDS SUMMARY | 2024-08-02 01:56 | XMS_ITS ---
Author Organization [facility] Address [address] [place] [address] Care Team Providers Care Counselor Education Professor Name Role Phone Unavailable Unavailable Unavailable Surgery Details Not on file Complications Check Surgery Details section. Procedure Estimated Blood Loss Check Surgery Details section. Procedure Findings Check Surgery Details section. Procedure Specimens Taken Check Surgery Details section.
--- OUTSIDE RECORDS SUMMARY | 2024-08-02 01:56 | XMS_ITS | Encounter Summary ---
Author Organization [facility] [place] [address] [place] [address] Care Team Providers Care Manpower Development Specialist Manager Name Role Phone Unavailable Primary Care Provider Unavailabl e Prior Encounters Date Type Department Care Team Description 05/09/2022 10:00 AM CDT Office Visit [facility] [address] [place] [address] Merced Garcia DDS 04/26/2022 Telephone [facility] [address] [place] [address] Ismael Tian DDS 04/12/2022 10:00 AM CDT Office Visit [facility] [address] [place] [address] Ismael Tian DDS 03/15/2022 Travel 03/15/2022 9:00 AM CDT Office Visit [facility] [address] [place] [address] Ismael Tian DDS 03/13/2022 Travel 03/13/2022 9:00 AM CDT Office Visit [facility] [address] [place] [address] Ismael Tian DDS 03/09/2022 11:30 AM CDT Office Visit [facility] [address] [place] [address] Ismael Tian DDS 03/09/2022 11:30 AM CDT Office Visit [facility] [address] [place] [address] Yue Wood DDConcetta 12/29/2021 11:30 AM CDT Office Visit [facility] [address] [place] [address] Yue Wood DDS 11/28/2021 8:45 AM CDT Office Visit [facility] [address] [place] [address] Yue Wood DDS 11/24/2021 Orders Only [facility] [address] [place] [address] Liana Clayton, DMD 08/09/2021 Travel 08/09/2021 2:00 PM ELECTRIC DETECTOR OPERATOR Office Visit [facility] [address] [place] [address] Yue Wood, DDS 07/18/2021 Orders Only [facility] [address] [place] [address] Liana Clayton, DMD 06/28/2021 Travel 06/28/2021 1:00 PM ELECTRIC DETECTOR OPERATOR Office Visit [facility] [address] [place] [address] Liana Clayton, DMD 04/04/2021 Travel 04/04/2021 12:15 PM CDT Office Visit [facility] [address] [place] [address] Juan Davis, NIKOLE 03/01/2021 Travel 03/01/2021 1:00 PM CDT Office Visit [facility] [address] [place] [address] Liana Clayton, DMD Last Filed Vital Signs [...] STABILIZATION, PER SITE Routine 08/09/2021 2:00 PM ELECTRIC DETECTOR OPERATOR PLACEMENT OF INTRA-SOCKET BIOLOGICAL DRESSING TO AID IN HEMOSTASIS OR CLOT STABILIZATION, PER SITE Routine 08/09/2021 2:00 PM ELECTRIC DETECTOR OPERATOR ORAL SURG CONSULT Routine 08/09/2021 2:0 0 PM ELECTRIC DETECTOR OPERATOR 19 GUIDED TISSUE REGENERATION, NATURAL TEETH - RESORBABLE BARRIER, PER SITE Routine 08/09/2021 2:00 PM ELECTRIC DETECTOR OPERATOR 19 BONE REPLACEMENT GRAFT FOR RIDGE PRESERVATION - PER SITE - MANDIBLE Routine 08/09/2021 2:00 PM ELECTRIC DETECTOR OPERATOR 19 EXTRACTION, ERUPTED TOOTH REQUIRING REMOVAL OF BONE AND/OR SECTIONING OF TOOTH Routine 08/09/2021 2:00 PM ELECTRIC DETECTOR OPERATOR 18 EXTRACTION, ERUPTED TOOTH REQUIRING REMOVAL OF BONE AND/OR SECTIONING OF TOOTH Routine 08/09/2021 2:00 PM ELECTRIC DETECTOR OPERATOR PANORAMIC RADIOGRAPHIC IMAGE Routine 06/28/2021 1:00 PM ELECTRIC DETECTOR OPERATOR BITEWING - SINGLE RADIOGRAPHIC IMAGE Routine 06/28/2021 1:00 PM ELECTRIC DETECTOR OPERATOR ADDITIONAL X-RAY Routine 06/28/2021 1:00 PM ELECTRIC DETECTOR OPERATOR SINGLE X-RAY Routine 06/28/2021 1:00 PM ELECTRIC DETECTOR OPERATOR LIMITED ORAL EVALUATION - PROBLEM FOCUSED Routine 06/28/2021 1:00 PM ELECTRIC DETECTOR OPERATOR ORAL SURG CONSULT Routine 04/04/2021 12: 15 [...]
--- OUTSIDE RECORDS SUMMARY | 2024-08-02 01:56 | XMS_ITS | CCD ---
Author Organization [facility] Address [address] [place] [address] Care Team Providers Care Bank Consultant Name Role Phone Unavailable Primary Care Provider [...] on file Medical Devices Implanted Type Area Radar Air Traffic Controller Device Identifier Shelf Expiration Date Model / Serial / Lot Yellow Healing Abutment Implanted:11/28 by Yue Wood DDS (Quantity not on file) Bone Screw Tooth #19 [employer] [id number] / / [id number] Nobelactive Rp 5.0 X 11.5mm Dental Implant Tooth #19 [employer] [id number] / / [id number] Procedures Procedure Name Priority Date/Time Associated Diagnosis Comments PANORAMIC RADIOGRAPHIC IMAGE Routine 06/28/2021 1:00 PM REAL ESTATE LISTING CONSULTANT from Last 3 Months or Most Recently Relevant to Health Maintenance
--- OUTSIDE RECORDS SUMMARY | 2024-08-02 01:57 | XMS_ITS | Encounter Summary ---
Author Organization [facility] Address [address] [place] [address] Care Team Providers Care Chemical Production Machine Operator Name Role Phone Unavailable Primary Care Provider Unavailabl e Encounter Details Date Type Department Care Team (Late st Contact Info) Description 04/12/2022 10:00 AM CDT Office Visit [facility] [address] [place] [address] Ismael Tian DDS Social History [...]
--- OUTSIDE RECORDS SUMMARY | 2024-08-02 01:57 | XMS_ITS | Encounter Summary ---
Author Organization [facility] [place] Address [address] [place] [address] Care Team Providers Care Locker Attendant Name Role Phone Unavailable Primary Care Provider Unavailabl e Encounter Details Date Type Department Care Team (Late st Contact Info) Description 11/28/2021 8:45 AM CDT Office Visit [facility] [address] [place] [phone] Yue Wood DDS [address] [facility] [place] [address] Social History Tobacco Use Types Packs/Day Years [...] and Procedural Note Patient: Kristopher Hoover PID: [id number] : 1960 Sex: male Subjective Findings/HPI: Kristopher [...] or in 1 week if complications arise. Washer And Capper Machine Operator: Alie Parra Juan, Maddy Albana Simoni, DDS Oral & Maxillofacial Surgeon documented in this encounter Plan of Treatment Not on file documented as of this encounter Procedures Procedure Name Priority Date/Time Associated Diagnosis Comments 19 IMPLANT Routine 11/28/2021 8:45 AM CDT documented in this encounter Visit Diagnoses Not on filedocumented in this encounter
--- OUTSIDE RECORDS SUMMARY | 2024-08-02 01:57 | XMS_ITS | Encounter Summary ---
Author Organization [facility] [address] [place] [address] Care Team Providers Care Entry Level Manager Name Role Phone Unavailable Primary Care [...]
--- OUTSIDE RECORDS SUMMARY | 2024-08-02 01:57 | XMS_ITS | Encounter Summary ---
Author Organization [facility] [place] Address [address] [place] [address] Care Team Providers Care Credit Verifier Name Role Phone Unavailable Primary Care Provider [...]
--- OUTSIDE RECORDS SUMMARY | 2024-08-02 01:57 | XMS_ITS | Encounter Summary ---
Author Organization [facility] Address [address] [place] [address] Care Team Providers Care Concrete Pump Operator Helper Name Role Phone Unavailable Primary Care Provider Unavailabl e Reason for Referral * Consult and Treat (Routine) Specialty Diagnoses / Procedures Referred By Felton restrepo Referred To Contact Liana Clayton DMD [address] [place] [address] Phone: tel: fax: Referral ID Status Reason Start Date Expiration Date Visits Re quested Visits Authorized Encounter Details Date Type Department Care Team (Late st Contact Info) Description 03/01/2021 1:00 PM CDT Office Visit [facility] [place] [address] Liana Clayton DMD [address] [place] [address] Social History Tobacco Use Types Packs/Day [...]
--- OUTSIDE RECORDS SUMMARY | 2024-08-02 01:57 | XMS_ITS | Encounter Summary ---
Author Organization [facility] Address [address] [place] [address] Care Team Providers Care Compressed Gases Tester Name Role Phone Unavailable Primary Care Provider Unavailabl e Encounter Details Date Type Department Care Team (Late st Contact Info) Description 03/09/2022 11:30 AM CDT Office Visit [facility] [address] [place] [phone] Yue Wood DDS [address] [facility] [place] [address] Social History Tobacco Use Types Packs/Day Years [...] Post Op Note Patient: Kristopher Hoover PID: [id number] : 1960 Sex: male Subjective Findings/HPI: Kristopher [...]
--- OUTSIDE RECORDS SUMMARY | 2024-08-02 01:57 | XMS_ITS | Encounter Summary ---
Author Organization [facility] [place] [address] [place] [address] Care Team Providers Care Chief Client Officer Name Role Phone Unavailable Primary Care Provider Unavailabl e Encounter Details Date Type Department Care Team (Late st Contact Info) Description 03/15/2022 9:00 AM CDT Office Visit [facility] [address] [place] [address] Ismael Tian DDS Social History [...] Additional Anesthetic required Shade #1: Luba A3 Buxton Prepped, Scanned , Scanned bite Patient informed of 2 week delivery time Sent to [facility] electronically; verified by [facility] Buxton completed on tooth #19, Buxton is Initial placement. Tooth has implant.. documented in this encounter Plan of Treatment Not on file documented as of this encounter Procedures Procedure Name Priority Date/Time Associated Diagnosis Comments FINAL IMPRESSION Routine 03/15/2022 9:00 AM CDT documented in this encounter Visit Diagnoses Not on filedocumented in this encounter
--- OUTSIDE RECORDS SUMMARY | 2024-08-02 01:57 | XMS_ITS | Encounter Summary ---
Author Organization [facility] Address [address] [place] [address] Care Team Providers Care Telephone Assembler Name Role Phone Unavailable Primary Care Provider Unavailabl e Encounter Details Date Type Department Care Team (Late st Contact Info) Description 04/26/2022 Telephone [facility] [address] [place] [address] Ismael Tian DDS Social History [...]
--- OUTSIDE RECORDS SUMMARY | 2024-08-02 01:57 | XMS_ITS | Encounter Summary ---
Author Organization [facility] Address [address] [place] [address] Care Team Providers Care Supervisor Public Health Nursing Name Role Phone Unavailable Primary Care Provider Unavailabl e Encounter Details Date Type Department Care Team (Late st Contact Info) Description 12/29/2021 11:30 AM CDT Office Visit [facility] [address] [place] [address] Yue Wood DDS [address] [facility] [place] [address] Social History Tobacco Use Types Packs/Day Years [...] Post Op Note Patient: Kristopher Hoover PID: [id number] : 1960 Sex: male Subjective Findings/HPI: Kristopher [...]
--- OUTSIDE RECORDS SUMMARY | 2024-08-02 01:57 | XMS_ITS | Encounter Summary ---
Author Organization [facility] Address [address] [place] [address] Care Team Providers Care Buncher Machine Name Role Phone Unavailable Primary Care Provider [...]
--- OUTSIDE RECORDS SUMMARY | 2024-08-02 01:57 | XMS_ITS | Encounter Summary ---
Author Organization [facility] Address [address] [place] [address] Care Team Providers Care Executive Sous Chef Name Role Phone Unavailable Primary Care Provider Unavailabl e Encounter Details Date Type Department Care Team (Late st Contact Info) Description 03/13/2022 9:00 AM CDT Office Visit [facility] [address] [place] [address] Ismael Tian DDS Social History [...]
--- OUTSIDE RECORDS SUMMARY | 2024-08-02 01:57 | XMS_ITS | Encounter Summary ---
Author Organization [facility] [place] Address [address] [place] [address] Care Team Providers Care Steam Drier Tender Name Role Phone Unavailable Primary Care Provider Unavailabl e Reason for Referral * Consult and Treat (Routine) Specialty Diagnoses / Procedures Referred By Felton restrepo Referred To Contact Oral Surgery Liana Clayton DMD [address] [place] [address] Phone: tel: fax: Referral ID Status Reason Start Date Expiration Date Visits Re quested Visits Authorized Encounter Details Date Type Department Care Team (Late st Contact Info) Description 11/24/2021 Orders Only [facility] [address] [place] [address] Liana Clayton DMD [address] [place] [address] Social History Tobacco Use Types Packs/Day [...] Priority Associated Diagnoses Order Schedule Referral to nursing care partner Dental Referrals Routine Expected: 11/24/2021, Expires: 05/26/2022 documented as of this encounter Visit Diagnoses Not on filedocumented in this encounter
--- OUTSIDE RECORDS SUMMARY | 2024-08-02 01:57 | XMS_ITS | Encounter Summary ---
Author Organization [facility] Address [address] [place] [address] Care Team Providers Care Computer Artist Name Role Phone Unavailable Primary Care Provider Unavailabl e Encounter Details Date Type Department Care Team (Late st Contact Info) Description 03/09/2022 11:30 AM CDT Office Visit [facility] [address] [place] [address] Ismael Tian DDS Social History Tobacco Use [...]
--- OUTSIDE RECORDS SUMMARY | 2024-08-02 01:57 | XMS_ITS | Encounter Summary ---
Author Organization [facility] [place] [address] [place] [address] Care Team Providers Care Smoke Inspector Name Role Phone Unavailable Primary Care Provider Unavailabl e Reason for Visit * Reason Comments Surg Ext Consult Bone Graft Encounter Details Date Type Department Care Team (Late st Contact Info) Description 08/09/2021 2:00 PM VP BUSINESS DEVELOPMENT Office Visit [facility] [address] [place] [address] Yue Wood DDS [address] [place] [address] Social History Tobacco Use Types Packs/Day Years [...] Yue Wood DDS - 08/09/2021 2:00 PM VP BUSINESS DEVELOPMENT Oral & Maxillofacial Surgery Consult and Procedural Note Referred by: Dr Clayton Patient: Kristopher Hoover PID: [id number] : 1960 Sex: male Subjective Findings/HPI: Kristopher [...] infiltration only and 2 ml 0.5% marcaine ([id number] epinephrine) via left IANB. Attention (#18, 19)is [...] in 3-4 months for implant placement #19 Boat Deckhand: Josette Parra Juan, Maddy Albana Simoni, DDS Oral & Maxillofacial Surgeon documented in this encounter Plan of Treatment Not on file documented as of this encounter Procedures Procedure Name Priority Date/Time Associated Diagnosis Comments PLACEMENT OF INTRA-SOCKET BIOLOGICAL DRESSING TO AID IN HEMOSTASIS OR CLOT STABILIZATION, PER SITE Routine 08/09/2021 2:00 PM VP BUSINESS DEVELOPMENT PLACEMENT OF INTRA-SOCKET BIOLOGICAL DRESSING TO AID IN HEMOSTASIS OR CLOT STABILIZATION, PER SITE Routine 08/09/2021 2:00 PM VP BUSINESS DEVELOPMENT 19 BONE REPLACEMENT GRAFT FOR RIDGE PRESERVATION - PER SITE - MANDIBLE Routine 08/09/2021 2:00 PM VP BUSINESS DEVELOPMENT ORAL SURG CONSULT Routine 08/09/2021 2:0 0 PM VP BUSINESS DEVELOPMENT 19 EXTRACTION, ERUPTED TOOTH REQUIRING REMOVAL OF BONE AND/OR SECTIONING OF TOOTH Routine 08/09/2021 2:00 PM VP BUSINESS DEVELOPMENT 18 EXTRACTION, ERUPTED TOOTH REQUIRING REMOVAL OF BONE AND/OR SECTIONING OF TOOTH Routine 08/09/2021 2:00 PM VP BUSINESS DEVELOPMENT 19 GUIDED TISSUE REGENERATION, NATURAL TEETH - RESORBABLE BARRIER, PER SITE Routine 08/09/2021 2:00 PM VP BUSINESS DEVELOPMENT documented in this encounter Visit Diagnoses Not on filedocumented in this encounter
--- OUTSIDE RECORDS SUMMARY | 2024-08-02 01:57 | XMS_ITS | Encounter Summary ---
Author Organization [facility] [place] [address] [place] [address] Care Team Providers Care Sanding Machine Buffer Name Role Phone Unavailable Primary Care Provider Unavailabl e Encounter Details Date Type Department Care Team (Late st Contact Info) Description 07/18/2021 Orders Only [facility] [address] [place] [address] Liana Clayton, DMD [address] [place] [address] Social History Tobacco Use Types Packs/Day Years [...]
--- OUTSIDE RECORDS SUMMARY | 2024-08-02 01:57 | XMS_ITS | Encounter Summary ---
Author Organization [facility] Address [address] [place] [address] Care Team Providers Care Aircraft Armorer Name Role Phone Unavailable Primary Care Provider [...]
--- OUTSIDE RECORDS SUMMARY | 2024-08-02 01:57 | XMS_ITS | Encounter Summary ---
Author Organization [facility] Address [address] [place] [address] Care Team Providers Care Jury Consultant Name Role Phone Unavailable Primary Care [...]
--- OUTSIDE RECORDS SUMMARY | 2024-08-02 01:57 | XMS_ITS | Encounter Summary ---
Author Organization [facility] Address [address] [place] [address] Care Team Providers Care Follow Up Rep Name Role Phone Unavailable Primary Care Provider Unavailabl e Encounter Details Date Type Department Care Team (Late st Contact Info) Description 06/28/2021 1:00 PM FARMER DIVERSIFIED CROPS Office Visit [facility] [address] [place] [phone] Liana Clayton, NIKOLE [address] [place] [address] Social History Tobacco Use Types Packs/Day Years [...] Liana Clayton DMD - 06/28/2021 1:00 PM FARMER DIVERSIFIED CROPS LIMITED EXAM NOTE Past Medical History: Diagnosis [...] Comments SINGLE X-RAY Routine 06/28/2021 1:00 PM FARMER DIVERSIFIED CROPS PANORAMIC RADIOGRAPHIC IMAGE Routine 06/28/2021 1:00 PM FARMER DIVERSIFIED CROPS BITEWING - SINGLE RADIOGRAPHIC IMAGE Routine 06/28/2021 1:00 PM FARMER DIVERSIFIED CROPS ADDITIONAL X-RAY Routine 06/28/2021 1:00 PM FARMER DIVERSIFIED CROPS LIMITED ORAL EVALUATION - PROBLEM FOCUSED Routine 06/28/2021 1:00 PM FARMER DIVERSIFIED CROPS documented in this encounter Visit Diagnoses Not on filedocumented in this encounter
--- OUTSIDE RECORDS SUMMARY | 2024-08-02 01:57 | XMS_ITS | Encounter Summary ---
Author Organization [facility] Address [address] [place] [address] Care Team Providers Care Laundry Aide Name Role Phone Unavailable Primary Care [...]
--- OUTSIDE RECORDS SUMMARY | 2024-08-02 01:57 | XMS_ITS | Encounter Summary ---
Author Organization [facility] [place] [address] [place] [address] Care Team Providers Care Printing Plate Clerk Name Role Phone Unavailable Primary Care Provider Unavailabl e Reason for Visit * Reason Comments Consult Surg Ext Encounter Details Date Type Department Care Team (Late st Contact Info) Description 04/04/2021 12:15 PM CDT Office Visit [facility] [address] [place] [address] Juan Davis, NIKOLE [address] [facility] [address] Social History Tobacco Use Types Packs/Day Years [...] this occurs CALL THE OFFICE or Dr. DAVIS. DENTURE PATIENTS: If immediate dentures have been [...] Friends and Family: Not on file Attends Mosque Services: Not on file Active Member of [...] Risk and benefits of no treatment/alternative treatments: sabianism, RPD, FPD, RCT, cleaning, implant Risk and [...] History: Medical history updated [place] [facility] [place] reason of: Gross/Non-restorable caries A [...]
--- OUTSIDE RECORDS SUMMARY | 2024-08-02 01:58 | XMS_ITS | Encounter Summary ---
Author Organization [facility] Address [address] [place] [address] Care Team Providers Care Casket Assembler Metal Name Role Phone Hiram Moore DO Primary Care Provider [phone] Reason for Visit * Reason Comments Follow-up overdue follow up on CAD, s/p CABGx3, HTN, dyslipidemia * Consultation (Routine) - Closed Specialty Diagnoses / Procedures Referred By Contac t Referred To Contact Cardiology Diagnoses Coronary atherosclerosis of asa'carsarmiut coronary artery Hiram Moore DO Phone: tel: fax: [facility] Medical [facility] Cardiology [address] [place] [address] Phone: tel: fax: Referral ID Status Reason Start Date Expiration Date V isits Requested Visits Authorized [id number] Closed Specialty Services Required 06/08/2020 12/05/2020 4 4 Encounter Details Date Type Department Care Team (Late st Contact Info) Description 08/10/2020 8:45 AM PRIZE COORDINATOR Office Visit [facility] Medical [facility] Cardiology [address] [place] [address] Kt Hemphill MD [address] [address] S/P CABG x 3 (Primary Dx); Coronary artery disease involving asa'carsarmiut coronary artery of asa'carsarmiut heart without angina pectoris; Essential hypertension; Dyslipidemia; Type 2 diabetes mellitus without complication, without long-term current use of insulin ([facility]) Social History Tobacco Use Types Packs/Day Years Used Date Smoking Tobacco: Former Smokeless Tobacco: Never Alcohol Use Standard Drinks/Week Comments No 0 (1 standard drink = 0.6 oz pur e alcohol) Sex and Gender Information Value Date Recorded Sex Assigned at Not on file Legal Sex Male 4:42 AM PRIZE COORDINATOR Gender Identity Not on file Sexual Orientation Not on file documented as of this encounter Last Filed Vital Signs Vital Sign Reading Time Taken Comments Blood Pressure 138/90 08/10/2020 8:39 AM PRIZE COORDINATOR Pulse 71 08/10/2020 8:39 AM PRIZE COORDINATOR Temperature - - Respiratory Rate - - Oxygen Saturation 99% 08/10/2020 8:39 AM PRIZE COORDINATOR Inhaled Oxygen Concentration - - Weight 111.6 kg (246 lb) 08/10/2020 8:39 AM PRIZE COORDINATOR Height 185.4 cm (6' 1 ) 08/10/2020 8:39 AM PRIZE COORDINATOR Body Mass Index 32.46 08/10/2020 8:39 AM PRIZE COORDINATOR documented in this encounter Progress Notes * [...] of Dr. Rojas. Patient was admitted to [facility] on 01/16/13 with chest pain and was found to have non-ST elevation NM. Cath showed multivessel coronary disease. He was transferred to [facility] and had CABG ??3 on 01/18/13. [...] mcg tablet Take 125 mcg by mouth glass cutter before breakfast ??? losartan (COZAAR) 100 mg [...] x 3 (Primary) Coronary artery disease involving asa'carsarmiut coronary artery of asa'carsarmiut heart without angina pectoris - Ambulatory referral to Cardiology Essential hypertension Dyslipidemia Type 2 diabetes mellitus without complication, without long-term current use of insulin ([facility]) PLAN/RECOMMENDATIONS 59 y.o. male with CAD, history of non-ST elevation NM, history of CABG ??3, hypertension, diabetes mellitus, [...] or sooner if needed. Kt Hemphill MD E COORDINATOR documented in this encounter Miscellaneous Notes * Addendum Note - Liz Ren MA - 08/10/2020 8:45 AM CSTAddended by: LIZ REN on: 08/10/2020 04:19 PM Modules accepted: Orders E COORDINATOR documented in this encounter Plan of Treatment Not on file documented as of this encounter Procedures Procedure Name Priority Date/Time Associated Diagnosis Comments POCT LIPID PANEL Routine 08/10/2020 4:19 PM PRIZE COORDINATOR Dyslipidemia documented in this encounter Results * POCT lipid panel (08/10/2020 4:19 PM PRIZE COORDINATOR) Cholesterol, POC 103 mg/dL HDL, POC 26 mg/dL Triglycerides, POC 104 mg/dL LDL Cholesterol POC 57 mg/dL Chol/HDL Ratio, POC 4.0 Non-HDL Cholesterol, POC 77 mg/dL Cholesterol Total, POC 103 mg/dL Capillary blood 08/10/2020 4 :19 PM PRIZE COORDINATOR Kt Hemphill MD POINT OF CARE TEST ORDERABLES Fi nal Result documented in this encounter Visit Diagnoses Diagnosis S/P CABG x 3- Primary Postsurgical aortocoronary bypass status Coronary artery disease involving asa'carsarmiut coronary artery of asa'carsarmiut heart without angina pectoris Essential hypertension Unspecified essential hypertension Dyslipidemia Other and unspecified hyperlipidemia Type 2 diabetes mellitus without complication, without long-term current use of insulin (CMS/HCC) (HCC) documented in this encounter Orders Outpatient Referral Count Last Ordered Date Fir st Ordered Date AMB REFERRAL TO CARDIOLOGY 1 08/10/2020 documented in this encounter Care Teams Casket Assembler Metal Relationship Specialty Start Date End Date Hiram Moore DO PCP - General Internal Medicine 06/17/19 11/20/22 documented as of this encounter
--- OUTSIDE RECORDS SUMMARY | 2024-08-02 01:58 | XMS_ITS | Encounter Summary ---
Author Organization [facility] Address [address] [place] [address] Care Team Providers Care Engine Room Operator Name Role Phone Carlos Rushing MD Primary Care Provider [phone] Encounter Details Date Type Department Care Team (Late st Contact Info) Description 02/01/2023 Telephone [facility] Cardiology [address] [place] [address] tK Hemphill MD [address] [place] [id number] Social History Tobacco Use Types Packs/Day Years Used Date Smoking Tobacco: Former Smokeless Tobacco: Never Alcohol Use Standard Drinks/Week Comments No 0 (1 standard drink = 0.6 oz pur e alcohol) Sex and Gender Information Value Date Recorded Sex Assigned at Not on file Legal Sex Male 4:42 AM PLANT WIRE CHIEF Gender Identity Not on file Sexual Orientation [...] on filedocumented in this encounter Care Teams Engine Room Operator Relationship Specialty Start Date End Date Carlos Rushing MD PCP - General Family Practice 01/10/23 documented as of this encounter
--- OUTSIDE RECORDS SUMMARY | 2024-08-02 01:58 | XMS_ITS | Encounter Summary ---
Author Organization [facility] Medical [facility] Address [address] [place] [address] Care Team Providers Care Photocomposing Keyboard Operator Name Role Phone Erik [place] MD Primary Care Provider [phone] Reason for Visit * Diagnostic Imaging (Routine) - Closed Specialty Diagnoses / Procedures Referred By Contac t Referred To Contact Diagnoses Coronary artery disease involving pit river coronary artery of pit river heart without angina pectoris S/P CABG x 3 Procedures NM MPI SPECT (Rest and/or Stress) Multiple Studies Ashley Rodriguez MD [address] [address] Phone: tel: fax: Referral ID Status Reason Start Date Expiration Date Visits Re quested Visits Authorized [id number] Closed 11/21/2022 12/21/2023 1 1 Encounter Details Date Type Department Care Team (Latest Contact Info) Description 12/19/2022 10:15 AM CDT Ancillary Procedure [facility] Cardiology [address] [place] [address] Coronary artery disease involving pit river coronary artery of pit river heart without angina pectoris; S/P CABG x 3 Social History Tobacco Use Types Packs/Day Years Used Date Smoking Tobacco: Former Smokeless Tobacco: Never Alcohol Use Standard Drinks/Week Comments No 0 (1 standard drink = 0.6 oz pur e alcohol) Sex and Gender Information Value Date Recorded Sex Assigned at Not on file Legal Sex Male 4:42 AM INSURANCE ACCOUNT REPRESENTATIVE Gender Identity Not on file Sexual Orientation Not on file documented as of this encounter Plan of Treatment Not on file documented as of this encounter Procedures Procedure Name Priority Date/Time Associated Diagnosis Comments NM MPI SPECT (REST AND/OR STRESS) MULTIPLE STUDIES Schedule Routine, Read Routine (OP Routine) 12/19/2022 12:11 PM CDT Coronary artery disease involving pit river coronary artery of pit river heart without angina pectoris S/P CABG x 3 documented in this encounter Results * NM MPI SPECT (Rest and/or Stress) Multiple Studies (12/19/2022 12:11 PM CDT) Anatomical Region Laterality Modality Body N/A Nuclear Medicine 12/19/2022 10:4 4 AM CDT Narrative 12/19/2022 4:34 PM CDT [facility] Cardiology [address], [place] [address] [address], [place] [address] P:[phone] P:[phone] MPI Imaging Report Patient Name: MARCIE HOOVER A : 1960 Study Date: 12/19/2022 10:44:50 AM Gender: M Tech: SHIVA [facility] Location: [place] Ref.Provider: ASHLEY RODRIGUEZ Height(Cm): 185.4 BSA: Weight(Kg): [...] Clinical correlation advised. Recommend follow up with radiation therapy technologist. EKG portion of the pharmacological stress test inconclusive for ischemia. Correlate with MPI. Electronically Signed By: Ashley Rodriguez MD, [facility] 2022-12-19 15:11:47 CDT Electronically Signed By: Pankaj Arceo MD 2022-12-19 16:34:51 CDT CC: CC: Procedure Note Jonah Arceo MD - 12/19/2022 [facility] Cardiology [address], [place] [address] [id number], [place] [address] P:[phone] P:[phone] MPI Imaging Report Patient Name: MARCIE HOOVER APatient ID: [id number] : [id number] Date: 12/19/2022 10:44:50 AM Gender: MAccession #: [id number] Tech: SHIVA, CNNVLocation: [place] Ref.Provider: ASHLEY RODRIGUEZHeight(Cm): 185.4 BSA: Weight(Kg): 116.1 [...] ischemia. Clinical correlationadvised. Recommend follow up with radiation therapy technologist. EKG portion of the pharmacological stress test inconclusive for ischemia.Correlate with MPI. Electronically Signed By: Ashley Rodriguez MD, [facility] 2022-12-19 15:11:47 CDT Electronically Signed By: Pankaj Arceo MD 2022-12-19 16:34:51 CDT CC: CC: Ashley Rodriguez MD IMG NM PROCEDURES Final Result documented in this encounter Visit Diagnoses Diagnosis Coronary artery disease involving pit [place] coronary artery of pit river heart without angina pectoris S/P CABG x [...] millicuries documented in this encounter Care Teams Photocomposing Keyboard Operator Relationship Specialty Start Date End Date Erik [place] MD PCP - General Internal Medicine 11/21/22 01/09/23 documented as of this encounter
--- OUTSIDE RECORDS SUMMARY | 2024-08-02 01:58 | XMS_ITS | Encounter Summary ---
Author Organization [facility] Address [address] [place] [address] Care Team Providers Care Pharmaceutical Process Engineer Name Role Phone Hiram Moore DO Primary Care Provider [phone] Encounter Details Date Type Department Care Team (Late st Contact Info) Description 09/01/2021 Orders Only [facility] Cardiology [address] [place] [id number] ProviderDiego MD [address] [place] [address] Social History Tobacco Use Types Packs/Day Years Used Date Smoking Tobacco: Former Smokeless Tobacco: Never Alcohol Use Standard Drinks/Week Comments No 0 (1 standard drink = 0.6 oz pur e alcohol) Sex and Gender Information Value Date Recorded Sex Assigned at Not on file Legal Sex Male 4:42 AM DEPARTMENT OF NATURAL RESOURCES OFFICER Gender Identity Not on file Sexual Orientation [...] on filedocumented in this encounter Care Teams Pharmaceutical Process Engineer Relationship Specialty Start Date End Date Hiram Moore DO PCP - General Internal Medicine 11/20/19 4/25/23 documented as of this encounter
--- OUTSIDE RECORDS SUMMARY | 2024-08-02 01:58 | XMS_ITS | Encounter Summary ---
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 S/P CABG x 3 Procedures Transthoracic Echo (TTE) Complete W Doppler/CF Kt Rodriguez MD [address] [facility] [address] [place] [address] Phone: tel: fax: [facility] Referral ID Status Reason Start Date Expiration Date Visits Re quested Visits Authorized [id number] Closed 11/21/2022 12/21/2023 1 1 * Diagnostic Imaging (Routine) - Closed Specialty Diagnoses / Procedures Referred By Contac t Referred To Contact Diagnoses 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 Rojas. Patient was admitted to [facility] on 01/16/13 with chest pain and was found to have non-ST elevation GA. Cath showed multivessel coronary disease. He was transferred to [facility] and had CABG ??3 [...] 1 tablet (125 mcg total) by mouth business strategy manager before breakfast ??? 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 (Primary) - NM [...] male with CAD, history of non-ST elevation GA, history of CABG ??3 on 01/21/2013, hypertension, [...] AM CDT Narrative 01/10/2023 5:09 PM CDT [facility] Cardiology [address], [place] [address] [address], [place] [address] P:[phone] P:[phone] Echocardiographic Report Patient Name: MARCIE HOOVER A : 1960 Study Date: 01/10/2023 9:12:05 AM Gender: M Tech: Location: [place] Ref.Provider: KT RODRIGUEZ Height(Cm): 185 BSA: 2.43 [...] Findings: Interpretation Site: Exam was interpreted at [facility]. Left Ventricle: Definity contrast agent used to [...] Electronically Signed By: James To MD, [facility] 2023-01-10 17:09:38 CDT Procedure Note James To MD - 01/10/2023 [facility] Cardiology [address] [facility] [address] [address] [address] [facility] [address] [id number], [place] [address] P:[phone] P:[phone] Echocardiographic Report Patient Name: MARCIE HOOVER APatieángel ID: [id number] : [id number] Date: 01/10/2023 9:12:05 AM Gender: MAccession #: [id number] Tech: Location: [place] Ref.Provider: KT RODRIGUEZHeight(Cm): 185 BSA: 2.43Weight(Kg): 114.8 [...] Findings: Interpretation Site: Exam was interpreted at [facility]. Left Ventricle: Definity contrast agent used to [...] Electronically Signed By: James To MD, [facility] 2023-01-10 17:09:38 CDT Kt Rodriguez MD CV ECHO PROCEDURES Final Result * NM MPI SPECT (Rest and/or Stress) Multiple Studies (12/19/2022 12:11 PM CDT) Anatomical Region Laterality Modality Body N/A Nuclear Medicine 12/19/2022 10:4 4 AM CDT Narrative 12/19/2022 4:34 PM CDT [facility] Cardiology [address] [facility] [address] [address] [address] [facility] [address], [place] [address] P:[phone] P:[phone] MPI Imaging Report Patient Name: MARCIE HOOVER A : 1960 Study Date: 12/19/2022 10:44:50 AM Gender: M Tech: [facility] Location: [facility].Provider: KT RODRIGUEZ Height(Cm): 185.4 BSA: Weight(Kg): 116.1 [...] Clinical correlation advised. Recommend follow up with material handling equipment stevedore. EKG portion of the pharmacological stress test inconclusive for ischemia. Correlate with MPI. Electronically Signed By: Kt Rodriguez MD, [facility] 2022-12-19 15:11:47 CDT Electronically Signed By: Pankaj Arceo MD 2022-12-19 16:34:51 CDT CC: CC: Procedure Note Jonah Arceo MD - 12/19/2022 [facility] Cardiology [address] [facility] [address], [place] [address] [address], [place] [address] P:[phone] P:[phone] MPI Imaging Report Patient Name: MACRIE HOOVER APatient ID: [id number] : [id number] Date: 12/19/2022 10:44:50 AM Gender: MAccession #: [id number] Tech: [facility]A [facility] [place]ocation: [place] Ref.Provider: KT RODRIGUEZHeight(Cm): 185.4 BSA: Weight(Kg): 116.1 BMI: 33.78Order Provider: KT RODRIGUEZ - Physician: Referring Physician: Dr. [place]. HCG Physician: Kt oRdriguez M.D., F.A.C.C.Interpreting Physician: Pankaj Arceo M.D. Stress [...] ischemia. Clinical correlationadvised. Recommend follow up with material handling equipment stevedore. EKG portion of the pharmacological stress test inconclusive for ischemia.Correlate with MPI. 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- Primary S/P CABG x 3 Postsurgical aortocoronary bypass status Hypertension associated with diabetes (HCC) Unspecified essential hypertension Coronary artery disease involving t[place]al[place] coronary artery of tulalip heart without angina pectoris S/P CABG x 3 Postsurgical aortocoronary bypass status Coronary artery disease involving tulal[place] coronary artery of tulalip heart without angina pectoris S/P CABG x 3 Postsurgical aortocoronary bypass status documented in this encounter Discontinued Medications Medication Sig Discontinue Reason Start Date End Da te buPROPion (WELLBUTRIN) 100 mg tablet take 1 tablet by oral route 2 times every day 03/17/2013 11/21/2022 documented as of this encounter Care Teams Dredge Boat Engineer Relationship Specialty Start Date End Date Erik [place] MD PCP - General Internal Medicine 11/21/22 01/09/23 documented as of this encounter
--- OUTSIDE RECORDS SUMMARY | 2024-08-02 01:58 | XMS_ITS | Encounter Summary ---
Author Organization [facility] Address [address] [place] [address] Care Team Providers Care Pst Supervisor Name Role Phone Erik [place] MD Primary Care Provider [phone] Encounter Details Date Type Department Care Team (Late st Contact Info) Description 12/20/2022 Telephone [facility] Cardiology [address] [facility] [address] [place] [address] Kt Hemphill MD [address] [place] [id number] Social History Tobacco Use Types Packs/Day Years Used Date Smoking Tobacco: Former Smokeless Tobacco: Never Alcohol Use Standard Drinks/Week Comments No 0 (1 standard drink = 0.6 oz pur e alcohol) Sex and Gender Information Value Date Recorded Sex Assigned at Not on file 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
--- OUTSIDE RECORDS SUMMARY | 2024-08-02 01:58 | XMS_ITS | Encounter Summary ---
Author Organization [facility] Address [address] [place] [address] Care Team Providers Care Inspector Agricultural Commodities Name Role Phone Carlos Rushing MD Primary Care Provider [phone] Reason for Visit * Reason Comments Hypertension Coronary Artery Disease Hyperlipidemia 10 wk f/u Encounter Details Date Type Department Care Team (Late st Contact Info) Description 03/27/2023 10:45 AM CDT Office Visit [facility] Cardiology [address] [facility] [address] [place] [address] Kt Hemphill MD [address] [address] Coronary artery disease involving telida coronary artery of telida heart without angina pectoris (Primary Dx); S/P [...] on file 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 Rojas. Patient was admitted to [facility] on 01/16/13 with chest pain and was found to have non-ST elevation [place]. Cath showed multivessel coronary disease. He was transferred to [facility] and had CABG ??3 on [...] 1 tablet (125 mcg total) by mouth production team leader before breakfast ??? losartan (COZAAR) 100 mg [...] for this visit: Coronary artery disease involving telida coronary artery of telida heart without angina pectoris (Primary) S/P CABG x 3 Hypertension associated with diabetes (HCC) Mixed dyslipidemia PLAN/RECOMMENDATIONS 62 y.o. male with CAD, history of non-ST elevation [place], history of CABG ??3 on 01/21/2013, hypertension, [...] coronary angiogram would be reasonable to re-evaluate telida vessels and patency of bypass grafts. Patient [...] Visit Diagnoses Diagnosis Coronary artery disease involving telida coronary artery of telida heart without angina pectoris- Primary S/P CABG [...] days added in this encounter Care Teams Inspector Agricultural Commodities Relationship Specialty Start Date End Date Carlos Rushing MD PCP - General Family Practice 01/10/23 documented as of this encounter
--- OUTSIDE RECORDS SUMMARY | 2024-08-02 01:58 | XMS_ITS | Clinical Summary ---
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
--- OUTSIDE RECORDS SUMMARY | 2024-08-02 01:58 | XMS_ITS | Encounter Summary ---
Author Organization [facility] Healthcare Address [address] [place] [address] Care Team Providers Care Rn Liaison Name Role Phone Carlos Rushing MD Primary Care Provider [phone] Encounter Details Date Type Department Care Team (Late st Contact Info) Description 06/03/2023 Telephone [facility] Cardiology [address] [place] [address] Kt Hemphill MD [address] [place] [address] [address] [place] [address] Social History Tobacco Use Types Packs/Day Years Used Date Smoking Tobacco: Former Smokeless Tobacco: Never Alcohol Use Standard Drinks/Week Comments No 0 (1 standard drink = 0.6 oz pur e alcohol) Sex and Gender Information Value Date Recorded Sex Assigned at Not on file Legal Sex Male 4:[address] BUILDING DECORATOR Gender Identity Not on file Sexual Orientation [...] Neisha Ordaz RN - 06/03/2023 1:[address] AND BUILDING DECORATOR Refill for asa placed per DK, as pt continues to take medication. ET AND BUILDING DECORATOR documented in this encounter Plan of Treatment Not on file documented as of this encounter Visit Diagnoses Not on filedocumented in this encounter Discontinued Medications Medication Sig Discontinue Reason Start Date End Da te aspirin 81 mg enteric coated tablet Take 1 tablet (81 mg total) by mouth daily Reorder 10/22/2018 06/03/2023 documented as of this encounter Care Teams Rn Liaison Relationship Specialty Start Date End Date Carlos Rushing MD PCP - General Family Practice 01/10/23 documented as of this encounter
--- OUTSIDE RECORDS SUMMARY | 2024-08-02 01:58 | XMS_ITS | Encounter Summary ---
Author Organization [facility] Address [address] [facility] [address] [place] [address] Care Team Providers Care High School Math Teacher Name Role Phone Hiram Moore DO Primary Care Provider [phone] Reason for Visit * Reason Comments Med Refill Encounter Details Date Type Department Care Team (Late st Contact Info) Description 06/20/2020 Telephone [facility] Cardiology [address] [facility] [address] [place] [address] Kt Hemphill MD [address] [place] [id number] Med Refill Social History Tobacco Use Types Packs/Day Years Used Date Smoking Tobacco: Former Smokeless Tobacco: Never Alcohol Use Standard Drinks/Week Comments No 0 (1 standard drink = 0.6 oz pur e alcohol) Sex and Gender Information Value Date Recorded Sex Assigned at Not on file 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 Pharmacy: [facility] L WHEEL ENGRAVER * Telephone Encounter - Johan Copeland MA - 06/20/2020 9:03 AM CST Patient needs to be seen. LMOM to have patient call back to schedule appt for refill. L WHEEL ENGRAVER documented in this encounter Plan of Treatment Not on file documented as of this encounter Visit Diagnoses Not on filedocumented in this encounter Discontinued Medications Medication Sig Discontinue Reason Start Date End Da te ezetimibe (ZETIA) 10 mg tablet Take 1 tablet (10 mg total) by mouth daily 02/09/2020 06/20/2020 documented as of this encounter Care Teams High School Math Teacher Relationship Specialty Start Date End Date Hiram Moore DO PCP - General Internal Medicine 06/17/19 11/20/22 documented as of this encounter
--- OUTSIDE RECORDS SUMMARY | 2024-08-02 01:58 | XMS_ITS | Encounter Summary ---
Author Organization [facility] Address [address] [facility] [address] [place] [address] Care Team Providers Care Weigher And Grader Name Role Phone Erik Morris MD Primary Care Provider [phone] Encounter Details Date Type Department Care Team (Late st Contact Info) Description 01/02/2023 Telephone [facility] Cardiology [address] [facility] [address] [place] [address] Kt Hemphill MD [address] [place] [id number] Social History Tobacco Use Types Packs/Day Years Used Date Smoking Tobacco: Former Smokeless Tobacco: Never Alcohol Use Standard Drinks/Week Comments No 0 (1 standard drink = 0.6 oz pur e alcohol) Sex and Gender Information Value Date Recorded Sex Assigned at Not on file 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
--- OUTSIDE RECORDS SUMMARY | 2024-08-02 01:58 | XMS_ITS | Referral Summary ---
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
--- OUTSIDE RECORDS SUMMARY | 2024-08-02 01:58 | XMS_ITS | Encounter Summary ---
Author Organization [facility] Address [address] [facility] [address] [place] [address] Care Team Providers Care Supervisor Delivery Department Name Role Phone Hiram Moore DO Primary Care Provider Reason for Visit * Reason Comments Coronary Artery Disease Hypertension annual f/u * Consultation (Routine) - Closed Specialty Diagnoses / Procedures Referred By Contac t Referred To Contact Cardiology Diagnoses Atherosclerosis of [place] coronary artery with other form of angina pectoris, unspecified whether [place] or transplanted heart (HCC) Hiram Moore DO Phone: tel: fax: [facility] Cardiology [address] [address] Phone: tel: fax: Referral ID Status Reason Start Date Expiration Date V isits Requested Visits Authorized [id number] Closed Specialty Services Required 09/04/2021 03/03/2022 12 12 Encounter Details Date Type Department Care Team (Late st Contact Info) Description 09/07/2021 10:00 AM TREE CLIMBER Office Visit [facility] Cardiology [address] [facility] [address] [address] Carmen Snyder NP [address] [place] [address] Coronary artery disease involving [place] coronary artery of [place] heart without angina pectoris; Hx of CABG; [...] on file Legal Sex Male 4:42 AM TREE CLIMBER Gender Identity Not on file Sexual Orientation Not on file documented as of this encounter Last Filed Vital Signs Vital Sign Reading Time Taken Comments Blood Pressure 124/78 09/07/2021 10:18 AM TREE CLIMBER Pulse 86 09/07/2021 10:18 AM TREE CLIMBER Temperature - - Respiratory Rate - - Oxygen Saturation 94% 09/07/2021 10:18 AM TREE CLIMBER Inhaled Oxygen Concentration - - Weight 110.7 kg (244 lb) 09/07/2021 10:18 AM TREE CLIMBER Height 185.4 cm (6' 1 ) 09/07/2021 10:18 AM TREE CLIMBER Body Mass Index 32.19 09/07/2021 10:18 AM TREE CLIMBER documented in this encounter Progress Notes * Carmen Snyder NP - 09/07/2021 10:00 AM CST Images from the original note were not included. [facility] Cardiology [address] [place] [address] Date of Visit: 09/07/2021 Patient ID: Kristopher [...] of Dr. Rojas. Patient was admitted to [facility] on 01/16/13 with chest pain and was found to have non-ST elevation [place]. Cath showed multivessel coronary disease. He was transferred to [facility] and had CABG ??3 on [...] with current medical regimen. 09/07/2021 OV with HEAD OF BIOLOGY: He is here for his annual follow-up. [...] mcg tablet, Take 125 mcg by mouth hired hand before breakfast,Disp: , Rfl: ??? losartan (COZAAR) [...] for this visit: Coronary artery disease involving [place] coronary artery of [place] heart without angina pectoris - Ambulatory referral to Cardiology Hx of CABG - Ambulatory referral to Cardiology Essential hypertension Dyslipidemia Type 2 diabetes mellitus with circulatory disorder ([facility]) ([facility]) Plan/Recommendations: He has coronary artery disease with [...] concerns. 09/07/2021 BROWN Parham- Nurse Practitioner with [facility] This note is dictated and transcribed using Signicat Direct Software. Chairperson Anesthesiology variancesmay occur. Despite proofreading, typographical errors may occur. CLIMBER documented in this encounter Miscellaneous Notes * Addendum Note - Hailee Shah MA - 09/07/2021 10:00 AM CSTAddended by: HAILEE SHAH on: 09/07/2021 12:10 PM Modules accepted: Orders CLIMBER documented in this encounter Plan of Treatment Not on file documented as of this encounter Procedures Procedure Name Priority Date/Time Associated Diagnosis Comments POCT LIPID PANEL Routine 09/07/2021 12:1 0 PM TREE CLIMBER Coronary artery disease involving [place] coronary artery of [place] heart without angina pectoris Dyslipidemia documented in this encounter Results * POCT lipid panel (09/07/2021 12:10 PM TREE CLIMBER) Cholesterol, POC <100 mg/dL HDL, POC 25 mg/dL Triglycerides, POC 165 mg/dL LDL Cholesterol POC 50 mg/dL Chol/HDL Ratio, POC N/A Non-HDL Cholesterol, POC N/A mg/dL Cholesterol Total, POC <100 mg/dL Capillary blood 09/07/2021 1 2:10 PM TREE CLIMBER Carmen Snyder NP POINT OF CARE TEST ORDERA BLES Final Result documented in this encounter Visit Diagnoses Diagnosis Coronary artery disease involving [place] coronary artery of [place] heart without angina pectoris Hx of CABG [...] 09/07/2021 documented in this encounter Care Teams Supervisor Delivery Department Relationship Specialty Start Date End Date Hiram Moore DO PCP - General Internal Medicine 06/17/19 11/20/22 documented as of this encounter
--- OUTSIDE RECORDS SUMMARY | 2024-08-02 01:58 | XMS_ITS | Encounter Summary ---
Author Organization [facility] Medical Group Address [address] [facility] [address] [place] [address] Care Team Providers Care Rooming House Operator Name Role Phone Erik Morris MD Primary Care Provider [phone] Reason for Visit * Reason Comments Hypertension Coronary Artery Disease Follow up after abnormal stress test. 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 Rojas. Patient was admitted to [facility] on 01/16/13 with chest pain and was found to have non-ST elevation [place]. Cath showed multivessel coronary disease. He was transferred to [facility] and had CABG ??3 on [...] (125 mcg total) by mouth early childhood assistant before breakfast ??? losartan (COZAAR) 100 mg [...] for this visit: Coronary artery disease involving [place] coronary artery of [place] heart without angina pectoris (Primary) - POCT lipid panel S/P CABG x 3 Hypertension associated with diabetes (HCC) Mixed dyslipidemia Other orders - icosapent ethyL (VASCEPA) 1 gram capsule; Take 2 capsules (2 g total) by mouth 2 (two) times a day PLAN/RECOMMENDATIONS 62 y.o. male with CAD, history of non-ST elevation [place], history of CABG ??3 on 01/21/2013, hypertension, [...] inhibitor. Patient advised to speak with his PCP/organ fixer about Ozempic for CV benefits. -Advised to [...] 2:46 PM CDT Coronary artery disease involving [place] coronary artery of [place] heart without angina pectoris documented in this [...] Visit Diagnoses Diagnosis Coronary artery disease involving [place] coronary artery of [place] heart without angina pectoris- Primary S/P CABG x 3 Postsurgical aortocoronary bypass status Hypertension associated with diabetes (HCC) Unspecified essential hypertension Mixed dyslipidemia documented in this encounter Care Teams Rooming House Operator Relationship Specialty Start Date End Date Erik Morris MD PCP - General Internal Medicine 11/21/22 01/09/23 documented as of this encounter
--- OUTSIDE RECORDS SUMMARY | 2024-08-02 01:58 | XMS_ITS | Encounter Summary ---
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 Procedures Transthoracic Echo (TTE) Complete W Doppler/CF Ashley Rodriguez MD [address] [address] Phone: tel: fax: [facility] Referral ID Status Reason Start Date Expiration Date Visits Re quested Visits Authorized [id number] Closed 11/21/2022 12/21/2023 1 1 Encounter Details Date Type Department Care Team (Latest Contact Info) Description 01/10/2023 9:15 AM CDT Ancillary Procedure [facility] Cardiology [address] [facility] [address] [place] [address] Coronary artery disease involving [place] coronary artery of [place] heart without angina pectoris; S/P CABG x 3 Social History Tobacco Use Types Packs/Day Years Used Date Smoking Tobacco: Former Smokeless Tobacco: Never Alcohol Use Standard Drinks/Week Comments No 0 (1 standard drink = 0.6 oz pur e alcohol) Sex and Gender Information Value Date Recorded Sex Assigned at Not on file 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 Gender Identity Not on file Sexual Orientation [...] 9:44 AM CDT Coronary artery disease involving [place] coronary artery of [place] heart without angina pectoris S/P CABG x 3 documented in this encounter Results * TRANSTHORACIC ECHO (TTE) COMPLETE W DOPPLER/CF W CONTRAST (01/10/2023 9:44 AM CDT) Anatomical Region Laterality Modality Ultrasound 01/10/2023 9:12 AM CDT Narrative 01/10/2023 5:09 PM CDT [facility] Cardiology [address] [facility] [address], [place] [address] [address], [place] [address] P:[phone] P:[phone] Echocardiographic Report Patient Name: MARCIE HOOVER A : 1960 Study Date: 01/10/2023 9:12:05 AM Gender: M Tech: Location: DC Ref.Provider: ASHLEY RODRIGUEZ Height(Cm): 185 BSA: 2.43 [...] Findings: Interpretation Site: Exam was interpreted at [facility]. Left Ventricle: Definity contrast agent used to [...] valve. Electronically Signed By: James To MD, [facility] 2023-01-10 17:09:38 CDT Procedure Note James To MD - 01/10/2023 [facility] Cardiology [address], [place] [address] [address] [facility] [address], [place] [address] P:[phone] P:[phone] Echocardiographic Report Patient Name: MARCIE HOOVER APatient ID: [id number] : [id number] Date: 01/10/2023 9:12:05 AM Gender: MAccession #: [id number] Tech: Location: DC Ref.Provider: ASHLEY RODRIGUEZHeight(Cm): 185 BSA: 2.43Weight(Kg): 114.8 [...] Findings: Interpretation Site: Exam was interpreted at [facility]. Left Ventricle: Definity contrast agent used to [...] valve. Electronically Signed By: James To MD, [facility] 2023-01-10 17:09:38 CDT Ashley Rodriguez MD CV ECHO PROCEDURES Final Result documented in this encounter Visit Diagnoses Diagnosis Coronary artery disease involving [place] coronary artery of [place] heart without angina pectoris S/P CABG x [...] 01/10/2023 documented in this encounter Care Teams Air Conditioner Installer Helper Relationship Specialty Start Date End Date Carlos Rushing MD PCP - General Family Practice 01/10/23 documented as of this encounter
--- OUTSIDE RECORDS SUMMARY | 2024-08-02 01:58 | XMS_ITS | Encounter Summary ---
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
--- OUTSIDE RECORDS SUMMARY | 2024-08-02 01:58 | XMS_ITS | Encounter Summary ---
Author Organization [facility] Healthcare Address [address] [place] [address] Care Team Providers Care Analysis Reporting Developer Name Role Phone Carlos Rushing MD Primary Care Provider [phone] Encounter Details Date Type Department Care Team (Late st Contact Info) Description 05/20/2023 Orders Only [facility] Medical Group Cardiology [address] [address] [place] [address] [place] [address] [address] [place] [address] Social History Tobacco Use Types Packs/Day Years Used Date Smoking Tobacco: Former Smokeless Tobacco: Never Alcohol Use Standard Drinks/Week Comments No 0 (1 standard drink = 0.6 oz pur e alcohol) Sex and Gender Information Value Date Recorded Sex Assigned at Not on file Legal Sex Male 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
--- OUTSIDE RECORDS SUMMARY | 2024-08-02 01:58 | XMS_ITS | Continuity of Care Document ---
Author Organization [facility] Address [address] [place] [address] Phone Care Team Providers Care Financial Aid Name Role Phone Allen OD, Rajesh Unavailable Unavailable Advance Directives Directive Yes / No Effective Date File Name No Information Encounters Encounter Description Practice Location Reason(s) For Visit Diagnoses Date Provider Providers Copied on Encounter [facility], [address], [place], [place], [id number], [place] tel:[phone] [facility] No Information 1-200 6 Allen OD Rajesh. [address], [place], [address], [place]. tel:[phone] Family History Family Member Type Diagnosis Age At Onset No Information Payers Payer name Insurance type Covered green party ID Authoriza tion(s) No Information Social History [...]
--- OUTSIDE RECORDS SUMMARY | 2024-08-02 01:59 | XMS_ITS | Encounter Summary ---
Author Organization [facility] Address [address] [facility] [address] [place] [address] Care Team Providers Care Retail Pharmacist Name Role Phone Markel White MD Primary Care Provider [phone] Encounter Details Date Type Department Care Team (Late st Contact Info) Description 01/21/2017 Telephone [facility] [address] [facility] [address] [place] [address] Kt Hemphill MD [address] [place] [phone] Social History Tobacco Use Types Packs/Day Years Used Date Smoking Tobacco: Never Assessed Alcohol Use Standard Drinks/Week Comments Yes 0 (1 standard drink = 0.6 oz pur e alcohol) Sex and Gender Information Value Date Recorded Sex Assigned at Not on file Legal Sex Male 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
--- OUTSIDE RECORDS SUMMARY | 2024-08-02 01:59 | XMS_ITS | Encounter Summary ---
Author Organization [facility] Address [address] [facility] [address] [place] [address] Care Team Providers Care Nurseryperson Name Role Phone Markle White MD Primary Care Provider [phone] Encounter Details Date Type Department Care Team (Late st Contact Info) Description 02/12/2017 Telephone [facility] [address] [facility] [address] [place] [address] Kt Hemphill MD [address] [facility] [address] [place] [address] Social History Tobacco Use Types Packs/Day Years Used Date Smoking Tobacco: Never Assessed Alcohol Use Standard Drinks/Week Comments Yes 0 (1 standard drink = 0.6 oz pur e alcohol) Sex and Gender Information Value Date Recorded Sex Assigned at Not on file 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 documented in this encounter Plan of Treatment Not on file documented as of this encounter Visit Diagnoses Not on filedocumented in this encounter Care Teams Nurseryperson Relationship Specialty Start Date End Date Markel White MD [address] [place] [address] PCP - General 10/26/16 06/16/19 documented as of this encounter
--- OUTSIDE RECORDS SUMMARY | 2024-08-02 01:59 | XMS_ITS | Encounter Summary ---
Author Organization [facility] Healthcare Address [address] [place] [address] Care Team Providers Care Sales Supervisor Name Role Phone Unavailable Primary Care Provider Unavailabl e Encounter Details Date Type Department Care Team (Late st Contact Info) Description 02/05/2013 9:05 AM CDT - 02/05/2013 11:59 PM CDT Hospital [place] [address] [place] [address] Congestive heart failure (CMS/HCC) (HCC); Disorder of kidney and ureter Social History Tobacco Use Types Packs/Day Years Used Date Smoking Tobacco: Never Assessed Sex and Gender Information Value Date Recorded Sex Assigned at Not on file 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
--- OUTSIDE RECORDS SUMMARY | 2024-08-02 01:59 | XMS_ITS | Encounter Summary ---
Author Organization [facility] Address [address] [place] [address] Care Team Providers Care Bee Raiser Name Role Phone Markel White MD Primary Care Provider [phone] Encounter Details Date Type Department Care Team (Late st Contact Info) Description 04/17/2018 Telephone [facility] [phone] Kt Hepmhill MD [address] [place], [place] [address] [place] [address] Social History Tobacco Use Types Packs/Day Years Used Date Smoking Tobacco: Never Assessed Alcohol Use Standard Drinks/Week Comments Yes 0 (1 standard drink = 0.6 oz pur e alcohol) Sex and Gender Information Value Date Recorded Sex Assigned at Not on file Legal 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
--- OUTSIDE RECORDS SUMMARY | 2024-08-02 01:59 | XMS_ITS | Encounter Summary ---
Author Organization [facility] Address [address] [facility] [place] [address] Care Team Providers Care Eyelet Machine Operator Name Role Phone Markel White MD Primary Care Provider [phone] Encounter Details Date Type Department Care Team (Late st Contact Info) Description 02/08/2017 Telephone [facility] [address] [facility] [address] [facility] [address] [place] [address] Kt Hemphill MD [address] [place] [id number] Social History Tobacco Use Types Packs/Day Years Used Date Smoking Tobacco: Never Assessed Alcohol Use Standard Drinks/Week Comments Yes 0 (1 standard drink = 0.6 oz pur e alcohol) Sex and Gender Information Value Date Recorded Sex Assigned at Not on file 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
--- OUTSIDE RECORDS SUMMARY | 2024-08-02 01:59 | XMS_ITS | Encounter Summary ---
Author Organization [facility] Address [address] [facility] [place] [address] Care Team Providers Care Meter Supervisor Name Role Phone Markel White MD Primary Care Provider [phone] Encounter Details Date Type Department Care Team (Late st Contact Info) Description 02/13/2017 Telephone [facility] [address] [facility] [address] [place] [address] Liz Ren MA Social History Tobacco Use Types Packs/Day Years Used Date Smoking Tobacco: Never Assessed Alcohol Use Standard Drinks/Week Comments Yes 0 (1 standard drink = 0.6 oz pur e alcohol) Sex and Gender Information Value Date Recorded Sex Assigned at Not on file 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 documented in this encounter Plan of Treatment Not on file documented as of this encounter Visit Diagnoses Not on filedocumented in this encounter Care Teams Meter Supervisor Relationship Specialty Start Date End Date Markle White MD [address] [facility] [address] INTERNAL MED[address]INE [place], [place] [id number] PCP - General 10/26/16 06/16/19 documented as of this encounter
--- OUTSIDE RECORDS SUMMARY | 2024-08-02 01:59 | XMS_ITS | Encounter Summary ---
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 Gender Identity Not on file Sexual Orientation [...] Organization Address City/[facility] Co de Phone Number HISTORICAL RESULTS * Serum Human Immunodeficiency virus [HIV] 1and 2 ag/ab (01/21/2013 12:44 PM CDT) HIV 1 and 2, ag/ab Negative Negative HISTORICAL RESULTS Serum 01/21/2013 12:4 4 PM CDT Historical Provider LAB BLOOD ORDERABLES Ambar l Result Performing Organization Address City/[facility] Co de Phone Number HISTORICAL RESULTS documented in this encounter Visit Diagnoses Not on filedocumented in this encounter
--- OUTSIDE RECORDS SUMMARY | 2024-08-02 01:59 | XMS_ITS | Encounter Summary ---
Author Organization [facility] Address [address] [place] [address] Care Team Providers Care Book Sorter Name Role Phone Markel White MD Primary Care Provider [phone] Reason for Visit * Reason Onset Date Comments Med Refill 02/13/2017 Pt needs new RX for Metoprolol 50 mg sent to [facility] - gave [place] the fax number of . Encounter Details Date Type Department Care Team (Late st Contact Info) Description 02/13/2017 Telephone [facility] [address] [facility] [address] [facility] [address] [place] [address] Kt Hemphill MD [address] [address] Med Refill (Pt needs new RX for Metoprolol 50 mg sent to [facility] - gave [place] the fax number of . 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 Needs a new RX for his [...] documented as of this encounter Care Teams Book Sorter Relationship Specialty Start Date End Date Markel White MD [address] [place] [address] [place] [address] PCP - General 10/26/16 06/16/19 documented as of this encounter
--- OUTSIDE RECORDS SUMMARY | 2024-08-02 01:59 | XMS_ITS | Encounter Summary ---
Author Organization [facility] Address [address] [place] [address] Care Team Providers Care Enrichment Assistant Name Role Phone Unavailable Primary Care Provider Unavailabl e Encounter Details Date Type Department Care Team (Late st Contact Info) Description 02/02/2013 2:58 PM CDT - 02/02/2013 11:59 PM CDT [place] [address] [facility] [address] [place] [address] Heart failure (HCC) Social History Tobacco Use Types Packs/Day Years Used Date Smoking Tobacco: Never Assessed Sex and Gender Information Value Date Recorded Sex Assigned at Not on file Legal Sex Male 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
--- OUTSIDE RECORDS SUMMARY | 2024-08-02 01:59 | XMS_ITS | Encounter Summary ---
Author Organization [facility] Address [address] [place] [address] Care Team Providers Care Search Engine Optimization Specialist Name Role Phone Markel White MD Primary Care Provider [phone] Reason for Visit * Reason Comments Follow-up overdue fu on CAD, h /o CABG Encounter Details Date Type Department Care Team (Late st Contact Info) Description 06/11/2018 11:45 AM OFFICE SECRETARY Office Visit [facility] [address] [facility] [address] [place] [address] Kt Hemphill MD [address] [place] [phone] Coronary artery disease involving [place] coronary artery of [place] heart without angina pectoris (Primary Dx); S/P CABG x 3; Essential hypertension; Dyslipidemia; Type 2 diabetes mellitus without complication, without long-term current use of insulin ([facility]) Social History Tobacco Use Types Packs/Day Years Used Date Smoking Tobacco: Former Smokeless Tobacco: Never Alcohol Use Standard Drinks/Week Comments No 0 (1 standard drink = 0.6 oz pur e alcohol) Sex and Gender Information Value Date Recorded Sex Assigned at Not on file Legal Sex Male 4:42 AM OFFICE SECRETARY Gender Identity Not on file Sexual Orientation Not on file documented as of this encounter Last Filed Vital Signs Vital Sign Reading Time Taken Comments Blood Pressure 130/80 06/11/2018 11:40 AM OFFICE SECRETARY Pulse 70 06/11/2018 11:40 AM OFFICE SECRETARY Temperature - - Respiratory Rate - - Oxygen Saturation 97% 06/11/2018 11:40 AM OFFICE SECRETARY Inhaled Oxygen Concentration - - Weight 116.6 kg (257 lb) 06/11/2018 11:40 AM OFFICE SECRETARY Height 185.4 cm (6' 1 ) 06/11/2018 11:40 AM OFFICE SECRETARY Body Mass Index 33.91 06/11/2018 11:40 AM OFFICE SECRETARY documented in this encounter Ordered Prescriptions Prescription [...] of Dr. Rojas. Patient was admitted to [facility] on 01/16/13 with chest pain and was found to have non-ST elevation ID. Cath showed multivessel coronary disease. He was transferred to [facility] and had CABG ??3 on 01/18/13. Patient [...] for this visit: Coronary artery disease involving [place] coronary artery of [place] heart without angina pectoris (Primary) S/P CABG x 3 Essential hypertension Dyslipidemia Type 2 diabetes mellitus without complication, without long-term current use of insulin ([facility]) Other orders - hydroCHLOROthiazide (HYDRODIURIL) 12.5 mg tablet; 2 tablets (25 mg total) daily. PLAN/RECOMMENDATIONS 57 year-old male with CAD, history of non-ST elevation ID, history of CABG ??3, hypertension, diabetes mellitus, [...] or sooner if needed. Kt Hemphill MD CE SECRETARY documented in this encounter Plan of Treatment Not on file documented as of this encounter Visit Diagnoses Diagnosis Coronary artery disease involving [place] coronary artery of [place] heart without angina pectoris- Primary S/P CABG x 3 Postsurgical aortocoronary bypass status Essential hypertension Unspecified essential hypertension Dyslipidemia Other and unspecified hyperlipidemia Type 2 diabetes mellitus without complication, without long-term current use of insulin ([facility]) (HCC) documented in this encounter Discontinued Medications Medication Sig Discontinue Reason Start Date End Da te hydroCHLOROthiazide (HYDRODIURIL) 12.5 mg tablet take 1 tablet by oral route every day 04/13/2015 06/11/2018 documented as of this encounter Care Teams Search Engine Optimization Specialist Relationship Specialty Start Date End Date Markel White MD [address] [place] [address] PCP - General 10/26/16 06/16/19 documented as of this encounter
--- OUTSIDE RECORDS SUMMARY | 2024-08-02 01:59 | XMS_ITS | Encounter Summary ---
Author Organization [facility] Address [address] [place] [address] Care Team Providers Care Brush Fabrication Supervisor Name Role Phone Markel White MD Primary Care Provider [phone] Encounter Details Date Type Department Care Team (Late st Contact Info) Description 01/31/2017 Telephone [facility] [address] [facility] [address] [place] [address] Kt Hemphill MD [address] [place] [id number] Social History Tobacco Use Types Packs/Day Years Used Date Smoking Tobacco: Never Assessed Alcohol Use Standard Drinks/Week Comments Yes 0 (1 standard drink = 0.6 oz pur e alcohol) Sex and Gender Information Value Date Recorded Sex Assigned at Not on file 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 [address] [place] [address] PCP - General 10/26/16 06/16/19 documented as of this encounter
--- OUTSIDE RECORDS SUMMARY | 2024-08-02 01:59 | XMS_ITS | Encounter Summary ---
Author Organization [facility] Address [address] [place] [address] Care Team Providers Care Dye Tank Tender Name Role Phone Hiram Moore DO Primary Care Provider Reason for Visit * Reason Comments Follow-up yearly follow up on CAD, HTN, dyslipidemia * Consultation (Routine) - Canceled Specialty Diagnoses / Procedures Referred By Contac t Referred To Contact Cardiology Diagnoses Atherosclerosis of [place] coronary artery without angina pectoris, unspecified whether [place] or transplanted heart Hiram Moore DO Phone: tel: fax: [facility] [address] [place] [address] [address] [place] [address] Phone: tel: fax: Referral ID Status Reason Start Date Expiration Date Visits Requested Visits Authorized [id number] Canceled Specialty Services Required 06/17/2019 12/14/2019 2 2 Encounter Details Date Type Department Care Team (Late st Contact Info) Description 06/17/2019 11:30 AM PRODUCTION INTERNSHIP Office Visit [facility] [address] [facility] [address] [place] [address] Kt Hemphill MD [address] [address] Coronary artery disease involving [place] coronary artery of [place] heart without angina pectoris (Primary Dx); S/P CABG x 3; Essential hypertension; Dyslipidemia; Type 2 diabetes mellitus without complication, without long-term current use of insulin ([facility]) Social History Tobacco Use Types Packs/Day Years Used Date Smoking Tobacco: Former Smokeless Tobacco: Never Alcohol Use Standard Drinks/Week Comments No 0 (1 standard drink = 0.6 oz pur e alcohol) Sex and Gender Information Value Date Recorded Sex Assigned at Not on file Legal Sex Male 4:42 AM PRODUCTION INTERNSHIP Gender Identity Not on file Sexual Orientation Not on file documented as of this encounter Last Filed Vital Signs Vital Sign Reading Time Taken Comments Blood Pressure 110/70 06/17/2019 11:09 AM PRODUCTION INTERNSHIP Pulse 74 06/17/2019 11:09 AM PRODUCTION INTERNSHIP Temperature - - Respiratory Rate - - Oxygen Saturation 96% 06/17/2019 11:09 AM PRODUCTION INTERNSHIP Inhaled Oxygen Concentration - - Weight 113.4 kg (250 lb) 06/17/2019 11:09 AM PRODUCTION INTERNSHIP Height 185.4 cm (6' 1 ) 06/17/2019 11:09 AM PRODUCTION INTERNSHIP Body Mass Index 32.98 06/17/2019 11:09 AM PRODUCTION INTERNSHIP documented in this encounter Ordered Prescriptions Prescription [...] of Dr. Rojas. Patient was admitted to [facility] on 01/16/13 with chest pain and was found to have non-ST elevation [place]. Cath showed multivessel coronary disease. He was transferred to [facility] and had CABG ??3 on 01/18/13. 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 losartan (COZAAR) 100 [...] for this visit: Coronary artery disease involving [place] coronary artery of [place] heart without angina pectoris (Primary) S/P CABG x 3 Essential hypertension Dyslipidemia Type 2 diabetes mellitus without complication, without long-term current use of insulin ([facility]) Other orders - ezetimibe (ZETIA) 10 mg tablet; Take 1 tablet (10 mg total) by mouth daily PLAN/RECOMMENDATIONS 58 year-old male with CAD, history of non-ST elevation [place], history of CABG ??3, hypertension, diabetes mellitus, [...] or sooner if needed. Kt Hemphill MD [employer]IP documented in this encounter Miscellaneous Notes * Addendum Note - Liz Ren MA - 06/17/2019 11:30 AM CSTAddended by: LIZ REN on: 06/17/2019 11:26 AM Modules accepted: Orders [employer] documented in this encounter Plan of Treatment Not on file documented as of this encounter Procedures Procedure Name Priority Date/Time Associated Diagnosis Comments POCT LIPID PANEL Routine 06/17/2019 11:2 6 AM PRODUCTION INTERNSHIP Coronary artery disease involving [place] coronary artery of [place] heart without angina pectoris Dyslipidemia documented in this encounter Results * POCT lipid panel (06/17/2019 11:26 AM PRODUCTION INTERNSHIP) Cholesterol, POC 150 mg/dL HDL, POC 22 mg/dL Triglycerides, POC 252 mg/dL LDL Cholesterol POC 78 mg/dL Chol/HDL Ratio, POC 6.8 Non-HDL Cholesterol, POC 128 mg/dL Cholesterol Total, POC 150 mg/dL Blood specimen (specimen) 06/17/2019 11:26 AM PRODUCTION INTERNSHIP us Kt Hemphill MD POINT OF CARE TEST ORDERABLES Fi nal Result documented in this encounter Visit Diagnoses Diagnosis Coronary artery disease involving [place] coronary artery of [place] heart without angina pectoris- Primary S/P CABG x 3 Postsurgical aortocoronary bypass status Essential hypertension Unspecified essential hypertension Dyslipidemia Other and unspecified hyperlipidemia Type 2 diabetes mellitus without complication, without long-term current use of insulin ([facility]) ([facility]) documented in this encounter [...] 1 tablet (125 mcg total) by mouth tassel making machine operator before breakfast added in this encounter Care Teams Dye Tank Tender Relationship Specialty Start Date End Date Hiram Moore DO PCP - General Internal Medicine 06/17/19 11/20/22 documented as of this encounter
--- OUTSIDE RECORDS SUMMARY | 2024-08-02 01:59 | XMS_ITS | Encounter Summary ---
Author Organization [facility] Address [address] [place] [address] Care Team Providers Care Welt Edge Rounder Name Role Phone Markel White MD Primary Care Provider [phone] Encounter Details Date Type Department Care Team (Late st Contact Info) Description 04/11/2019 Orders Only [facility] [address] [facility] [address] [place] [address] ProviderDiego MD [address] [place], [place] [id number] Social History Tobacco Use Types Packs/Day Years Used Date Smoking Tobacco: Former Smokeless Tobacco: Never Alcohol Use Standard Drinks/Week Comments No 0 (1 standard drink = 0.6 oz pur e alcohol) Sex and Gender Information Value Date Recorded Sex Assigned at Not on file 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
--- OUTSIDE RECORDS SUMMARY | 2024-08-02 01:59 | XMS_ITS | Encounter Summary ---
Author Organization [facility] Address [address] [facility] [address] [place] [address] Care Team Providers Care Skin Grader Name Role Phone Markel White MD Primary Care Provider [phone] Encounter Details Date Type Department Care Team (Late st Contact Info) Description 10/20/2018 Telephone [facility] [address] [address] Kt Hemphill MD [address] [facility] [address] [place] [address] Social History Tobacco Use Types Packs/Day Years Used Date Smoking Tobacco: Former Smokeless Tobacco: Never Alcohol Use Standard Drinks/Week Comments No 0 (1 standard drink = 0.6 oz pur e alcohol) Sex and Gender Information Value Date Recorded Sex Assigned at Not on file 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 Barth phone # [phone] & faxed # [phone]. * Telephone Encounter - Beatriz Whelan RN - 10/20/2018 8:36 AM CDT Spoke to pt; Made aware that he did not require antibiotics from a cardiac perspective, and that the dental office would need to prescribe if they feel he needs them. Pt states he started holding hisplavix yesterday per dental office request. Advised he should never hold AC without permission fromthe fan blade aligner; He voiced understanding. Pt made aware that he is at risk for re- stenosis, [place] andCVA. Will forward to DK to make aware. Pt states his dental extraction is Saturday of this week. * Telephone Encounter - Teetee Strange - 10/20/2018 8:05 AM CDT Pt is scheduled to have a extraction on Sat10/22/18, pt is requesting for a antibiotic to be calledin to [facility] [facility] [phone]. documented in this encounter Plan of Treatment Not on file documented as of this encounter Visit Diagnoses Not on filedocumented in this encounter Care Teams Skin Grader Relationship Specialty Start Date End Date Markel White MD [address] [facility] [address] MED[address] [place] [id number] PCP - General 10/26/16 06/16/19 documented as of this encounter
--- OUTSIDE RECORDS SUMMARY | 2024-08-02 01:59 | XMS_ITS | Encounter Summary ---
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 with an episode of chest pain. He [...] CDT CONSULTATION REPORT Patient: MARCIE HOOVER Account: [id number] Room No: 2CVU-03 : 1960 Patient Type: IP Attending: Shannan Rojas M.D. Admit Date: 01/19/2013 Consult.: Abdirashid Balbuena M.D. Disch. Date: CRITICAL CARE CONSULT DATE OF SERVICE: January 21, 2013 This is a 52-year-old white male, a smoker, with a history of hypertension, dyslipidemia, hypothyroidism who presented to [facility] with a non-ST elevated myocardial infarction. The patient went on to have a cardiac catheterization which revealed a left main 50%, LAD 80%, diagonal 50 to 70%, circumflex 75 to 80%, and an ejection fraction of 35%. The patient was transferred to [facility] for bypass surgery. Today the patient had [...] are palpable and equal on both sides. VICE PRESIDENT EDUCATION examination: The patient is awake and moving [...] you for this consultation. Abdirashid Balbuena M.D. [facility]/eden TD: 01/21/2013 19:54 Authenticated by Abdirashid Balbuena MD On 01/30/2013 10:06:31 AM * Provider, MD Diego - 01/19/2013 12:00 AM CDT CONSULTATION REPORT Patient: MARCIE HOOVER Account: [id number] Room No: 921-01 : 1960 Patient Type: [...] he presented to the emergency room at [facility] in [place] where he ruled in for a non-Q-wave GA. The patient was admitted and started on anticoagulation in the form of full-dose Lovenox. Started also on some Plavix and was taken to the seed laboratory assistant this morning after an uneventful weekend stay. [...] CDT OPERATIVE REPORT Patient: MARCIE HOOVER Account: [id number] Room No: 2CVU-03 : 1960 Patient Type: [...] first obtuse marginal in a sequential fashion. MOTEL FRONT DESK CLERK: Dr. Salcedo. ANESTHESIA: General. INDICATIONS: This is a 52-year-old male who presented to the hospital at [place] with prolonged episode of chest pain. He [...] artery was opened up longitudinally and a chfq-nn-evay crossing josé shaped anastomosis was created between [...] 24 hours of surgery. Irving Stevens M.D. NM/sc TD: 01/21/2013 17:56 CC: Shannan Rojas M.D. [...] HISTORICAL RESULTS Comment: If this individual is -Romanian, multiply result by 1.21 Repeated results of [...] OF EXAM: ??Jan 24 2013 10:00PM Acc#: ??[id number] ??EDX 0167 - XR Chest 2 Views [...] OFELIA ON THE FLOOR, WAS NOTIFIED. ?? SOCIAL AND POLITICAL STUDIES PROFESSOR: ??DD2 TRANSCRIBE DATE/TIME: ??Jan 25 2013 11:13A RADIOLOGIST: ??ISHA MURPHY M.D. ??READ ON: ??Jan 25 2013 11:10A ORDERING DR: JAZZ SALCEDO M.D. THIS DOCUMENT HAS BEEN ELECTRONICALLY SIGNED BY: ??ISHA MURPHY M.D. ??ON: ??Jan 25 2013 11:51A Procedure Note Provider, Diego, - 01/04/2017 DATE OF EXAM: Jan 24 2013 10:00PM Acc#: [id number] EDX 0167 - XR Chest 2 Views [...] NURSE, OFELIA ON THE FLOOR, WAS NOTIFIED. SOCIAL AND POLITICAL STUDIES PROFESSOR: DD2 TRANSCRIBE DATE/TIME: Jan 25 2013 11:13A [...] IMAGING PRELIMINARY RESULT PATIENT: MARCIE HOOVER MR#: [id number] : [id number] SEX: ??M Procedure: ECXR2V XR Chest 2 Views ?? Exam Date: Acc#: [id number] Pt_Class: I ? Priority: ??RTN Reason: post [...] IMAGING PRELIMINARY RESULT PATIENT: MARCIE HOOVER MR#: [id number] : [id number] SEX: M Procedure: ECXR2V XR Chest 2 Views Exam Date: Acc#: [id number] Pt_Class: I Priority: RTN Reason: post chest [...] OF EXAM: ??Jan 24 2013 ??8:33AM Acc#: ??[id number] ??EDX 0031 - XR Chest Portable ?? [...] DECREASED LEFT BASILAR ATELECTASIS OR INFILTRATE. ? SOCIAL AND POLITICAL STUDIES PROFESSOR: ??DD2 TRANSCRIBE DATE/TIME: ??Jan 24 2013 ??9:40A RADIOLOGIST: ??MARC HAYES M.D. ??READ ON: ??Jan 24 2013 ??8:34A ORDERING DR: BEATIRZ GARCIA A.P.R.N. THIS DOCUMENT HAS BEEN ELECTRONICALLY SIGNED BY: ??MARC HAYES M.D. ??ON: ??Jan 24 2013 ??9:48A Procedure Note Provider, MD Diego - 12/03/2016 DATE OF EXAM: Jan 24 2013 8:33AM Acc#: [id number] EDX 0031 - XR Chest Portable DIAGNOSIS: [...] WITH DECREASED LEFT BASILAR ATELECTASIS OR INFILTRATE. SOCIAL AND POLITICAL STUDIES PROFESSOR: CAMILA TRANSCRIBE DATE/TIME: Jan 24 2013 9:40A [...] ORDERABLES Final R esult Performing Organization Address [facility] Co de Phone Number HISTORICAL RESULTS * Plasma prothrombin time (PT) (01/24/2013 4:21 AM CDT) Prothrombin time (PT) 13.7 11.5 - 15.5 seconds HISTORICAL RESULTS INR 1.06 0.81 - 1.21 HISTORIC AL RESULTS Plasma 01/24/2013 4:21 AM CDT Beatriz Garcia VICE PRESIDENT EDUCATION LAB BLOOD ORDERABLES Fin al Result Performing Organization Address [facility] de Phone Number HISTORICAL RESULTS * Plasma partial thromboplastin time (PTT) (01/24/2013 4:21 AM CDT) APTT 25.6 21.5 - 39.0 seconds HISTORICAL RESULTS Plasma 01/24/2013 4:21 AM CDT Beatriz Garcia VICE PRESIDENT EDUCATION LAB BLOOD ORDERABLES Fin al Result Performing Organization Address [facility] Co de Phone Number HISTORICAL RESULTS [...] HISTORICAL RESULTS Comment: If this individual is -Romanian, multiply result by 1.21 Repeated results of less than 60 is indicative of chronic kidney disease. MDRD formula has not been validated on individuals greater than 70 years old. Plasma 01/24/2013 4:21 AM CDT Beatriz LTamara [employer] VICE PRESIDENT EDUCATION LAB BLOOD ORDERABLES Fin al Result Performing Organization Address City/[facility] Co de Phone Number HISTORICAL RESULTS * Plasma magnesium (01/24/2013 4:21 AM CDT) Magnesium 2.0 1.8 - 2.6 mg/dl HISTORICAL RESULTS Plasma 01/24/2013 4:21 AM CDT Beatriz L[employer] LAB BLOOD ORDERABLES Fin al Result Performing Organization Address [place]/[facility] Co de Phone Number HISTORICAL RESULTS [...] OF EXAM: ??Jan 23 2013 11:01AM Acc#: ??[id number] ??EDX 0031 - XR Chest Portable ?? [...] ATELECTASIS OR INFILTRATE WITH PERSISTENT CARDIOMEGALY. ?? SOCIAL AND POLITICAL STUDIES PROFESSOR: ??DD2 TRANSCRIBE DATE/TIME: ??Jan 23 2013 12:27P RADIOLOGIST: ??MARC HAYES M.D. ??READ ON: ??Jan 23 2013 11:04A ORDERING DR: BEATRIZ GARCIA A.P.R.N. THIS DOCUMENT HAS BEEN ELECTRONICALLY SIGNED BY: ??MARC HAYES M.D. ??ON: ??Jan 23 2013 ??2:45P Procedure Note Provider, MD Diego - 12/03/2016 DATE OF EXAM: Jan 23 2013 11:01AM Acc#: [id number] EDX 0031 - XR Chest Portable DIAGNOSIS: [...] BASILAR ATELECTASIS OR INFILTRATE WITH PERSISTENT CARDIOMEGALY. SOCIAL AND POLITICAL STUDIES PROFESSOR: DD2 TRANSCRIBE DATE/TIME: Jan 23 2013 12:27P [...] HISTORICAL RESULTS Comment: If this individual is -Romanian, multiply result by 1.21 Repeated results of less than 60 is indicative of chronic kidney disease. MDRD formula has not been validated on individuals greater than 70 years old. Plasma 01/23/2013 4:44 AM CDT Irving Stevens MD LAB BLOOD ORDERABLES Final R esult Performing Organization Address [facility] de Phone Number HISTORICAL RESULTS * (ABNORMAL) Blood glucose, POC (01/22/2013 5:12 PM CDT) Glucose, POC, bld 118(H) 70 - 99 mg/dl HISTORICAL RESULTS Blood specimen (specimen) 01/22/2013 5:12 PM CDT Shannan Rojas LAB BLOOD ORDERABLES Final Res ult Performing Organization Address [facility] de Phone Number HISTORICAL RESULTS * (ABNORMAL) Blood glucose, POC (01/22/2013 12:22 PM CDT) Glucose, POC, bld 141(H) 70 - 99 mg/dl HISTORICAL RESULTS Blood specimen (specimen) 01/22/2013 12:22 PM CDT us Shannan Rojas LAB BLOOD ORDERABLES Final Res ult Performing Organization Address [facility] de Phone Number HISTORICAL RESULTS * (ABNORMAL) Blood glucose, POC (01/22/2013 7:33 AM CDT) Glucose, POC, bld 125(H) 70 - 99 mg/dl HISTORICAL RESULTS Blood specimen (specimen) 01/22/2013 7:33 AM CDT Shannan Rojas LAB BLOOD ORDERABLES Final Res ult Performing Organization Address [facility] de Phone Number HISTORICAL RESULTS * XR Chest 1 Vw (01/22/2013 6:15 AM CDT) Anatomical Region Laterality Modality Body, Chest N/A Radiographic Deb ging 01/22/2013 6:15 AM CDT Narrative 01/22/2013 11:54 AM CDT DATE OF EXAM: ??Jan 22 2013 ??6:15AM Acc#: ??[id number] ??EDX 0031 - XR Chest Portable ?? DIAGNOSIS: ??MVD/CAD CLINICAL HISTORY: ?? Post Op Heart Surgery, Check Line Cleve... ?? RESULT: \ PORTABLE CHEST, 01/22/13 HISTORY: ?? Mitral valve disease post surgery 52 year-old man. Compared with the study of the prior day, the patient is extubated wit removal of the endotracheal and nasogastric tubes. Cleghorn-Ruddy ??catheter has its tip in the pulmonary outflow tract. ??Left sided chest tube remains in place without a significant pneumothorax. ??Some residual opacification of the left lung base probably atelectatic in nature. ?? There is no failure. The right lung is clear. ?? IMPRESSION: ?\ EXTUBATION OF THE PATIENT. ??ATELECTASIS LEFT BASE. ?? SOCIAL AND POLITICAL STUDIES PROFESSOR: ??SP8 TRANSCRIBE DATE/TIME: ??Jan 22 2013 11:02A RADIOLOGIST: ??NICOLÁS KLEIN M.D. ??READ ON: ??Jan 22 2013 ??9:15A ORDERING DR: IRVING STEVENS M.D. THIS DOCUMENT HAS BEEN ELECTRONICALLY SIGNED BY: ??NICOLÁS KLEIN M.D. ??ON: ??Jan 22 2013 11:53A Procedure Note Provider, MD Diego - 12/03/2016 DATE OF EXAM: Jan 22 2013 6:15AM Acc#: [id number] EDX 0031 - XR Chest Portable DIAGNOSIS: MVD/CAD CLINICAL HISTORY: Post Op Heart Surgery, Check Line Cleve... RESULT: \ PORTABLE CHEST, 01/22/13 HISTORY: Mitral valve disease post surgery 52 year-old man. Compared with the study of the prior day, the patient is extubated wit removal of the endotracheal and nasogastric tubes. Cleghorn-Ruddy catheter has its tip in the pulmonary outflow tract. Left sided chest tube remains in place without a significant pneumothorax. Some residual opacification of the left lung base probably atelectatic in nature. There is no failure. The right lung is clear. IMPRESSION: \ EXTUBATION OF THE PATIENT. ATELECTASIS LEFT BASE. SOCIAL AND POLITICAL STUDIES PROFESSOR: CHESTER8 TRANSCRIBE DATE/TIME: Jan 22 2013 11:02A [...] time (PT) (01/22/2013 4:15 AM CDT) Pathologist [facility] Prothrombin time (PT) 15.2 11.5 - 15.5 seconds HISTORICAL RESULTS INR 1.21 0.81 - 1.21 HISTORIC AL RESULTS Plasma 01/22/2013 4:15 AM CDT Result [facility] Irving Stevens MD LAB BLOOD ORDERABLES Final R esult Performing Organization Address [facility] de Phone Number HISTORICAL RESULTS * (ABNORMAL) Blood glucose, POC (01/22/2013 4:08 AM CDT) [facility] Glucose, POC, bld 169(H) 70 - 99 mg/dl HISTORICAL RESULTS Blood specimen (specimen) 01/22/2013 4:08 AM CDT Result [facility] Shannan Rojas LAB BLOOD ORDERABLES Final Res ult Performing Organization Address [facility] de Phone Number HISTORICAL RESULTS * (ABNORMAL) Blood glucose, POC (01/21/2013 11:45 PM CDT) [facility] Glucose, POC, bld 150(H) 70 - 99 mg/dl HISTORICAL RESULTS Blood specimen (specimen) 01/21/2013 11:45 PM CDT Result [facility] Shannan Rojas LAB BLOOD ORDERABLES Final Res ult Performing Organization Address [facility] de Phone Number HISTORICAL RESULTS * Plasma potassium (01/21/2013 11:00 PM CDT) Pathologist [facility] K, pl 4.2 3.5 - 5.1 mmol/L HISTORICAL RESULTS Plasma 01/21/2013 11:0 0 PM CDT Result [facility] Irving Stevens MD LAB BLOOD ORDERABLES Final R esult Performing Organization Address [facility] Co de Phone Number HISTORICAL RESULTS * (ABNORMAL) Blood hematocrit (01/21/2013 10:33 PM CDT) Hct 28.8(L) 40.0 - 54.0 % HISTORICAL RESULTS Blood specimen (specimen) 01/21/2013 10:33 PM CDT Irving Stevens MD LAB BLOOD ORDERABLES Final R esult Performing Organization Address [facility] de Phone Number HISTORICAL RESULTS * (ABNORMAL) Blood glucose, POC (01/21/2013 8:17 PM CDT) Pathologist [facility] Glucose, POC, bld 147(H) 70 - 99 mg/dl HISTORICAL RESULTS Blood specimen (specimen) 01/21/2013 8:17 PM CDT Shannan Rojas LAB BLOOD ORDERABLES Final Res ult Performing Organization Address [facility] de Phone Number HISTORICAL RESULTS * (ABNORMAL) Blood glucose, POC (01/21/2013 6:13 PM CDT) Pathologist [facility] Glucose, POC, bld 150(H) 70 - 99 mg/dl HISTORICAL RESULTS Blood specimen (specimen) 01/21/2013 6:13 PM CDT Shannan Rojas LAB BLOOD ORDERABLES Final Res ult Performing Organization Address [facility] de Phone Number HISTORICAL RESULTS * [...] ORDERABLES Final R esult Performing Organization Address [facility] de Phone Number HISTORICAL RESULTS * Blood calcium, ionized (01/21/2013 5:54 PM CDT) Ca, ionized, bld, calc, bld 4.91 4.60 - 5.20 mg/dl HISTORICAL RESULTS Blood specimen (specimen) 01/21/2013 5:54 PM CDT Irving Stevens MD LAB BLOOD ORDERABLES Final R esult Performing Organization Address [facility] de Phone Number HISTORICAL RESULTS * [...] HISTORICAL RESULTS Comment: If this individual is -Romanian, multiply result by 1.21 Repeated results of less than 60 is indicative of chronic kidney disease. MDRD formula has not been validated on individuals greater than 70 years old. Plasma 01/21/2013 5:54 PM CDT Irving Stevens MD LAB BLOOD ORDERABLES Final R esult Performing Organization Address [facility] de Phone Number HISTORICAL RESULTS * (ABNORMAL) Blood glucose, POC (01/21/2013 5:31 PM CDT) Glucose, POC, bld 140(H) 70 - 99 mg/dl HISTORICAL RESULTS Blood specimen (specimen) 01/21/2013 5:31 PM CDT us Shannan Rojas LAB BLOOD ORDERABLES Final Res ult Performing Organization Address [facility] de Phone Number HISTORICAL RESULTS * (ABNORMAL) [...] ORDERABLES Final R esult Performing Organization Address [facility] de Phone Number HISTORICAL RESULTS * (ABNORMAL) Blood glucose, POC (01/21/2013 4:12 PM CDT) Glucose, POC, bld 143(H) 70 - 99 mg/dl HISTORICAL RESULTS Blood specimen (specimen) 01/21/2013 4:12 PM CDT us Shannan Rojas LAB BLOOD ORDERABLES Final Res ult Performing Organization Address [facility]/ZIP Co de Phone Number HISTORICAL RESULTS * (ABNORMAL) Blood glucose, POC (01/21/2013 3:05 PM CDT) Glucose, POC, bld 143(H) 70 - 99 mg/dl HISTORICAL RESULTS Blood specimen (specimen) 01/21/2013 3:05 PM CDT us Shannan Rojas LAB BLOOD ORDERABLES Final Res ult Performing Organization Address [facility] Co de Phone Number HISTORICAL RESULTS [...] ORDERABLES Final R esult Performing Organization Address [facility] Co de Phone Number HISTORICAL RESULTS * (ABNORMAL) Blood calcium, ionized (01/21/2013 3:00 PM CDT) Ca, ionized, bld, calc, bld 4.50(L) 4.60 - 5.20 mg/dl HISTORICAL RESULTS Blood specimen (specimen) 01/21/2013 3:00 PM CDT Irving Stevens MD LAB BLOOD ORDERABLES Final R esult Performing Organization Address [place]/[facility]/ZIP Co de Phone Number HISTORICAL RESULTS * [...] ORDERABLES Final Res ult Performing Organization Address [facility]/State/ZIP Co de Phone Number HISTORICAL RESULTS * PRE-PRELIMINARY DIAGNOSTIC REPORT (01/21/2013 1:14 PM CDT) Anatomical Region Laterality Modality N/A Radiographic Deb ging 01/21/2013 1:14 PM CDT Narrative 01/21/2013 1:27 PM CDT ED IMAGING PRELIMINARY RESULT PATIENT: MARCIE HOOVER MR#: [id number] : [id number] SEX: ??M Procedure: ECXR1P XR Chest Portable ?? Exam Date: Acc#: [id number] Pt_Class: I ? Priority: ??STAT Reason: Post [...] IMAGING PRELIMINARY RESULT PATIENT: MARCIE HOOVER MR#: [id number] : [id number] SEX: M Procedure: ECXR1P XR Chest Portable Exam Date: Acc#: [id number] Pt_Class: I Priority: STAT Reason: Post Op [...] OF EXAM: ??Jan 21 2013 ??1:14PM Acc#: ??[id number] ??EDX 0031 - XR Chest Portable ?? DIAGNOSIS: ??MVD/CAD CLINICAL HISTORY: ?? Post Op Heart Surgery, Check Line Cleve... ?? RESULT: \ EXAMINATION: ??AP PORTABLE CHEST RADIOGRAPH. FINDINGS: ??Comparison is made to the radiographic examination dated 01/20/2013. ?? The lungs are free of acute peripheral opacities. A tymgw-xj-pfocvruc left pleural effusion obscures the left hemidiaphragm. [...] of thoracotomy. ??A right internal jugular vein Cleghorn-Ruddy catheter terminates in the region of the main right pulmonary artery. IMPRESSION: ?\ 1. ??[id number]-TM-[id number] LEFT PLEURAL EFFUSION. 2. ??RETROCARDIAC OPACITY, LIKELY LEFT LOWER LOBE ??ATELECTASIS. 3. ??POST SURGICAL CHANGES WITHOUT EVIDENCE OF PNEUMOTHORAX, ABOVE. ? SOCIAL AND POLITICAL STUDIES PROFESSOR: ??ABBE TRANSCRIBE DATE/TIME: ??Jan 21 2013 ??1:32P RADIOLOGIST: ??WILL HOU M.D. ??READ ON: ??Jan 21 2013 ??1:28P ORDERING DR: IRVING STEVENS M.D. THIS DOCUMENT HAS BEEN ELECTRONICALLY SIGNED BY: ??WILL HOU M.D. ??ON: ??Jan 21 2013 ??1:37P Procedure Note Provider, MD Diego - 12/03/2016 DATE OF EXAM: Jan 21 2013 1:14PM Acc#: [id number] EDX 0031 - XR Chest Portable DIAGNOSIS: MVD/CAD CLINICAL HISTORY: Post Op Heart Surgery, Check Line Cleve... RESULT: \ EXAMINATION: AP PORTABLE CHEST RADIOGRAPH. FINDINGS: Comparison is made to the radiographic examination dated 01/20/2013. The lungs are free of acute peripheral opacities. A dtrxq-qa-odymlrhv left pleural effusion obscures the left hemidiaphragm. [...] of thoracotomy. A right internal jugular vein Cleghorn-Ruddy catheter terminates in the region of the main right pulmonary artery. IMPRESSION: \ 1. GXVZY-YZ-[id number] LEFT PLEURAL EFFUSION. 2. RETROCARDIAC OPACITY, LIKELY LEFT LOWER LOBE ATELECTASIS. 3. POST SURGICAL CHANGES WITHOUT EVIDENCE OF PNEUMOTHORAX, ABOVE. SOCIAL AND POLITICAL STUDIES PROFESSOR: ABBE TRANSCRIBE DATE/TIME: Jan 21 2013 1:32P [...] 01/21/2013 1:00 PM CDT Result [facility] us Irving Stevens MD LAB BLOOD ORDERABLES Final R esult Performing Organization Address [facility] de Phone Number HISTORICAL RESULTS * (ABNORMAL) Plasma prothrombin time (PT) (01/21/2013 1:00 PM CDT) Prothrombin time (PT) 15.8(H) 11.5 - 15.5 seconds HISTORICAL RESULTS INR 1.27(H) 0.81 - 1.21 HISTORIC AL RESULTS Plasma 01/21/2013 1:00 PM CDT Result [facility] Irving Stevens MD LAB BLOOD ORDERABLES Final R [facility] Performing Organization Address [facility] de Phone Number HISTORICAL RESULTS * Plasma partial thromboplastin time (PTT) (01/21/2013 1:00 PM CDT) APTT 33.5 21.5 - 39.0 seconds HISTORICAL RESULTS Plasma 01/21/2013 1:00 PM CDT Result [facility] Irving Stevens MD LAB BLOOD ORDERABLES Final R [facility] Performing Organization Address [facility] de Phone Number HISTORICAL RESULTS * (ABNORMAL) Blood calcium, ionized (01/21/2013 1:00 PM CDT) Ca, ionized, bld, calc, bld 3.89(L) 4.60 - 5.20 mg/dl HISTORICAL RESULTS Blood specimen (specimen) 01/21/2013 1:00 PM CDT Result [facility] Irving Stevens MD LAB BLOOD ORDERABLES Final R esult Performing Organization Address [facility] de Phone Number HISTORICAL RESULTS * [...] Stevens MD LAB BLOOD ORDERABLES Final R [employer] Performing Organization Address [facility] de Phone Number HISTORICAL RESULTS * (ABNORMAL) Plasma basic metabolic panel (01/21/2013 1:00 PM CDT) Pathologist [facility] BUN 13 8 - 24 [...] HISTORICAL RESULTS Comment: If this individual is -Romanian, multiply result by 1.21 Repeated results of less than 60 is indicative of chronic kidney disease. MDRD formula has not been validated on individuals greater than 70 years old. Plasma 01/21/2013 1:00 PM CDT Irving Stevens MD LAB BLOOD ORDERABLES Final R esult Performing Organization Address [facility] Co de Phone Number HISTORICAL RESULTS * (ABNORMAL) Blood glucose, POC (01/21/2013 12:32 PM CDT) Glucose, POC, bld 108(H) 70 - 99 mg/dl HISTORICAL RESULTS Blood specimen (specimen) 01/21/2013 12:32 PM CDT us Shannan Rojas LAB BLOOD ORDERABLES Final Res ult Performing Organization Address [facility] Co de Phone Number HISTORICAL RESULTS * (ABNORMAL) Blood glucose, POC (01/21/2013 11:46 AM CDT) Glucose, POC, bld 131(H) 70 - 99 mg/dl HISTORICAL RESULTS Blood specimen (specimen) 01/21/2013 11:46 AM CDT us Shannan Rojas LAB BLOOD ORDERABLES Final Res ult Performing Organization Address [facility] Co de Phone Number HISTORICAL RESULTS * (ABNORMAL) Blood glucose, POC (01/21/2013 11:05 AM CDT) Glucose, POC, bld 154(H) 70 - 99 mg/dl HISTORICAL RESULTS Blood specimen (specimen) 01/21/2013 11:05 AM CDT us Shannan Rojas LAB BLOOD ORDERABLES Final Res ult Performing Organization Address [facility] Co de Phone Number HISTORICAL RESULTS [...] ORDERABLES Final Res ult Performing Organization Address [facility]/State/ZIP Co de Phone Number HISTORICAL RESULTS [...] Plasma 01/21/2013 5:00 AM CDT Beatriz OchoaTamara [employer] LAB BLOOD ORDERABLES Fin al Result Performing Organization Address [facility] de Phone Number HISTORICAL RESULTS * (ABNORMAL) Plasma partial thromboplastin time (PTT) (01/20/2013 6:47 PM CDT) APTT 55.5(H) 21.5 - 39.0 seconds HISTORICAL RESULTS Plasma 01/20/2013 6:47 PM CDT Beatriz OchoaTamara [employer] LAB BLOOD ORDERABLES Fin al Result Performing Organization Address [facility] de Phone Number HISTORICAL RESULTS * [...] 01/20/2013 12:3 0 PM CDT Beatriz OchoaTamara [employer] VICE PRESIDENT EDUCATION LAB BLOOD ORDERABLES Fin al Result Performing Organization Address [facility] de Phone Number HISTORICAL RESULTS * Blood ABO, Rh, indirect ab screen (01/20/2013 12:00 PM CDT) ABO, Rho(D) A HISTORIC AL RESULTS Rho(D) typing Positive HISTOR ICAL RESULTS Kaley, indirect Negative HISTORICAL RESULTS Blood specimen (specimen) 01/20/2013 12:00 PM CDT Beatriz Garcia VICE PRESIDENT EDUCATION LAB BLOOD ORDERABLES Fin al Result Performing Organization Address [facility] de Phone Number HISTORICAL RESULTS * (ABNORMAL) Plasma partial thromboplastin time (PTT) (01/20/2013 11:59 AM CDT) APTT 65.5(H) 21.5 - 39.0 seconds HISTORICAL RESULTS Plasma 01/20/2013 11:5 9 AM CDT Serge Arceo MD LAB BLOOD ORDERABLES Fin al Result Performing Organization Address [facility] de Phone Number HISTORICAL RESULTS * XR Chest Pa Lateral 2 Views (01/20/2013 10:44 AM CDT) Anatomical Region Laterality Modality Body, Chest N/A Radiographic Deb ging 01/20/2013 10:4 4 AM CDT Narrative 01/20/2013 12:01 PM CDT DATE OF EXAM: ??Jan 20 2013 10:44AM Acc#: ??[id number] ??EDX 0167 - XR Chest 2 Views ?? DIAGNOSIS: ??MVD/CAD CLINICAL HISTORY: ?? GA, CP ?? RESULT: \ CHEST, PA AND [...] IMPRESSION: ?\ NO ACUTE INTRATHORACIC PROCESS. ? SOCIAL AND POLITICAL STUDIES PROFESSOR: ??SP8 TRANSCRIBE DATE/TIME: ??Jan 20 2013 11:08A RADIOLOGIST: ??TAWANNA GOMES M.D. ??READ ON: ??Jan 20 2013 10:46A ORDERING DR: SERGE ARCEO M.D. THIS DOCUMENT HAS BEEN ELECTRONICALLY SIGNED BY: ??TAWANNA GOMES M.D. ??ON: ??Jan 20 2013 12:01P Procedure Note Provider, Diego, - 01/04/2017 DATE OF EXAM: Jan 20 2013 10:44AM Acc#: [id number] EDX 0167 - XR Chest 2 Views DIAGNOSIS: MVD/CAD CLINICAL HISTORY: GA, CP RESULT: \ CHEST, PA AND LATERAL, [...] appropriate. IMPRESSION: \ NO ACUTE INTRATHORACIC PROCESS. SOCIAL AND POLITICAL STUDIES PROFESSOR: SP8 TRANSCRIBE DATE/TIME: Jan 20 2013 11:08A [...] 01/20/2013 11:56 AM CDT Test performed at [facility], [address] [place] [address], [facility], [id number]. [place] Beatriz Garcia VICE PRESIDENT EDUCATION LAB BLOOD ORDERABLES Fin al Result HISTORICAL [...] ORDERABLES Fin al Result Performing Organization Address [facility] de Phone Number HISTORICAL RESULTS * (ABNORMAL) Plasma partial thromboplastin time (PTT) (01/20/2013 5:37 AM CDT) APTT 88.9(H) 21.5 - 39.0 seconds HISTORICAL RESULTS Plasma 01/20/2013 5:37 AM CDT Serge Arceo MD LAB BLOOD ORDERABLES Fin al Result Performing Organization Address [facility] de Phone Number HISTORICAL RESULTS * (ABNORMAL) Plasma basic metabolic panel (01/20/2013 5:37 AM CDT) BUN 16 8 - 24 mg/dl HISTORICAL RESULTS eGFR 76 90 - 200 ml/min/1.7 3 m2 HISTORICAL RESULTS Comment: If this individual is -Romanian, multiply result by 1.21 Repeated results of [...] off this am blood work... Beatriz Garcia VICE PRESIDENT EDUCATION LAB BLOOD ORDERABLES Fin al Result Performing Organization Address [facility] de Phone Number HISTORICAL RESULTS * (ABNORMAL) Plasma comprehensive metabolic panel (01/20/2013 12:37 AM CDT) Pathologist [facility] BUN 15 8 - 24 [...] off this am blood work Beatriz Garcia VICE PRESIDENT EDUCATION LAB BLOOD ORDERABLES Fin al Result HISTORICAL RESULTS * Plasma magnesium (01/20/2013 12:37 AM CDT) Magnesium 2.0 1.8 - 2.6 mg/dl HISTORICAL RESULTS Plasma 01/20/2013 12:3 7 AM CDT Narrative HISTORICAL RESULTS - 01/20/2013 4:39 AM CDT ...please run off this am blood work us Beatriz Garcia VICE PRESIDENT EDUCATION LAB BLOOD ORDERABLES Fin al Result Performing Organization Address [facility] Co de Phone Number HISTORICAL RESULTS * Urine Microbiology (01/20/2013 12:00 AM CDT) 01/20/2013 Narrative HISTORICAL RESULTS - 01/25/2013 3:53 PM CDT [facility] ?Patient Name: ?MARCIE HOOVER ?Med. Rec#: ?? [id number] ?Pt. Acct.#: ??[id number] ?Birthdate: ?? 1960 ?Age / Sex: ?? 52Y / M ?Location: ?[facility] ([facility]) ?Admit Date: ??01/19/2013 ?Discharge Date: ? 01/25/2013 ?Doctor: ?Shannan Rojas MD ?Patient Type: ?[facility] Inpatient Culture, Urine ? Collected: 01/20/2013 12:30 Specimen: Urine ?? Specimen Source: Clean Voided Specimen Status: Final ??Last Update: 01/22/2013 10:10 Organism ?? Less than 10,000 cfu/ml of ?? multiple Gram positive organisms Comment ? This culture result is consistent with contamination ?? by normal genital-perineal shila. [facility] Provider LAB MICROBIOLOGY - GENERA L ORDERABLES Final Result Performing Organization Address [facility] de Phone Number HISTORICAL RESULTS * ELECTROCARDIOGRAPHY (ECG) (01/20/2013) Narrative 01/20/2013 Ordered by an unspecified provider. Historical Provider ECG ORDERABLES Final Res ult * (ABNORMAL) Plasma partial thromboplastin time (PTT) (01/19/2013 11:44 PM CDT) APTT 63.8(H) 21.5 - 39.0 seconds HISTORICAL RESULTS Plasma 01/19/2013 11:4 4 PM CDT Result [facility] Serge Arceo MD LAB BLOOD ORDERABLES Fin al Result Performing Organization Address [facility] de Phone Number HISTORICAL RESULTS * Plasma partial thromboplastin time (PTT) (01/19/2013 11:35 AM CDT) APTT 34.2 21.5 - 39.0 seconds HISTORICAL RESULTS Plasma 01/19/2013 11:3 5 AM CDT Narrative HISTORICAL RESULTS - 01/19/2013 11:49 AM CDT Prior to initiation of infusion Result [facility] Serge Arceo MD LAB BLOOD ORDERABLES Fin al Result Performing Organization Address [facility] de Phone Number HISTORICAL RESULTS * Transthoracic Echo Complete W Doppler/CF WO Contrast (01/19/2013 12:00 AM CDT) Anatomical Region Laterality Modality Ultrasound Narrative 01/19/2013 12:00 AM CDT Ordered by an unspecified provider. Procedure Note Provider, MD Diego - 09/24/2018 Ordered by an unspecified provider. us Historical Provider CV ECHO PROCEDURES Final Result documented in this encounter Visit Diagnoses Diagnosis Coronary atherosclerosis of [place] coronary artery Acute subendocardial infarction, initial episode [...]
== END 2024-07-26 02:53 | disposition home or self-care (01) ==
PROVIDERS: Physician Assistant; Emergency Provider Emergency Medicine; PCP Nurse Practitioner
DX: M62.830 Muscle spasm of back (principal); Z79.82 Long term (current) use of aspirin; I25.10 Atherosclerotic heart disease of native coronary artery without angina pectoris; E11.9 Type 2 diabetes mellitus without complications; K21.9 Gastro-esophageal reflux disease without esophagitis; E78.5 Hyperlipidemia, unspecified; E03.9 Hypothyroidism, unspecified; I10 Essential (primary) hypertension; I25.2 Old myocardial infarction; Z87.891 Personal history of nicotine dependence
CPT/HCPCS: 81003; 96372; 99283; A9270; J3360